=== PATIENT | male | born 1960 | race Caucasian/White ===

== ENCOUNTER 2017-12-19 12:34 | Inpatient (IN) | payer MEDICARE, OTHER ==
[~2017-12-19] VITALS: Ht 180.3 cm; Wt 62.6 kg
[~2017-12-19 12:34] MED LIST: ALBUTEROL SULF8.5 GM INH; AZITHROMYCIN250 MG PO; BACTRIM DS TAB1 EACH PO; CARDIZEM60 MG PO; CATAPRES-TTS 31 EA TD; DIAZEPAM5 MG PO; DIFLUCAN150 MG PO; DILTIAZEM 24HR180 MG; DILTIAZEM HCL60 MG PO; HYDRALAZINE HC100 MG PO; HYDROCHLOROTHIA25 MG PO; LEVAQUIN500 MG PO; NIFEDIPINE XL30 MG PO; NORCO 10-325 T1 EACH PO; PANTOPRAZOLE SO40 MG PO; PREDNISONE5 MG PO; PROMETHAZINE HC25 M1 PO; TOPROL XL25 MG PO; TOPROL XL50 MG PO; UNKNOWN BP MEDS; VASOTEC5 MG PO
[2017-12-19] MEDS ORDERED: ONDANSETRON HCL INJ 2 MG/ML VIAL IV STA (12:49)
[2017-12-19 13:04] LABS: BASOPHILS % 0.4 % (0.0-1.0); EOSINOPHILS # (AUTO) 0.1 (0.0-0.4); EOSINOPHILS % 1.5 % (0.0-6.0); HEMATOCRIT 48.5 % (38.2-49.6); HEMOGLOBIN 16.4 g/dL (14.0-18.0); LYMPHOCYTES # (AUTO) 1.9 (1.0-3.2); LYMPHOCYTES % 19.9 % (18.0-39.1); MEAN CORPUSCULAR HEMOGLOBIN 30.6 pg (28-32); MEAN CORPUSCULAR HGB CONC 33.8 g/dL (31-35); MEAN CORPUSCULAR VOLUME 90.5 fL (81-99); MONOCYTES # (AUTO) 0.6 (0.2-0.8); MONOCYTES % 6.7 % (4.4-11.3); NEUTROPHILS # (AUTO) 6.7 (2.1-6.9); NEUTROPHILS % 71.1 % (38.7-80.0); PLATELET COUNT 306 x10e3/uL (140-360); RED BLOOD COUNT 5.36 x10e6/uL (4.3-5.7); RED CELL DISTRIBUTION WIDTH 13.2 % (11.7-14.4)
[2017-12-19 13:08] LABS: INR 1.08; PROTHROMBIN TIME 13.2 seconds (11.9-14.5)
[2017-12-19 13:19] LABS: ALANINE AMINOTRANSFERASE 21 IU/L (0-55); ALKALINE PHOSPHATASE 62 IU/L (40-150); BLOOD UREA NITROGEN 24 mg/dL (7-26); BUN/CREATININE RATIO 24 (6-25); CALCIUM 10.2 mg/dL (8.4-10.2); CARBON DIOXIDE 24 mmol/L (22-29); CHLORIDE 104 mmol/L (98-107); CREATINE KINASE 79 IU/L (30-200); CREATININE, SERUM 0.99 mg/dL (0.72-1.25); EST GLOMERULAR FILTRATION RATE > 60 ML/MIN (60-); GLUCOSE 96 mg/dL (74-118); SODIUM 139 mmol/L (136-145)
--- NOTE | 2017-12-19 13:28 | Diagnostic Imaging Report ---
EXAM: XR CHEST 1 VIEW DATE: 12/19/2017 12:42 PM INDICATION: Hypertension COMPARISON: None FINDINGS: Lines and Tubes: None Heart and Mediastinum: No acute findings. Lungs and Pleura: Minimal opacities in the lung bases statistically represent atelectasis, however, infectious process could have a similar appearance. Recording device overlies lower left chest. Bones and Soft Tissues: No acute findings. IMPRESSION: 1. No acute cardiopulmonary findings. Signed by: Dr. Micheal Vieira MD on 12/19/2017 1:24 PM
[2017-12-19] MEDS ORDERED: HYDRALAZINE HCL 20 MG/ML VIAL IV STA (13:33)
[2017-12-19 13:38] LABS: THYROID STIMULATING HORMONE 0.276 uIU/mL (0.350-4.940)
[2017-12-19] MEDS ORDERED: ONDANSETRON HCL INJ 2 MG/ML VIAL IV SCH (14:16)
[2017-12-19] MEDS ORDERED: MORPHINE SULFATE 2 MG/ML SYR IV SCH (14:16)
[2017-12-19] MEDS ORDERED: SODIUM CHLORIDE 0.9% 1000ML 1,000 ML IV STA (14:16)
[2017-12-19] MEDS ORDERED: PANTOPRAZOLE 40 MG 10ML VIAL IV SCH (14:26)
[2017-12-19 14:31] LABS: CLARITY,URINE CLEAR (CLEAR); COLOR,URINE YELLOW (YELLOW)
[2017-12-19 14:33] LABS: KETONES,URINE NEGATIVE (NEGATIVE); LEUKOCYTE ESTERASE ,URINE NEGATIVE (NEGATIVE); NITRITE,URINE NEGATIVE (NEGATIVE); PROTEIN,URINE DIPSTICK NEGATIVE (NEGATIVE)
[2017-12-19 14:34] LABS: BILIRUBIN,URINE NEGATIVE (NEGATIVE); URINE UROBILINOGEN 0.2 mg/dL (0.2 - 1)
[2017-12-19] MEDS ORDERED: IOPAMIDOL 370 MG/ML 200 ML INFUS..BTL INJ ONE (14:35)
[2017-12-19] MEDS ORDERED: SODIUM CHLORIDE 0.9% 50ML 50 ML ONE (14:35)
[2017-12-19 14:44] LABS: HYALINE CASTS 0-1 (0-1); MUCUS,URINE FEW (RARE); RBC,URINE 0-5 /HPF (0-5); WBC,URINE (MAN) 0-5 /HPF (0-5)
[2017-12-19] MEDS ORDERED: CLONIDINE HCL 0.2 MG TAB PO SCH (14:45)
[2017-12-19] MEDS ORDERED: PROMETHAZINE 12.5MG/ NACL 0.9% 12.5 MG/50 ML BAG IV SCH (15:00)
[2017-12-19] MEDS: HYDROMORPHONE 1MG/1ML INJ IV SCH ×2 (15:05→20:12)
[2017-12-19 15:10] LABS: AMYLASE 49 U/L (25-125); LIPASE 17 U/L (8-78)
--- NOTE | 2017-12-19 16:15 | Diagnostic Imaging Report ---
EXAM: CT Abdomen and Pelvis WITH contrast INDICATION: Pain COMPARISON: None. TECHNIQUE: Abdomen and Pelvis was scanned utilizing a multidetector helical scanner after administration of IV contrast. Coronal and sagittal reformations were obtained. IV CONTRAST: 100 mL Isovue-370 COMPLICATIONS: None RADIATION DOSE: Total DLP:210 mGy*cm Estimated effective dose: (DLP x 0.015 x size factor) mSv CTDIvol has been reviewed. It is below the limits set by the Radiation Protocol Committee (RPC). FINDINGS: Abdomen: Lung Bases: Atelectasis/scarring. Solid Organs: Spinal hardware artifact limits evaluation. Ill-defined areas of decreased attenuation posterior aspect kidneys. Tiny nonobstructing calculus right kidney. Pancreas suboptimally evaluated. Upper GI Tract: Small hiatal hernia. Loops of small bowel measure up to 32 mm, nonspecific. Vascularity: Moderate aortic vascular calcifications and mural plaque. No aneurysm. Lymph Nodes: Nondiagnostic. Other: None. Pelvis: Bladder: Unremarkable. Other: None. Colon: Colonic evaluation limited. Moderate proximal stool. Bones: L2-3 postsurgical changes with extensive posterior decompression changes lumbar spine. IMPRESSION: 1. Exam moderately limited by extensive spray artifact from lumbar spinal hardware. 2. Ill-defined areas of decreased attenuation posterior kidneys relatively symmetric and presumed artifactual. Renal ultrasound could be obtained for further evaluation if indicated. 3. Bowel evaluation limited. Loops of small bowel prominent, without distinct obstructive changes. Infectious/inflammatory enteritis or ileus could have this appearance. Signed by: Dr. Micheal Vieira MD on 12/19/2017 4:11 PM
[2017-12-19] MEDS ORDERED: HYDRALAZINE HCL 20 MG/ML VIAL IV PRN (17:30)
[2017-12-19] MEDS ORDERED: SODIUM CHLORIDE 0.9% 1000ML 1,000 ML IV SCH (17:30)
--- OUTSIDE RECORDS SUMMARY | 2017-12-19 17:51 | XMS REPORT ---
Author Author [facility] Address Unknown Phone Unavailable Care Team Providers Care Data Technical Lead Name Role Phone DALTON URIBE Unavailable Unavailable Problems This patient has no known problems. Allergies, Adverse Reactions, Alerts This patient has no known allergies or adverse reactions. Medications This patient has no known medications. Results Test Description Test Time Test Comments Text Results Atomic Results Result Comments CT ABDOMEN/PELVIS W [facility] [address] [address] Patient Name: YESENIA SCHERER MR #: [id number] : 1960 Age/Sex: 57/M Req #: [id number] Adm Physician: Ordered by: STELLA HUTSON CORE STRIPPER Report #: [id number] Location: ER Room/Bed: Procedure: [id number] CT/CT ABDOMEN/PELVIS W Exam Date: 12/19/17 Exam Time: 1548 REPORT STATUS: Signed EXAM: CT Abdomen and Pelvis WITH contrast INDICATION: Pain COMPARISON: None. TECHNIQUE: Abdomen and Pelvis was scanned utilizing a multidetector helical scanner after administration of IV contrast. Coronal and sagittal reformations were obtained. IV CONTRAST: 100 mL Isovue-370 COMPLICATIONS: None RADIATION DOSE: Total DLP:210 mGy*cm Estimated effective dose: (DLP x 0.015 x size factor) mSv CTDIvol has been reviewed. It is below the limits set by the Radiation Protocol Committee (RPC). FINDINGS: Abdomen: Lung Bases: Atelectasis/ scarring. Solid Organs: Spinal hardware artifact limits evaluation. Ill- defined areas of decreased attenuation posterior aspect kidneys. Tiny nonobstructing calculus right kidney. Pancreas suboptimally evaluated. Upper GI Tract: Small hiatal hernia. Loops of small bowel measure up to 32 mm, nonspecific. Vascularity: Moderate aortic vascular calcifications and mural plaque. No aneurysm. Lymph Nodes: Nondiagnostic. Other: None. Pelvis: Bladder: Unremarkable. Other: None. Colon: Colonic evaluation limited. Moderate proximal stool. Bones: L2-3 postsurgical changes with extensive posterior decompression changes lumbar spine. IMPRESSION: 1. Exam moderately limited by extensive spray artifact from lumbar spinal hardware. 2. Ill-defined areas of decreased attenuation posterior kidneys relatively symmetric and presumed artifactual. Renal ultrasound could be obtained for further evaluation if indicated. 3. Bowel evaluation limited. Loops of small bowel prominent, without distinct obstructive changes. Infectious/inflammatory enteritis or ileus could have this appearance. Signed by: Dr. Micheal Vieira MD on 12/19/2017 4:11 PM Dictated By: MICHEAL VIEIRA MD 1611 Transcribed By: OLGA LIDIA on 12/19/17 1611 COPY TO: STELLA HUTSON NP CHEST SINGLE (PORTABLE) [place] [address] Patient Name: YESENIA SCHERER MR #: [id number] : 1960 Age/Sex: 57/M Req #: [id number] Adm Physician: Ordered by: STELLA HUTSON CORE STRIPPER Report #: [id number] Location: ER Room/Bed: Procedure: [id number] DX/CHEST SINGLE (PORTABLE) Exam Date: 12/19/17 Exam Time: 1310 REPORT STATUS: Signed EXAM: XR CHEST 1 VIEW DATE: 12/19/2017 12:42 PM INDICATION: Hypertension COMPARISON: None FINDINGS: Lines and Tubes: None Heart and Mediastinum: No acute findings. Lungs and Pleura: Minimal opacities in the lung bases statistically represent atelectasis, however, infectious process could have a similar appearance. Recording device overlies lower left chest. Bones and Soft Tissues: No acute findings. IMPRESSION: 1. No acute cardiopulmonary findings. Signed by: Dr. Micheal Vieira MD on 2017 1:24 PM Dictated By: MICHEAL VIEIRA MD 1324 Transcribed By: OLGA LIDIA on 12/19/17 1324 COPY TO: STELLA HUTSON NP
[2017-12-19 18:35] VITALS: BP 168/80
[2017-12-19 19:20] VITALS: BP 157/94
[2017-12-19] MEDS: D5.45%NS/KCL 20MEQ 1,000 ML IV SCH (20:12)
[2017-12-19] MEDS: ONDANSETRON HCL INJ 2 MG/ML VIAL IV PRN (20:13)
[2017-12-19 20:14] VITALS: BP 157/94
[2017-12-19 20:58] VITALS: BP 157/94
[2017-12-19 21:00] VITALS: BP 157/94
[2017-12-20] MEDS: HYDROMORPHONE 1MG/1ML INJ IV PRN ×6 (00:36→21:00)
[2017-12-20] MEDS: ONDANSETRON HCL INJ 2 MG/ML VIAL IV PRN ×6 (00:37→21:00)
[2017-12-20 01:00] VITALS: BP 170/98
[2017-12-20] MEDS ORDERED: PANTOPRAZOLE 40 MG 10ML VIAL IV SCH (01:00)
[2017-12-20] MEDS: D5.45%NS/KCL 20MEQ 1,000 ML IV SCH ×2 (05:22→19:09)
[2017-12-20] MEDS: METRONIDAZOLE 500MG/NS 100ML 100 ML IV SCH ×3 (06:10→21:00)
[2017-12-20 07:01] LABS: BASOPHILS % 0.5 % (0.0-1.0); EOSINOPHILS # (AUTO) 0.2 (0.0-0.4); EOSINOPHILS % 2.5 % (0.0-6.0); HEMATOCRIT 39.2 % (38.2-49.6); LYMPHOCYTES # (AUTO) 1.7 (1.0-3.2); LYMPHOCYTES % 28.4 % (18.0-39.1); MEAN CORPUSCULAR HEMOGLOBIN 30.6 pg (28-32); MEAN CORPUSCULAR HGB CONC 33.2 g/dL (31-35); MEAN CORPUSCULAR VOLUME 92.2 fL (81-99); MONOCYTES # (AUTO) 0.6 (0.2-0.8); NEUTROPHILS # (AUTO) 3.6 (2.1-6.9); NEUTROPHILS % 59.3 % (38.7-80.0); PLATELET COUNT 237 x10e3/uL (140-360); RED BLOOD COUNT 4.25 x10e6/uL (4.3-5.7); RED CELL DISTRIBUTION WIDTH 13.1 % (11.7-14.4)
[2017-12-20 07:33] LABS: ALANINE AMINOTRANSFERASE 16 IU/L (0-55); ALBUMIN 3.1 g/dL (3.5-5.0); ALKALINE PHOSPHATASE 47 IU/L (40-150); ANION GAP 9.7 mmol/L (8-16); BLOOD UREA NITROGEN 15 mg/dL (7-26); BUN/CREATININE RATIO 19 (6-25); CARBON DIOXIDE 26 mmol/L (22-29); CHLORIDE 102 mmol/L (98-107); CREATININE, SERUM 0.81 mg/dL (0.72-1.25); EST GLOMERULAR FILTRATION RATE > 60 ML/MIN (60-); GLUCOSE 101 mg/dL (74-118); POTASSIUM 3.7 mmol/L (3.5-5.1); SODIUM 134 mmol/L (136-145)
--- NOTE | 2017-12-20 07:36 | Progress Note ---
DATE: NO DICTATION, LENGTH 2 SECONDS. Job#: [id number] MH
[2017-12-20 07:52] VITALS: BP 174/101
--- NOTE | 2017-12-20 07:52 | History and Physical ---
PRIMARY CARE PHYSICIAN: Dr. Green CHIEF COMPLAINT: Nausea and vomiting. HISTORY OF PRESENT ILLNESS: This is a 57-year-old man with a history of diastolic congestive heart failure and abnormal liver ultrasound, now developing nausea and vomiting for the past 3 days. States that it has been severe with associated diarrhea. No fever, chills or sweats. He came to the hospital for further evaluation and management. PAST MEDICAL HISTORY: Diastolic congestive heart failure, respiratory failure, COPD, pneumonia, chronic pain syndrome, hypertension, paroxysmal atrial fibrillation, nonobstructive coronary artery disease, peptic ulcer disease, GI bleeding, GERD. PAST SURGICAL HISTORY: Left knee arthroscopy. ALLERGIES: PER ELECTRONIC MEDICAL RECORD. FAMILY HISTORY/SOCIAL HISTORY: The patient is single. He has no children. No alcohol or illicits. He smokes half a pack of cigarettes per day. MEDICATIONS: Per electronic medical records. REVIEW OF SYSTEMS: Denies any dizziness or chest pain. PHYSICAL EXAMINATION VITAL SIGNS: Have been reviewed. GENERAL: A tired-appearing man resting in bed. HEENT: Anicteric. Pupils respond to light. No oral lesions. CARDIOVASCULAR: Normal S1 and S2. LUNGS: Moderate breath sounds. ABDOMEN: Soft and nondistended. He has midabdominal discomfort on palpation. No rebound or guarding. EXTREMITIES: No edema or calf tenderness. NEUROLOGICAL: Alert and oriented times 3. Moving all extremities. SKIN: Dry. PSYCHIATRIC: Flat affect. LABS: Reviewed. MEDICATIONS: Reviewed. ASSESSMENT: A 57-year-old man with: 1. Acute gastroenteritis. 2. Ileostomy. 3. Hypertensive urgency/emergency. 4. Chronic diastolic congestive heart failure. 5. Chronic obstructive pulmonary disease with continued cigarette use of half pack per day. 6. Paroxysmal atrial fibrillation. PLAN 1. Treat empirically with Flagyl. May require Levaquin as well. 2. GI consulted. 3. N.p.o. status. 4. Continue rehydration with IV fluids. 5. Continue IV PPI. 6. Continue IV Phenergan and other antiemetics. 7. Physical therapy consultation. 8. Monitor closely. Follow up labs. Job#: [id number] WI
[2017-12-20] MEDS ORDERED: CLONIDINE HCL 0.2 MG/24 HR 1 EA PATCH TOP SCH (08:00)
[2017-12-20] MEDS: PANTOPRAZOLE 40 MG 10ML VIAL IV SCH ×2 (08:04→20:19)
[2017-12-20 11:24] VITALS: BP 183/86
--- NOTE | 2017-12-20 11:57 | Diagnostic Imaging Report ---
PROCEDURE:X-RAY ABDOMEN - KUB COMPARISON:None. INDICATIONS:NAUSEA FINDINGS: The bowel gas pattern shows no dilated, air-filled loops of bowel. No mass effect or organomegaly. Postsurgical changes of the lumbar spine with fusion of L2 and L3 with intervertebral disc spacer placement and bone graft material. Stimulation device projects over the mid epigastric region. Otherwise no abnormal calcification. Degenerative changes of the hips. CONCLUSION: Nonobstructive bowel gas pattern. Dictated by: Lc Becerra M.D. on 12/20/2017 at 11:59 Electronically approved by: Lc Becerra M.D. on 12/20/2017 at 11:59
[2017-12-20] MEDS: HYDRALAZINE HCL 20 MG/ML VIAL IV PRN (15:30)
[2017-12-20 15:48] VITALS: BP 210/110
[2017-12-20] MEDS: PROMETHAZINE HCL (IM) 25 MG/ML VIAL IV PRN ×2 (16:05→20:19)
[2017-12-20] MEDS ORDERED: SODIUM CHLORIDE 0.9% 50ML 50 ML ONE (16:05)
[2017-12-20 19:53] VITALS: BP 170/84
[2017-12-20 19:54] VITALS: BP 170/84
[2017-12-20] MEDS: METOCLOPRAMIDE HCL 10 MG/2ML VIAL IV SCH (23:13)
[2017-12-21] VITALS (8 sets, daily range): BP systolic 149–189; BP diastolic 76–97
[2017-12-21] MEDS: HYDROMORPHONE 1MG/1ML INJ IV PRN ×7 (01:00→23:30)
[2017-12-21] MEDS: ONDANSETRON HCL INJ 2 MG/ML VIAL IV PRN ×6 (01:00→23:30)
[2017-12-21] MEDS: HYDRALAZINE HCL 20 MG/ML VIAL IV PRN ×2 (04:20→20:48)
[2017-12-21] MEDS: METOCLOPRAMIDE HCL 10 MG/2ML VIAL IV SCH ×4 (05:01→23:30)
[2017-12-21] MEDS: METRONIDAZOLE 500MG/NS 100ML 100 ML IV SCH ×3 (05:01→21:02)
[2017-12-21] MEDS: PANTOPRAZOLE 40 MG 10ML VIAL IV SCH ×2 (07:38→20:44)
--- NOTE | 2017-12-21 15:31 | Operative Report ---
DATE OF PROCEDURE: December 21, 2017 REFERRING PHYSICIAN: Neel Mario MD PROCEDURE PERFORMED: Esophagogastroduodenoscopy with biopsies. INDICATIONS FOR ESOPHAGOGASTRODUODENOSCOPY: Upper abdominal pain, nausea, vomiting. MEDICATION: Patient was done under MAC. Please see anesthesiologist's note. PROCEDURE: With patient in left lateral decubitus position, the flexible fiberoptic Olympus gastroscope was introduced into the esophagus under direct visualization without any difficulty. There was some patchy erythema noted in distal esophagus. A minute tongue of velvety red mucosa was noted to extend proximally from the GE junction that was biopsied to rule out Browne's. The scope was then advanced with ease into the stomach traversing a small sliding hiatal hernia. Mucosa overlying the antrum and the body revealed some diffuse erythema and low-grade to moderate edema and biopsies were obtained, sent to stain for H. pylori. The pylorus was of normal contour and shape, was intubated with ease and the scope was advanced all the way to the 2nd portion of the duodenum. The scope was then withdrawn slowly and mucosa overlying the proximal 2nd portion and the duodenal bulb appeared to be within normal limits. The scope was then withdrawn back into the stomach and retroflexed and the mucosa overlying the fundus and the cardia appeared to be within normal limits. The scope was then straightened out, the stomach was decompressed. The scope was subsequently withdrawn. Patient tolerated the procedure well. IMPRESSION: 1. Mild distal esophagitis. 2. Rule out Browne's esophagus. 3. Small sliding hiatal hernia. 4. Gastritis. Biopsied and biopsies sent to stain stained for H. pylori. PLAN: Follow up histology. Continue current therapy. Add Carafate 1 gram p.o. a.c. t.i.d. and nightly. Job#: [id number] DG cc:NEEL MARIO MD
[2017-12-21] MEDS ORDERED: HYDROCODONE/APAP 10MG-325MG TAB PO PRN (17:15)
[2017-12-21] MEDS: SUCRALFATE 1 GM TAB PO SCH ×2 (17:22→20:44)
[2017-12-21] MEDS: D5.45%NS/KCL 20MEQ 1,000 ML IV SCH ×2 (17:38→20:44)
[2017-12-21] MEDS: COLLAGENASE OINTMENT 30 GM TUBE TP SCH (17:38)
[2017-12-21] MEDS ORDERED: PROPOFOL IV EMULSION 10 MG/ML 20 ML VIAL ONE (17:43)
[2017-12-21] MEDS ORDERED: LIDOCAINE HCL 2% LOCAL INJ 5 ML SDV VIAL INJ ONE (17:43)
[2017-12-21] MEDS ORDERED: PROMETHAZINE 12.5MG/ NACL 0.9% 50 ML IV PRN (17:45)
[2017-12-21] MEDS ORDERED: FENTANYL CITRATE/PF 100MCG/2 ML INJ ONE (18:20)
[2017-12-21] MEDS ORDERED: MIDAZOLAM HCL 2 MG/2 ML VIAL ONE (18:20)
[2017-12-21] MEDS: DILTIAZEM HCL ER 90MG CAPSULE PO SCH (18:43)
[2017-12-21 19:22] LABS: FREE THYROXINE INDEX 2.2333 (1.4-3.8)
[2017-12-22] MEDS: HYDROMORPHONE 1MG/1ML INJ IV PRN ×4 (03:30→16:20)
[2017-12-22] MEDS: ONDANSETRON HCL INJ 2 MG/ML VIAL IV PRN ×4 (03:30→16:20)
[2017-12-22 03:54] VITALS: BP 129/73
[2017-12-22] MEDS: METOCLOPRAMIDE HCL 10 MG/2ML VIAL IV SCH ×3 (05:01→16:26)
[2017-12-22] MEDS: METRONIDAZOLE 500MG/NS 100ML 100 ML IV SCH ×2 (05:01→12:53)
[2017-12-22 06:32] LABS: BASOPHILS % 0.3 % (0.0-1.0); EOSINOPHILS # (AUTO) 0.4 (0.0-0.4); EOSINOPHILS % 5.9 % (0.0-6.0); HEMATOCRIT 40.3 % (38.2-49.6); HEMOGLOBIN 13.5 g/dL (14.0-18.0); LYMPHOCYTES % 31.9 % (18.0-39.1); MEAN CORPUSCULAR HEMOGLOBIN 30.5 pg (28-32); MEAN CORPUSCULAR HGB CONC 33.5 g/dL (31-35); MEAN CORPUSCULAR VOLUME 91.2 fL (81-99); MONOCYTES # (AUTO) 0.6 (0.2-0.8); MONOCYTES % 10.2 % (4.4-11.3); NEUTROPHILS # (AUTO) 3.2 (2.1-6.9); NEUTROPHILS % 51.5 % (38.7-80.0); PLATELET COUNT 259 x10e3/uL (140-360); RED BLOOD COUNT 4.42 x10e6/uL (4.3-5.7); RED CELL DISTRIBUTION WIDTH 12.8 % (11.7-14.4)
[2017-12-22] MEDS: SUCRALFATE 1 GM TAB PO SCH ×3 (07:30→16:25)
[2017-12-22 08:00] VITALS: BP 137/87
[2017-12-22] MEDS: D5.45%NS/KCL 20MEQ 1,000 ML IV SCH (08:00)
[2017-12-22 08:02] VITALS: BP 137/87
[2017-12-22] MEDS: DILTIAZEM HCL ER 90MG CAPSULE PO SCH ×2 (08:24→17:00)
[2017-12-22] MEDS: PANTOPRAZOLE 40 MG 10ML VIAL IV SCH (08:24)
[2017-12-22] MEDS: COLLAGENASE OINTMENT 30 GM TUBE TP SCH (08:25)
[2017-12-22] MEDS ORDERED: HYDROCHLOROTHIAZIDE 25 MG TAB PO SCH (09:00)
[2017-12-22] MEDS ORDERED: DILTIAZEM HCL ER 90MG CAPSULE PO SCH (09:00)
[2017-12-22] MEDS ORDERED: ENALAPRIL MALEATE 5 MG TAB PO SCH (09:00)
[2017-12-22] MEDS ORDERED: ENALAPRIL MALEATE 10 MG TAB PO SCH (09:00)
[2017-12-22 12:24] VITALS: BP 177/98
[2017-12-22] MEDS: HYDRALAZINE HCL 20 MG/ML VIAL IV PRN (12:53)
[2017-12-22 17:01] VITALS: BP 151/64
[2017-12-22] MEDS ORDERED: REGLAN10 MG PO ×2 (19:33→19:34)
[2017-12-22] MEDS ORDERED: CARAFATE1 GM PO (19:35)
[2017-12-22] MEDS ORDERED: PANTOPRAZOLE SO40 MG PO (19:36)
--- NOTE | 2017-12-23 03:35 | Discharge Summary ---
The patient was hospitalized through the emergency room. See also emergency room note and admission history and physical. He is currently admitted by Dr. Vo during my absence. Initial impression was acute gastroenteritis. ER KUB suggested ileus. Other diagnoses include hypertension, COPD, heavy smoker. Paroxysmal atrial fibrillation. Failed back pain and chronic pain. The patient was counseled to discontinue smoking. He was offered aids. See also serial laboratory and imaging studies. TSH 0.2 low. T7 normal. Chemistries essentially normal. INR 1.08. Urinalysis normal. Amylase/lipase normal. ER chest x-ray, December 19, no acute findings. Abdominal, pelvic CT, December 19, ER, presumed artifactual areas of decreased continuation posterior kidneys. Exam limited by extensive spray artifacts from lumbar spinal hardware. Loops of small bowel prominence. "Infectious-inflammatory enteritis or ileus could have this appearance." Dr. Vieira, radiologist here. The patient was kindly seen by Dr. Prachi Simmons, gastroenterology. He underwent EGD. See operative report. Findings included esophagitis. Hiatal hernia. Gastritis. Pathology reports are still pending. The patient's blood pressure and pain were controlled while here. No episodes of AFib while here. The patient experienced no respiratory distress while here. The patient was counseled regarding the need to continue tobacco cessation. He was advised regarding appropriate medical regimen. He was asked to return to clinic in 2 days for close followup regarding his blood pressure and path reports. See also discharge med reconciliation list. Prior to hospitalization, the patient was on antihypertensives and analgesics, which will be continued and increased in dose. FINAL IMPRESSIONS 1. Acute gastritis and esophagitis. 2. Past history of peptic ulcer disease. 3. Suspected ileus, gastroenteritis on admission emergency room computed tomography with followup kidney, ureter, bladder x-ray negative. See report. 4. Malignant hypertension. 5. Paroxysmal atrial fibrillation. 6. Chronic obstructive pulmonary disease and heavy tobacco use. 7. Failed back with 5 prior back surgeries. 8. Chronic pain. NEEL MARIO MD Job#: [id number] CQ
== END 2017-12-22 20:04 | disposition home or self-care (01) | DRG 392 ==
LOC: ER 12:36 → ERHOLD 17:48 → IMCU 17:50 → OBSVTOIN 12-22 12:18
PROVIDERS: ADMIT Internal Medicine; ATTEND Internal Medicine
PROC: 0DB68ZX Excision of Stomach, Via Natural or Artificial Opening Endoscopic, Diagnostic (ICD-10-PCS; 2017-12-21)
PROC: 0DB78ZX Excision of Stomach, Pylorus, Via Natural or Artificial Opening Endoscopic, Diagnostic (ICD-10-PCS; principal; 2017-12-21 14:30)
DX: A09 Infectious gastroenteritis and colitis, unspecified (principal); I11.0 Hypertensive heart disease with heart failure; I50.32 Chronic diastolic (congestive) heart failure; Z43.2 Encounter for attention to ileostomy; I16.0 Hypertensive urgency; J44.9 Chronic obstructive pulmonary disease, unspecified; I48.0 Paroxysmal atrial fibrillation; F17.210 Nicotine dependence, cigarettes, uncomplicated; G89.4 Chronic pain syndrome; I25.10 Atherosclerotic heart disease of native coronary artery without angina pectoris; Z87.11 Personal history of peptic ulcer disease; K29.70 Gastritis, unspecified, without bleeding; K44.9 Diaphragmatic hernia without obstruction or gangrene; K20.9 Esophagitis, unspecified
CPT/HCPCS: 36415; 43239; 71045; 74018; 74177; 80053; 81001; 82150; 82550; 82553; 83605; 83690; 84436; 84443; 84479; 84484; 85025; 85610; 85730; 88305; 88312; 93005; 99284; G0378; J0360; J1170; J2001; J2250; J2270; J2405; J2550; J2765; J7030; Q9967

== ENCOUNTER 2018-01-12 21:48 | Emergency (ER) | payer OTHER ==
[~2018-01-12] VITALS: Ht 180.3 cm; Wt 65.8 kg
[~2018-01-12 21:48] MED LIST changes: +CARAFATE1 GM PO; +REGLAN10 MG PO
--- OUTSIDE RECORDS SUMMARY | 2018-01-12 21:51 | XMS REPORT | Continuity of Care Document ---
Author Author [facility] Organization [facility] Address [address] [place] [place] [address] Phone Unavailable Care Team Providers Care Biological Photographer Name Role Phone NEEL MARIO MD PCP Insurance Providers Guarantor Yesenia Scherer Address [address] [place] [address] Email [facility] Policy Number [id number] Subscriber's Name SilverYesenia Bellamy Relationship 18 Self / Same As Patient Group Number [id number] Group Name UNEMPLOYED Effective Date 17 [facility] Policy Number [id number] Subscriber's Name Yesenia Scherer Relationship 18 Self / Same As Patient Group Number [id number] Group Name UNEMPLOYED Effective Date 11 Advance Directives Directive Response Recorded Date/Time Does the patient have an advance directive? No 12/19/17 8:48pm If yes, is advance directive on file with [facility]? No 12/19/17 8:48pm If not on file with [facility] will patient provide a copy? Yes 12/19/17 8:48pm Do you have a Directive to Physician? No 12/19/17 3:18pm Do you have a Medical Power of Email Campaign Specialist? No 12/19/17 3:18pm Do you have an out of hospital Do Not Resuscitate Order? No 12/19/17 3:18pm Do you have any special needs we should be aware of? No 12/19/17 3:18pm Do you have a support person here with you today? Yes 12/19/17 3:18pm Did patient receive Notice of Privacy Practices? Yes 12/19/17 3:18pm Did patient receive patient rights and responsibilities? Yes 12/19/17 3:18pm Problems Medical Problem Onset Date Status Bradycardia 06/19/2015 Acute CHF (congestive heart failure) 12/25/2014 Acute COPD (chronic obstructive pulmonary disease) 06/19/2015 Acute COPD exacerbation 12/25/2014 Acute Hypertensive crisis without congestive heart failure 11/26/2014 Acute Hypoxia Unknown Intractable pain 06/28/2014 Acute Left rib fracture 06/28/2014 Acute Occult blood in stools 05/26/2015 Acute Sepsis 12/25/2014 Acute UTI (urinary tract infection) 12/25/2014 Acute Urinary retention Unknown Medications Current Home Medications Medication Dose Units Route Directions Days Qty Instructions Start Date Diltiazem Hcl (Cardizem) 60 Mg Tablet 100 Mg Oral Twice A Day Enalapril Maleate (Vasotec) 5 Mg Tab 20 Mg Oral Daily 30 Tab Hydrochlorothiazide 25 Mg Tablet 12.5 Mg Oral Daily 30 Tab Hydrocodone Bit/Acetaminophen (Arbela 10-325 Tablet) 1 Each Tablet 1 Tab Oral Every 4 Hours as needed for Pain Metoclopramide Hcl (Reglan) 10 Mg Tablet 10 Mg Oral Three Times A Day Metoclopramide Hcl (Reglan) 10 Mg Tablet 10 Mg Oral Pantoprazole Sodium (Protonix) 40 Mg Tablet.dr 40 Mg Oral Daily Sucralfate (Carafate) 1 Gm Tablet 1 G Oral Four Times Daily Past Home Medications Medication Directions Ordered Status Albuterol Sulfate (Albuterol Sulfate Hfa) 8.5 Gm Hfa.aer.ad, 2 Inh Inhalation Every 4 Hours as needed for Shortness Of Breath Discontinued Azithromycin (Z-Sy) 250 Mg Tablet, 250 Mg Oral Daily Discontinued Clonidine Hcl (Catapres-Tts 3) 1 Ea Patch, 0.3 Mg Transderm Daily Discontinued Diazepam 5 Mg Tablet, 10 Mg Oral Bedtime Discontinued Diltiazem Hcl 60 Mg Tablet, 60 Mg Oral Every Morning Discontinued Diltiazem Hcl (Diltiazem 24HR Er) 180 Mg Capcr, Discontinued Fluconazole (Diflucan) 150 Mg Tablet, 150 Mg Oral Daily At 1700 Discontinued Levofloxacin (Levaquin) 500 Mg Tablet, 500 Mg Oral Daily Discontinued Metoprolol Succinate (Toprol Xl) 25 Mg Tab.er.24h, 25 Mg Oral Daily Discontinued Metoprolol Succinate (Toprol Xl) 50 Mg Tab.er.24h, 100 Mg Oral Daily Discontinued Pantoprazole Sodium (Protonix) 40 Mg Tablet.dr, 40 Mg Oral Daily Discontinued Prednisone 5 Mg Tablet, 10 Mg Oral Daily Discontinued Sulfamethoxazole/Trimethoprim (Bactrim Ds Tablet) 1 Each Tablet, 1 Tab Oral Daily Discontinued Unknown Bp Meds , Discontinued Social History Social History Problem Response Recorded Date/Time Onset Date Status Hx Psychiatric Problems No 12/19/2017 8:48pm Not Applicable Not Applicable Hx Eating Disorder No 12/19/2017 8:48pm Not Applicable Not Applicable Hx Substance Use Disorder No 12/19/2017 8:48pm Not Applicable Not Applicable Hx Depression No 12/19/2017 8:48pm Not Applicable Not Applicable Hx Alcohol Use Yes 12/19/2017 8:48pm Not Applicable Not Applicable Hx Substance Use Treatment No 12/19/2017 8:48pm Not Applicable Not Applicable Hx Physical Abuse No 12/19/2017 8:48pm Not Applicable Not Applicable Smoking Status Start Date Stop Date Current every day smoker Hospital Discharge Instructions No hospital discharge instruction information available. Plan of Care Discharge Date 12/22/17 8:04pm Disposition HOME, SELF-CARE Instructions/Education Provided Abdominal Pain - Adult Prescriptions See Medication Section Additional Instructions/Education cardiac Functional Status Query Response Date Recorded Assistive Devices None December 19, 2017 8:14pm Ambulation Ability Independent December 19, 2017 8:14pm Toileting Ability Independent December 19, 2017 8:14pm Allergies, Adverse Reactions, Alerts No known allergies. Immunizations No immunization information available. Vital Signs Acute Vital Signs Vital Response Date/Time Temperature (Fahrenheit) 96.6 degrees F (97.6 - 99.5) 12/22/2017 5:01pm Pulse Pulse Rate (adult) 50 bpm (60 - 90) 12/22/2017 5:01pm Respiratory Rate 18 bpm (12 - 24) 12/22/2017 5:01pm Blood Pressure 151/64 mm Hg 12/22/2017 5:01pm Height 5 ft 11 in 12/19/2017 12:35pm Weight 138.03 lb 12/22/2017 8:03am Body Mass Index 19.3 kg/m^2 12/22/2017 8:03am Results Laboratory Results Test Name Result Units Flags Reference Collection Date/Time Result Date/ Time Comments Urine Opiates Screen POSITIVE H NEGATIVE 04/13/2017 12:00pm 2016 1:07pm This test provides only a screen. Positive results should be repeated by a confirmatory test. Urine Barbiturates Screen NEGATIVE NEGATIVE 04/13/2017 12:00pm 2016 1:07pm Urine Phencyclidine Screen NEGATIVE NEGATIVE 04/13/2017 12:00pm 04/13 1:07pm Urine Amphetamines Screen NEGATIVE NEGATIVE 04/13/2017 12:00pm 2016 1:07pm Urine Benzodiazepines Screen POSITIVE H NEGATIVE 04/13/2017 12:00pm 1:07pm This test provides only a screen. Positive results should be repeated by a confirmatory test. Urine Cocaine Screen NEGATIVE NEGATIVE 04/13/2017 12:00pm 04/13/2017 1:07pm Urine Cannabinoids Screen NEGATIVE NEGATIVE 04/13/2017 12:00pm 2016 1:07pm THESE RESULTS ARE FOR MEDICAL TREATMENT ONLY *THIS REPORT CONTAINS UNCONFIRMED SCREENING RESULTS* POSITIVE RESULTS WILL BE CONFIRMED BY REFERENCE LAB UPON REQUEST CUT-OFF DRUG CLASS CONCENTRATION ng/mL Amphetamines 1000 Methamphetamines 1000 Cocaine 300 Opiate 300 Phencyclidine 25 Cannabinoid 50 Barbiturates 300 Benzodiazepine 300 Methadone 300 Bedside Glucose 125 mg/dL H 70-120 04/16/2017 7:24am 04/16/2017 8:57am Meter ID: [id number] B-Type Natriuretic Peptide 603.2 pg/mL H 0-100 04/12/2017 6:27pm 2016 7:32pm Acetaminophen Level 14 ug/mL 10-30 04/14/2017 9:00pm 04/14/2017 10: 14pm Arterial Blood pH 7.36 7.31-7.41 04/14/2017 1:25pm 04/14/2017 1:38pm Arterial Blood Partial Pressure CO2 57 mmHg H 41-51 04/14/2017 1:25pm 1:38pm Arterial Blood Partial Pressure O2 148 mmHg H 80-105 04/14/2017 1:25pm 04/14/2017 1:38pm Arterial Blood HCO3 33 mmol/L H 23-28 04/14/2017 1:25pm 04/14/2017 1: 38pm Arterial Blood Base Excess 7.0 mmol/L H -2 - 3 04/14/2017 1:25pm 2016 1:38pm Arterial Blood Oxygen Saturation 99.0 % H 95-98 04/14/2017 1:25pm 2016 1:38pm White Blood Count 6.27 x10e3/uL 4.8-10.8 12/22/2017 6:00am 12/22/2017 6 :50am Red Blood Count 4.42 x10e6/uL 4.3-5.7 12/22/2017 6:00am 12/22/2017 6: 50am Hemoglobin 13.5 g/dL L 14.0-18.0 12/22/2017 6:00am 12/22/2017 6:50am Hematocrit 40.3 % 38.2-49.6 12/22/2017 6:00am 12/22/2017 6:50am Mean Corpuscular Volume 91.2 fL 81-99 12/22/2017 6:00am 12/22/2017 6: 50am Mean Corpuscular Hemoglobin 30.5 pg 28-32 12/22/2017 6:00am 12/22/2017 6:50am Mean Corpuscular Hemoglobin Concent 33.5 g/dL 31-35 12/22/2017 6:00am 12/22/2017 6:50am Red Cell Distribution Width 12.8 % 11.7-14.4 12/22/2017 6:00am 2017 6:50am Platelet Count 259 x10e3/uL 140-360 12/22/2017 6:00am 12/22/2017 6: 50am Neutrophils (%) (Auto) 51.5 % 38.7-80.0 12/22/2017 6:00am 12/22/2017 6: 50am Lymphocytes (%) (Auto) 31.9 % 18.0-39.1 12/22/2017 6:00am 12/22/2017 6: 50am Monocytes (%) (Auto) 10.2 % 4.4-11.3 12/22/2017 6:00am 12/22/2017 6: 50am Eosinophils (%) (Auto) 5.9 % 0.0-6.0 12/22/2017 6:00am 12/22/2017 6: 50am Basophils (%) (Auto) 0.3 % 0.0-1.0 12/22/2017 6:00am 12/22/2017 6:50am IM GRANULOCYTES % 0.2 % 0.0-1.0 12/22/2017 6:00am 12/22/2017 6:50am Neutrophils # (Auto) 3.2 2.1-6.9 12/22/2017 6:00am 12/22/2017 6:50am Lymphocytes # (Auto) 2.0 1.0-3.2 12/22/2017 6:00am 12/22/2017 6:50am Monocytes # (Auto) 0.6 0.2-0.8 12/22/2017 6:00am 12/22/2017 6:50am Eosinophils # (Auto) 0.4 0.0-0.4 12/22/2017 6:00am 12/22/2017 6:50am Basophils # (Auto) 0.0 0.0-0.1 12/22/2017 6:00am 12/22/2017 6:50am Absolute Immature Granulocyte (auto 0.01 x10e3/uL 0-0.1 12/22/2017 6: 00am 12/22/2017 6:50am Prothrombin Time 13.2 seconds 11.9-14.5 12/19/2017 12:50pm 12/19/2017 1 :12pm Prothromb Time International Ratio 1.08 12/19/2017 12:50pm 2017 1:12pm Oral Anticoagulant Therapy INR Values: 1. Low Intensity Therapy 1.5 - 2.0 2. Moderate Intensity Therapy 2.0 - 3.0 3. High Intensity Therapy(1) 2.5 - 3.5 4. High Intensity Therapy(2) 3.0 - 4.0 5. Panic Value INR > 5.0 Activated Partial Thromboplast Time 28.0 seconds 23.8-35.5 12/19/2017 12 :50pm 12/19/2017 1:12pm Urine Color YELLOW YELLOW 12/19/2017 2:18pm 12/19/2017 2:36pm Urine Clarity CLEAR CLEAR 12/19/2017 2:18pm 12/19/2017 2:36pm Urine Specific [place] 1.030 H 1.010-1.025 12/19/2017 2:18pm 2017 2:36pm Urine pH 6 5 - 7 12/19/2017 2:18pm 12/19/2017 2:36pm Urine Leukocyte Esterase NEGATIVE NEGATIVE 12/19/2017 2:18pm 2017 2:36pm Urine Nitrite NEGATIVE NEGATIVE 12/19/2017 2:18pm 12/19/2017 2:36pm Urine Protein NEGATIVE NEGATIVE 12/19/2017 2:18pm 12/19/2017 2:36pm Urine Glucose (UA) NEGATIVE NEGATIVE 12/19/2017 2:18pm 12/19/2017 2: 36pm Urine Ketones NEGATIVE NEGATIVE 12/19/2017 2:18pm 12/19/2017 2:36pm Urine Urobilinogen 0.2 mg/dL 0.2 - 1 12/19/2017 2:18pm 12/19/2017 2: 36pm Urine Bilirubin NEGATIVE NEGATIVE 12/19/2017 2:18pm 12/19/2017 2: 36pm Urine Blood NEGATIVE NEGATIVE 12/19/2017 2:18pm 12/19/2017 2:36pm Urine WBC 0-5 /HPF 0-5 12/19/2017 2:18pm 12/19/2017 2:45pm Urine RBC 0-5 /HPF 0-5 12/19/2017 2:18pm 12/19/2017 2:45pm Urine Bacteria NONE /HPF NONE 12/19/2017 2:18pm 12/19/2017 2:45pm Urine Epithelial Cells NONE /LPF NONE 12/19/2017 2:18pm 12/19/2017 2: 45pm Urine Hyaline Casts 0-1 0-1 12/19/2017 2:18pm 12/19/2017 2:45pm Urine Mucus FEW H RARE 12/19/2017 2:18pm 12/19/2017 2:45pm Sodium Level 134 mmol/L L 136-145 12/20/2017 6:0812/20/2017 7:37am Potassium Level 3.7 mmol/L 3.5-5.1 12/20/2017 6:0812/20/2017 7:37am Chloride Level 102 mmol/L 98-107 12/20/2017 6:0812/20/2017 7:37am Carbon Dioxide Level 26 mmol/L 22-29 12/20/2017 6:0812/20/2017 7: 37am Anion Gap 9.7 mmol/L 8-12/20/2017 6:0812/20/2017 7:37am Blood Urea Nitrogen 15 mg/dL 7-12/20/2017 6:0812/20/2017 7:37am Creatinine 0.81 mg/dL 0.72-1.25 12/20/2017 6:0812/20/2017 7:37am BUN/Creatinine Ratio 19 6-12/20/2017 6:0812/20/2017 7:37am Estimat Glomerular Filtration Rate > 60 ML/MIN 60- 12/20/2017 6: 7:37am Ranges were taken from the National Kidney Disease Education Program and the National Kid[employer] Foundation literature. Reference ranges: 60 or greater: Normal 16-59 (for 3 consecutive months): Chronic kidney disease 15 or less: Kidney failure Glucose Level 101 mg/dL 74-118 12/20/2017 6:12/20/2017 7:37am Calcium Level 9.0 mg/dL 8.4-10.2 12/20/2017 6:12/20/2017 7:37am Lactic Acid Level 6.9 MG/DL 4.5-19.8 12/19/2017 5:35pm 12/19/2017 5: 59pm Total Bilirubin 0.8 mg/dL 0.2-1.2 12/20/2017 6:0812/20/2017 7:37am Aspartate Amino Transf (AST/SGOT) 14 IU/L 5-34 12/20/2017 6:082017 7:37am Alanine Aminotransferase (ALT/SGPT) 16 IU/L 0-55 12/20/2017 6:08 7:37am Total Protein 6.1 g/dL # L 6.5-8.1 12/20/2017 6:08am 12/20/2017 7:37am Albumin 3.1 g/dL # L 3.5-5.0 12/20/2017 6:08am 12/20/2017 7:37am Globulin 3.0 g/dL 2.3-3.5 12/20/2017 6:08am 12/20/2017 7:37am Albumin/Globulin Ratio 1.0 0.8-2.0 12/20/2017 6:08am 12/20/2017 7: 37am Alkaline Phosphatase 47 IU/L 40-150 12/20/2017 6:08am 12/20/2017 7: 37am Creatine Kinase 79 IU/L 30-200 12/19/2017 12:50pm 12/19/2017 1:23pm Creatine Kinase MB 2.00 ng/mL 0-5.0 12/19/2017 12:50pm 12/19/2017 1: 39pm Troponin I 0.014 ng/mL 0-0.300 12/19/2017 12:50pm 12/19/2017 1:39pm Amylase Level 49 U/L 25-125 12/19/2017 12:50pm 12/19/2017 3:13pm Lipase 17 U/L 8-78 12/19/2017 12:50pm 12/19/2017 3:13pm Free Thyroxine Index 2.2333 1.4-3.8 12/21/2017 6:13pm 12/21/2017 7: 25pm Thyroxine (T4) 6.01 ug/dL 4.5-10.9 12/21/2017 6:13pm 12/21/2017 7:25pm Triiodothyronine (T3) Uptake 37.16 % H 22.5-37.0 12/21/2017 6:13pm 12/21 7:25pm Thyroid Stimulating Hormone (TSH) 0.276 uIU/mL L 0.350-4.940 12/19/2017 12:50pm 12/19/2017 1:39pm Microbiology Results Procedure Source Organism/Result Collection Date/Time Result Date/Time Result Status Blood Culture Blood NO GROWTH AFTER 5 DAYS, FINAL REPORT 04/12/2017 6:27pm 04/17/2017 6:52pm Final Sputum Culture Sputum, Expectorated Sputum ELI ALBICANS 04/15/2017 6: 25pm 04/20/2017 8:27am Final STAPHYLOCOCCUS AUREUS-MRSA 04/15/2017 6:25pm 04/20/2017 8:27am Final Procedures Procedure Status Date Provider(s) INSERTION OF INFUSION DEV INTO SUP VENA CAVA, PERC APPROACH Completed NEEL MARIO MD EGD with biopsy Completed 12/21/17 ИВАН MIRANDA MD US abdomen complete Active 04/13/17 CARRI SCHERER MD Complete non-obstetrical ultrasound of pelvis Active 04/13/17 CARRI SCHERER MD Computed tomography of chest with contrast Active 04/13/17 ANDER CORREA MD X-ray of chest, two views Active 04/15/17 ANDER CORREA MD Computed tomography of abdomen and pelvis with contrast Active 12/19/17 STELLA HUTSON [employer] Encounters Encounter Location Arrival/Admit Date Discharge/Depart Date Attending Provider Discharged Inpatient [facility] 12/22/17 12:18pm 8:04pm NEEL MARIO MD Discharged Inpatient [facility] 04/12/17 8:24pm 04/16/17 9:17am NEEL MARIO MD
[2018-01-12] MEDS ORDERED: PANTOPRAZOLE 40 MG 10ML VIAL IV STA (22:04)
[2018-01-12 22:11] LABS: BASOPHILS % 0.2 % (0.0-1.0); EOSINOPHILS % 0.1 % (0.0-6.0); LYMPHOCYTES # (AUTO) 1.6 (1.0-3.2); LYMPHOCYTES % 17.1 % (18.0-39.1); MEAN CORPUSCULAR HEMOGLOBIN 30.4 pg (28-32); MEAN CORPUSCULAR HGB CONC 34.1 g/dL (31-35); MEAN CORPUSCULAR VOLUME 88.9 fL (81-99); MONOCYTES # (AUTO) 0.8 (0.2-0.8); MONOCYTES % 8.2 % (4.4-11.3); NEUTROPHILS % 73.8 % (38.7-80.0); PLATELET COUNT 313 x10e3/uL (140-360); RED BLOOD COUNT 4.61 x10e6/uL (4.3-5.7); RED CELL DISTRIBUTION WIDTH 14.2 % (11.7-14.4)
[2018-01-12] MEDS ORDERED: ONDANSETRON HCL 4 MG ORAL DISINTEGRATING TAB PO ONE (22:15)
[2018-01-12] MEDS ORDERED: SODIUM CHLORIDE 0.9% 1000ML 1,000 ML IV ONE (22:15)
[2018-01-12 22:25] LABS: CLARITY,URINE HAZY (CLEAR); COLOR,URINE YELLOW (YELLOW); LEUKOCYTE ESTERASE ,URINE NEGATIVE (NEGATIVE); NITRITE,URINE NEGATIVE (NEGATIVE); PROTEIN,URINE DIPSTICK 2+ (NEGATIVE)
[2018-01-12 22:26] LABS: BILIRUBIN,URINE NEGATIVE (NEGATIVE); KETONES,URINE NEGATIVE (NEGATIVE); URINE UROBILINOGEN 1 mg/dL (0.2 - 1)
[2018-01-12 22:37] LABS: ALANINE AMINOTRANSFERASE 28 IU/L (0-55); ALBUMIN 3.1 g/dL (3.5-5.0); ALBUMIN/GLOBULIN RATIO 0.9 (0.8-2.0); ALKALINE PHOSPHATASE 50 IU/L (40-150); AMYLASE 44 U/L (25-125); ANION GAP 14.1 mmol/L (8-16); BLOOD UREA NITROGEN 13 mg/dL (7-26); BUN/CREATININE RATIO 17 (6-25); CALCIUM 9.4 mg/dL (8.4-10.2); CARBON DIOXIDE 29 mmol/L (22-29); CHLORIDE 100 mmol/L (98-107); CREATININE, SERUM 0.75 mg/dL (0.72-1.25); EST GLOMERULAR FILTRATION RATE > 60 ML/MIN (60-); GLUCOSE 130 mg/dL (74-118); LIPASE 19 U/L (8-78); POTASSIUM 3.1 mmol/L (3.5-5.1); SODIUM 140 mmol/L (136-145)
[2018-01-12 22:39] LABS: BACTERIA,URINE MODERATE /HPF; WBC,URINE (MAN) 0-5 /HPF (0-5)
[2018-01-12 22:41] LABS: AMORPHOUS SEDIMENT,URINE FEW (FEW); EPITHELIAL CELLS,URINE FEW /LPF
[2018-01-12] MEDS ORDERED: SODIUM CHLORIDE 0.9% 50ML 50 ML ONE (23:14)
[2018-01-12] MEDS ORDERED: IOPAMIDOL 370 MG/ML 200 ML INFUS..BTL INJ ONE (23:14)
--- NOTE | 2018-01-13 | Diagnostic Imaging Report ---
EXAM: CT ABDOMEN/PELVIS W DATE: 01/12/2018 10:03 PM INDICATION: Abdominal pain COMPARISON: 12/19/2017 TECHNIQUE: The abdomen and pelvis were scanned using a multidetector helical scanner. Coronal and sagittal reformations were obtained. Routine protocol performed. IV Contrast: 100 ml Isovue 300/370 FINDINGS: Evaluation is somewhat degraded by streak artifact related to spinal hardware. LOWER THORAX: Emphysema with linear scarring. LIVER/BILIARY: No masses. No ductal dilatation. GALLBLADDER: Unremarkable SPLEEN: Unremarkable PANCREAS: Unremarkable ADRENALS: No nodules KIDNEYS: Degraded assessment due to streak. No hydronephrosis. Nonobstructing 3 mm right interpolar renal calculus. GI TRACT: No wall thickening or evidence of obstruction. Normal appendix. VESSELS: Moderate to severe atherosclerotic changes with suprarenal abdominal aortic aneurysm, 3 cm. PERITONEUM/RETROPERITONEUM: No free air or fluid LYMPH NODES: No definite lymphadenopathy REPRODUCTIVE ORGANS/BLADDER: Unremarkable BONES: Postsurgical changes are noted about the spine status post decompression and L2-L3 fusion. IMPRESSION: Evaluation somewhat degraded by streak artifact from spinal hardware. 1. No acute abnormality in the abdomen or pelvis. 2. Suprarenal abdominal aortic aneurysm (3 cm). Signed by: Dr Aleida Mackay MD on 01/12/2018 11:56 PM
[2018-01-13] MEDS ORDERED: POTASSIUM CHLORIDE 20 MEQ TAB CR PO STA (00:04)
== END 2018-01-13 00:26 | disposition home or self-care (01) ==
LOC: ER 21:48
DX: R10.84 Generalized abdominal pain (principal); R19.7 Diarrhea, unspecified; F17.210 Nicotine dependence, cigarettes, uncomplicated
CPT/HCPCS: 36415; 74177; 80053; 81001; 82150; 83690; 85025; 99284; J7030; Q9967

== ENCOUNTER 2018-08-15 17:45 | Inpatient (IN) | payer OTHER ==
[~2018-08-15] VITALS: Ht 180.3 cm; Wt 73.5 kg
[2018-08-15] MEDS ORDERED: DILTIAZEM HCL 125 ML IV STA (18:05)
[2018-08-15] MEDS ORDERED: DILTIAZEM HCL 5 MG/ML 5 ML VIAL IV NR (18:15)
[2018-08-15 18:40] LABS: BASOPHILS % 0.4 % (0.0-1.0); EOSINOPHILS % 0.4 % (0.0-6.0); HEMOGLOBIN 14.5 g/dL (14.0-18.0); LYMPHOCYTES # (AUTO) 1.8 (1.0-3.2); LYMPHOCYTES % 25.1 % (18.0-39.1); MEAN CORPUSCULAR HEMOGLOBIN 30.8 pg (28-32); MEAN CORPUSCULAR HGB CONC 33.7 g/dL (31-35); MEAN CORPUSCULAR VOLUME 91.3 fL (81-99); MONOCYTES # (AUTO) 0.8 (0.2-0.8); MONOCYTES % 11.1 % (4.4-11.3); NEUTROPHILS # (AUTO) 4.5 (2.1-6.9); NEUTROPHILS % 62.7 % (38.7-80.0); PLATELET COUNT 274 x10e3/uL (140-360); RED BLOOD COUNT 4.71 x10e6/uL (4.3-5.7); RED CELL DISTRIBUTION WIDTH 13.7 % (11.7-14.4)
[2018-08-15 18:48] LABS: INR 0.97; PROTHROMBIN TIME 13.8 seconds (11.9-14.5)
[2018-08-15 19:00] LABS: ALBUMIN 3.4 g/dL (3.5-5.0); ALBUMIN/GLOBULIN RATIO 0.9 (0.8-2.0); ANION GAP 17.2 mmol/L (8-16); CALCIUM 9.2 mg/dL (8.4-10.2); CREATININE, SERUM 1.24 mg/dL (0.72-1.25); POTASSIUM 3.2 mmol/L (3.5-5.1)
[2018-08-15] MEDS ORDERED: ALBUTEROL SULF 0.083% NEB SOLN 3 ML NEB ONE (19:44)
[2018-08-15] MEDS ORDERED: METHYLPREDNISOLONE SOD SUCC 125 MG/2ML VIAL IV ONE (19:45)
[2018-08-15] MEDS ORDERED: IPRATROPIUM BROMIDE 0.02% 2.5 ML NEB ONE (19:45)
--- NOTE | 2018-08-15 19:51 | Diagnostic Imaging Report ---
EXAMINATION: CHEST SINGLE (PORTABLE) INDICATION: ^ERMD ORDER ^[id number] ^1837 ^Y COMPARISON: Chest radiograph 12/19/[address] abdomen pelvis 12/19/2017 and 01/12/2018 FINDINGS: AP view TUBES and LINES: Stimulator device overlying the left upper quadrant. LUNGS: Lungs are well inflated. Bilateral emphysema is unchanged. There is no evidence of pneumonia or pulmonary edema. PLEURA: No pleural effusion or pneumothorax. HEART AND MEDIASTINUM: The cardiomediastinal silhouette is unremarkable.. BONES AND SOFT TISSUES: Unchanged posttraumatic deformity of the left lateral seventh rib. Soft tissues are unremarkable. UPPER ABDOMEN: No free air under the diaphragm. IMPRESSION: Bilateral emphysema without new consolidations. Signed by: Dr. Taisha Wray M.D. on 08/15/2018 7:48 PM
[2018-08-15] MEDS: ALBUTEROL/IPRATROPIUM 3 ML NEB NEB SCH ×2 (22:20→22:40)
[2018-08-15] MEDS ORDERED: DILTIAZEM HCL 125 ML IV SCH ×2 (22:30→23:51)
[2018-08-16] VITALS (13 sets, daily range): BP systolic 108–149; BP diastolic 71–97
[2018-08-16] MEDS ORDERED: METHYLPREDNISOLONE SOD SUCC 125 MG/2ML VIAL ONE (01:00)
[2018-08-16] MEDS: DILTIAZEM HCL 125 ML IV SCH (01:02)
--- NOTE | 2018-08-16 01:03 | NUR ---
RECEIVED REPORT FROM DANA CONNOR RN
--- NOTE | 2018-08-16 01:04 | NUR ---
PT AWAKE ALERT SKIN W/D RESP NONLAB. NAD NOTED. SITTING UP ON BED EATING SANDWICH, DENIES ANY COMPLAINTS AT THIS TIME
[2018-08-16] MEDS: ALBUTEROL/IPRATROPIUM 3 ML NEB NEB SCH ×5 (02:45→19:00)
[2018-08-16 03:13] LABS: CREATINE KINASE MB 2.5 ng/mL (0-5.0)
[2018-08-16] MEDS ORDERED: POTASSIUM CHLORIDE 20 MEQ TAB CR PO STA (03:15)
[2018-08-16] MEDS ORDERED: DIAZEPAM10 MG PO (03:26)
[2018-08-16] MEDS ORDERED: MATZIM LA240 MG PO (03:26)
[2018-08-16] MEDS ORDERED: IMITREX50 MG PO (03:26)
[2018-08-16] MEDS ORDERED: LYRICA75 MG PO (03:26)
[2018-08-16] MEDS ORDERED: ENALAPRIL MALEA20 MG PO (03:26)
[2018-08-16] MEDS ORDERED: PROAIR HFA INH8.5 GM INH (03:26)
[2018-08-16] MEDS ORDERED: PANTOPRAZOLE SO40 MG PO (03:26)
[2018-08-16] MEDS ORDERED: DILTIAZEM HCL IV 5MG/ML 25 ML VIAL ONE (04:11)
[2018-08-16] MEDS ORDERED: SODIUM CHLORIDE 0.9% 100 ML ONE (04:11)
--- NOTE | 2018-08-16 07:00 | NUR ---
ASSUMED CARE AT THIS TIME. PATIENT AWAKE AND ALERT SITTING IN BED. RESP EVEN AND UNLABORED. SKIN WARM AND DRY. NO SIGNS OF ACUTE DISTRESS NOTED AT THIS TIME. DENIES ANY C/O AT THIS TIME. CARDIZEM DRIP CURRENTLY INFUSING AT 10MG/HR.
--- NOTE | 2018-08-16 10:09 | NUR ---
PATIENT AWAKE AND ALERT SITTING IN BED. RESP EVEN AND UNLABORED. SKIN WARM AND DRY. NO SIGNS OF ACUTE DISTRESS NOTED AT THIS TIME. DENIES ANY C/O AT THIS TIME.
[2018-08-16] MEDS ORDERED: HYDROCODONE/APAP 10MG-325MG TAB PO PRN (10:15)
[2018-08-16 10:22] LABS: CREATINE KINASE MB 2.5 ng/mL (0-5.0)
--- NOTE | 2018-08-16 11:59 | NUR ---
DR BOWLING AT BEDSIDE FOR PATIENT EVAL. NO SIGNS OF ACUTE DISTRESS NOTED AT THIS TIME.
--- NOTE | 2018-08-16 11:59 | NUR ---
PATIENT NOW IN A-FLUTTER. RESP EVEN AND UNLABORED. SKIN WARM AND DRY. NO SIGNS OF ACUTE DISTRESS NOTED AT THIS TIME. WILL NOTIFY DR BOWLING.
--- NOTE | 2018-08-16 12:00 | NUR ---
PATIENT AWAKE AND ALERT SITTING IN BED. RESP EVEN AND UNLABORED. SKIN WARM AND DRY. NO SIGNS OF ACUTE DISTRESS NOTED AT THIS TIME. DENIES C/O CHEST PAIN, SOB AT THIS TIME.
--- NOTE | 2018-08-16 12:28 | NUR ---
SPOKE WITH DR BOWLING AT BEDSIDE, NOTIFIED PATIENT IN A FLUTTER. INSTRUCTED TO KEEP CARDIZEM AT 10MG/HR. STAT ECHO ORDERED. PATIENT DENIES C/O CHEST PAIN OR SOB AT THIS TIME. NO SIGNS OF ACUTE DISTRESS NOTED AT THIS TIME.
[2018-08-16] MEDS ORDERED: DIGOXIN INJ 0.25 MG/ML 2 ML AMP IV NR (12:45)
--- NOTE | 2018-08-16 12:49 | History and Physical ---
HISTORY OF PRESENT ILLNESS: The patient was seen in the office where he had supraventricular tachycardia. Rate was 145 in the office and was regular. He did not respond to carotid sinus pressure. He was already on diltiazem prior to presentation on a dose of 240 mg twice daily. Patient was referred to the emergency room for further care. He denied chest pain. He has COPD and smokes heavily and has chronic dyspnea on exertion, which was stable. History is significant for failed back syndrome. Prior back surgery elsewhere x5 surgeries. Patient chronically requires analgesics. History also includes degenerative joint disease involving the cervical spine, primary hypertension, past history of paroxysmal atrial fibrillation, peptic ulcer disease. Patient has had difficulty on 1 prior occasion with GI bleeding when anticoagulated. He denies GI symptoms at this time. History has included GERD and DJD of the knees. He sees his orthopedist. Migraine and peripheral vascular disease. Positive PPD in 1992. Glucose 148 in 2013. A1c in April 2017 was 6.2. He has had hyperglycemia in the past when he required steroids. Patient received a flu shot on June 23 of this year. Pneumovax was given 2013. These immunizations should not be given again during this hospitalization. Further surgeries have included arthroscopy, left knee, 2005. Heart cath with 40% or less coronary artery disease in 2016. Review of heart cath report 06/27/2015 had report of 85% RCA lesion. EGD in 2018. The patient has a family history of chronic pain syndrome. Family history per patient otherwise noncontributory. THE PATIENT DENIES KNOWN DRUG ALLERGIES. Prior to admission meds have also included: 1. [place] 10 q.6. 2. Diltiazem 240 b.i.d. 3. Enalapril 20 b.i.d. 4. Reglan 10 t.i.d. 5. Valium 10 mg nightly. 6. Promethazine 25 q.4 p.r.n. 7. Protonix 40 mg daily. 8. Hydrochlorothiazide 12.5 daily. 9. ProAir 90 two puffs q.4 h. p.r.n. 10. Sumatriptan 50 mg 1 to 2 at the onset of migraine p.r.n., may repeat in 2 hours if required. 11. Lyrica 75 mg b.i.d. PHYSICAL EXAMINATION GENERAL: On current exam, the patient is in his basic sensorium. Alert. No distress. VITALS: Height 5 feet 11 inches. Weight 161. BP 138/74. Pulse 72 and regular. Respiratory rate 14. On EKG, the pulse was, as mentioned, 145. HEENT: No pallor. No icterus. Throat is clear. NECK: Neck flexes. Carotids are weak and palpable. PULMONARY: Auscultation with generalized coarse wheeze. HEART: Cardiac sounds S1, S2 soft. A 2/6 systolic ejection murmur in aortic area. ABDOMEN: Soft. Bowel sounds are normal. Low back scars. Tender. No peritoneal signs. Bowel sounds normal. NEURO: DTRs depressed. Straight leg raise negative. EXTREMITIES: Peripheral pulses dampened. No edema. IMPRESSION: As above. On arrival here, the patient was in atrial fibrillation, and rate is being controlled with intravenous diltiazem. Chronic medical problems as mentioned above includin. Failed back syndrome with chronic pain and chronic [place] for control of pain. 2. Primary hypertension. 3. Chronic obstructive pulmonary disease, active smoker with bronchitis at this time. 4. Hyperlipoproteinemia. 5. Prediabetes mellitus. 6. Peptic ulcer disease. 7. Gastroesophageal reflux disease. 8. Degenerative joint disease of the left knee. 9. Migraines. Plans are to control the patient's heart rate. Further treatment of atrial fib pending course. Previously he has spontaneously cardioverted to sinus rhythm on other admissions. To continue [id number] control of pain and blood pressure and hyperlipoproteinemia. See initial and followup orders. Will ask his comic artist to follow with us. Job#: [id number]
[2018-08-16] MEDS: METOPROLOL TARTRATE 25 MG TAB PO SCH ×2 (13:21→18:04)
--- NOTE | 2018-08-16 13:38 | NUR ---
PATIENT REQUESTING NEXT OF KIN INFORMATION BE PLACE IN CHART. SISTER Kimi CANDE SASCHA [phone]
--- NOTE | 2018-08-16 13:43 | NUR ---
ULTRASOUND AT BEDSIDE FOR ECHO. NO SIGNS OF ACUTE DISTRESS NOTED AT THIS TIME.
[2018-08-16] MEDS ORDERED: DILTIAZEM HCL 125 ML IV STA (15:27)
[2018-08-16] MEDS: DRONEDARONE 400 MG TAB PO SCH ×2 (15:37→16:48)
--- NOTE | 2018-08-16 16:05 | NUR ---
PATIENT TRANSPORTED TO ICU ROOM 191 VIA STRETCHER WITH PORTABLE EDITOR PRODUCER. NO SIGNS OF ACUTE DISTRESS NOTED AT THIS TIME.
[2018-08-16] MEDS: APIXABAN 5 MG TABLET PO SCH (16:48)
[2018-08-17] VITALS (35 sets, daily range): BP systolic 90–166; BP diastolic 50–118
[2018-08-17] MEDS: METOPROLOL TARTRATE 25 MG TAB PO SCH ×5 (00:15→17:08)
[2018-08-17] MEDS: HYDROCODONE/APAP 10MG-325MG TAB PO PRN ×4 (00:15→17:13)
[2018-08-17] MEDS: ALBUTEROL/IPRATROPIUM 3 ML NEB NEB SCH ×6 (02:05→22:55)
--- NOTE | 2018-08-17 02:28 | Consultation ---
DATE OF CONSULTATION: August 16, [address] Green on the 15 of August, seen on the 16 of August. HISTORY: This 57-year-old patient stated that he developed some rapid heart action and palpitation about 3 days ago. He waited until he had a scheduled appointment with Dr. Green; however, he was having rapid atrial fibrillation and was then sent to the emergency room. He received Cardizem 10 mg IV and has been on a Cardizem drip. At the moment, he is feeling better, however, his heart rate is still accelerated between 100 and 120 beats per minute. He also has intermittent rapid atrial flutter. The patient is known to have paroxysmal atrial fibrillation, which has been documented on several previous hospitalizations. Apparently, he is unable to take anticoagulation on long-term basis because of a history of peptic ulcer disease and GI bleeding. At the moment, he was started on Eliquis 5 mg twice daily. The patient takes bronchodilators, inhalers. He also has been on diltiazem and hydrocodone for chronic low back pain. He takes Protonix for indigestion. He is complaining of some nausea, lightheadedness, and also uncontrolled hypertension. PAST HISTORY: Reveals that he had a cardiac catheterization in June of 2015, which showed mild to moderate coronary artery disease with normal left ventricular function. The abdominal aortogram showed some atherosclerotic plaque in the infrarenal abdominal aorta and common iliac arteries as well as a superior branch of the dual right renal artery supply and tortuous iliacs were also noted. The patient does have chronic low back pain, has a nerve stimulator. He has COPD, GERD, chronic left knee pain with intermittent swelling and effusion, and had previous left knee arthroscopy. He also had previous lumbar laminectomy. ALLERGIES: NO KNOWN. SOCIAL HISTORY: The patient still smokes, he states less than 1 pack per day. FAMILY HISTORY: Noncontributory. REVIEW OF SYSTEMS: His remainder of systems reviewed, revealed the patient denies any fever, headaches, sore throat. The patient denies any cough or sputum production. He denies any chest discomfort or abdominal pain. Patient denies any leg swelling. He had venous leg study performed, which did not disclose any DVT. PHYSICAL EXAMINATION: VITAL SIGNS: Reveals blood pressure 130/70. He is afebrile. NECK: Carotid pulses are present. CHEST: Reveals decreased breath sounds. There are no wheezes, no rales, and no rhonchi. CARDIOVASCULAR SYSTEM: Reveals a normal apical impulse. The heart rate is 110 per minute showing atrial fibrillation on the monitor. There is no S3. There is no rub. ABDOMEN: Soft. There is no tenderness or organomegaly. EXTREMITIES: Pulses are present. There is no peripheral edema. NEUROLOGIC: Does not reveal localizing motor defect. Homans' sign is negative. IMPRESSION: 1. Atrial fibrillation with rapid ventricular response, recurrent. 2. Coronary artery disease. 3. Hypertensive cardiovascular disease. 4. Chronic obstructive pulmonary disease. 5. Gastroesophageal reflux disease. 6. Degenerative joint disease with low back pain and left knee arthralgia. Agree with present excellent management. I would like to give the patient 1 dose of digoxin 0.25 mg intravenously. Add Multaq 400 mg daily and metoprolol 12.5 mg every 6 hours to his Cardizem regimen. Also, I will review the patient's echocardiogram whenever it will be available for review. Thank you very much for letting me see this very nice patient. Job#: [id number]
[2018-08-17] MEDS ORDERED: DILTIAZEM HCL IV 5MG/ML 25 ML VIAL ONE (04:25)
[2018-08-17] MEDS ORDERED: SODIUM CHLORIDE 0.9% 100 ML ONE (04:25)
[2018-08-17] MEDS: DILTIAZEM HCL 125 ML IV SCH (04:33)
[2018-08-17 04:46] LABS: BASOPHILS % 0.1 % (0.0-1.0); HEMATOCRIT 39.5 % (38.2-49.6); LYMPHOCYTES # (AUTO) 1.3 (1.0-3.2); LYMPHOCYTES % 8.8 % (18.0-39.1); MEAN CORPUSCULAR HGB CONC 32.9 g/dL (31-35); MONOCYTES # (AUTO) 1.1 (0.2-0.8); MONOCYTES % 7.6 % (4.4-11.3); NEUTROPHILS % 83.1 % (38.7-80.0); PLATELET COUNT 272 x10e3/uL (140-360); RED BLOOD COUNT 4.19 x10e6/uL (4.3-5.7); RED CELL DISTRIBUTION WIDTH 13.6 % (11.7-14.4)
[2018-08-17 04:48] LABS: MEAN CORPUSCULAR VOLUME 94.3 fL (81-99)
[2018-08-17 05:06] LABS: ANION GAP 15.7 mmol/L (8-16); BLOOD UREA NITROGEN 15 mg/dL (7-26); BUN/CREATININE RATIO 17 (6-25); CALCIUM 9.8 mg/dL (8.4-10.2); CARBON DIOXIDE 27 mmol/L (22-29); CHLORIDE 96 mmol/L (98-107); CREATININE, SERUM 0.88 mg/dL (0.72-1.25); EST GLOMERULAR FILTRATION RATE > 60 ML/MIN (60-); GLUCOSE 123 mg/dL (74-118); SODIUM 134 mmol/L (136-145)
[2018-08-17 05:07] LABS: POTASSIUM 4.7 mmol/L (3.5-5.1)
[2018-08-17] MEDS: APIXABAN 5 MG TABLET PO SCH ×2 (08:37→17:08)
[2018-08-17] MEDS: PANTOPRAZOLE SOD 40 MG TABEC PO SCH (08:37)
[2018-08-17] MEDS: DRONEDARONE 400 MG TAB PO SCH ×2 (08:37→17:08)
--- NOTE | 2018-08-17 14:13 | NUR ---
Nutrition Screen Note RD Recommendation for Physician: -Continue cardiac diet as ordered -Recheck HbA1c Plan of Care: RD following, monitoring for tolerance and adequacy Nutrition reason for involvement: Nutrition Risk Trigger MST Primary Diagnose(s): 1. Atrial fibrillation with rapid ventricular response, recurrent. 2. Coronary artery disease. 3. Hypertensive cardiovascular disease. PMH: COPD, DJD, HTN, Afib, PUD, GI bleeding, GERD Ht: 71in Wt: 162.31lb BMI: 22.6kg/m2 IBW: 172lb RD Assessment: (08/17) Chart reviewed. Labs and meds reviewed. 57 yo M, who is admitted for tachycardia. 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 No GI complains noted. LBM 08/14. Pt has some missing teeth. Chopped diet has been offered and entered into health touch. Pt denies any swallowing difficulty. No recent weight loss reported with UBW ~155lb. Last HbA1c check was more than a year ago, rec to recheck. Will continue to monitor and follow. Current Diet: cardiac diet Malnutrition Evaluation (08/17) The patient does not meet criteria for a specified degree of malnutrition at this time. Will re-evaluate at follow-up as appropriate. Diet Education Needs Assessment: Diet education not indicated. Nutrition Care Level: low Signed: Vy Gilbert MS, RD, LD
--- NOTE | 2018-08-17 18:56 | NUR ---
CARDIZEM DRIP OFF
--- NOTE | 2018-08-17 20:04 | NUR ---
Report received. Assumed care. Assessment done. See interventions.
[2018-08-18] VITALS (22 sets, daily range): BP systolic 128–185; BP diastolic 91–147
[2018-08-18] MEDS: METOPROLOL TARTRATE 25 MG TAB PO SCH ×6 (03:00→21:30)
[2018-08-18] MEDS: ALBUTEROL/IPRATROPIUM 3 ML NEB NEB SCH ×6 (03:00→23:40)
[2018-08-18] MEDS: PANTOPRAZOLE SOD 40 MG TABEC PO SCH (09:28)
[2018-08-18] MEDS: DRONEDARONE 400 MG TAB PO SCH (09:28)
[2018-08-18] MEDS: APIXABAN 5 MG TABLET PO SCH ×2 (09:28→18:12)
[2018-08-18] MEDS ORDERED: DIAZEPAM 5 MG TAB PO NR (13:15)
[2018-08-18] MEDS: NICOTINE 14 MG/EA PATCH TOP SCH (14:00)
[2018-08-18] MEDS ORDERED: MAGNESIUM SULFATE 2GM/50ML 50 ML IV ONE (14:30)
[2018-08-18] MEDS ORDERED: DIGOXIN INJ 0.25 MG/ML 2 ML AMP IV ONE (14:30)
[2018-08-18] MEDS: HYDROCODONE/APAP 10MG-325MG TAB PO PRN ×3 (14:38→22:38)
[2018-08-18] MEDS: PROPAFENONE HCL 225 MG CAPCR PO SCH ×2 (15:42→21:30)
--- NOTE | 2018-08-18 20:00 | NUR ---
Report to Luis CAMPBELL on MS1.
--- NOTE | 2018-08-18 20:15 | NUR ---
Transferred per wheelchair to room 114. Care to RN.
--- NOTE | 2018-08-18 20:20 | NUR ---
Pt transferred to rm. 114. A&Ox3. No acute distress noted. tele #[id number], Afib. 20g left forearm, SL. Oriented to room. Call esparza within reach. Will continue to monitor.
[2018-08-18] MEDS: DIAZEPAM 5 MG TAB PO PRN (20:45)
[2018-08-19] VITALS (8 sets, daily range): BP systolic 113–157; BP diastolic 72–97
[2018-08-19] MEDS: METOPROLOL TARTRATE 25 MG TAB PO SCH ×5 (02:22→22:00)
[2018-08-19] MEDS: ALBUTEROL/IPRATROPIUM 3 ML NEB NEB SCH ×6 (03:00→22:45)
[2018-08-19 05:34] LABS: HEMATOCRIT 43.7 % (38.2-49.6); HEMOGLOBIN 14.5 g/dL (14.0-18.0)
[2018-08-19] MEDS: PROPAFENONE HCL 225 MG CAPCR PO SCH ×3 (05:45→22:00)
[2018-08-19] MEDS: PANTOPRAZOLE SOD 40 MG TABEC PO SCH (08:36)
[2018-08-19] MEDS: DIAZEPAM 5 MG TAB PO PRN (08:41)
[2018-08-19] MEDS: APIXABAN 5 MG TABLET PO SCH ×2 (09:33→17:22)
[2018-08-19] MEDS: NICOTINE 14 MG/EA PATCH TOP SCH (09:33)
[2018-08-19] MEDS: HYDROCODONE/APAP 10MG-325MG TAB PO PRN ×2 (14:45→20:28)
[2018-08-19] MEDS ORDERED: DICLOFENAC SOD 50 MG TAB PO PRN (16:00)
[2018-08-19] MEDS ORDERED: ACETAMIN/BUTALBITAL/CAFFEINE TAB PO PRN (16:00)
[2018-08-19] MEDS: DOCUSATE SODIUM 100 MG CAP PO SCH (17:22)
--- NOTE | 2018-08-19 18:40 | Diagnostic Imaging Report ---
ADDENDUM #1 Comparison: Report of CT brain from 11/25/2015, images not available for comparison at the time of interpretation. I have reviewed the images and otherwise agree with findings in preliminary report. Signed by: Dr. Rosalie Spring M.D. on 08/19/2018 10:21 PM ORIGINAL REPORT Exam: MRI brain without contrast History: Migraines, 57-year-old male Comparison studies: None Technique: Sagittal T2; axial DWI, ADC, FLAIR, MPGR, T1, GRE, Coronal FLAIR. Intravenous contrast: None Findings: Numerous artifacts related to patient motion as well as presumed metallic artifacts in the oral cavity results in severely degraded diagnostic ability of this exam. Scalp: Normal in signal . No masses . Bone marrow: Normal in signal intensity. Extra-axial: No masses or fluid collections. Brain sulci: Appropriate for age. Ventricles: Normal in size . No hydrocephalus . Parenchyma: Minimal supratentorial subcortical and periventricular T2/FLAIR hyperintense foci likely reflect sequela of microvascular ischemic angiopathy. No masses, hemorrhage, acute or chronic cortical ischemic insults. Suprasellar region: No abnormalities. Craniocervical junction: No abnormalities. Patent foramen magnum. No Chiari one malformation. Vessels: Normal flow-voids in the arteries and sinuses. IMPRESSION: Severely degraded diagnostic ability of this exam due to patient motion and oral cavity metallic artifact. No acute abnormalities. Chronic findings: Mild white matter microvascular ischemic changes. This is a preliminary report was provided by the neuroradiology fellow, Dr. Kennedy Smith. Attending over read to follow. Signed by: Kennedy Smith MD on 08/19/2018 6:40 PM
--- NOTE | 2018-08-19 19:26 | Consultation ---
DATE OF CONSULTATION: August 19, 2018 NEUROLOGY CONSULT NOTE HISTORY OF PRESENT ILLNESS: Mr. Sheppard is a 57-year-old right hand dominant man with past medical history significant for hypertension, newly diagnosed atrial fibrillation, chronic obstructive pulmonary disease, and migraines, admitted to [facility] on August 15, 2018 with atrial fibrillation with rapid ventricular response. A neurology consultation is requested for further evaluation and treatment of the patient's migraines. Mr. Sheppard describes his headache as follows: The pain occurs either across the forehead or the occiput and does not radiate. Mr. Sheppard describes the pain as pressure with a superimposed throbbing component. He rates the pain is 7-8/10 on average. Mr. Sheppard does not report an aura. He does endorse photophobia, phonophobia, nausea without vomiting, dizziness which is further described as a mixture of lightheadedness and vertigo, and visual disturbance which is further described as a white spots associated with the headaches. Mr. Sheppard began experiencing these headaches approximately 2 to 3 years ago. Over the last few months, the headaches have occurred with greater frequency. Mr. Sheppard reports averaging 1 headache per week. Triggers include: Lack of sleep and psychosocial stress. For the past few years, Mr. Sheppard has been prescribed sumatriptan on an as needed basis for treatment of his migraines. The patient reports his headaches resolved with 1 dose of sumatriptan. Mr. Sheppard does not report undergoing neuroimaging since he began having headaches 2 to 3 years ago. There is no known family history of migraines. REVIEW OF SYSTEMS: Fast or irregular heartbeat, visual disturbance, headache, photophobia, phonophobia, nausea, and dizziness. Remainder of the 12-point review of systems is otherwise unremarkable. PAST MEDICAL HISTORY: Hypertension, possible prior heart attack, newly diagnosed atrial fibrillation, chronic obstructive pulmonary disease, peptic ulcer disease, anxiety disorder, migraines, chronic low back pain. PAST SURGICAL HISTORY: Lumbar spine surgery x4 or 5, left knee arthroscopy. PAST HOSPITALIZATIONS: Surgeries/procedures as listed, pneumonia x2 to 3, fractured ribs. FAMILY MEDICAL HISTORY: The patient's paternal and maternal grandparents are . Their medical histories are unknown. The patient's father is from a stroke. His mother is from complications of chronic obstructive pulmonary disease. Mr. Sheppard had 3 brothers and 2 sisters. One brother is from alcoholic cirrhosis. One brother is alive and has a history of pancreatitis. The third brother is alive and healthy. One sister is from pneumonia. The second sister is alive. She has prior history of an unknown cancer which is currently in permission. Mr. Sheppard does not have biological children. SOCIAL HISTORY: The patient is single. He is on disability. The patient does report current tobacco use. He has smoked 1 pack of cigarettes per day for approximately 40 years. The patient does report a prior history of social alcohol use, but does not drink alcohol at present. The patient endorses a remote history of cocaine use. He endorses a prior history of marijuana use with last use being approximately 1 year ago. HOME MEDICATIONS: ProAir HFA inhaler 2 puffs inhaled every 4 hours as needed for shortness of breath, diazepam 10 mg by mouth daily, diltiazem 240 mg by mouth twice daily, enalapril 20 mg by mouth twice daily, [place] 10/325 one tablet by mouth every 4 hours as needed for pain, Reglan 10 mg by mouth 3 times daily, Protonix 40 mg by mouth daily, Lyrica 75 mg by mouth twice daily, sumatriptan 50 mg by mouth as needed for severe headache. ALLERGIES: NO KNOWN DRUG ALLERGIES. NO KNOWN FOOD ALLERGIES. NO KNOWN ALLERGIES TO LATEX. NO KNOWN ALLERGIES TO IODINE OR OTHER CONTRAST MATERIALS. PHYSICAL EXAMINATION VITAL SIGNS: Height 71 inches, weight 162 pounds, BMI 22.6 kg/m. sq. Blood pressure 113/72 mmHg, pulse 53 beats per minute, respiratory rate 16 breaths per minute, oxygen saturation 93% on 2 liters by nasal cannula. GENERAL: The patient is awake and alert, does not appear distressed. HEENT: Normocephalic, atraumatic. Pupils are equal, round and sluggishly reactive to light. Moist mucous membranes. NECK: Supple. No appreciable thyromegaly. No appreciable carotid bruits. CARDIOVASCULAR: S1 and S2, regular rate and rhythm. No murmurs, rubs, or gallops. RESPIRATORY: Clear to auscultation bilaterally. No wheezes, rhonchi, or rales. EXTREMITIES: The skin is warm and dry. No clubbing, cyanosis, or edema. The posterior tibial and dorsalis pedis pulses are 1+ and symmetric. SKIN: No rashes or lesions. NEUROLOGIC Memory/Attention: The patient is awake and alert, oriented to person, place, time, and situation. Cranial Nerves: Cranial nerve I - not tested. Cranial nerve II, III, IV, and - Pupils are equal and round, react sluggishly to light (from 4 mm to 2 mm). Extraocular movements intact. No nystagmus. Cranial nerve V - sensation to light touch and pinprick is intact in the bilateral V1 through V3 distributions. Strength of the temporalis and masseter muscles is within normal limits. Cranial nerve VII - the face is symmetric as are all facial movements. Strength is within normal limits. Cranial nerve VIII - hearing is intact to finger rub bilaterally. Cranial nerve IX, X - the soft palate elevates equally and symmetrically. Cranial nerve XI - normal strength of the bilateral sternocleidomastoid and trapezius muscles. Cranial nerve XII - the tongue protrudes midline and moves symmetrically from side to side. Strength: Bulk is diminished throughout, especially in the legs. Strength is 5/5 in the bilateral deltoids, biceps, triceps, wrist flexors and extensors, finger flexors and extensors, intrinsic hand muscles, hip flexors, knee flexors and extensors, ankle dorsiflexion and plantar flexion, and intrinsic foot muscles. Tone is normal. DTRs: Deep tendon reflexes are 1+ and symmetric at the triceps, biceps, brachioradialis, and patellas. Deep tendon reflexes are absent and symmetric at the Achilles. Plantar responses are flexor bilaterally. Sensation: Sensation is intact to light touch and pinprick in both arms and both legs. Cerebellar: [id number] and heel-plata movements are intact without dysmetria or other impairment. Gait: Deferred. Speech: Spontaneous speech is normal without appreciable dysarthria or aphasia. Repetition is intact. Involuntary Movements: None. Pronator Drift: None. LABORATORY DATA: The most recent basic metabolic panel reveals sodium of 134, chloride of 96, and glucose of 123. Cardiac enzymes are negative x3. Prior liver function panel is unremarkable. TSH 0.473. Free T4 of 1.18. The most recent hemoglobin and hematocrit are 14.5 and 43.7, respectively. DIAGNOSTIC STUDIES 1. Multiple electrocardiograms have revealed either atrial fibrillation with rapid ventricular response or atrial flutter. 2. Echocardiogram, 08/16/2018: Ejection fraction 40% to 45%. Trace mitral regurgitation. 3. No neuroimaging has been performed. ASSESSMENT AND PLAN: Mr. Sheppard is a 57-year-old man with past medical history as detailed, admitted to [facility] on August 15, 2018 with newly diagnosed atrial fibrillation with rapid ventricular response. The neurology service is consulted for further evaluation and treatment of chronic migraines. Mr. Sheppard's neurological examination is nonfocal. His laboratory data and other diagnostic studies have been reviewed and are documented above. RECOMMENDATIONS 1. MRI of the brain without contrast will be ordered to evaluate for new onset headache in a patient older than 50 years. 2. Mr. Sheppard has been prescribed a beta joseph for treatment of his newly diagnosed atrial fibrillation. Beta blockers may also be used for migraine prophylaxis. Therefore, it is possible the frequency and severity of the patient's migraines may be decreased by treatment with the beta joseph. In the future, if Mr. Sheppard continues to have multiple migraines per month, prophylactic treatment with other medications may be considered. Example of these medications are as follows: Topamax, tricyclic antidepressants, lamotrigine, venlafaxine ER, Depakote ER. 3. Fioricet and diclofenac 50 mg by mouth every 8 hours as needed for headache will be prescribed. 4. Defer treatment of the remaining medical comorbidities to the primary and other services following the patient. Thank you for this consultation. I will continue to follow the patient while he remains in the hospital. TIME SPENT: 70 minutes. Job#: [id number] LAUREN GARCÍA
[2018-08-20] VITALS (8 sets, daily range): BP systolic 99–124; BP diastolic 64–85
[2018-08-20] MEDS: HYDROCODONE/APAP 10MG-325MG TAB PO PRN ×5 (00:53→19:45)
[2018-08-20] MEDS: ALBUTEROL/IPRATROPIUM 3 ML NEB NEB SCH ×5 (03:45→20:00)
[2018-08-20] MEDS: METOPROLOL TARTRATE 25 MG TAB PO SCH (06:18)
[2018-08-20] MEDS: PROPAFENONE HCL 225 MG CAPCR PO SCH ×3 (06:18→22:26)
--- NOTE | 2018-08-20 07:00 | NUR ---
REPORT GIVEN TO ONCOMING NURSE,WALKING ROUNDS MADE.PT RESTING IN BED WITH NO S/S OF DISTRESS.
--- NOTE | 2018-08-20 07:12 | NUR ---
REPORT GIVEN TO ONCOMING NURSE,WALKING ROUNDS MADE.PT RESTING IN BED WITH NO S/S OF DISTRESS. Addendum: 08/20/18 at 0712 by Concha Szymanski RN DISREGARD ABOVE NOTE
[2018-08-20] MEDS: APIXABAN 5 MG TABLET PO SCH ×2 (09:56→16:39)
[2018-08-20] MEDS: NICOTINE 14 MG/EA PATCH TOP SCH (09:56)
[2018-08-20] MEDS: DOCUSATE SODIUM 100 MG CAP PO SCH ×2 (09:56→16:39)
[2018-08-20] MEDS: PANTOPRAZOLE SOD 40 MG TABEC PO SCH (09:56)
[2018-08-20] MEDS ORDERED: DIGOXIN INJ 0.25 MG/ML 2 ML AMP IV NR ×2 (13:00→14:15)
[2018-08-20] MEDS: DIAZEPAM 5 MG TAB PO PRN (16:39)
[2018-08-20] MEDS ORDERED: METOPROLOL TARTRATE 25 MG TAB PO SCH (18:00)
[2018-08-21] VITALS (7 sets, daily range): BP systolic 108–123; BP diastolic 63–79
[2018-08-21] MEDS: HYDROCODONE/APAP 10MG-325MG TAB PO PRN ×6 (00:43→23:30)
[2018-08-21] MEDS: ALBUTEROL/IPRATROPIUM 3 ML NEB NEB SCH ×7 (03:00→23:40)
[2018-08-21 05:05] LABS: HEMATOCRIT 46.9 % (38.2-49.6); HEMOGLOBIN 15.6 g/dL (14.0-18.0)
[2018-08-21 05:28] LABS: ANION GAP 16.5 mmol/L (8-16); BLOOD UREA NITROGEN 21 mg/dL (7-26); BUN/CREATININE RATIO 22 (6-25); CALCIUM 9.6 mg/dL (8.4-10.2); CARBON DIOXIDE 24 mmol/L (22-29); CHLORIDE 101 mmol/L (98-107); CREATININE, SERUM 0.94 mg/dL (0.72-1.25); EST GLOMERULAR FILTRATION RATE > 60 ML/MIN (60-); GLUCOSE 107 mg/dL (74-118); POTASSIUM 4.5 mmol/L (3.5-5.1); SODIUM 137 mmol/L (136-145)
[2018-08-21] MEDS: PROPAFENONE HCL 225 MG CAPCR PO SCH ×3 (06:26→22:00)
[2018-08-21] MEDS: DOCUSATE SODIUM 100 MG CAP PO SCH ×2 (08:36→17:40)
[2018-08-21] MEDS: PANTOPRAZOLE SOD 40 MG TABEC PO SCH (08:36)
[2018-08-21] MEDS: NICOTINE 14 MG/EA PATCH TOP SCH (08:36)
[2018-08-21] MEDS: APIXABAN 5 MG TABLET PO SCH ×2 (08:36→17:40)
[2018-08-21 10:20] LABS: BASOPHILS % 0.3 % (0.0-1.0); EOSINOPHILS # (AUTO) 0.3 (0.0-0.4); EOSINOPHILS % 1.9 % (0.0-6.0); HEMATOCRIT 47.3 % (38.2-49.6); HEMOGLOBIN 15.7 g/dL (14.0-18.0); LYMPHOCYTES # (AUTO) 2.1 (1.0-3.2); LYMPHOCYTES % 16.5 % (18.0-39.1); MEAN CORPUSCULAR HEMOGLOBIN 31.1 pg (28-32); MEAN CORPUSCULAR HGB CONC 33.2 g/dL (31-35); MEAN CORPUSCULAR VOLUME 93.7 fL (81-99); MONOCYTES % 7.6 % (4.4-11.3); NEUTROPHILS # (AUTO) 9.5 (2.1-6.9); NEUTROPHILS % 73.3 % (38.7-80.0); PLATELET COUNT 435 x10e3/uL (140-360); RED BLOOD COUNT 5.05 x10e6/uL (4.3-5.7); RED CELL DISTRIBUTION WIDTH 13.6 % (11.7-14.4)
[2018-08-21] MEDS: ONDANSETRON HCL INJ 2 MG/ML VIAL IV PRN ×2 (10:53→23:37)
--- NOTE | 2018-08-21 11:29 | Diagnostic Imaging Report ---
EXAMINATION: CHEST 2 VIEWS INDICATION: ^A FIB. COPD ^[id number] ^1054 ^Y COMPARISON: Chest radiograph 08/15/2018 FINDINGS: PA and lateral views TUBES and LINES: Neurostimulator device overlying the left lower chest. LUNGS: Hyperinflated lungs with associated emphysema remains unchanged. More prominent bilateral hilar peribronchial wall thickening. No new consolidations or pulmonary edema. PLEURA: No pleural effusion or pneumothorax. HEART AND MEDIASTINUM: The cardiomediastinal silhouette is unremarkable. BONES AND SOFT TISSUES: No acute osseous lesion. Soft tissues are unremarkable. UPPER ABDOMEN: No free air under the diaphragm. IMPRESSION: Worsening bilateral hilar peribronchial wall thickening suggestive of COPD exacerbation or viral infection. Signed by: Dr. Taisha Wray M.D. on 08/21/2018 11:25 AM
[2018-08-21 15:29] LABS: BILIRUBIN,URINE NEGATIVE (NEGATIVE); CLARITY,URINE CLEAR (CLEAR); COLOR,URINE YELLOW (YELLOW); KETONES,URINE NEGATIVE (NEGATIVE); LEUKOCYTE ESTERASE ,URINE NEGATIVE (NEGATIVE); NITRITE,URINE NEGATIVE (NEGATIVE); PROTEIN,URINE DIPSTICK NEGATIVE (NEGATIVE); URINE UROBILINOGEN 0.2 mg/dL (0.2 - 1)
[2018-08-21 15:53] LABS: BACTERIA,URINE RARE /HPF; EPITHELIAL CELLS,URINE RARE /LPF; MUCUS,URINE MODERATE (RARE); RBC,URINE 0-5 /HPF (0-5); TRANSITIONAL EPI CELLS,URINE FEW; WBC,URINE (MAN) 0-5 /HPF (0-5)
[2018-08-21] MEDS: DIAZEPAM 5 MG TAB PO PRN (16:58)
[2018-08-22] VITALS (9 sets, daily range): BP systolic 121–153; BP diastolic 53–83
[2018-08-22] MEDS: ALBUTEROL/IPRATROPIUM 3 ML NEB NEB SCH ×4 (03:00→15:45)
[2018-08-22] MEDS: HYDROCODONE/APAP 10MG-325MG TAB PO PRN ×4 (04:41→21:40)
[2018-08-22] MEDS: PROPAFENONE HCL 225 MG CAPCR PO SCH ×2 (06:10→14:35)
--- NOTE | 2018-08-22 07:34 | NUR ---
REPORT GIVEN TO ONCOMING NURSE,WALKING ROUNDS MADE.PT RESTING IN BED WITH NO S/S OF DISTRESS.
[2018-08-22] MEDS: ONDANSETRON HCL INJ 2 MG/ML VIAL IV PRN ×3 (08:14→22:45)
[2018-08-22] MEDS: APIXABAN 5 MG TABLET PO SCH ×2 (08:56→17:22)
[2018-08-22] MEDS: NICOTINE 14 MG/EA PATCH TOP SCH (08:56)
[2018-08-22] MEDS: DOCUSATE SODIUM 100 MG CAP PO SCH ×2 (08:56→17:22)
[2018-08-22] MEDS: PANTOPRAZOLE SOD 40 MG TABEC PO SCH (08:56)
--- NOTE | 2018-08-22 12:16 | NUR ---
SPOKE WITH VIVEK IN TELEMETRY, STATES PT IS RUNNING A FLUTTER. ASSESSED LEADS. REPLACED. CALLED AGAIN . PT IS RUNNING A FIB AT THIS TIME .
--- NOTE | 2018-08-22 16:55 | NUR ---
NOTIFIED MD BOWLING REGARDING SUSTAINED TACHYCARDIA IN THE 130S . SUGGESTED A EKG LEAD . OK ORDER. MD ROUNDING AT THIS TIME. 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 MD IS LOOKING AT CHART FOR MEDICATION ADJUSTMENT
[2018-08-22] MEDS ORDERED: METOPROLOL TARTRATE INJ 1 MG/ML VIAL IV ONE (17:15)
[2018-08-22] MEDS: DILTIAZEM HCL 60 MG TAB PO SCH (17:23)
[2018-08-22] MEDS ORDERED: NICOTINE 7 MG PATCH TOP SCH (17:41)
[2018-08-22] MEDS: METOPROLOL TARTRATE 25 MG TAB PO SCH (17:42)
[2018-08-22] MEDS: DIGOXIN 0.125 MG TAB PO SCH (17:56)
[2018-08-22] MEDS: DIAZEPAM 5 MG TAB PO PRN (19:37)
[2018-08-22] MEDS: LEVALBUTEROL HCL SOLN NEBU 0.63 MG/3 ML NEB INH SCH (20:08)
[2018-08-22] MEDS: IPRATROPIUM BROMIDE 0.02% 2.5 ML NEB NEB SCH (20:08)
--- NOTE | 2018-08-22 20:47 | NUR ---
Patient arrived via stretcher to unit as transfer from [facility] 1. Patient placed on Rm 291. Patient alert and oriented x3. In stable condition and denies any pain or discomfort at this time. On telemetry 2408 (ST/A-fib/A-flutter). Variances on tele reading are known by MD. Will monitor patient closely.
[2018-08-23] VITALS (8 sets, daily range): BP systolic 100–157; BP diastolic 53–86
[2018-08-23] MEDS: METOPROLOL TARTRATE 25 MG TAB PO SCH ×4 (00:08→18:00)
[2018-08-23] MEDS: IPRATROPIUM BROMIDE 0.02% 2.5 ML NEB NEB SCH ×4 (00:55→19:25)
[2018-08-23] MEDS: LEVALBUTEROL HCL SOLN NEBU 0.63 MG/3 ML NEB INH SCH ×4 (00:55→19:25)
[2018-08-23] MEDS: HYDROCODONE/APAP 10MG-325MG TAB PO PRN ×5 (02:23→22:50)
[2018-08-23] MEDS: ONDANSETRON HCL INJ 2 MG/ML VIAL IV PRN ×2 (05:40→22:45)
[2018-08-23] MEDS: DILTIAZEM HCL 60 MG TAB PO SCH ×2 (06:45→16:15)
[2018-08-23] MEDS: PANTOPRAZOLE SOD 40 MG TABEC PO SCH (06:45)
--- NOTE | 2018-08-23 07:20 | NUR ---
PT UP IN BED NO DISTRESS NOTED, DENIES PAIN,NO DISTRESS NOTED
[2018-08-23] MEDS: DOCUSATE SODIUM 100 MG CAP PO SCH ×2 (09:00→17:00)
[2018-08-23] MEDS: APIXABAN 5 MG TABLET PO SCH ×2 (09:00→17:00)
[2018-08-23] MEDS: NICOTINE 7 MG PATCH TOP SCH (09:00)
[2018-08-23] MEDS ORDERED: NICOTINE 14 MG/EA PATCH TOP SCH (09:00)
[2018-08-23] MEDS: DIGOXIN 0.125 MG TAB PO SCH (09:00)
--- NOTE | 2018-08-23 10:10 | NUR ---
PT C/O NAUSEA MEDICATED
--- NOTE | 2018-08-23 10:47 | NUR ---
PT C/O PAIN MEDICATED
--- NOTE | 2018-08-23 18:15 | NUR ---
PT IN BED SLEEPING ,NO S/S DISCOMFORT
--- NOTE | 2018-08-23 18:27 | NUR ---
Nutrition Screen Note RD Recommendation for Physician: - Continue cardiac diet as ordered Plan of Care: RD following, monitoring for tolerance and adequacy Nutrition reason for involvement: Follow up Primary Diagnose(s): 1. Atrial fibrillation with rapid ventricular response, recurrent. 2. Coronary artery disease. 3. Hypertensive cardiovascular disease. PMH: COPD, DJD, HTN, Afib, PUD, GI bleeding, GERD Ht: 71in Wt: 162.31lb 08/17; 151lb 08/22 BMI: 22.6kg/m2 IBW: 172lb RD Assessment: 08/23 Chart reviewed. No labs since 08/21. HbA1c 4.8%. Visited pt in the room. Pt reports great appetite with 75-100% recorded PO intake. Pt reports of constipation for 2-3 days; colace was given today. No other GI complains noted. Will continue to monitor and follow. (08/17) Chart reviewed. Labs and meds reviewed. 57 yo M, who is admitted for tachycardia. 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 No GI complains noted. LBM 08/14. Pt has some missing teeth. Chopped diet has been offered and entered into health touch. Pt denies any swallowing difficulty. No recent weight loss reported with UBW ~155lb. Last HbA1c check was more than a year ago, rec to recheck. Will continue to monitor and follow. Current Diet: cardiac diet Malnutrition Evaluation (08/17) The patient does not meet criteria for a specified degree of malnutrition at this time. Will re-evaluate at follow-up as appropriate. Diet Education Needs Assessment: Diet education not indicated. Nutrition Care Level: low Signed: Vy Gilbert, MS, RD, LD
--- NOTE | 2018-08-23 19:06 | NUR ---
Patient visited in room during nursing rounds. Patient alert and oriented x3. On 4L NC humidified. Patient states he feels a lot better today. Heart rhythm A-flutter per telemetry. Will monitor patient closely.
[2018-08-23] MEDS: DIAZEPAM 5 MG TAB PO PRN (19:40)
[2018-08-24] VITALS (9 sets, daily range): BP systolic 117–151; BP diastolic 65–86
[2018-08-24] MEDS: METOPROLOL TARTRATE 25 MG TAB PO SCH ×5 (00:36→18:40)
[2018-08-24] MEDS: IPRATROPIUM BROMIDE 0.02% 2.5 ML NEB NEB SCH ×4 (01:45→19:05)
[2018-08-24] MEDS: LEVALBUTEROL HCL SOLN NEBU 0.63 MG/3 ML NEB INH SCH ×4 (01:45→19:05)
[2018-08-24] MEDS: HYDROCODONE/APAP 10MG-325MG TAB PO PRN ×5 (02:57→20:16)
[2018-08-24] MEDS: DILTIAZEM HCL 60 MG TAB PO SCH ×2 (06:43→17:17)
[2018-08-24] MEDS: PANTOPRAZOLE SOD 40 MG TABEC PO SCH (06:43)
[2018-08-24] MEDS: ONDANSETRON HCL INJ 2 MG/ML VIAL IV PRN ×2 (06:48→18:40)
--- NOTE | 2018-08-24 07:35 | NUR ---
PATIENT IN BED WITH WATCHING TV, NO RESPIRATORY DISTRESS OBSERVED. C/O PAIN TO LOWER BACK, PAIN MEDICATION GIVED ORDERED. HIGH FLOW O2 IN PLACE. ALL PERSONAL ITEMS CLOSE TO PATIENT, CALL LIGHT AT REACH.
[2018-08-24] MEDS: DIGOXIN 0.125 MG TAB PO SCH (09:00)
[2018-08-24] MEDS: APIXABAN 5 MG TABLET PO SCH ×2 (09:15→17:17)
[2018-08-24] MEDS: DOCUSATE SODIUM 100 MG CAP PO SCH ×2 (09:15→17:17)
[2018-08-24] MEDS: NICOTINE 7 MG PATCH TOP SCH (09:15)
--- NOTE | 2018-08-24 11:34 | NUR ---
URINAL EMPTIED AND CLEANSED. ALL PERSONAL ITEMS CLOSE TO PATIENT. REQUESTED AND RECEIVED APPLE JUICE. CALL LIGHT AT REACH.
--- NOTE | 2018-08-24 15:41 | NUR ---
PATIENT IN BED WITH HEAD OF BED ELEVATED READING HIS NEWS PAPER, NO S/S OF DISTRESS NOTED. CALL LIGHT AT REACH.
--- NOTE | 2018-08-24 20:09 | NUR ---
Received patient from day nurse, patient is alert and oriented x 3. patient is stable and on high flow oxygen. patient is currently stable, will continue to monitor.
[2018-08-24] MEDS: DEXTROSE 5%/LACTATED RINGERS 1,000 ML IV SCH (20:16)
[2018-08-24] MEDS: DIAZEPAM 5 MG TAB PO PRN (20:28)
[2018-08-25] VITALS (15 sets, daily range): BP systolic 99–135; BP diastolic 41–94
[2018-08-25] MEDS: METOPROLOL TARTRATE 25 MG TAB PO SCH ×4 (00:32→17:49)
[2018-08-25] MEDS: HYDROCODONE/APAP 10MG-325MG TAB PO PRN ×5 (00:33→20:03)
[2018-08-25] MEDS: IPRATROPIUM BROMIDE 0.02% 2.5 ML NEB NEB SCH ×2 (02:30→19:40)
[2018-08-25] MEDS: LEVALBUTEROL HCL SOLN NEBU 0.63 MG/3 ML NEB INH SCH ×2 (02:30→19:40)
--- NOTE | 2018-08-25 07:00 | NUR ---
patient endorsed to next shift for continuity of care.
--- NOTE | 2018-08-25 07:17 | NUR ---
PATIENT IN BED RESTING WITH EYES CLOSED, NO RESPIRATORY DISTRESS OBSERVED. HIGH FLOW O2 IN PLACE. BED IN LOWER POSITION, CALL LIGHT AT REACH.
[2018-08-25] MEDS: DILTIAZEM HCL 60 MG TAB PO SCH ×2 (07:30→17:49)
[2018-08-25] MEDS: PANTOPRAZOLE SOD 40 MG TABEC PO SCH (07:35)
[2018-08-25] MEDS: ONDANSETRON HCL INJ 2 MG/ML VIAL IV PRN (08:50)
[2018-08-25] MEDS: APIXABAN 5 MG TABLET PO SCH ×2 (09:00→17:43)
[2018-08-25] MEDS: DOCUSATE SODIUM 100 MG CAP PO SCH ×2 (09:37→17:43)
--- NOTE | 2018-08-25 10:45 | NUR ---
PATIENT ASSISTED TO THE RESTROOM AND BACK TO BED. REMAIN NPO FOR JOSE. BED IN LOWER POSITION, CALL LIGHT AT REACH.
[2018-08-25] MEDS ORDERED: BENZOCAINE 20% SPR 60 ML CAN ONE (12:18)
[2018-08-25] MEDS ORDERED: SODIUM CHLORIDE 0.9% 1000ML 1,000 ML ONE (12:19)
--- NOTE | 2018-08-25 12:30 | NUR ---
PATIENT OFF UNIT FOR A PROCEDURE.
--- NOTE | 2018-08-25 14:00 | NUR ---
PATIENT TRANSFERRED TO IMCU AFTER A JOSE AND CARDIOVERSION. REPORT CALLED AND GIVEN TO RECEIVING NURSE. PATIENT'S PERSONAL BELONGINGS TRANSFERRED TO [facility].
--- NOTE | 2018-08-25 14:00 | NUR ---
Pt tolerated recovery well. No c/o pain/discomfort voiced. Report given to ADIRAN Tobias. Pt transported to room 197 via bed.
--- NOTE | 2018-08-25 14:40 | NUR ---
Received patient from Drawing In Machine Tender Helper arrived in stretcher alert and oriented x3, placed on telemetry sinus rhythm, he denies pain, verbalizing needs educated patient on need to stay bedrest per MD. orders, patient verbalized understanding. oriented to room and use of calling light. bed in low position, breaks on declined bed alarm. Will continue to monitor.
[2018-08-25] MEDS: DEXTROSE 5%/LACTATED RINGERS 1,000 ML IV SCH (15:30)
[2018-08-25] MEDS ORDERED: PHENYLEPHRINE HCL 1% 10 MG/ML VIAL ONE (19:00)
[2018-08-25] MEDS ORDERED: LIDOCAINE HCL 2% LOCAL INJ 5 ML SDV VIAL INJ ONE (19:00)
[2018-08-25] MEDS ORDERED: PROPOFOL IV EMULSION 10 MG/ML 20 ML VIAL ONE (19:00)
--- NOTE | 2018-08-25 19:00 | NUR ---
patient is stable at this time.
--- NOTE | 2018-08-25 19:15 | NUR ---
Received patient from day nurse, patient is alert and oriented x4, patient is currently connected to 2l nc for oxygenation, as per patient and medical notes, patient is here because of lethal cardiac rhythms, patient had JOSE and cardioversion done on him today by Dr. Kian Ybarra, patient converted to NSR and sustained at this time, patient is currently here for further monitoring.safety and fall precautions maintained as per hospital protocol: bed in lowest position and locked, needed items beside bed and call esparza placed close to patient, patient instructed to use it carmen call nurses for any assistance needed, patient verbalized understanding. patient is currently stable, will continue to monitor.
[2018-08-25] MEDS ORDERED: FENTANYL CITRATE/PF 100MCG/2 ML INJ ONE (20:04)
[2018-08-25] MEDS ORDERED: MIDAZOLAM HCL 2 MG/2 ML VIAL ONE (20:04)
[2018-08-25] MEDS ORDERED: DIAZEPAM 5 MG TAB PO SCH (22:00)
[2018-08-26] VITALS (8 sets, daily range): BP systolic 80–140; BP diastolic 30–86
--- NOTE | 2018-08-26 00:06 | NUR ---
5mg Valium wasted
[2018-08-26] MEDS: HYDROCODONE/APAP 10MG-325MG TAB PO PRN ×5 (00:10→18:24)
[2018-08-26] MEDS: METOPROLOL TARTRATE 25 MG TAB PO SCH ×4 (00:11→17:44)
[2018-08-26] MEDS: IPRATROPIUM BROMIDE 0.02% 2.5 ML NEB NEB SCH ×4 (01:25→19:00)
[2018-08-26] MEDS: LEVALBUTEROL HCL SOLN NEBU 0.63 MG/3 ML NEB INH SCH ×4 (01:25→19:00)
[2018-08-26 05:19] LABS: BASOPHILS # (AUTO) 0.1 (0.0-0.1); BASOPHILS % 0.6 % (0.0-1.0); EOSINOPHILS # (AUTO) 0.2 (0.0-0.4); EOSINOPHILS % 2.4 % (0.0-6.0); HEMOGLOBIN 12.9 g/dL (14.0-18.0); LYMPHOCYTES # (AUTO) 2.6 (1.0-3.2); LYMPHOCYTES % 29.8 % (18.0-39.1); MEAN CORPUSCULAR HEMOGLOBIN 30.7 pg (28-32); MEAN CORPUSCULAR HGB CONC 32.3 g/dL (31-35); MEAN CORPUSCULAR VOLUME 95.2 fL (81-99); MONOCYTES # (AUTO) 0.8 (0.2-0.8); MONOCYTES % 9.6 % (4.4-11.3); NEUTROPHILS # (AUTO) 4.9 (2.1-6.9); NEUTROPHILS % 56.6 % (38.7-80.0); PLATELET COUNT 476 x10e3/uL (140-360); RED CELL DISTRIBUTION WIDTH 13.2 % (11.7-14.4)
[2018-08-26 05:38] LABS: ANION GAP 14.1 mmol/L (8-16); BLOOD UREA NITROGEN 23 mg/dL (7-26); BUN/CREATININE RATIO 19 (6-25); CARBON DIOXIDE 29 mmol/L (22-29); CHLORIDE 97 mmol/L (98-107); CREATININE, SERUM 1.22 mg/dL (0.72-1.25); EST GLOMERULAR FILTRATION RATE > 60 ML/MIN (60-); GLUCOSE 95 mg/dL (74-118); POTASSIUM 5.1 mmol/L (3.5-5.1); SODIUM 135 mmol/L (136-145)
--- NOTE | 2018-08-26 07:00 | NUR ---
Patient endorsed to next shift for continuity of care.
[2018-08-26] MEDS ORDERED: DIAZEPAM 5 MG TAB PO SCH (09:00)
[2018-08-26] MEDS: DOCUSATE SODIUM 100 MG CAP PO SCH ×2 (09:57→17:44)
[2018-08-26] MEDS: APIXABAN 5 MG TABLET PO SCH ×2 (09:57→17:44)
[2018-08-26] MEDS: PANTOPRAZOLE SOD 40 MG TABEC PO SCH (09:59)
[2018-08-26] MEDS: DILTIAZEM HCL 60 MG TAB PO SCH ×2 (10:14→17:44)
[2018-08-26] MEDS: DEXTROSE 5%/LACTATED RINGERS 1,000 ML IV SCH (11:30)
--- NOTE | 2018-08-26 13:00 | NUR ---
handoff report to Danica CAMPBELL, patient transferred with telemetry to room 113.
--- NOTE | 2018-08-26 13:08 | NUR ---
ARRIVED VIA WC FROM IMCU, AA&OX3, RA AT THIS TIME, DENIES ANY PAIN AT THIS TIME, BUT STATES HE WILL NEED HIS "PAIN MEDICATION AT 2PM", EDUCATED TO CALL FOR ANY NEEDS AND BEFORE GETTING OOB , PT VERBALIZED UNDERSTANDING, CALL LIGHT WITHIN REACH
--- NOTE | 2018-08-26 14:08 | NUR ---
MEDICATED PER MD ORDER FOR 03/15 BACK PAIN, EDUCATED TO NOT GET OOB WITHOUT CALLING FOR ASSISTANCE, PT VERBALIZED UNDERSTANDING, CALL LIGHT WITHIN REACH
--- NOTE | 2018-08-26 16:20 | NUR ---
MD MARIO INTO SEE PT, DISCUSSED POC, OKAY TO DISCHARGE IF OKAY WITH DR HUSTON, GAS REVERSER TELEPHONED MD HUSTON, AWAITING CALL BACK
--- NOTE | 2018-08-26 16:27 | NUR ---
SPOKE WITH MD HUSTON, OKAYED DISCHARGE, NOTIFIED MD MARIO
[2018-08-26] MEDS ORDERED: METOPROLOL TART25 MG PO (16:54)
[2018-08-26] MEDS ORDERED: PANTOPRAZOLE SO40 MG PO (16:55)
[2018-08-26] MEDS ORDERED: DILTIAZEM ER60 MG PO (16:55)
[2018-08-26] MEDS ORDERED: ELIQUIS PO (16:57)
--- NOTE | 2018-08-26 17:37 | Discharge Summary ---
See also ER notes and history physical, consultations. Patient was seen in office with a supraventricular tachycardia rate 145 not responsive to carotid sinus pressure. He was on diltiazem 240 mg twice daily prior to admission. He was referred to the emergency room for further treatment. There, he was initiated on IV diltiazem with improved rate control. While here, the patient alternating between atrial fibrillation and atrial flutter. He had not been on anticoagulants prior to admission although he had a prior history of paroxysmal atrial fibrillation. This is because he had a history of ulcer disease and prior GI bleed, on anticoagulants. The patient's chronic problems were followed and managed medically. He was also seen by neurology consultants regarding history of migraines and excessive use of triptan prior to admission and other therapeutic options were offered. He was started on beta-blockers here for multiple reasons including also malignant hypertension. The patient had a lengthy course, needing transesophageal echo, which was benign. Thereafter, he underwent DC cardioversion for atrial flutter. Thereafter, he did well. See serial laboratory, imaging studies. The patient had mild transient leukemoid reaction after steroids were administered in the emergency room. He required continuation on bronchodilators. He was changed to Xopenex while here because of recurrent atrial flutter. Hemoglobin remained stable. Platelet counts 272,000 on admission, August 17. Pro-time, PTT normal. Urinalysis clear. Digoxin level 0.69 on August 23. Chemistries monitored. Blood sugars varied mildly post steroids and thereafter, remained normal. Cardiac enzymes normal. TSH 0.473 normal. Free T4 1.1 normal. Ejection fraction on echocardiogram was 40% to 45%. Course was complicated by the patient's severe bronchitis, which transiently worsened after arrival and thereafter improved with smoking cessation. Patient used nicotine patches here. Serial chest x-rays compatible with emphysema and bronchitis. Head MRI ordered by consulting neurologist Dr. Michael. Study severely degraded by the patient's motion and the oral cavity metallic artifacts. No acute abnormalities. Mild white matter microvascular ischemic changes. Ultimately, the patient was stable for one day post cardioversion and was cleared for discharge. See also final discharge med list. The patient was told to return to clinic within a few days for close followup. FINAL IMPRESSIONS 1. Paroxysmal atrial fibrillation. Atrial flutter. DC cardioversion. 2. Malignant hypertension. 3. Chronic obstructive pulmonary disease with acute exacerbation. 4. Migraine headaches. 5. Peptic ulcer disease. 6. Status post 5 back surgeries in the past in [place] with chronic pain and chronic failed back syndrome. 7. Hyperlipoproteinemia. 8. Prediabetes. 9. Gastroesophageal reflux disease. 10. Degenerative joint disease of the left knee. NEEL MARIO MD Job#: [id number] MTDD
--- NOTE | 2018-08-26 18:33 | NUR ---
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
--- NOTE | 2018-08-26 22:08 | NUR ---
PT LEFT UNIT VIA WHEELCHAIR TO FRONT LOBBY AT THIS TIME.NO S/S OF DISTRESS NOTED.ALL PERSONAL BELONGINGS TAKEN WITH THE PT.
--- NOTE | 2018-08-27 12:58 | Operative Report ---
DATE OF PROCEDURE: August 25, 2018 DIAGNOSES 1. Atrial flutter. 2. Hypertension. 3. Coronary artery disease. 4. Chronic obstructive pulmonary disease. 5. Peptic dyspepsia. PROCEDURE PERFORMED: Electrical cardioversion INDICATIONS: This 57-year-old patient was admitted on the 15 of August and initially he was in rapid atrial fibrillation and then converted to atrial flutter with variable block and at times with 2:1 block and rapid ventricular rate. His rate has been controlled with antiarrhythmic medication; however, he remained in atrial flutter and the patient was now considered for electrical cardioversion. JOSE was performed since the patient has not been on chronic anticoagulation because of a history of peptic ulcer disease with GI bleeding and anticoagulation was only initiated on the day of his admission. DETAILS OF PROCEDURE: The patient was brought to the endo room and he was attended by the anesthesiologist and JOSE was performed which did not disclose any intracardiac thrombi. Particularly, there was no evidence of thrombi in the left atrium, left atrial appendage, and there was no smoke in the left atrium either. Therefore, while the patient was still kept under anesthesia, he was then prepared for electrical cardioversion which was performed with 50 cruz per second until the patient converted to regular sinus rhythm. The patient was stable throughout the procedure. There were no complications. He was continued on the close observation by anesthesia until patient became fully awake and he was then transferred to the [facility] for further observation and continued treatment. FINAL IMPRESSION: Atrial flutter successfully converted to regular sinus rhythm with electric cardioversion with consultation of anesthesia in attendance. Job#: [id number] AKU cc:NEEL MARIO MD
== END 2018-08-26 22:16 | disposition home or self-care (01) | DRG 949 ==
LOC: ER 17:45 → ERHOLD 23:33 → ICU 08-16 16:02 → MED/SURG 08-18 20:15 → MED/SURG3 08-22 20:47 → IMCU 08-25 14:11 → MED/SURG 08-26 13:08
PROVIDERS: ADMIT Internal Medicine; ATTEND Internal Medicine
PROC: 5A2204Z Restoration of Cardiac Rhythm, Single (ICD-10-PCS; principal; 2018-08-15)
DX: Z79.01 Long term (current) use of anticoagulants (principal); I48.92 Unspecified atrial flutter; J44.9 Chronic obstructive pulmonary disease, unspecified; F17.210 Nicotine dependence, cigarettes, uncomplicated; M54.9 Dorsalgia, unspecified; G89.29 Other chronic pain; I48.0 Paroxysmal atrial fibrillation; M47.9 Spondylosis, unspecified; G89.4 Chronic pain syndrome; K21.9 Gastro-esophageal reflux disease without esophagitis; I25.10 Atherosclerotic heart disease of native coronary artery without angina pectoris; E78.5 Hyperlipidemia, unspecified; K27.9 Peptic ulcer, site unspecified, unspecified as acute or chronic, without hemorrhage or perforation; G43.919 Migraine, unspecified, intractable, without status migrainosus; R73.03 Prediabetes; I11.9 Hypertensive heart disease without heart failure
CPT/HCPCS: 36415; 70551; 71045; 71046; 80048; 80053; 80162; 81001; 82550; 82553; 82948; 83036; 84439; 84443; 84484; 85014; 85018; 85025; 85610; 85730; 93005; 93306; 93307; 93312; 93325; 93970; 94640; 99285; J1160; J2001; J2250; J2370; J2405; J2930; J3475; J7030; J7050

== ENCOUNTER 2020-02-09 18:24 | Inpatient (IN) | payer MEDICARE, OTHER ==
[~2020-02-09] VITALS: Ht 180.3 cm; Wt 63.5 kg
[~2020-02-09 18:24] MED LIST changes: +DIAZEPAM10 MG PO; +DILTIAZEM ER60 MG PO; +ELIQUIS PO; +ENALAPRIL MALEA20 MG PO; +IMITREX50 MG PO; +LYRICA75 MG PO; +MATZIM LA240 MG PO; +METOPROLOL TART25 MG PO; +PROAIR HFA INH8.5 GM INH
--- OUTSIDE RECORDS SUMMARY | 2020-02-09 18:29 | XMS REPORT | Continuity of Care Document ---
Author Author [facility] t Organization [facility] Address [address] [place] [address] Phone Unavailable Care Team Providers Care Balloon Sander Name Role Phone NEEL MARIO MD PCP NEEL MARIO Attphys Unavailable Mango SCHERER Attphys Unavailable NEEL MARIO Admphys Unavailable Payers Payer Name Policy Type Policy Number Effective Date Expiration Date [facility] [employer] Premium [facility] [id number] 2011 00:00 :00 [facility] [id number] I [facility] Problems Condition Name Condition Details Condition Category Status Onset Date Resolution Date Last Treatment Date Treating Clinician Comments Source Bradycardia Bradycardia Problem Active 2015-06-19 00:00:00 [facility] COPD (chronic obstructive pulmonary disease) COPD (chr onic obstructive pulmonary disease) Problem Active 2015-06-19 00:00:00 [facility] Occult blood in stools Occult blood in stools Problem Active 2015-05-26 00:00:00 [facility] Congestive heart failure CHF (congestive heart failure) Problem Active 2014-12-25 00:00:00 [facility] Sepsis Sepsis Problem Active 2014-12-25 00:00:00 [facility] Urinary tract infection UTI (urinary tract infection) Problem Active 2014-12-25 00:00:00 [facility] Obstructive chronic bronchitis with exacerbation COPD exacerbati on Problem Active 2014-12-25 00:00:00 [facility] Hypertensive crisis without congestive heart failure H ypertensive crisis without congestive heart failure Problem Active 2014-11-26 00:00:00 [facility] Chronic intractable pain Intractable pain Problem Active 00:00:00 [facility] Fracture of rib of left side Left rib fracture Problem Active 2014-06-28 00:00:00 [facility] Hypoxia Hypoxia Problem Active [facility] Retention of urine Urinary retention Problem Active [facility] Allergies, Adverse Reactions, Alerts Allergy Name Allergy Type Status Severity Reaction(s) Onset Date Inacti ve Date Treating Clinician Comments Source No Known Allergies DA Active U 2019-12-24 00:00:00 [facility] No Known Allergies DA Active U 2017-07-17 00:00:00 [facility] Medications Ordered Medication Name Filled Medication Name Start Date Stop Da te Current Medication? Ordering Clinician Indication Dosage Frequency Signature (SIG) Comments Components Source Albuterol Sulfate (Proair Hfa Inhaler*) 8.5 Gm Inh Alb uterol Sulfate (Proair Hfa Inhaler*) 8.5 Gm Inh Yes 2 Mohini ry 4 Hours as needed for Shortness Of Breath [facility] Diltiazem Hcl (Diltiazem Er) 60 Mg Cap.er.12h Diltiaze m Hcl (Diltiazem Er) 60 Mg Cap.er.12h Yes 60 Twice A Day [facility] Eliquis Eliquis Yes 5 Twice A Day [facility] Hydrocodone Bit/Acetaminophen (Roll 10-325 Tablet) 1 Each Tablet Hydrocodone Bit/Acetaminophen (Roll 10-325 Tablet) 1 Each Tablet Yes 1 Every 4 Hours as needed for Pain [facility] Metoprolol Tartrate 25 Mg Tablet Metoprolol Tartrate 25 Mg Tablet Yes 25 Twice A Day [facility] Pantoprazole Sodium (Protonix) 40 Mg Tablet. Pantopr azole Sodium (Protonix) 40 Mg Tablet. Yes 40 Daily [facility] Diazepam 10 Mg Tablet, 10 Mg Oral Diazepam 10 Mg Tablet, 10 Mg O ral 2018-08-26 00:00:00 No 10 Daily [facility] Diltiazem Hcl (Matzim La) 240 Mg Tab.er.24h, 240 Mg Or al Diltiazem Hcl (Matzim La) 240 Mg Tab.er.24h, 240 Mg Oral 2018-08-26 00:00:00 No 240 Twice A Day [facility] Enalapril Maleate 20 Mg Tablet, 20 Mg Oral Enalapril M aleate 20 Mg Tablet, 20 Mg Oral 2018-08-26 00:00:00 No 20 Twice A Day [facility] Metoclopramide Hcl (Reglan) 10 Mg Tablet, 10 Mg Oral M etoclopramide Hcl (Reglan) 10 Mg Tablet, 10 Mg Oral 2018-08-26 00:00:00 No 10 Three Times A Day [facility] Pantoprazole Sodium (Protonix) 40 Mg Tablet., 40 Mg Oral Pantoprazole Sodium (Protonix) 40 Mg Tablet.dr, 40 Mg Oral 2018-08-26 00:00:00 No 40 Daily [facility] Pregabalin (Lyrica) 75 Mg Cap, 75 Mg Oral Pregabalin ( Lyrica) 75 Mg Cap, 75 Mg Oral 2018-08-26 00:00:00 No 75 Twice A Day [facility] Sumatriptan Succinate (Imitrex) 50 Mg Tablet, 50 Mg Or al Sumatriptan Succinate (Imitrex) 50 Mg Tablet, 50 Mg Oral 2018-08-26 00:00:00 No 50 Daily as needed for Headache [facility] Albuterol Sulfate (Albuterol Sulfate Hfa) 8.5 Gm Hfa.a er.ad, 2 Inh Inhalation Albuterol Sulfate (Albuterol Sulfate Hfa) 8.5 Gm Hfa.aer.ad, 2 Inh Inhalation 2017-12-19 00:00:00 No 2 Every 4 Ho urs as needed for Shortness Of Breath [facility] Diazepam 5 Mg Tablet, 10 Mg Oral Diazepam 5 Mg Tablet, 10 Mg Ora l 2017-12-19 00:00:00 No 10 Bedtime [facility] Diltiazem Hcl 60 Mg Tablet, 60 Mg Oral Diltiazem Hcl 60 Mg Table t, 60 Mg Oral 2017-12-19 00:00:00 No 60 Every Morning [facility] Pantoprazole Sodium (Protonix) 40 Mg Tablet.dr, 40 Mg Oral Pantoprazole Sodium (Protonix) 40 Mg Tablet.dr, 40 Mg Oral 2017-12-19 00:00:00 No 40 Daily [facility] Prednisone 5 Mg Tablet, 10 Mg Oral Prednisone 5 Mg Tablet, 10 Mg Oral 2017-12-19 00:00:00 No 10 Daily [facility] Azithromycin (Z-Sy) 250 Mg Tablet, 250 Mg Oral Azithr omycin (Z-Sy) 250 Mg Tablet, 250 Mg Oral 2016-06-27 00:00:00 No 250 Whitney y [facility] Clonidine Hcl (Catapres-Tts 3) 1 Ea Patch, 0.3 Mg Lemus sderm Clonidine Hcl (Catapres-Tts 3) 1 Ea Patch, 0.3 Mg Transderm 2015-06-21 00:00:00 No .3 Daily [facility] Diltiazem Hcl (Diltiazem 24HR Er) 180 Mg Capcr, Diltia zem Hcl (Diltiazem 24HR Er) 180 Mg Capcr, 2015-06-21 00:00:00 No [facility] Metoprolol Succinate (Toprol Xl) 25 Mg Tab.er.24h, 25 Mg Oral Metoprolol Succinate (Toprol Xl) 25 Mg Tab.er.24h, 25 Mg Oral 2015-06-21 00:00:0 0 No 25 Daily [facility] Fluconazole (Diflucan) 150 Mg Tablet, 150 Mg Oral Fluc onazole (Diflucan) 150 Mg Tablet, 150 Mg Oral 2015-05-29 00:00:00 No 150 Whitney y At 1700 [facility] Levofloxacin (Levaquin) 500 Mg Tablet, 500 Mg Oral Lev ofloxacin (Levaquin) 500 Mg Tablet, 500 Mg Oral 2015-05-29 00:00:00 No 500 D amy [facility] Sulfamethoxazole/Trimethoprim (Bactrim Ds Tablet) 1 Ea ch Tablet, 1 Tab Oral Sulfamethoxazole/Trimethoprim (Bactrim Ds Tablet) 1 Each Tablet, 1 Tab Oral 2015-05-29 00:00:00 No 1 Daily [facility] Metoprolol Succinate (Toprol Xl) 50 Mg Tab.er.24h, 100 Mg Oral Metoprolol Succinate (Toprol Xl) 50 Mg Tab.er.24h, 100 Mg Oral 2014-12-25 00:0 0:00 No 100 Daily [facility] Unknown Bp Meds , Unknown Bp Meds , 2014-06-28 00:00:00 No [facility] Procedures Procedure Date / Time Performed Performing Clinician [facility] e MRI (magnetic resonance imaging) 2018-08-25 00:00:00 ASHLEY TAMEZ [facility] X-ray of chest, two views 2018-08-21 00:00:00 NEEL MARIO CH [facility] Magnetic resonance imaging of brain without contrast 2018-08 00:00:00 LETY MCDONALD [facility] Computed tomography of abdomen and pelvis with contrast 2017 00:00:00 CARRI SCHERER [facility] EXCISION OF STOMACH, PYLORUS, ENDO, DIAGN 2017-12-21 00:00:00 ИВАН PERRY [facility] EXCISION OF STOMACH, ENDO, DIAGN 2017-12-21 00:00:00 TIRSO MIRANDA [facility] Computed tomography of abdomen and pelvis with contrast 2017 00:00:00 STELLA HUTSON [facility] Encounters Start Date/Time End Date/Time Encounter Type [facility] ID Source 2018-08-15 23:33:00 2018-08-26 22:16:00 Discharged Inpatient 1 NEEL MARIO [facility] [id number] [facility] 2018-01-12 21:48:00 2018-01-13 00:26:00 Departed Emergency Room 1 CARRI SCHERER [facility] [id number] [facility] 2017-12-22 12:18:00 2017-12-22 20:04:00 Discharged Inpatient ER NEEL MARIO [facility] [id number] [facility] 2017-04-12 20:24:00 2017-04-16 09:17:00 Discharged Inpatient [facility] [id number] [facility] Results Test Description Test Time Test Comments Results Result Comments Source BASIC METABOLIC PANEL 2020-01-21 05:34:00 Test Item SODIUM (test code = NA) 137 mmol/L 136-145 N POTASSIUM (test code = K) 4.4 mmol/L 3.5-5.1 N CHLORIDE (test code = CL) 101.0 mmol/L 98-107 N CARBON DIOXIDE (test code = CO2) 30.0 mmol/L 21-32 N ANION GAP (test code = GAP) 10.4 10-20 N GLUCOSE (test code = GLU) 105 mg/dL 74-106 N BLOOD UREA NITROGEN (test code = BUN) 28 mg/dL 7-18 H GLOMERULAR FILTRATION RATE (test code = GFR) > 60 mL/min >=60 Estimated GFR by using Modified MDRD formula.Chronic kidney disease is defined as either kidney damageor GFR <60 mL/min/1.73 m2 for >3 months. CREATININE (test code = CREAT) 1.10 mg/dL 0.7-1.3 N BUN/CREATININE RATIO (test code = BUN/CREA) 25.5 10-20 H CALCIUM (test code = CA) 8.6 mg/dL 8.5-10.1 N HEPATIC FUNCTION [id number] 05:34:00* Test Item Value Reference Range Interpretation Comments TOTAL PROTEIN (test code = PROT) 6.5 gram/dL 6.4-8.2 N ALBUMIN (test code = ALB) 3.0 g/dL 3.4-5.0 L GLOBULIN (test code = GLOB) 3.5 gram/dL 2.7-4.2 N ALBUMIN/GLOBULIN RATIO (test code = A/G) 0.9 0.75-1.50 N BILIRUBIN TOTAL (test code = BILT) 0.40 mg/dL 0.0-1.0 N BILIRUBIN DIRECT (test code = BILD) 0.13 mg/dL 0.0-0.20 N SGOT/AST (test code = AST) 11 IUnit/L 15-37 L SGPT/ALT (test code = ALT) 78 IUnit/L 12-78 N ALKALINE PHOSPHATASE TOTAL (test code = ALKP) 82 IUnit/L 45-117 N Note change in reference range due to change in reagent. [id number] 05:34:00* Test Item Value Reference Range Interpretation Comments PHOSPHORUS (test code = PHOS) 3.7 mg/dL 2.5-4.9 N [id number] 05:34:00* Test Item Value Reference Range Interpretation Comments MAGNESIUM (test code = MAG) 2.4 mg/dL 1.8-2.4 N CBC W/AUTO [id number] 05:11:00* Test Item Value Reference Range Interpretation Comments WHITE BLOOD CELL (test code = WBC) 10.5 K/mm3 4.5-12.5 N RED BLOOD CELL (test code = RBC) 5.71 mill/mm3 4.0-5.8 N HEMOGLOBIN (test code = HGB) 15.2 gram/dL 13.0-17.5 N HEMATOCRIT (test code = HCT) 48.2 % 42.0-52.0 N MEAN CELL VOLUME (test code = MCV) 84.4 fL 80-98 N MEAN CELL HGB (test code = MCH) 26.6 picogram 27.0-33.0 L MEAN CELL HGB CONCETRATION (test code = MCHC) 31.5 gram/dL 33.0-36. 0 L RED CELL DISTRIBUTION WIDTH (test code = RDW) 14.6 % 11.6-16. 2 N RED CELL DISTRIBUTION WIDTH SD (test code = RDW-SD) 44.2 fL 37 .0-51.0 N PLATELET COUNT (test code = PLT) 366 K/mm3 150-450 N MEAN PLATELET VOLUME (test code = MPV) 9.1 fL 6.7-11.0 N NEUTROPHIL % (test code = NT%) 55.0 % 39.0-69.0 N IMMATURE GRANULOCYTE % (test code = IG%) 1.2 % 0.0-5.0 N LYMPHOCYTE % (test code = LY%) 29.9 % 25.0-55.0 N MONOCYTE % (test code = MO%) 10.4 % 0.0-10.0 H EOSINOPHIL % (test code = EO%) 3.1 % 0.0-5.0 N BASOPHIL % (test code = BA%) 0.4 % 0.0-1.0 N NUCLEATED RBC % (test code = NRBC%) 0.0 % 0-0 N NEUTROPHIL # (test code = NT#) 5.77 K/mm3 1.8-7.7 N IMMATURE GRANULOCYTE # (test code = IG#) 0.13 x10 3/uL 0-0.03 H LYMPHOCYTE # (test code = LY#) 3.14 K/mm3 1.0-5.0 N MONOCYTE # (test code = MO#) 1.09 K/mm3 0-0.8 H EOSINOPHIL # (test code = EO#) 0.32 K/mm3 0.0-0.5 N BASOPHIL # (test code = BA#) 0.04 K/mm3 0.0-0.2 N NUCLEATED RBC # (test code = NRBC#) 0.00 K/mm3 0.0-0.1 N MANUAL DIFF REQUIRED (test code = MDIFF) NO BASIC METABOLIC [id number] 05:06:00* Test Item Value Reference Range Interpretation Comments SODIUM (test code = NA) 136 mmol/L 136-145 N POTASSIUM (test code = K) 4.5 mmol/L 3.5-5.1 N CHLORIDE (test code = CL) 100.0 mmol/L 98-107 N CARBON DIOXIDE (test code = CO2) 30.0 mmol/L 21-32 N ANION GAP (test code = GAP) 10.5 10-20 N GLUCOSE (test code = GLU) 100 mg/dL 74-106 N BLOOD UREA NITROGEN (test code = BUN) 32 mg/dL 7-18 H GLOMERULAR FILTRATION RATE (test code = GFR) > 60 mL/min >=60 Estimated GFR by using Modified MDRD formula.Chronic kidney disease is defined as either kidney damageor GFR <60 mL/min/1.73 m2 for >3 months. CREATININE (test code = CREAT) 1.20 mg/dL 0.7-1.3 N BUN/CREATININE RATIO (test code = BUN/CREA) 26.7 10-20 H CALCIUM (test code = CA) 8.9 mg/dL 8.5-10.1 N CBC W/AUTO [id number] 04:42:00* Test Item Value Reference Range Interpretation Comments WHITE BLOOD CELL (test code = WBC) 11.0 K/mm3 4.5-12.5 N RED BLOOD CELL (test code = RBC) 5.60 mill/mm3 4.0-5.8 N HEMOGLOBIN (test code = HGB) 15.1 gram/dL 13.0-17.5 N HEMATOCRIT (test code = HCT) 47.7 % 42.0-52.0 N MEAN CELL VOLUME (test code = MCV) 85.2 fL 80-98 N MEAN CELL HGB (test code = MCH) 27.0 picogram 27.0-33.0 N MEAN CELL HGB CONCETRATION (test code = MCHC) 31.7 gram/dL 33.0-36. 0 L RED CELL DISTRIBUTION WIDTH (test code = RDW) 14.4 % 11.6-16. 2 N RED CELL DISTRIBUTION WIDTH SD (test code = RDW-SD) 44.2 fL 37 .0-51.0 N PLATELET COUNT (test code = PLT) 364 K/mm3 150-450 N MEAN PLATELET VOLUME (test code = MPV) 9.6 fL 6.7-11.0 N NEUTROPHIL % (test code = NT%) 60.2 % 39.0-69.0 N IMMATURE GRANULOCYTE % (test code = IG%) 0.8 % 0.0-5.0 N LYMPHOCYTE % (test code = LY%) 25.4 % 25.0-55.0 N MONOCYTE % (test code = MO%) 11.8 % 0.0-10.0 H EOSINOPHIL % (test code = EO%) 1.6 % 0.0-5.0 N BASOPHIL % (test code = BA%) 0.2 % 0.0-1.0 N NUCLEATED RBC % (test code = NRBC%) 0.0 % 0-0 N NEUTROPHIL # (test code = NT#) 6.60 K/mm3 1.8-7.7 N IMMATURE GRANULOCYTE # (test code = IG#) 0.09 x10 3/uL 0-0.03 H LYMPHOCYTE # (test code = LY#) 2.78 K/mm3 1.0-5.0 N MONOCYTE # (test code = MO#) 1.29 K/mm3 0-0.8 H EOSINOPHIL # (test code = EO#) 0.17 K/mm3 0.0-0.5 N BASOPHIL # (test code = BA#) 0.02 K/mm3 0.0-0.2 N NUCLEATED RBC # (test code = NRBC#) 0.00 K/mm3 0.0-0.1 N MANUAL DIFF REQUIRED (test code = MDIFF) NO CBC W/AUTO [id number] 04:38:00* Test Item Value Reference Range Interpretation Comments WHITE BLOOD CELL (test code = WBC) K/mm3 4.5-12.5 RED BLOOD CELL (test code = RBC) mill/mm3 4.0-5.8 HEMOGLOBIN (test code = HGB) 15.1 gram/dL 13.0-17.5 N HEMATOCRIT (test code = HCT) 47.7 % 42.0-52.0 N MEAN CELL VOLUME (test code = MCV) fL 80-98 MEAN CELL HGB (test code = MCH) picogram 27.0-33.0 MEAN CELL HGB CONCETRATION (test code = MCHC) gram/dL 33.0-36. 0 RED CELL DISTRIBUTION WIDTH (test code = RDW) % 11.6-16. 2 RED CELL DISTRIBUTION WIDTH SD (test code = RDW-SD) fL 37 .0-51.0 PLATELET COUNT (test code = PLT) K/mm3 150-450 MEAN PLATELET VOLUME (test code = MPV) fL 6.7-11.0 NEUTROPHIL % (test code = NT%) % 39.0-69.0 IMMATURE GRANULOCYTE % (test code = IG%) % 0.0-5.0 LYMPHOCYTE % (test code = LY%) % 25.0-55.0 MONOCYTE % (test code = MO%) % 0.0-10.0 EOSINOPHIL % (test code = EO%) % 0.0-5.0 BASOPHIL % (test code = BA%) % 0.0-1.0 NEUTROPHIL # (test code = NT#) K/mm3 1.8-7.7 LYMPHOCYTE # (test code = LY#) K/mm3 1.0-5.0 MONOCYTE # (test code = MO#) K/mm3 0-0.8 EOSINOPHIL # (test code = EO#) K/mm3 0.0-0.5 BASOPHIL # (test code = BA#) K/mm3 0.0-0.2 [id number] 16:41:00* Test Item Value Reference Range Interpretation Comments GLUBED (test code = GLUBED) 141 mg/dL 74-106 H Performed by certified horizontal boring mill set up operator at [facility] - XR CHEST 1 [id number] 09:19:00 FAX: Johana Zarate [place]: B St: ADM FAX: Tee Henry MD Name: YESENIA SCHERER [facility] : 1960 Age/S: 59/M [address] [facility] Unit #: [id number] Loc: V.[address] [place] [address] Phys: Johana Yap Acct: [id number] Dis Date: Status: ADM IN PHONE #: [phone] Exam Date: 01/19/2020 0825 FAX #: [phone] Reason: sob EXAMS: CPT CODE: [id number] XR CHEST 1 V 30320 REASON FOR EXAM: sob Exam Order Date: 01/19/2020 5:00 AM Ordering Sagrario: ROSARIO Sr PROCEDURE: - XR CHEST 1 V COMPARISON: Chest x-ray the previous day FINDINGS: The lungs are hyperinflated clear. There is no pleural effusion or pneumothorax. Pulmonary vascularity is within normal limits. Cardiomediastinal silhouette is normal in size for technique. The mediastinal contours are within normal limits. Post-traumatic changes in left rib cage are unchanged. The visualized upper abdomen is within normal limits. IMPRESSION: No acute cardiopulmonary process or change from yesterday's exam. Location: [facility] at 0919 Reported and signed by: Ivan Pa MD CC: Johana Yap; Tee Jernigan chnologist: RT TAMAR(Mia) Trnscrd Date/ Time/By: 01/19/2020 (918) : By: [email or web address] Orig Print D/T: S: 01/19/20 20 (3095) PAGE 1 Signed Report [id number] 04:07:00* Test Item Value Reference Range Interpretation Comments PHOSPHORUS (test code = PHOS) 3.6 mg/dL 2.5-4.9 N [id number] 04:07:00* Test Item Value Reference Range Interpretation Comments MAGNESIUM (test code = MAG) 2.5 mg/dL 1.8-2.4 H CALCIUM [id number] 04:07:00* Test Item Value Reference Range Interpretation Comments CALCIUM IONIZED (test code = SIVAKUMAR) 1.25 mmol/L 1.12-1.32 N [id number] 04:03:00* Test Item Value Reference Range Interpretation Comments PHOSPHORUS (test code = PHOS) mg/dL 2.5-4.9 [id number] 04:03:00* Test Item Value Reference Range Interpretation Comments MAGNESIUM (test code = MAG) 2.5 mg/dL 1.8-2.4 H CALCIUM [id number] 04:03:00* Test Item Value Reference Range Interpretation Comments CALCIUM IONIZED (test code = SIVAKUMAR) 1.25 mmol/L 1.12-1.32 N [id number] 04:01:00* Test Item Value Reference Range Interpretation Comments PHOSPHORUS (test code = PHOS) mg/dL 2.5-4.9 [id number] 04:01:00* Test Item Value Reference Range Interpretation Comments MAGNESIUM (test code = MAG) mg/dL 1.8-2.4 CALCIUM [id number] 04:01:00* Test Item Value Reference Range Interpretation Comments CALCIUM IONIZED (test code = SIVAKUMAR) 1.25 mmol/L 1.12-1.32 N CBC W/AUTO [id number] 03:23:00* Test Item Value Reference Range Interpretation Comments WHITE BLOOD CELL (test code = WBC) 14.0 K/mm3 4.5-12.5 H RED BLOOD CELL (test code = RBC) 5.50 mill/mm3 4.0-5.8 N HEMOGLOBIN (test code = HGB) 14.9 gram/dL 13.0-17.5 N HEMATOCRIT (test code = HCT) 46.6 % 42.0-52.0 N MEAN CELL VOLUME (test code = MCV) 84.7 fL 80-98 N MEAN CELL HGB (test code = MCH) 27.1 picogram 27.0-33.0 N MEAN CELL HGB CONCETRATION (test code = MCHC) 32.0 gram/dL 33.0-36. 0 L RED CELL DISTRIBUTION WIDTH (test code = RDW) 14.5 % 11.6-16. 2 N RED CELL DISTRIBUTION WIDTH SD (test code = RDW-SD) 44.3 fL 37 .0-51.0 N PLATELET COUNT (test code = PLT) 357 K/mm3 150-450 N MEAN PLATELET VOLUME (test code = MPV) 9.7 fL 6.7-11.0 N NEUTROPHIL % (test code = NT%) 74.1 % 39.0-69.0 H IMMATURE GRANULOCYTE % (test code = IG%) 0.4 % 0.0-5.0 N LYMPHOCYTE % (test code = LY%) 17.3 % 25.0-55.0 L MONOCYTE % (test code = MO%) 8.0 % 0.0-10.0 N EOSINOPHIL % (test code = EO%) 0.1 % 0.0-5.0 N BASOPHIL % (test code = BA%) 0.1 % 0.0-1.0 N NUCLEATED RBC % (test code = NRBC%) 0.0 % 0-0 N NEUTROPHIL # (test code = NT#) 10.37 K/mm3 1.8-7.7 H IMMATURE GRANULOCYTE # (test code = IG#) 0.06 x10 3/uL 0-0.03 H LYMPHOCYTE # (test code = LY#) 2.42 K/mm3 1.0-5.0 N MONOCYTE # (test code = MO#) 1.12 K/mm3 0-0.8 H EOSINOPHIL # (test code = EO#) 0.02 K/mm3 0.0-0.5 N BASOPHIL # (test code = BA#) 0.02 K/mm3 0.0-0.2 N NUCLEATED RBC # (test code = NRBC#) 0.00 K/mm3 0.0-0.1 N MANUAL DIFF REQUIRED (test code = MDIFF) NO CBC W/AUTO [id number] 03:20:00* Test Item Value Reference Range Interpretation Comments WHITE BLOOD CELL (test code = WBC) K/mm3 4.5-12.5 RED BLOOD CELL (test code = RBC) mill/mm3 4.0-5.8 HEMOGLOBIN (test code = HGB) 14.9 gram/dL 13.0-17.5 N HEMATOCRIT (test code = HCT) 46.6 % 42.0-52.0 N MEAN CELL VOLUME (test code = MCV) fL 80-98 MEAN CELL HGB (test code = MCH) picogram 27.0-33.0 MEAN CELL HGB CONCETRATION (test code = MCHC) gram/dL 33.0-36. 0 RED CELL DISTRIBUTION WIDTH (test code = RDW) % 11.6-16. 2 RED CELL DISTRIBUTION WIDTH SD (test code = RDW-SD) fL 37 .0-51.0 PLATELET COUNT (test code = PLT) K/mm3 150-450 MEAN PLATELET VOLUME (test code = MPV) fL 6.7-11.0 NEUTROPHIL % (test code = NT%) % 39.0-69.0 IMMATURE GRANULOCYTE % (test code = IG%) % 0.0-5.0 LYMPHOCYTE % (test code = LY%) % 25.0-55.0 MONOCYTE % (test code = MO%) % 0.0-10.0 EOSINOPHIL % (test code = EO%) % 0.0-5.0 BASOPHIL % (test code = BA%) % 0.0-1.0 NEUTROPHIL # (test code = NT#) K/mm3 1.8-7.7 LYMPHOCYTE # (test code = LY#) K/mm3 1.0-5.0 MONOCYTE # (test code = MO#) K/mm3 0-0.8 EOSINOPHIL # (test code = EO#) K/mm3 0.0-0.5 BASOPHIL # (test code = BA#) K/mm3 0.0-0.2 AB [id number] 14:08:00* Test Item Value Reference Range Interpretation Comments AB MITOCHONDRIAL (test code = MITOCHAB) EIA <1.0 AB ANTI-SMOOTH [id number] 14:08:00* Test Item Value Reference Range Interpretation Comments AB ANTI-SMOOTH MUSCLE (test code = SMOOTHAB) 3 Units 0-19 Negative 0 - 19 Weak positive 20 - 30 Moderate to strong positive >30 Actin Antibodies are found in 52-85% of patients with autoimmune hepatitis or chronic active hepatitis and in 22% of patients with primary biliary cirrhosis. AB [id number] 14:08:00* Test Item Value Reference Range Interpretation Comments AB MITOCHONDRIAL (test code = MITOCHAB) 24.8 Units 0.0-20.0 A Negative 0.0 - 20.0 Equivocal 20.1 - 24.9 Positive >24.9Mitochondrial (M2) Antibodies are found in 90-96% ofpatients with primary biliary cirrhosis.Performed At: [address] [id number] Sanjai MD Ph:[phone] AB ANTI-SMOOTH [id number] 14:08:00* Test Item Value Reference Range Interpretation Comments AB ANTI-SMOOTH MUSCLE (test code = SMOOTHAB) 3 Units 0-19 Negative 0 - 19 Weak positive 20 - 30 Moderate to strong positive >30 Actin Antibodies are found in 52-85% of patients with autoimmune hepatitis or chronic active hepatitis and in 22% of patients with primary biliary cirrhosis. - XR CHEST 1 [id number] 08:51:00 FAX: Johana Zarate [place]: [address] St: ADM FAX: Tee Henry MD Name: YESENIA SCHERER [facility] : 1960 Age/S: 59/M [address] [facility] Unit #: [id number] Loc: V.[address] [place] [address] Phys: Johana Yap Acct: [id number] Dis Date: Status: ADM IN PHONE #: [phone] Exam Date: 01/18/2020 0833 FAX #: [phone] Reason: sob EXAMS: CPT CODE: [id number] XR CHEST 1 V [id number] REASON FOR EXAM: sob Exam Order Date: 01/18/2020 5:00 AM Ordering M.Dougie: ROSARIO Sr PROCEDURE: - XR CHEST 1 V COMPARISON: Chest x-ray the previous morning FINDINGS: The lungs are clear. Previously seen loculated effusion along the right chest wall appears to have resolved. Cardiomediastinal silhouette is normal in size for technique. The m ediastinal contours are within normal limits. Musculoskeletal stru ctures are unchanged from the prior exam. The visualized upper abd omen is within normal limits. IMPRESSION: The natan ngs are clear and the previously seen loculated effusion in the right he mithorax has resolved. Location: [facility] Electronicall y Signed by Ivan Pa MD on 01/18/2020 at 0851 Reporte d and signed by: Ivan Pa MD CC: Johana Yap; Fred Jernigan Technologist: CHRIS GODDARD JR Trnscrd Date/Time/By: 01/18/2020 (0851) : By: [email or web address] Orig Print D/T: S: 01/18/2020 (0856) PAGE 1 Signed Report CBC W/AUTO [id number] 03:16:00* Test Item Value Reference Range Interpretation Comments WHITE BLOOD CELL (test code = WBC) 14.8 K/mm3 4.5-12.5 H RED BLOOD CELL (test code = RBC) 5.16 mill/mm3 4.0-5.8 N HEMOGLOBIN (test code = HGB) 14.0 gram/dL 13.0-17.5 N HEMATOCRIT (test code = HCT) 44.0 % 42.0-52.0 N MEAN CELL VOLUME (test code = MCV) 85.3 fL 80-98 N MEAN CELL HGB (test code = MCH) 27.1 picogram 27.0-33.0 N MEAN CELL HGB CONCETRATION (test code = MCHC) 31.8 gram/dL 33.0-36. 0 L RED CELL DISTRIBUTION WIDTH (test code = RDW) 14.5 % 11.6-16. 2 N RED CELL DISTRIBUTION WIDTH SD (test code = RDW-SD) 44.9 fL 37 .0-51.0 N PLATELET COUNT (test code = PLT) 339 K/mm3 150-450 RESULT VERIFIED BY REPEAT ANALYSIS MEAN PLATELET VOLUME (test code = MPV) 10.0 fL 6.7-11.0 N NEUTROPHIL % (test code = NT%) 88.8 % 39.0-69.0 H IMMATURE GRANULOCYTE % (test code = IG%) 0.5 % 0.0-5.0 N LYMPHOCYTE % (test code = LY%) 7.0 % 25.0-55.0 L MONOCYTE % (test code = MO%) 3.6 % 0.0-10.0 N EOSINOPHIL % (test code = EO%) 0.0 % 0.0-5.0 N BASOPHIL % (test code = BA%) 0.1 % 0.0-1.0 N NUCLEATED RBC % (test code = NRBC%) 0.0 % 0-0 N NEUTROPHIL # (test code = NT#) 13.14 K/mm3 1.8-7.7 H IMMATURE GRANULOCYTE # (test code = IG#) 0.07 x10 3/uL 0-0.03 H LYMPHOCYTE # (test code = LY#) 1.03 K/mm3 1.0-5.0 N MONOCYTE # (test code = MO#) 0.53 K/mm3 0-0.8 N EOSINOPHIL # (test code = EO#) 0.00 K/mm3 0.0-0.5 N BASOPHIL # (test code = BA#) 0.01 K/mm3 0.0-0.2 N NUCLEATED RBC # (test code = NRBC#) 0.00 K/mm3 0.0-0.1 N MANUAL DIFF REQUIRED (test code = MDIFF) NO [id number] 02:25:00* Test Item Value Reference Range Interpretation Comments PHOSPHORUS (test code = PHOS) 3.6 mg/dL 2.5-4.9 N [id number] 02:25:00* Test Item Value Reference Range Interpretation Comments MAGNESIUM (test code = MAG) 2.4 mg/dL 1.8-2.4 N CALCIUM [id number] 02:25:00* Test Item Value Reference Range Interpretation Comments CALCIUM IONIZED (test code = SIVAKUMAR) 1.26 mmol/L 1.12-1.32 N [id number] 02:20:00* Test Item Value Reference Range Interpretation Comments PHOSPHORUS (test code = PHOS) mg/dL 2.5-4.9 [id number] 02:20:00* Test Item Value Reference Range Interpretation Comments MAGNESIUM (test code = MAG) 2.4 mg/dL 1.8-2.4 N CALCIUM [id number] 02:20:00* Test Item Value Reference Range Interpretation Comments CALCIUM IONIZED (test code = SIVAKUMAR) mmol/L 1.12-1.32 [id number] 02:20:00* Test Item Value Reference Range Interpretation Comments PHOSPHORUS (test code = PHOS) mg/dL 2.5-4.9 [id number] 02:20:00* Test Item Value Reference Range Interpretation Comments MAGNESIUM (test code = MAG) 2.4 mg/dL 1.8-2.4 N CALCIUM [id number] 02:20:00* Test Item Value Reference Range Interpretation Comments CALCIUM IONIZED (test code = SIVAKUMAR) 1.26 mmol/L 1.12-1.32 N ACUTE HEPATITIS [id number] 10:09:00* Test Item Value Reference Range Interpretation Comments AB HEPATITIS A IGM (test code = HAVMAB) Negative Negative AG HEPAT B SURF (test code = HBSAG) Negative Negative HEPATITIS B CORE ANTIBODY,IGM (test code = HBCMAB) Negative Neg ative AB HEPATITIS C (test code = HCVAB) <0.1 0.0-0.9 INFCE Result Units: s/co ratio Negative: < 0.8 Indeterminate: 0.8 - 0.9 Positive: > 0.9 The CDC recommends that a positive HCV antibody result be followed up with a HCV Nucleic Acid Amplification test ([id number]).Performed At: [facility] [address] [id number] Suman Cobian MD Ph:[phone] - CHEST 1 [id number] 08:13:00 FAX: Johana Zarate [place]: B St: ADM FAX: Tee Henry MD Name: YESENIA SCHERER [facility] : 1960 Age/S: 59/M [address] [facility] Unit #: [id number] Loc: V.[address] [place] [address] Phys: Johana Yap Acct: [id number] Dis Date: Status: ADM IN PHONE #: [phone] Exam Date: 01/17/2020 0800 FAX #: [phone] Reason: sob EXAMS: CPT CODE: [id number] XR CHEST 1 V [id number] REASON FOR EXAM: sob Exam Order Date: 01/17/2020 5:00 AM Ordering M.Dougie: ROSARIO Sr PROCEDURE: - XR CHEST 1 V COMPARISON: Chest x-ray the previous morning FINDINGS: There is a tiny residual loculated effusion in the right hemithorax. The lungs are otherwise clear. Cardiomediastinal silhouette is normal in size for technique. The mediastinal contours are within normal limits. Musculoskeletal structures are unchanged from the prior exam. The visualized upper abdomen is within normal limits. IMPRESSION: Tiny residual loculated right-sided pleural effusion. Lungs are otherwise clear. Location: [facility] at 0813 Reported and signed by: Ivan Pa MD CC: Johana Yap; Tee Jernigan Technol ogist: RT TAMAR(R) Trnscrd Date/Time/ By: 01/17/2020 (812) : By: [email or web address] Orig Print D/T: S: 01/17/2020 (0 8) PAGE 1 Signed Report BASIC METABOLIC [id number] 06:08:00* Test Item Value Reference Range Interpretation Comments SODIUM (test code = NA) 136 mmol/L 136-145 N POTASSIUM (test code = K) 5.0 mmol/L 3.5-5.1 N CHLORIDE (test code = CL) 102.0 mmol/L 98-107 N CARBON DIOXIDE (test code = CO2) 28.0 mmol/L 21-32 N ANION GAP (test code = GAP) 11.0 10-20 N GLUCOSE (test code = GLU) 140 mg/dL 74-106 H BLOOD UREA NITROGEN (test code = BUN) 28 mg/dL 7-18 H GLOMERULAR FILTRATION RATE (test code = GFR) > 60 mL/min >=60 Estimated GFR by using Modified MDRD formula.Chronic kidney disease is defined as either kidney damageor GFR <60 mL/min/1.73 m2 for >3 months. CREATININE (test code = CREAT) 1.10 mg/dL 0.7-1.3 N BUN/CREATININE RATIO (test code = BUN/CREA) 25.5 10-20 H CALCIUM (test code = CA) 9.2 mg/dL 8.5-10.1 N BASIC METABOLIC [id number] 05:48:00* Test Item Value Reference Range Interpretation Comments SODIUM (test code = NA) 136 mmol/L 136-145 N POTASSIUM (test code = K) 5.0 mmol/L 3.5-5.1 N CHLORIDE (test code = CL) 102.0 mmol/L 98-107 N CARBON DIOXIDE (test code = CO2) mmol/L 21-32 ANION GAP (test code = GAP) 10-20 GLUCOSE (test code = GLU) mg/dL 74-106 BLOOD UREA NITROGEN (test code = BUN) mg/dL 7-18 GLOMERULAR FILTRATION RATE (test code = GFR) mL/min >=60 CREATININE (test code = CREAT) mg/dL 0.7-1.3 BUN/CREATININE RATIO (test code = BUN/CREA) 10-20 CALCIUM (test code = CA) mg/dL 8.5-10.1 B-TYPE NATRIURETIC [id number] 03:52:00* Test Item Value Reference Range Interpretation Comments B-TYPE NATRIURETIC PEPTIDE (test code = BNP) 1278.79 pgram/mL 0-100 H BASIC METABOLIC [id number] 02:39:00* Test Item Value Reference Range Interpretation Comments SODIUM (test code = NA) 137 mmol/L 136-145 N POTASSIUM (test code = K) 4.8 mmol/L 3.5-5.1 N CHLORIDE (test code = CL) 102.0 mmol/L 98-107 N CARBON DIOXIDE (test code = CO2) 28.0 mmol/L 21-32 N ANION GAP (test code = GAP) 11.8 10-20 N GLUCOSE (test code = GLU) 146 mg/dL 74-106 H BLOOD UREA NITROGEN (test code = BUN) 28 mg/dL 7-18 H GLOMERULAR FILTRATION RATE (test code = GFR) > 60 mL/min >=60 Estimated GFR by using Modified MDRD formula.Chronic kidney disease is defined as either kidney damageor GFR <60 mL/min/1.73 m2 for >3 months. CREATININE (test code = CREAT) 1.20 mg/dL 0.7-1.3 N BUN/CREATININE RATIO (test code = BUN/CREA) 23.3 10-20 H CALCIUM (test code = CA) 9.0 mg/dL 8.5-10.1 N [id number] 02:39:00* Test Item Value Reference Range Interpretation Comments PHOSPHORUS (test code = PHOS) 3.5 mg/dL 2.5-4.9 N [id number] 02:39:00* Test Item Value Reference Range Interpretation Comments MAGNESIUM (test code = MAG) 2.5 mg/dL 1.8-2.4 H CALCIUM [id number] 02:39:00* Test Item Value Reference Range Interpretation Comments CALCIUM IONIZED (test code = SIVAKUMAR) 1.26 mmol/L 1.12-1.32 N BASIC METABOLIC [id number] 02:12:00* Test Item Value Reference Range Interpretation Comments SODIUM (test code = NA) 137 mmol/L 136-145 N POTASSIUM (test code = K) 4.8 mmol/L 3.5-5.1 N CHLORIDE (test code = CL) 102.0 mmol/L 98-107 N CARBON DIOXIDE (test code = CO2) 28.0 mmol/L 21-32 N ANION GAP (test code = GAP) 11.8 10-20 N GLUCOSE (test code = GLU) 146 mg/dL 74-106 H BLOOD UREA NITROGEN (test code = BUN) 28 mg/dL 7-18 H GLOMERULAR FILTRATION RATE (test code = GFR) > 60 mL/min >=60 Estimated GFR by using Modified MDRD formula.Chronic kidney disease is defined as either kidney damageor GFR <60 mL/min/1.73 m2 for >3 months. CREATININE (test code = CREAT) 1.20 mg/dL 0.7-1.3 N BUN/CREATININE RATIO (test code = BUN/CREA) 23.3 10-20 H CALCIUM (test code = CA) 9.0 mg/dL 8.5-10.1 N [id number] 02:12:00* Test Item Value Reference Range Interpretation Comments PHOSPHORUS (test code = PHOS) 3.5 mg/dL 2.5-4.9 N [id number] 02:12:00* Test Item Value Reference Range Interpretation Comments MAGNESIUM (test code = MAG) 2.5 mg/dL 1.8-2.4 H CALCIUM [id number] 02:12:00* Test Item Value Reference Range Interpretation Comments CALCIUM IONIZED (test code = SIVAKUMAR) mmol/L 1.12-1.32 CBC W/AUTO [id number] 02:05:00* Test Item Value Reference Range Interpretation Comments WHITE BLOOD CELL (test code = WBC) 9.8 K/mm3 4.5-12.5 N RED BLOOD CELL (test code = RBC) 5.14 mill/mm3 4.0-5.8 N HEMOGLOBIN (test code = HGB) 14.0 gram/dL 13.0-17.5 N HEMATOCRIT (test code = HCT) 43.8 % 42.0-52.0 N MEAN CELL VOLUME (test code = MCV) 85.6 fL 80-98 N MEAN CELL HGB (test code = MCH) 27.2 picogram 27.0-33.0 N MEAN CELL HGB CONCETRATION (test code = MCHC) 31.8 gram/dL 33.0-36. 0 L RED CELL DISTRIBUTION WIDTH (test code = RDW) 14.6 % 11.6-16. 2 N RED CELL DISTRIBUTION WIDTH SD (test code = RDW-SD) 45.8 fL 37 .0-51.0 N PLATELET COUNT (test code = PLT) 285 K/mm3 150-450 RESULT VERIFIED BY REPEAT ANALYSIS MEAN PLATELET VOLUME (test code = MPV) 10.2 fL 6.7-11.0 N NEUTROPHIL % (test code = NT%) 89.3 % 39.0-69.0 H IMMATURE GRANULOCYTE % (test code = IG%) 0.3 % 0.0-5.0 N LYMPHOCYTE % (test code = LY%) 7.8 % 25.0-55.0 L MONOCYTE % (test code = MO%) 2.6 % 0.0-10.0 N EOSINOPHIL % (test code = EO%) 0.0 % 0.0-5.0 N BASOPHIL % (test code = BA%) 0.0 % 0.0-1.0 N NUCLEATED RBC % (test code = NRBC%) 0.0 % 0-0 N NEUTROPHIL # (test code = NT#) 8.72 K/mm3 1.8-7.7 H IMMATURE GRANULOCYTE # (test code = IG#) 0.03 x10 3/uL 0-0.03 N LYMPHOCYTE # (test code = LY#) 0.76 K/mm3 1.0-5.0 L MONOCYTE # (test code = MO#) 0.25 K/mm3 0-0.8 N EOSINOPHIL # (test code = EO#) 0.00 K/mm3 0.0-0.5 N BASOPHIL # (test code = BA#) 0.00 K/mm3 0.0-0.2 N NUCLEATED RBC # (test code = NRBC#) 0.00 K/mm3 0.0-0.1 N CBC W/AUTO [id number] 02:05:00* Test Item Value Reference Range Interpretation Comments WHITE BLOOD CELL (test code = WBC) 9.8 K/mm3 4.5-12.5 N RED BLOOD CELL (test code = RBC) 5.14 mill/mm3 4.0-5.8 N HEMOGLOBIN (test code = HGB) 14.0 gram/dL 13.0-17.5 N HEMATOCRIT (test code = HCT) 43.8 % 42.0-52.0 N MEAN CELL VOLUME (test code = MCV) 85.6 fL 80-98 N MEAN CELL HGB (test code = MCH) 27.2 picogram 27.0-33.0 N MEAN CELL HGB CONCETRATION (test code = MCHC) 31.8 gram/dL 33.0-36. 0 L RED CELL DISTRIBUTION WIDTH (test code = RDW) 14.6 % 11.6-16. 2 N RED CELL DISTRIBUTION WIDTH SD (test code = RDW-SD) 45.8 fL 37 .0-51.0 N PLATELET COUNT (test code = PLT) 285 K/mm3 150-450 RESULT VERIFIED BY REPEAT ANALYSIS MEAN PLATELET VOLUME (test code = MPV) 10.2 fL 6.7-11.0 N NEUTROPHIL % (test code = NT%) 89.3 % 39.0-69.0 H IMMATURE GRANULOCYTE % (test code = IG%) 0.3 % 0.0-5.0 N LYMPHOCYTE % (test code = LY%) 7.8 % 25.0-55.0 L MONOCYTE % (test code = MO%) 2.6 % 0.0-10.0 N EOSINOPHIL % (test code = EO%) 0.0 % 0.0-5.0 N BASOPHIL % (test code = BA%) 0.0 % 0.0-1.0 N NUCLEATED RBC % (test code = NRBC%) 0.0 % 0-0 N NEUTROPHIL # (test code = NT#) 8.72 K/mm3 1.8-7.7 H IMMATURE GRANULOCYTE # (test code = IG#) 0.03 x10 3/uL 0-0.03 N LYMPHOCYTE # (test code = LY#) 0.76 K/mm3 1.0-5.0 L MONOCYTE # (test code = MO#) 0.25 K/mm3 0-0.8 N EOSINOPHIL # (test code = EO#) 0.00 K/mm3 0.0-0.5 N BASOPHIL # (test code = BA#) 0.00 K/mm3 0.0-0.2 N NUCLEATED RBC # (test code = NRBC#) 0.00 K/mm3 0.0-0.1 N MANUAL DIFF REQUIRED (test code = MDIFF) NO CBC W/AUTO [id number] 02:04:00* Test Item Value Reference Range Interpretation Comments WHITE BLOOD CELL (test code = WBC) K/mm3 4.5-12.5 RED BLOOD CELL (test code = RBC) mill/mm3 4.0-5.8 HEMOGLOBIN (test code = HGB) 14.0 gram/dL 13.0-17.5 N HEMATOCRIT (test code = HCT) 43.8 % 42.0-52.0 N MEAN CELL VOLUME (test code = MCV) fL 80-98 MEAN CELL HGB (test code = MCH) picogram 27.0-33.0 MEAN CELL HGB CONCETRATION (test code = MCHC) gram/dL 33.0-36. 0 RED CELL DISTRIBUTION WIDTH (test code = RDW) % 11.6-16. 2 RED CELL DISTRIBUTION WIDTH SD (test code = RDW-SD) fL 37 .0-51.0 PLATELET COUNT (test code = PLT) K/mm3 150-450 MEAN PLATELET VOLUME (test code = MPV) fL 6.7-11.0 NEUTROPHIL % (test code = NT%) % 39.0-69.0 IMMATURE GRANULOCYTE % (test code = IG%) % 0.0-5.0 LYMPHOCYTE % (test code = LY%) % 25.0-55.0 MONOCYTE % (test code = MO%) % 0.0-10.0 EOSINOPHIL % (test code = EO%) % 0.0-5.0 BASOPHIL % (test code = BA%) % 0.0-1.0 NEUTROPHIL # (test code = NT#) K/mm3 1.8-7.7 LYMPHOCYTE # (test code = LY#) K/mm3 1.0-5.0 MONOCYTE # (test code = MO#) K/mm3 0-0.8 EOSINOPHIL # (test code = EO#) K/mm3 0.0-0.5 BASOPHIL # (test code = BA#) K/mm3 0.0-0.2 - XR CHEST 1 [id number] 08:14:00 [facility] [place] [address] [facility]: ADM FAX: Tee Henry MD Name: YESENIA SCHERER [facility] : 1960 Age/S: 59/M [address] [facility] Unit #: [id number] Loc: V.[address] [place] [id number] Phys: Johana Yap Acct: [id number] Dis Date: Status: ADM IN PHONE #: [phone] Exam Date: 01/16/2020819 FAX #: [phone] Reason: sob EXAMS: CPT CODE: [id number] XR CHEST 1 V 31697 REASON FOR EXAM: sob Exam Order Date: 01/16/2020 5:00 AM Ordering M.D.: ROSARIO Sr PROCEDURE: - XR CHEST 1 V COMPARISON: Chest x-ray the previous morning FINDINGS: The lungs are hyperinflated. There is a subtle opacity in the periphery of the right chest wall which may represent a small loculated effusion. This appears to have improved from the prior exam. Lungs are otherwise clear. Cardiomediastinal silhouette is prominent when accounting for the hyperinflation of the lungs. The med iastinal contours are within normal limits. Mild degenerativ e changes are present in the right acromioclavicular joint. The visualized upper abdomen is within normal limits. IM PRESSION: Improved aeration of the right lung base with residual pleural effusion. Persistent hyperinflation of lungs may represent an a ir-trapping process. Location: [facility] Electro nically Signed by Ivan Pa MD on 01/16/2020 at 0814 R eported and signed by: Ivan Pa MD CC: Johana Yap; Fred Jernigan Technologist: VANE JOSÉ, RT(R); RIGOBERTO HANSEN RT (R) Trnscrd Date/Time/By: 01/16/2020 (813) : By: [email or web address] Smooth g Print D/T: S: 01/16/2020 (6790) PAGE 1 Signed Report BASIC METABOLIC PANEL 2020-01-16 05:54:00* Test Item Value Reference Range Interpretation Comments SODIUM (test code = NA) 139 mmol/L 136-145 N POTASSIUM (test code = K) 4.2 mmol/L 3.5-5.1 N CHLORIDE (test code = CL) 101.0 mmol/L 98-107 N CARBON DIOXIDE (test code = CO2) 33.0 mmol/L 21-32 H ANION GAP (test code = GAP) 9.2 10-20 L GLUCOSE (test code = GLU) 97 mg/dL 74-106 N BLOOD UREA NITROGEN (test code = BUN) 35 mg/dL 7-18 H GLOMERULAR FILTRATION RATE (test code = GFR) > 60 mL/min >=60 Estimated GFR by using Modified MDRD formula.Chronic kidney disease is defined as either kidney damageor GFR <60 mL/min/1.73 m2 for >3 months. CREATININE (test code = CREAT) 1.20 mg/dL 0.7-1.3 N BUN/CREATININE RATIO (test code = BUN/CREA) 29.2 10-20 H CALCIUM (test code = CA) 8.7 mg/dL 8.5-10.1 N [id number] 05:54:00* Test Item Value Reference Range Interpretation Comments ALBUMIN (test code = ALB) 2.8 g/dL 3.4-5.0 L COMPREHENSIVE METABOLIC [id number] 03:11:00* Test Item Value Reference Range Interpretation Comments SODIUM (test code = NA) 139 mmol/L 136-145 N POTASSIUM (test code = K) 3.9 mmol/L 3.5-5.1 N CHLORIDE (test code = CL) 101.0 mmol/L 98-107 N CARBON DIOXIDE (test code = CO2) 34.0 mmol/L 21-32 H ANION GAP (test code = GAP) 7.9 10-20 L GLUCOSE (test code = GLU) 107 mg/dL 74-106 H BLOOD UREA NITROGEN (test code = BUN) 36 mg/dL 7-18 H GLOMERULAR FILTRATION RATE (test code = GFR) 56 mL/min >=60 Estimated GFR by using Modified MDRD formula.Chronic kidney disease is defined as either kidney damageor GFR <60 mL/min/1.73 m2 for >3 months. CREATININE (test code = CREAT) 1.30 mg/dL 0.7-1.3 N BUN/CREATININE RATIO (test code = BUN/CREA) 27.7 10-20 H TOTAL PROTEIN (test code = PROT) 6.0 gram/dL 6.4-8.2 L ALBUMIN (test code = ALB) 2.8 g/dL 3.4-5.0 L GLOBULIN (test code = GLOB) 3.2 gram/dL 2.7-4.2 N ALBUMIN/GLOBULIN RATIO (test code = A/G) 0.9 0.75-1.50 N CALCIUM (test code = CA) 8.4 mg/dL 8.5-10.1 L BILIRUBIN TOTAL (test code = BILT) 0.50 mg/dL 0.0-1.0 N SGOT/AST (test code = AST) 189 IUnit/L 15-37 H SGPT/ALT (test code = ALT) 300 IUnit/L 12-78 H ALKALINE PHOSPHATASE TOTAL (test code = ALKP) 96 IUnit/L 45-117 N Note change in reference range due to change in reagent. HEPATIC FUNCTION [id number] 03:11:00* Test Item Value Reference Range Interpretation Comments BILIRUBIN DIRECT (test code = BILD) 0.17 mg/dL 0.0-0.20 N [id number] 03:11:00* Test Item Value Reference Range Interpretation Comments PHOSPHORUS (test code = PHOS) 3.8 mg/dL 2.5-4.9 N [id number] 03:11:00* Test Item Value Reference Range Interpretation Comments MAGNESIUM (test code = MAG) 2.2 mg/dL 1.8-2.4 N CALCIUM [id number] 03:11:00* Test Item Value Reference Range Interpretation Comments CALCIUM IONIZED (test code = SIVAKUMAR) 1.19 mmol/L 1.12-1.32 N B-TYPE NATRIURETIC [id number] 02:44:00* Test Item Value Reference Range Interpretation Comments B-TYPE NATRIURETIC PEPTIDE (test code = BNP) 1850.71 pgram/mL 0-100 H COMPREHENSIVE METABOLIC [id number] 02:30:00* Test Item Value Reference Range Interpretation Comments SODIUM (test code = NA) 139 mmol/L 136-145 N POTASSIUM (test code = K) 3.9 mmol/L 3.5-5.1 N CHLORIDE (test code = CL) 101.0 mmol/L 98-107 N CARBON DIOXIDE (test code = CO2) 34.0 mmol/L 21-32 H ANION GAP (test code = GAP) 7.9 10-20 L GLUCOSE (test code = GLU) 107 mg/dL 74-106 H BLOOD UREA NITROGEN (test code = BUN) 36 mg/dL 7-18 H GLOMERULAR FILTRATION RATE (test code = GFR) 56 mL/min >=60 Estimated GFR by using Modified MDRD formula.Chronic kidney disease is defined as either kidney damageor GFR <60 mL/min/1.73 m2 for >3 months. CREATININE (test code = CREAT) 1.30 mg/dL 0.7-1.3 N BUN/CREATININE RATIO (test code = BUN/CREA) 27.7 10-20 H TOTAL PROTEIN (test code = PROT) 6.0 gram/dL 6.4-8.2 L ALBUMIN (test code = ALB) 2.8 g/dL 3.4-5.0 L GLOBULIN (test code = GLOB) 3.2 gram/dL 2.7-4.2 N ALBUMIN/GLOBULIN RATIO (test code = A/G) 0.9 0.75-1.50 N CALCIUM (test code = CA) 8.4 mg/dL 8.5-10.1 L BILIRUBIN TOTAL (test code = BILT) 0.50 mg/dL 0.0-1.0 N SGOT/AST (test code = AST) 189 IUnit/L 15-37 H SGPT/ALT (test code = ALT) 300 IUnit/L 12-78 H ALKALINE PHOSPHATASE TOTAL (test code = ALKP) 96 IUnit/L 45-117 N Note change in reference range due to change in reagent. HEPATIC FUNCTION [id number] 02:30:00* Test Item Value Reference Range Interpretation Comments BILIRUBIN DIRECT (test code = BILD) 0.17 mg/dL 0.0-0.20 N [id number] 02:30:00* Test Item Value Reference Range Interpretation Comments PHOSPHORUS (test code = PHOS) 3.8 mg/dL 2.5-4.9 N [id number] 02:30:00* Test Item Value Reference Range Interpretation Comments MAGNESIUM (test code = MAG) 2.2 mg/dL 1.8-2.4 N CALCIUM [id number] 02:30:00* Test Item Value Reference Range Interpretation Comments CALCIUM IONIZED (test code = SIVAKUMAR) mmol/L 1.12-1.32 CBC W/AUTO [id number] 02:01:00* Test Item Value Reference Range Interpretation Comments WHITE BLOOD CELL (test code = WBC) 11.0 K/mm3 4.5-12.5 N RED BLOOD CELL (test code = RBC) 4.49 mill/mm3 4.0-5.8 N HEMOGLOBIN (test code = HGB) 12.1 gram/dL 13.0-17.5 L HEMATOCRIT (test code = HCT) 38.5 % 42.0-52.0 L MEAN CELL VOLUME (test code = MCV) 85.7 fL 80-98 N MEAN CELL HGB (test code = MCH) 26.9 picogram 27.0-33.0 L MEAN CELL HGB CONCETRATION (test code = MCHC) 31.4 gram/dL 33.0-36. 0 L RED CELL DISTRIBUTION WIDTH (test code = RDW) 14.8 % 11.6-16. 2 N RED CELL DISTRIBUTION WIDTH SD (test code = RDW-SD) 46.9 fL 37 .0-51.0 N PLATELET COUNT (test code = PLT) 231 K/mm3 150-450 N MEAN PLATELET VOLUME (test code = MPV) 9.8 fL 6.7-11.0 N NEUTROPHIL % (test code = NT%) 72.9 % 39.0-69.0 H IMMATURE GRANULOCYTE % (test code = IG%) 0.5 % 0.0-5.0 N LYMPHOCYTE % (test code = LY%) 19.5 % 25.0-55.0 L MONOCYTE % (test code = MO%) 6.7 % 0.0-10.0 N EOSINOPHIL % (test code = EO%) 0.3 % 0.0-5.0 N BASOPHIL % (test code = BA%) 0.1 % 0.0-1.0 N NUCLEATED RBC % (test code = NRBC%) 0.0 % 0-0 N NEUTROPHIL # (test code = NT#) 8.01 K/mm3 1.8-7.7 H IMMATURE GRANULOCYTE # (test code = IG#) 0.05 x10 3/uL 0-0.03 H LYMPHOCYTE # (test code = LY#) 2.14 K/mm3 1.0-5.0 N MONOCYTE # (test code = MO#) 0.74 K/mm3 0-0.8 N EOSINOPHIL # (test code = EO#) 0.03 K/mm3 0.0-0.5 N BASOPHIL # (test code = BA#) 0.01 K/mm3 0.0-0.2 N NUCLEATED RBC # (test code = NRBC#) 0.00 K/mm3 0.0-0.1 N MANUAL DIFF REQUIRED (test code = MDIFF) NO [id number] 16:49:00* Test Item Value Reference Range Interpretation Comments GLUBED (test code = GLUBED) 137 mg/dL 74-106 H Performed by certified horizontal boring mill set up operator at [facility] LIPID PROFILE (CORONARY RISK)2020-01-15 12:43:00* Test Item Value Reference Range Interpretation Comments TRIGLYCERIDES (test code = TRIG) 99 mg/dL 20-150 N CHOLESTEROL (test code = CHOL) 133 mg/dL 0-200 N CHOLESTEROL/HDL RATIO (test code = CHOLHDL) 3.0 RATIO 0-4.9 N RISK ASSOCIATED WITH CHOL/HDL RATIOS: Risk Male Female1/2 AVERAGE 3.43 3.27AVERAGE 4.97 4.442X AVERAGE 9.55 7.053X AVERAGE 23.39 11.04 REFERENCE VALUE IS RELATED TO RISK LEVELS ASRECOMMENDED BY THE ERNESTO. HEART, LUNG, AND BLOOD INST. HDL CHOLESTEROL (test code = HDL) 43 mg/dL 40-60 N LIPOPROTEIN LDL (test code = LDL) 77 mg/dL 100-129 L Reference Interval: mg/dL mmol/L Optimal <100 <2.6Near/above optimal 100-129 2.6- 3.3Borderline High 130-159 3.4-4.1High 160-189 4.1-4.9Very High >=190 >=4.9========= This LDL result is a direct measurement.========= SPECIMEN COMMENTS: MAY USE BLOOD IN LABCBC W/O [id number] 12:14:00* Test Item Value Reference Range Interpretation Comments WHITE BLOOD CELL (test code = WBC) 11.4 K/mm3 4.5-12.5 N RED BLOOD CELL (test code = RBC) 4.34 mill/mm3 4.0-5.8 N HEMOGLOBIN (test code = HGB) 11.9 gram/dL 13.0-17.5 L HEMATOCRIT (test code = HCT) 37.7 % 42.0-52.0 L MEAN CELL VOLUME (test code = MCV) 86.9 fL 80-98 N MEAN CELL HGB (test code = MCH) 27.4 picogram 27.0-33.0 N MEAN CELL HGB CONCETRATION (test code = MCHC) 31.6 gram/dL 33.0-36. 0 L RED CELL DISTRIBUTION WIDTH (test code = RDW) 15.3 % 11.6-16. 2 N PLATELET COUNT (test code = PLT) 213 K/mm3 150-450 N MEAN PLATELET VOLUME (test code = MPV) 10.0 fL 6.7-11.0 N - XR CHEST 1 [id number] 07:04:00 FAX: Johana Zarate [place]: B St: ADM FAX: Tee Henry MD Name: YESENIA SCHERER [facility] : 1960 Age/S: 59/M [address] [facility] Unit #: [id number] Loc: V.S21 [place] [address] Phys: Johana Yap [place] Acct: [id number] Dis Date: Status: ADM IN PHONE #: [phone] Exam Date: 01/15/2020 0450 FAX #: [phone] Reason: sob EXAMS: CPT CODE: [id number] XR CHEST 1 V 39919 CLINICAL HISTORY: Shortness of breath TECHNIQUE: AP chest x-ray COMPARISON: Previous day. IMPRESSION: Increased right lung base airspace opacity and pleural effusion. Left basilar subsegmental atelectasis. Pulmonary hyperinflation. Cardiomegaly. LOCATION: LP at 0704 Reported and signed by: Chetna Thomas D.O. 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 Y BASIC METABOLIC [id number] 02:05:00* Test Item Value Reference Range Interpretation Comments SODIUM (test code = NA) 141 mmol/L 136-145 N POTASSIUM (test code = K) 4.2 mmol/L 3.5-5.1 RE SULT VERIFIED BY REPEAT ANALYSIS CHLORIDE (test code = CL) 101.0 mmol/L 98-107 N CARBON DIOXIDE (test code = CO2) 34.0 mmol/L 21-32 H ANION GAP (test code = GAP) 10-20 GLUCOSE (test code = GLU) 121 mg/dL 74-106 H BLOOD UREA NITROGEN (test code = BUN) 31 mg/dL 7-18 H RESULT VERIFIED BY REPEAT ANALYSIS GLOMERULAR FILTRATION RATE (test code = GFR) 52 mL/min >=60 Estimated GFR by using Modified MDRD formula.Chronic kidney disease is defined as either kidney damageor GFR <60 mL/min/1.73 m2 for >3 months. CREATININE (test code = CREAT) 1.40 mg/dL 0.7-1.3 H BUN/CREATININE RATIO (test code = BUN/CREA) 22.1 10-20 H CALCIUM (test code = CA) 8.5 mg/dL 8.5-10.1 N BASIC METABOLIC [id number] 02:05:00* Test Item Value Reference Range Interpretation Comments SODIUM (test code = NA) 141 mmol/L 136-145 N POTASSIUM (test code = K) 4.2 mmol/L 3.5-5.1 RE SULT VERIFIED BY REPEAT ANALYSIS CHLORIDE (test code = CL) 101.0 mmol/L 98-107 N CARBON DIOXIDE (test code = CO2) 34.0 mmol/L 21-32 H Previously reported result: 34.0 mmol/LEdited by: ALVARADO on 01/15/20:0205 ANION GAP (test code = GAP) 10.2 10-20 N GLUCOSE (test code = GLU) 121 mg/dL 74-106 H BLOOD UREA NITROGEN (test code = BUN) 31 mg/dL 7-18 H RESULT VERIFIED BY REPEAT ANALYSIS GLOMERULAR FILTRATION RATE (test code = GFR) 52 mL/min >=60 Estimated GFR by using Modified MDRD formula.Chronic kidney disease is defined as either kidney damageor GFR <60 mL/min/1.73 m2 for >3 months. CREATININE (test code = CREAT) 1.40 mg/dL 0.7-1.3 H BUN/CREATININE RATIO (test code = BUN/CREA) 22.1 10-20 H CALCIUM (test code = CA) 8.5 mg/dL 8.5-10.1 N BASIC METABOLIC [id number] 02:03:00* Test Item Value Reference Range Interpretation Comments SODIUM (test code = NA) 141 mmol/L 136-145 N POTASSIUM (test code = K) 4.2 mmol/L 3.5-5.1 RE SULT VERIFIED BY REPEAT ANALYSIS CHLORIDE (test code = CL) 101.0 mmol/L 98-107 N CARBON DIOXIDE (test code = CO2) mmol/L 21-32 ANION GAP (test code = GAP) 10-20 GLUCOSE (test code = GLU) mg/dL 74-106 BLOOD UREA NITROGEN (test code = BUN) mg/dL 7-18 GLOMERULAR FILTRATION RATE (test code = GFR) mL/min >=60 CREATININE (test code = CREAT) mg/dL 0.7-1.3 BUN/CREATININE RATIO (test code = BUN/CREA) 10-20 CALCIUM (test code = CA) mg/dL 8.5-10.1 [id number] 02:01:00* Test Item Value Reference Range Interpretation Comments PHOSPHORUS (test code = PHOS) 3.7 mg/dL 2.5-4.9 N CALCIUM [id number] 02:01:00* Test Item Value Reference Range Interpretation Comments CALCIUM IONIZED (test code = SIVAKUMAR) 1.11 mmol/L 1.12-1.32 L [id number] 01:52:00* Test Item Value Reference Range Interpretation Comments PHOSPHORUS (test code = PHOS) 3.7 mg/dL 2.5-4.9 N CALCIUM [id number] 01:52:00* Test Item Value Reference Range Interpretation Comments CALCIUM IONIZED (test code = SIVAKUMAR) mmol/L 1.12-1.32 [id number] 01:52:00* Test Item Value Reference Range Interpretation Comments MAGNESIUM (test code = MAG) 1.9 mg/dL 1.8-2.4 N CBC W/AUTO [id number] 01:46:00* Test Item Value Reference Range Interpretation Comments WHITE BLOOD CELL (test code = WBC) 11.6 K/mm3 4.5-12.5 N RED BLOOD CELL (test code = RBC) 4.15 mill/mm3 4.0-5.8 N HEMOGLOBIN (test code = HGB) 11.6 gram/dL 13.0-17.5 L RESULT VERIFIED BY REPEAT ANALYSIS HEMATOCRIT (test code = HCT) 35.8 % 42.0-52.0 L MEAN CELL VOLUME (test code = MCV) 86.3 fL 80-98 N MEAN CELL HGB (test code = MCH) 28.0 picogram 27.0-33.0 N MEAN CELL HGB CONCETRATION (test code = MCHC) 32.4 gram/dL 33.0-36. 0 L RED CELL DISTRIBUTION WIDTH (test code = RDW) 15.3 % 11.6-16. 2 N RED CELL DISTRIBUTION WIDTH SD (test code = RDW-SD) 47.8 fL 37 .0-51.0 N PLATELET COUNT (test code = PLT) 196 K/mm3 150-450 N MEAN PLATELET VOLUME (test code = MPV) 9.4 fL 6.7-11.0 N NEUTROPHIL % (test code = NT%) 84.2 % 39.0-69.0 H IMMATURE GRANULOCYTE % (test code = IG%) 0.5 % 0.0-5.0 N LYMPHOCYTE % (test code = LY%) 8.9 % 25.0-55.0 L MONOCYTE % (test code = MO%) 6.1 % 0.0-10.0 N EOSINOPHIL % (test code = EO%) 0.1 % 0.0-5.0 N BASOPHIL % (test code = BA%) 0.2 % 0.0-1.0 N NUCLEATED RBC % (test code = NRBC%) 0.0 % 0-0 N NEUTROPHIL # (test code = NT#) 9.74 K/mm3 1.8-7.7 H IMMATURE GRANULOCYTE # (test code = IG#) 0.06 x10 3/uL 0-0.03 H LYMPHOCYTE # (test code = LY#) 1.03 K/mm3 1.0-5.0 N MONOCYTE # (test code = MO#) 0.71 K/mm3 0-0.8 N EOSINOPHIL # (test code = EO#) 0.01 K/mm3 0.0-0.5 N BASOPHIL # (test code = BA#) 0.02 K/mm3 0.0-0.2 N NUCLEATED RBC # (test code = NRBC#) 0.00 K/mm3 0.0-0.1 N PROTHROMBIN [id number] 01:43:00* Test Item Value Reference Range Interpretation Comments PROTHROMBIN TIME PATIENT (test code = PTP) 18.7 seconds 9.0-14.0 H INTERNATIONAL NORMAL RATIO (test code = INR) 1.6 0.8-1.2 H The therapeutic range for oral anticoagulant therapy formost indications is an international normalized ratio (INR)of between 2.0 and 3.0. The recommended therapeutic INRrange for various clinical situations is listed below: Clinical Situation INR range Pulmonary e mbolism treatment (2.0-3.0)Venous thrombosis treatmentVenous thrombosis prophylaxis (high risk surgery)Prevention of systemic embolism from: Acute myocardial infarction Valvular heart disease Atrial fibrillation Mechanical prosthetic heart valves (2.5-3.5) THROMBOPLASTIN TIME [id number] 01:43:00* Test Item Value Reference Range Interpretation Comments THROMBOPLASTIN TIME PARTIAL (test code = PTT) 28.1 seconds 23.0-37. 0 N LACTIC [id number] 22:25:00* Test Item Value Reference Range Interpretation Comments LACTIC ACID (test code = LACT) 4.1 mmol/L 0.4-1.9 HH Results called to [id number] by V.LAB.QD 01/14/20 2225Critical results verified and read back by Nurse? YES [id number] 22:25:00* Test Item Value Reference Range Interpretation Comments TROPONIN-I (test code = TROPI) 0.136 ng/mL 0-0.045 HH Results called to [id number] by V.LAB.QD 01/14/20 2225Critical results verified and read back by Nurse? YES COMMENTS TO OSTRICH FARMER: COLLECT 3 HOURS AFTER PREVIOUS SAMPLEURINALYSIS [id number] 22:15:00* Test Item Value Reference Range Interpretation Comments UA COLOR (test code = COLU) COLORLESS YELLOW A UA APPEARANCE (test code = APPU) CLEAR CLEAR UA GLUCOSE DIPSTICK (test code = DGLUU) NEGATIVE mg/dL NEGATIVE UA BILIRUBIN DIPSTICK (test code = BILU) NEGATIVE mg/dL NEGATIVE UA KETONE DIPSTICK (test code = KETU) NEGATIVE mg/dL NEGATIVE UA SPECIFIC GRAVITY (test code = SGU) 1.007 1.001-1.035 UA BLOOD DIPSTICK (test code = MAGY) Negative mg/dL NEGATIVE UA PH DIPSTICK (test code = KONG) 6.0 5.0-8.0 UA PROTEIN DIPSTICK (test code = PROU) NEGATIVE mg/dL NEGATIVE UA UROBILINIOGEN DIPSTICK (test code = URO) Normal mg/dL NEGATIVE UA NITRITE DIPSTICK (test code = SHERI) NEGATIVE NEGATIVE UA LEUKOCYTE ESTERASE W REFLEX (test code = LEUUR) NEGATIVE Mark/uL NEGATIVE UA WBC (test code = WBCU) 0-5 per HPF 0-5 UA RBC (test code = RBCU) 0-2 #/HPF 0-5 UA EPITHELIAL CELLS (test code = EPIU) FEW per HPF FEW UA BACTERIA (test code = BACU) FEW #/HPF NONE A UA MUCUS (test code = MUCU) FEW #/LPF FEW Urine Source? Clean CatchDRUGS OF ABUSE SCREEN [id number] 22:15:00* Test Item Value Reference Range Interpretation Comments URN COCAINE (test code = COCAURN) NEGATIVE <300 ng/mL URN CANNABINOIDS (test code = CANNABURN) NEGATIVE <50 ng/mL URN AMPHETAMINE (test code = AMPHETURN) NEGATIVE <1000 ng/mL URN BARBITURATE (test code = BARBITURN) NEGATIVE <200 ng/mL URN BENZODIAZEPINE (test code = BENZOURN) NEGATIVE <200 ng/mL URN OPIATES (test code = OPIATURN) POSITIVE <300 ng/mL A This test provides only a preliminary test result. A morespecific alternate chemical method must be used in order toobtain a confirmed analytical result. Gas chromatography/mass spectrometry (GC/MS) is thepreferred confirmatory method. Other chemical confirmationmethods are available. Clinical consideration and professional judgment should be applied to any drug of abusetest result, particularly when preliminary positive resultsare used.Unconfirmed screening results must not be used fornon-medical purposes (e.g., employment testing, legaltesting). URN PHENCYCLIDINE (PCP) (test code = PHENCURN) NEGATIVE <25 ng/ mL URN METHADONE (test code = METHAURN) NEGATIVE <300 ng/mL Urine Source? Clean Catch- US ABDOMEN [id number] 22:15:00 Name: YESENIA SCHERER [facility] : 1960 Age/S: 59 / M [address] Unit #: [id number] Loc: [place], [place] [address] Phys: Morris Bautista Acct: [id number] Di s Date: Status: ADM IN PHONE #: Exam Date: 01/14/20202211 FAX #: Reason: CT showed severe GB thickening, GB and liver ev EXAMS: CPT CODE: [id number] US ABDOMEN CO MPLETE [id number] REASON FOR EXAM: CT showed severe GB thickening, GB and liver eval. EXAM ORDER PENNIE E: 01/14/2020 8:48 PM Ordering: ROSARIO Giraldo Attending:Fred Jernigan MD Location:[facility] PROCEDURE: - US ABDOM EN COMPLETE FINDINGS: The liver is nodular in contour. There is no evidence of focal mass identified. The pancreas is within normal limits. The right kidney measures 13.2 x 5 cm. The left kidney measures 11.9 x 5.9 cm. There is no evidence of hydronephrosis. There is no eviden ce of nephrolithiasis. There is no evidence of renal mass. The spleen measures 10.5 cm. The gallbladder is minimally distended with se dionna thickening of the wall of the gallbladder (1.7 cm). The common bile duct measures 0.6 cm. The aorta and IVC are within normal l imits. The portal vein is patent with hepatopetal flow IMP RESSION: No evidence of gallstone. Severe edematous gallbladder wall th ickening (1.7 cm). Cirrhosis of the liver with minimal ascites Elec tronically Signed by Sagrario Vences on 01/14/2020 at 2215 Reported and signed by: Reginald Vences M.D. CC: To Bautista; [place] Jernigan Technologist: LEE WOODSON Trnscb Date/Time: 01/14/2020 (2214) tMERLENE Orig Print D/T: S: 01/14/2020 (2218) Probe: PAGE 1 Signed Report URINALYSIS [id number] 22:05:00* Test Item Value Reference Range Interpretation Comments UA COLOR (test code = COLU) COLORLESS YELLOW A UA APPEARANCE (test code = APPU) CLEAR CLEAR UA GLUCOSE DIPSTICK (test code = DGLUU) NEGATIVE mg/dL NEGATIVE UA BILIRUBIN DIPSTICK (test code = BILU) NEGATIVE mg/dL NEGATIVE UA KETONE DIPSTICK (test code = KETU) NEGATIVE mg/dL NEGATIVE UA SPECIFIC GRAVITY (test code = SGU) 1.007 1.001-1.035 UA BLOOD DIPSTICK (test code = MAGY) Negative mg/dL NEGATIVE UA PH DIPSTICK (test code = KONG) 6.0 5.0-8.0 UA PROTEIN DIPSTICK (test code = PROU) NEGATIVE mg/dL NEGATIVE UA UROBILINIOGEN DIPSTICK (test code = URO) Normal mg/dL NEGATIVE UA NITRITE DIPSTICK (test code = SHERI) NEGATIVE NEGATIVE UA LEUKOCYTE ESTERASE W REFLEX (test code = LEUUR) NEGATIVE Mark/uL NEGATIVE UA WBC (test code = WBCU) 0-5 per HPF 0-5 UA RBC (test code = RBCU) 0-2 #/HPF 0-5 UA EPITHELIAL CELLS (test code = EPIU) FEW per HPF FEW UA BACTERIA (test code = BACU) FEW #/HPF NONE A UA MUCUS (test code = MUCU) FEW #/LPF FEW Urine Source? Clean CatchDRUGS OF ABUSE SCREEN [id number] 22:05:00* Test Item Value Reference Range Interpretation Comments URN COCAINE (test code = COCAURN) <300 ng/mL URN CANNABINOIDS (test code = CANNABURN) <50 ng/mL URN AMPHETAMINE (test code = AMPHETURN) <1000 ng/mL URN BARBITURATE (test code = BARBITURN) <200 ng/mL URN BENZODIAZEPINE (test code = BENZOURN) <200 ng/mL URN OPIATES (test code = OPIATURN) <300 ng/mL URN PHENCYCLIDINE (PCP) (test code = PHENCURN) <25 ng/ mL URN METHADONE (test code = METHAURN) <300 ng/mL Urine Source? Clean CatchURINALYSIS [id number] 21:58:00* Test Item Value Reference Range Interpretation Comments UA COLOR (test code = COLU) COLORLESS YELLOW A UA APPEARANCE (test code = APPU) CLEAR CLEAR UA GLUCOSE DIPSTICK (test code = DGLUU) NEGATIVE mg/dL NEGATIVE UA BILIRUBIN DIPSTICK (test code = BILU) NEGATIVE mg/dL NEGATIVE UA KETONE DIPSTICK (test code = KETU) NEGATIVE mg/dL NEGATIVE UA SPECIFIC GRAVITY (test code = SGU) 1.007 1.001-1.035 UA BLOOD DIPSTICK (test code = MAGY) Negative mg/dL NEGATIVE UA PH DIPSTICK (test code = KONG) 6.0 5.0-8.0 UA PROTEIN DIPSTICK (test code = PROU) NEGATIVE mg/dL NEGATIVE UA UROBILINIOGEN DIPSTICK (test code = URO) Normal mg/dL NEGATIVE UA NITRITE DIPSTICK (test code = SHERI) NEGATIVE NEGATIVE UA LEUKOCYTE ESTERASE W REFLEX (test code = LEUUR) NEGATIVE Mark/uL NEGATIVE UA WBC (test code = WBCU) per HPF 0-5 UA RBC (test code = RBCU) per HPF 0-5 UA EPITHELIAL CELLS (test code = EPIU) per HPF Few UA BACTERIA (test code = BACU) per HPF NONE Urine Source? Clean CatchDRUGS OF ABUSE SCREEN [id number] 21:58:00* Test Item Value Reference Range Interpretation Comments URN COCAINE (test code = COCAURN) <300 ng/mL URN CANNABINOIDS (test code = CANNABURN) <50 ng/mL URN AMPHETAMINE (test code = AMPHETURN) <1000 ng/mL URN BARBITURATE (test code = BARBITURN) <200 ng/mL URN BENZODIAZEPINE (test code = BENZOURN) <200 ng/mL URN OPIATES (test code = OPIATURN) <300 ng/mL URN PHENCYCLIDINE (PCP) (test code = PHENCURN) <25 ng/ mL URN METHADONE (test code = METHAURN) <300 ng/mL Urine Source? Clean Catch- CT ABD PELVIS W/O [id number] 19:38:00 Name: YESENIA SCHERER [facility] : 1960 Age/S: 59 / M [address] Unit #: [id number] Loc: [place] [address] Phys: Scott Bojorquez MD Acct: [id number] Di s Date: Status: ADM IN PHONE #: Exam Date: 01/14/20201929 FAX #: [phone] Reason: hyperkalemia, elev lactic EXAMS: CPT CODE: [id number] CT ABD PELVIS W/O CONT 33084 REASON FOR EXAM: hyperkalemia, elev lactic EXAM ORDER DATE: 01/14/2020 7:20 PM Ordering: Larissa Bjoorquez MD Attending:Tee Jernigan MD Location:[facility] PROCEDURE: - CT ABD PELVIS W/O CONT COMPARISON: FINDINGS: CT images of the abdomen and pelvis were obt ained without IV and without oral contrast at 5mm. Dose modulation, iterat corey reconstruction, and/or weight based adjustment of the MA/KV was utilized to reduce the radiation dose to as low as reasonably achievable. The spleen, pancreas are grossly within normal limits. The kidneys are within normal limits. The urinary bladder is unremarkable. The colon, small bowel, and stomach are within no rmal limits without evidence of obstruction. The appendix was not seen No evidence of free air . Assessment of pelvic pathology is limited due to severe being hardening artifacts from the lumbar fusion IMPRESSION: Nodular contour liver suggestive of cirrhosis with minimal ascites. Small bilateral pleural effusions. Severe thickening of the gallbladder wall suggestive of possible acute cholecystitis. Recommend correlation with abdominal ultrasound at 1938 Reported and signed by: Reginald Vences M.D. PAGE 1 Signed Report (CONTINUED) Name: YESENIA SCHERER [facility] : 1960 Age/S: 59 / M [address] [facility] Unit #: [id number] Loc: [place] [address] Phys: Larissa Bojorquez MD Acct: [id number] Dis Date: Status: ADM IN PHONE #: [phone] Exam Date: 01/14/20201929 FAX #: [phone] Reason: hyperkalemia, elev lactic EXAMS: CPT CODE: [id number] ABD PELVIS W/O CONT 02205 <Continued > CC: Tee Jenrigan; Larissa Bojorquez MD Technologist:Yao Dumont RT(R) CTDI: DLP: Trnscb Date/Time: 01/14/2020 (1937) [email or web address] Orig Print D/T: S: 01/14/2020 (1940) PAGE 2 Signed Report LACTIC [id number] 19:08:00* Test Item Value Reference Range Interpretation Comments LACTIC ACID (test code = LACT) 7.8 mmol/L 0.4-1.9 HH Results called to by V.LAB.QD 01/14/20 1908Critical results verified and read back by Nurse? YES BASIC METABOLIC [id number] 18:53:00* Test Item Value Reference Range Interpretation Comments SODIUM (test code = NA) 143 mmol/L 136-145 N POTASSIUM (test code = K) 6.4 mmol/L 3.5-5.1 HH Re sults called to by V.LAB.QD 01/14/20 1852Critical results verified and read back by Nurse? YES CHLORIDE (test code = CL) 112.0 mmol/L 98-107 H CARBON DIOXIDE (test code = CO2) 18.0 mmol/L 21-32 L ANION GAP (test code = GAP) 19.4 10-20 N GLUCOSE (test code = GLU) 139 mg/dL 74-106 H BLOOD UREA NITROGEN (test code = BUN) 25 mg/dL 7-18 H GLOMERULAR FILTRATION RATE (test code = GFR) 41 mL/min >=60 Estimated GFR by using Modified MDRD formula.Chronic kidney disease is defined as either kidney damageor GFR <60 mL/min/1.73 m2 for >3 months. CREATININE (test code = CREAT) 1.70 mg/dL 0.7-1.3 H BUN/CREATININE RATIO (test code = BUN/CREA) 14.7 10-20 N CALCIUM (test code = CA) 8.5 mg/dL 8.5-10.1 N HEPATIC FUNCTION [id number] 18:53:00* Test Item Value Reference Range Interpretation Comments TOTAL PROTEIN (test code = PROT) 6.9 gram/dL 6.4-8.2 N ALBUMIN (test code = ALB) 2.9 g/dL 3.4-5.0 L GLOBULIN (test code = GLOB) 4.0 gram/dL 2.7-4.2 N ALBUMIN/GLOBULIN RATIO (test code = A/G) 0.7 0.75-1.50 L BILIRUBIN TOTAL (test code = BILT) 1.60 mg/dL 0.0-1.0 H BILIRUBIN DIRECT (test code = BILD) 0.83 mg/dL 0.0-0.20 H SGOT/AST (test code = AST) 86 IUnit/L 15-37 H SGPT/ALT (test code = ALT) 82 IUnit/L 12-78 H ALKALINE PHOSPHATASE TOTAL (test code = ALKP) 116 IUnit/L 45-117 N Note change in reference range due to change in reagent. [id number] 18:53:00* Test Item Value Reference Range Interpretation Comments LIPASE (test code = LIP) 44 U/L 73.0-393.0 L [id number] 18:53:00* Test Item Value Reference Range Interpretation Comments MAGNESIUM (test code = MAG) 2.4 mg/dL 1.8-2.4 N [id number] 18:53:00* Test Item Value Reference Range Interpretation Comments TROPONIN-I (test code = TROPI) 0.164 ng/mL 0-0.045 HH Results called to by JOSHUA 01/14/20 1853Critical results verified and read back by Nurse? YES [id number] 18:53:00* Test Item Value Reference Range Interpretation Comments DIGOXIN (test code = DIG) 0.9 ng/mL 0.90-2.0 N NO TE: Spironolactone interference may cause a decrease inreported Digoxin results of 11-30 %. - XR CHEST 1 [id number] 18:16:00 FAX: Larissa Bojorquez MD [phone] [place]: [address] St: ADM Name: YESENIA DE LA ROSA [facility] : [birth year] Age/S: 59/M [address] [facility] Unit #: [id number] [place] [address] Phys: Larissa Bojorquez MD Acct: [id number] Dis Date: Status: ADM IN PHONE #: [phone] Exam Date: 01/14/2020 180 FAX #: [phone] Reason: CHEST PAIN EXAMS: CPT CODE: [id number] XR CHEST 1 V 80825 REASON FOR EXAM: CHEST PAIN EXAM ORDER DATE: 01/14/2020 5:32 PM Ordering: Larissa Bojorquez MD Attending:Tee Jernigan MD Location:[facility] PROCEDURE: - XR CHEST 1 V COMPARISON: 12/29/2019 FINDINGS: Portable AP frontal view of the chest obtained at 6:05 PM shows patchy airspace opacity most pronounced at the bases. There is no evidence of effusion. The heart size is minimally enlarged. Pulmonary vasculatures are minimally congested. IMPRESSION: Vague airspace opacities suggestive of pulmonary edema at 1816 Reported and signed by: Reginald Vences M.D. CC: Larissa Bojorquez MD Technologist: Britney DAVIS(R); Tiana Gandara(R) Trnscrd Date/Time/By: 01/14/2020 (1815) : By: CarolynVTL Orig Print D/T: S: 01/14/2020 (1818) PAGE 1 Signed Report B-TYPE NATRIURETIC [id number] 18:09:00* Test Item Value Reference Range Interpretation Comments B-TYPE NATRIURETIC PEPTIDE (test code = BNP) 2142.90 pgram/mL 0-100 H CBC W/O [id number] 17:45:00* Test Item Value Reference Range Interpretation Comments WHITE BLOOD CELL (test code = WBC) 11.0 K/mm3 4.5-12.5 N RED BLOOD CELL (test code = RBC) 5.00 mill/mm3 4.0-5.8 N HEMOGLOBIN (test code = HGB) 13.9 gram/dL 13.0-17.5 N HEMATOCRIT (test code = HCT) 45.4 % 42.0-52.0 N MEAN CELL VOLUME (test code = MCV) 90.8 fL 80-98 N MEAN CELL HGB (test code = MCH) 27.8 picogram 27.0-33.0 N MEAN CELL HGB CONCETRATION (test code = MCHC) 30.6 gram/dL 33.0-36. 0 L RED CELL DISTRIBUTION WIDTH (test code = RDW) 15.6 % 11.6-16. 2 N PLATELET COUNT (test code = PLT) 205 K/mm3 150-450 N MEAN PLATELET VOLUME (test code = MPV) 10.1 fL 6.7-11.0 N CBC W/O [id number] 17:42:00* Test Item Value Reference Range Interpretation Comments WHITE BLOOD CELL (test code = WBC) K/mm3 4.5-12.5 RED BLOOD CELL (test code = RBC) mill/mm3 4.0-5.8 HEMOGLOBIN (test code = HGB) 13.9 gram/dL 13.0-17.5 N HEMATOCRIT (test code = HCT) 45.4 % 42.0-52.0 N MEAN CELL VOLUME (test code = MCV) fL 80-98 MEAN CELL HGB (test code = MCH) picogram 27.0-33.0 MEAN CELL HGB CONCETRATION (test code = MCHC) gram/dL 33.0-36. 0 RED CELL DISTRIBUTION WIDTH (test code = RDW) % 11.6-16. 2 PLATELET COUNT (test code = PLT) K/mm3 150-450 MEAN PLATELET VOLUME (test code = MPV) fL 6.7-11.0 [id number] 18:23:00* Test Item Value Reference Range Interpretation Comments POTASSIUM (test code = K) 4.4 mmol/L 3.5-5.1 N BASIC METABOLIC [id number] 11:26:00* Test Item Value Reference Range Interpretation Comments SODIUM (test code = NA) 133 mmol/L 136-145 L POTASSIUM (test code = K) 5.5 mmol/L 3.5-5.1 H CHLORIDE (test code = CL) 95.0 mmol/L 98-107 L CARBON DIOXIDE (test code = CO2) 30.0 mmol/L 21-32 N ANION GAP (test code = GAP) 13.5 10-20 N GLUCOSE (test code = GLU) 101 mg/dL 74-106 N BLOOD UREA NITROGEN (test code = BUN) 29 mg/dL 7-18 H GLOMERULAR FILTRATION RATE (test code = GFR) > 60 mL/min >=60 Estimated GFR by using Modified MDRD formula.Chronic kidney disease is defined as either kidney damageor GFR <60 mL/min/1.73 m2 for >3 months. CREATININE (test code = CREAT) 1.00 mg/dL 0.7-1.3 N BUN/CREATININE RATIO (test code = BUN/CREA) 29.0 10-20 H CALCIUM (test code = CA) 8.7 mg/dL 8.5-10.1 N BASIC METABOLIC [id number] 11:14:00* Test Item Value Reference Range Interpretation Comments SODIUM (test code = NA) 133 mmol/L 136-145 L POTASSIUM (test code = K) 5.5 mmol/L 3.5-5.1 H CHLORIDE (test code = CL) 95.0 mmol/L 98-107 L CARBON DIOXIDE (test code = CO2) mmol/L 21-32 ANION GAP (test code = GAP) 10-20 GLUCOSE (test code = GLU) mg/dL 74-106 BLOOD UREA NITROGEN (test code = BUN) mg/dL 7-18 GLOMERULAR FILTRATION RATE (test code = GFR) mL/min >=60 CREATININE (test code = CREAT) mg/dL 0.7-1.3 BUN/CREATININE RATIO (test code = BUN/CREA) 10-20 CALCIUM (test code = CA) mg/dL 8.5-10.1 [id number] 17:33:00* Test Item Value Reference Range Interpretation Comments ALBUMIN (test code = ALB) 3.2 g/dL 3.4-5.0 L SPECIMEN COMMENTS: add to todays labBASIC METABOLIC [id number] 16:52:00* Test Item Value Reference Range Interpretation Comments SODIUM (test code = NA) 130 mmol/L 136-145 L POTASSIUM (test code = K) 4.5 mmol/L 3.5-5.1 N CHLORIDE (test code = CL) 94.0 mmol/L 98-107 L CARBON DIOXIDE (test code = CO2) 31.0 mmol/L 21-32 N ANION GAP (test code = GAP) 9.5 10-20 L GLUCOSE (test code = GLU) 151 mg/dL 74-106 H BLOOD UREA NITROGEN (test code = BUN) 35 mg/dL 7-18 H GLOMERULAR FILTRATION RATE (test code = GFR) 56 mL/min >=60 Estimated GFR by using Modified MDRD formula.Chronic kidney disease is defined as either kidney damageor GFR <60 mL/min/1.73 m2 for >3 months. CREATININE (test code = CREAT) 1.30 mg/dL 0.7-1.3 N BUN/CREATININE RATIO (test code = BUN/CREA) 26.9 10-20 H CALCIUM (test code = CA) 8.6 mg/dL 8.5-10.1 N BASIC METABOLIC [id number] 16:46:00* Test Item Value Reference Range Interpretation Comments SODIUM (test code = NA) 130 mmol/L 136-145 L POTASSIUM (test code = K) 4.5 mmol/L 3.5-5.1 N CHLORIDE (test code = CL) 94.0 mmol/L 98-107 L CARBON DIOXIDE (test code = CO2) mmol/L 21-32 ANION GAP (test code = GAP) 10-20 GLUCOSE (test code = GLU) mg/dL 74-106 BLOOD UREA NITROGEN (test code = BUN) mg/dL 7-18 GLOMERULAR FILTRATION RATE (test code = GFR) mL/min >=60 CREATININE (test code = CREAT) mg/dL 0.7-1.3 BUN/CREATININE RATIO (test code = BUN/CREA) 10-20 CALCIUM (test code = CA) mg/dL 8.5-10.1 - XR CHEST 1 [id number] 08:37:00 FAX: To [facility] [phone] [place]: B St: ADM FAX: Tee Henry MD Name: YESENIA SCHERER [facility] : 1960 Age/S: 59/M [address] [facility] Unit #: [id number] Loc: [place] [address] Phys: To [facility] Acct: [id number] Dis Date: Status: ADM IN PHONE #: [phone] Exam Date: 12/29/2019 0811 FAX #: [phone] Reason: updated pulm view EXAMS: CPT CODE: [id number] XR CHEST 1 V 20507 CLINICAL HISTORY: Pneumonia TECHNIQUE: AP chest x-ray COMPARISON: Previous day. IMPRESSION: Improved right lung base airspace opacity. Improved bilateral interstitial opacities. Pulmonary hyperinflation. No pleural effusion. Normal heart size. LOCATION: LP at 0837 Reported and signed by: Chetna Thomas D.O. CC: To [facility]; Tee Jernigan Technologist: RT MIKE(R); Emi Gandara(R) Trnscrd Date/Time/By: 12/29/2019 (0837) : By: [email or web address] Orig Print D/T: S: 12/29/2019 (0894) PAGE 1 Signed Report BASIC METABOLIC [id number] 06:06:00* Test Item Value Reference Range Interpretation Comments SODIUM (test code = NA) 132 mmol/L 136-145 L POTASSIUM (test code = K) 5.4 mmol/L 3.5-5.1 H CHLORIDE (test code = CL) 93.0 mmol/L 98-107 L CARBON DIOXIDE (test code = CO2) 35.0 mmol/L 21-32 H ANION GAP (test code = GAP) 9.4 10-20 L GLUCOSE (test code = GLU) 111 mg/dL 74-106 H BLOOD UREA NITROGEN (test code = BUN) 34 mg/dL 7-18 H GLOMERULAR FILTRATION RATE (test code = GFR) > 60 mL/min >=60 Estimated GFR by using Modified MDRD formula.Chronic kidney disease is defined as either kidney damageor GFR <60 mL/min/1.73 m2 for >3 months. CREATININE (test code = CREAT) 1.00 mg/dL 0.7-1.3 N BUN/CREATININE RATIO (test code = BUN/CREA) 34.0 10-20 H CALCIUM (test code = CA) 9.0 mg/dL 8.5-10.1 N BASIC METABOLIC [id number] 06:04:00* Test Item Value Reference Range Interpretation Comments SODIUM (test code = NA) 132 mmol/L 136-145 L POTASSIUM (test code = K) 5.4 mmol/L 3.5-5.1 H CHLORIDE (test code = CL) 93.0 mmol/L 98-107 L CARBON DIOXIDE (test code = CO2) mmol/L 21-32 ANION GAP (test code = GAP) 10-20 GLUCOSE (test code = GLU) mg/dL 74-106 BLOOD UREA NITROGEN (test code = BUN) mg/dL 7-18 GLOMERULAR FILTRATION RATE (test code = GFR) mL/min >=60 CREATININE (test code = CREAT) mg/dL 0.7-1.3 BUN/CREATININE RATIO (test code = BUN/CREA) 10-20 CALCIUM (test code = CA) mg/dL 8.5-10.1 CBC W/AUTO [id number] 05:11:00* Test Item Value Reference Range Interpretation Comments WHITE BLOOD CELL (test code = WBC) 13.4 K/mm3 4.5-12.5 H RED BLOOD CELL (test code = RBC) 5.36 mill/mm3 4.0-5.8 N HEMOGLOBIN (test code = HGB) 14.9 gram/dL 13.0-17.5 N HEMATOCRIT (test code = HCT) 46.0 % 42.0-52.0 N MEAN CELL VOLUME (test code = MCV) 85.8 fL 80-98 N MEAN CELL HGB (test code = MCH) 27.8 picogram 27.0-33.0 N MEAN CELL HGB CONCETRATION (test code = MCHC) 32.4 gram/dL 33.0-36. 0 L RED CELL DISTRIBUTION WIDTH (test code = RDW) 13.3 % 11.6-16. 2 N RED CELL DISTRIBUTION WIDTH SD (test code = RDW-SD) 41.7 fL 37 .0-51.0 N PLATELET COUNT (test code = PLT) 409 K/mm3 150-450 N MEAN PLATELET VOLUME (test code = MPV) 9.4 fL 6.7-11.0 N NEUTROPHIL % (test code = NT%) 66.1 % 39.0-69.0 N IMMATURE GRANULOCYTE % (test code = IG%) 0.5 % 0.0-5.0 N LYMPHOCYTE % (test code = LY%) 22.1 % 25.0-55.0 L MONOCYTE % (test code = MO%) 10.9 % 0.0-10.0 H EOSINOPHIL % (test code = EO%) 0.3 % 0.0-5.0 N BASOPHIL % (test code = BA%) 0.1 % 0.0-1.0 N NUCLEATED RBC % (test code = NRBC%) 0.1 % 0-0 H NEUTROPHIL # (test code = NT#) 8.87 K/mm3 1.8-7.7 H IMMATURE GRANULOCYTE # (test code = IG#) 0.07 x10 3/uL 0-0.03 H LYMPHOCYTE # (test code = LY#) 2.96 K/mm3 1.0-5.0 N MONOCYTE # (test code = MO#) 1.46 K/mm3 0-0.8 H EOSINOPHIL # (test code = EO#) 0.04 K/mm3 0.0-0.5 N BASOPHIL # (test code = BA#) 0.01 K/mm3 0.0-0.2 N NUCLEATED RBC # (test code = NRBC#) 0.02 K/mm3 0.0-0.1 N CBC W/AUTO [id number] 04:59:00* Test Item Value Reference Range Interpretation Comments WHITE BLOOD CELL (test code = WBC) K/mm3 4.5-12.5 RED BLOOD CELL (test code = RBC) mill/mm3 4.0-5.8 HEMOGLOBIN (test code = HGB) 14.9 gram/dL 13.0-17.5 N HEMATOCRIT (test code = HCT) 46.0 % 42.0-52.0 N MEAN CELL VOLUME (test code = MCV) fL 80-98 MEAN CELL HGB (test code = MCH) picogram 27.0-33.0 MEAN CELL HGB CONCETRATION (test code = MCHC) gram/dL 33.0-36. 0 RED CELL DISTRIBUTION WIDTH (test code = RDW) % 11.6-16. 2 RED CELL DISTRIBUTION WIDTH SD (test code = RDW-SD) fL 37 .0-51.0 PLATELET COUNT (test code = PLT) K/mm3 150-450 MEAN PLATELET VOLUME (test code = MPV) fL 6.7-11.0 NEUTROPHIL % (test code = NT%) % 39.0-69.0 IMMATURE GRANULOCYTE % (test code = IG%) % 0.0-5.0 LYMPHOCYTE % (test code = LY%) % 25.0-55.0 MONOCYTE % (test code = MO%) % 0.0-10.0 EOSINOPHIL % (test code = EO%) % 0.0-5.0 BASOPHIL % (test code = BA%) % 0.0-1.0 NEUTROPHIL # (test code = NT#) K/mm3 1.8-7.7 LYMPHOCYTE # (test code = LY#) K/mm3 1.0-5.0 MONOCYTE # (test code = MO#) K/mm3 0-0.8 EOSINOPHIL # (test code = EO#) K/mm3 0.0-0.5 BASOPHIL # (test code = BA#) K/mm3 0.0-0.2 - XR CHEST 1 [id number] 08:12:00 FAX: To Bautista [phone] [place]: St: ADM FAX: Tee Henry MD Name: YESENIA SCHERER [facility] : 1960 Age/S: 59/M [address] [facility] Unit #: [id number] Loc: [place] [address] Phys: To Bautista Acct: [id number] Dis Date: Status: ADM IN PHONE #: [phone] Exam Date: 12/28/2019 0741 FAX #: [phone] Reason: updated pulm view EXAMS: CPT CODE: [id number] XR CHEST 1 V 20250 CLINICAL HISTORY: Pneumonia TECHNIQUE: AP chest x-ray COMPARISON: Previous day. IMPRESSION: Improved lateral right lung base airspace opacity and small right pleural effusion. Improved bilateral interstitial opacities. Pulmonary hyperinflation. Normal heart size. LOCA TION: LP Electronically Sig jp by Chetna Thomas D.O. on 12/28/2019 at 0812 Reported and signed by: Chetna Thomas D.O. CC: To Bautista; Tee Jernigan Technologist: CHRIS GODDARD JR Trnscrd Date/Time/By: 12/28/2019 (811) : By: [email or web address] Orig Print D/T: S: 12/28/2019 (05) PAGE 1 Signed Report BASIC METABOLIC PANEL 2019-12-28 06:37:00* Test Item Value Reference Range Interpretation Comments SODIUM (test code = NA) 136 mmol/L 136-145 N POTASSIUM (test code = K) 4.7 mmol/L 3.5-5.1 N CHLORIDE (test code = CL) 95.0 mmol/L 98-107 L CARBON DIOXIDE (test code = CO2) 35.0 mmol/L 21-32 H ANION GAP (test code = GAP) 10.7 10-20 N GLUCOSE (test code = GLU) 108 mg/dL 74-106 H BLOOD UREA NITROGEN (test code = BUN) 33 mg/dL 7-18 H GLOMERULAR FILTRATION RATE (test code = GFR) > 60 mL/min >=60 Estimated GFR by using Modified MDRD formula.Chronic kidney disease is defined as either kidney damageor GFR <60 mL/min/1.73 m2 for >3 months. CREATININE (test code = CREAT) 1.00 mg/dL 0.7-1.3 N BUN/CREATININE RATIO (test code = BUN/CREA) 33.0 10-20 H CALCIUM (test code = CA) 8.6 mg/dL 8.5-10.1 N BASIC METABOLIC [id number] 06:33:00* Test Item Value Reference Range Interpretation Comments SODIUM (test code = NA) 136 mmol/L 136-145 N POTASSIUM (test code = K) 4.7 mmol/L 3.5-5.1 N CHLORIDE (test code = CL) 95.0 mmol/L 98-107 L CARBON DIOXIDE (test code = CO2) mmol/L 21-32 ANION GAP (test code = GAP) 10-20 GLUCOSE (test code = GLU) mg/dL 74-106 BLOOD UREA NITROGEN (test code = BUN) mg/dL 7-18 GLOMERULAR FILTRATION RATE (test code = GFR) mL/min >=60 CREATININE (test code = CREAT) mg/dL 0.7-1.3 BUN/CREATININE RATIO (test code = BUN/CREA) 10-20 CALCIUM (test code = CA) mg/dL 8.5-10.1 CBC W/AUTO [id number] 06:17:00* Test Item Value Reference Range Interpretation Comments WHITE BLOOD CELL (test code = WBC) 12.4 K/mm3 4.5-12.5 N RED BLOOD CELL (test code = RBC) 4.74 mill/mm3 4.0-5.8 N HEMOGLOBIN (test code = HGB) 13.5 gram/dL 13.0-17.5 N HEMATOCRIT (test code = HCT) 41.7 % 42.0-52.0 L MEAN CELL VOLUME (test code = MCV) 88.0 fL 80-98 N MEAN CELL HGB (test code = MCH) 28.5 picogram 27.0-33.0 N MEAN CELL HGB CONCETRATION (test code = MCHC) 32.4 gram/dL 33.0-36. 0 L RED CELL DISTRIBUTION WIDTH (test code = RDW) 13.5 % 11.6-16. 2 N RED CELL DISTRIBUTION WIDTH SD (test code = RDW-SD) 43.6 fL 37 .0-51.0 N PLATELET COUNT (test code = PLT) 360 K/mm3 150-450 N MEAN PLATELET VOLUME (test code = MPV) 9.2 fL 6.7-11.0 N NEUTROPHIL % (test code = NT%) 70.8 % 39.0-69.0 H IMMATURE GRANULOCYTE % (test code = IG%) 0.7 % 0.0-5.0 N LYMPHOCYTE % (test code = LY%) 16.6 % 25.0-55.0 L MONOCYTE % (test code = MO%) 11.8 % 0.0-10.0 H EOSINOPHIL % (test code = EO%) 0.0 % 0.0-5.0 N BASOPHIL % (test code = BA%) 0.1 % 0.0-1.0 N NUCLEATED RBC % (test code = NRBC%) 0.0 % 0-0 N NEUTROPHIL # (test code = NT#) 8.80 K/mm3 1.8-7.7 H IMMATURE GRANULOCYTE # (test code = IG#) 0.09 x10 3/uL 0-0.03 H LYMPHOCYTE # (test code = LY#) 2.06 K/mm3 1.0-5.0 N MONOCYTE # (test code = MO#) 1.47 K/mm3 0-0.8 H EOSINOPHIL # (test code = EO#) 0.00 K/mm3 0.0-0.5 N BASOPHIL # (test code = BA#) 0.01 K/mm3 0.0-0.2 N NUCLEATED RBC # (test code = NRBC#) 0.00 K/mm3 0.0-0.1 N MANUAL DIFF REQUIRED (test code = MDIFF) NO CBC W/AUTO [id number] 06:11:00* Test Item Value Reference Range Interpretation Comments WHITE BLOOD CELL (test code = WBC) K/mm3 4.5-12.5 RED BLOOD CELL (test code = RBC) mill/mm3 4.0-5.8 HEMOGLOBIN (test code = HGB) 13.5 gram/dL 13.0-17.5 N HEMATOCRIT (test code = HCT) % 42.0-52.0 MEAN CELL VOLUME (test code = MCV) fL 80-98 MEAN CELL HGB (test code = MCH) picogram 27.0-33.0 MEAN CELL HGB CONCETRATION (test code = MCHC) gram/dL 33.0-36. 0 RED CELL DISTRIBUTION WIDTH (test code = RDW) % 11.6-16. 2 RED CELL DISTRIBUTION WIDTH SD (test code = RDW-SD) fL 37 .0-51.0 PLATELET COUNT (test code = PLT) K/mm3 150-450 MEAN PLATELET VOLUME (test code = MPV) fL 6.7-11.0 NEUTROPHIL % (test code = NT%) % 39.0-69.0 IMMATURE GRANULOCYTE % (test code = IG%) % 0.0-5.0 LYMPHOCYTE % (test code = LY%) % 25.0-55.0 MONOCYTE % (test code = MO%) % 0.0-10.0 EOSINOPHIL % (test code = EO%) % 0.0-5.0 BASOPHIL % (test code = BA%) % 0.0-1.0 NEUTROPHIL # (test code = NT#) K/mm3 1.8-7.7 LYMPHOCYTE # (test code = LY#) K/mm3 1.0-5.0 MONOCYTE # (test code = MO#) K/mm3 0-0.8 EOSINOPHIL # (test code = EO#) K/mm3 0.0-0.5 BASOPHIL # (test code = BA#) K/mm3 0.0-0.2 [id number] 02:37:00* Test Item Value Reference Range Interpretation Comments MAGNESIUM (test code = MAG) 2.4 mg/dL 1.8-2.4 N BASIC METABOLIC [id number] 02:30:00* Test Item Value Reference Range Interpretation Comments SODIUM (test code = NA) 134 mmol/L 136-145 L POTASSIUM (test code = K) 4.9 mmol/L 3.5-5.1 N CHLORIDE (test code = CL) 94.0 mmol/L 98-107 L CARBON DIOXIDE (test code = CO2) 36.0 mmol/L 21-32 H ANION GAP (test code = GAP) 8.9 10-20 L GLUCOSE (test code = GLU) 115 mg/dL 74-106 H BLOOD UREA NITROGEN (test code = BUN) 37 mg/dL 7-18 H GLOMERULAR FILTRATION RATE (test code = GFR) > 60 mL/min >=60 Estimated GFR by using Modified MDRD formula.Chronic kidney disease is defined as either kidney damageor GFR <60 mL/min/1.73 m2 for >3 months. CREATININE (test code = CREAT) 1.20 mg/dL 0.7-1.3 N BUN/CREATININE RATIO (test code = BUN/CREA) 30.8 10-20 H CALCIUM (test code = CA) 8.4 mg/dL 8.5-10.1 L BASIC METABOLIC [id number] 02:25:00* Test Item Value Reference Range Interpretation Comments SODIUM (test code = NA) 134 mmol/L 136-145 L POTASSIUM (test code = K) 4.9 mmol/L 3.5-5.1 N CHLORIDE (test code = CL) 94.0 mmol/L 98-107 L CARBON DIOXIDE (test code = CO2) mmol/L 21-32 ANION GAP (test code = GAP) 10-20 GLUCOSE (test code = GLU) mg/dL 74-106 BLOOD UREA NITROGEN (test code = BUN) mg/dL 7-18 GLOMERULAR FILTRATION RATE (test code = GFR) mL/min >=60 CREATININE (test code = CREAT) mg/dL 0.7-1.3 BUN/CREATININE RATIO (test code = BUN/CREA) 10-20 CALCIUM (test code = CA) mg/dL 8.5-10.1 CBC W/O [id number] 02:07:00* Test Item Value Reference Range Interpretation Comments WHITE BLOOD CELL (test code = WBC) 13.3 K/mm3 4.5-12.5 H RED BLOOD CELL (test code = RBC) 4.64 mill/mm3 4.0-5.8 N HEMOGLOBIN (test code = HGB) 13.0 gram/dL 13.0-17.5 N HEMATOCRIT (test code = HCT) 41.1 % 42.0-52.0 L MEAN CELL VOLUME (test code = MCV) 88.6 fL 80-98 N MEAN CELL HGB (test code = MCH) 28.0 picogram 27.0-33.0 N MEAN CELL HGB CONCETRATION (test code = MCHC) 31.6 gram/dL 33.0-36. 0 L RED CELL DISTRIBUTION WIDTH (test code = RDW) 13.5 % 11.6-16. 2 N PLATELET COUNT (test code = PLT) 396 K/mm3 150-450 N MEAN PLATELET VOLUME (test code = MPV) 9.6 fL 6.7-11.0 N CBC W/O [id number] 02:04:00* Test Item Value Reference Range Interpretation Comments WHITE BLOOD CELL (test code = WBC) K/mm3 4.5-12.5 RED BLOOD CELL (test code = RBC) mill/mm3 4.0-5.8 HEMOGLOBIN (test code = HGB) 13.0 gram/dL 13.0-17.5 N HEMATOCRIT (test code = HCT) % 42.0-52.0 MEAN CELL VOLUME (test code = MCV) fL 80-98 MEAN CELL HGB (test code = MCH) picogram 27.0-33.0 MEAN CELL HGB CONCETRATION (test code = MCHC) gram/dL 33.0-36. 0 RED CELL DISTRIBUTION WIDTH (test code = RDW) % 11.6-16. 2 PLATELET COUNT (test code = PLT) K/mm3 150-450 MEAN PLATELET VOLUME (test code = MPV) fL 6.7-11.0 - [facility] [id number] 13:46:00 Name: YESENIA SCHERER [facility] : 1960 Age/S: 59 / M [address] Unit #: [id number] Loc: [place] [address] Phys: Susan Abbasi MD Acct: [id number] Dis Date: Status: ADM IN PHONE #: [phone] Exam Date: 12/27/2019 1323 FAX #: [phone] Reason: ckd EXAMS: CPT CODE: [id number] [facility] COM 24410 HISTORY: Pain COMPARISON: CT abdomen and pelvis from December 29, 2017. Location: [facility]. Bilateral renal ultrasound: Hyperechogenic kidneys bilaterally especially on the right suggesting chronic medical renal disease. Calyceal stone in the the upper and interpolar region on the right measuring 2.9 and 4.2 mm respectively. No calyceal stones visible on the left side. Mild right hydronephrosis. No hydronephrosis on the left. No perinephric collections. Right kidney measured 12 x 5.3 x 4.7 cm. Left kidney measured 10.5 x 5.5 x 4.2 cm. Urinary bladder distended incompletely. No wall thickening or mural nodules. Bladder is poorly visible. No free fluid. IMPRESSION: Mild right (calyceal dilatation) hydronephrosis with nonobstructing 2.9 at 4.2 mm upper and interpolar calyceal stones. No hydronephrosis or stones on the left. Mildly hyperechogenic kidneys especially on the right suggestive mild chronic medical renal disease. Incomplet mellissa distended urinary bladder is limited in evaluation. Electronical ly Signed by Sagrario Stone on 12/27/2019 at 1346 Rep orted and signed by: Karl Stone M.D. CC: Tee Jernigan; Susan Abbasi MD Technologist: Jd Londono RDMD Trnscb Date/Time: 12/27/2019 (134) Ish.TH4 Orig Print D/T: S: 12/27/2019 (6749) Probe: PAGE 1 Signed Report DIGOXIN 2019-12-27 12:05:00* Test Item Value Reference Range Interpretation Comments DIGOXIN (test code = DIG) 2.8 ng/mL 0.90-2.0 HH Re sults called to [id number] by DANIELA 12/27/19 1204Critical results verified and read back by Nurse? CORINA: Spironolactone interference may cause a decrease inreported Digoxin results of 11-30 %. - XR CHEST 1 [id number] 08:04:00 FAX: To Bautista [phone] [place]: St: ADM FAX: Tee Henry MD Name: YESENIA SCHERER [facility] : 1960 Age/S: 59/M [address] [facility] Unit #: [id number] Loc: [address] [place] [address] Phys: To Bautista Acct: [id number] Dis Date: Status: ADM IN PHONE #: [phone] Exam Date: 12/27/2019 0745 FAX #: [phone] Reason: updated pulm view EXAMS: CPT CODE: [id number] XR CHEST 1 V 77179 CLINICAL HISTORY: Pneumonia TECHNIQUE: AP chest x-ray COMPARISON: Previous day. IMPRESSION: Improved lateral right lung base airspace opacity and small right pleural effusion. Improved bilateral interstitial opacities. Pulmonary hyperinflation. Improved cardiomegaly. LOCATION: at 0804 Reported and signed by: Chetna Thomas D.O. CC: To Bautista; Tee Jernigan Technologist: RT TAMAR(Mia) Trnscrd Date/Time/By: 12/27/2019 (803) : By: [email or web address] Orig Print D/T: S: 12/27/2019 (0807) PAGE 1 Signed Report BASIC METABOLIC [id number] 01:12:00* Test Item Value Reference Range Interpretation Comments SODIUM (test code = NA) 134 mmol/L 136-145 L POTASSIUM (test code = K) 5.5 mmol/L 3.5-5.1 H CHLORIDE (test code = CL) 95.0 mmol/L 98-107 L CARBON DIOXIDE (test code = CO2) 32.0 mmol/L 21-32 N ANION GAP (test code = GAP) 12.5 10-20 N GLUCOSE (test code = GLU) 146 mg/dL 74-106 H BLOOD UREA NITROGEN (test code = BUN) 34 mg/dL 7-18 H GLOMERULAR FILTRATION RATE (test code = GFR) > 60 mL/min >=60 Estimated GFR by using Modified MDRD formula.Chronic kidney disease is defined as either kidney damageor GFR <60 mL/min/1.73 m2 for >3 months. CREATININE (test code = CREAT) 1.10 mg/dL 0.7-1.3 N BUN/CREATININE RATIO (test code = BUN/CREA) 30.9 10-20 H CALCIUM (test code = CA) 9.0 mg/dL 8.5-10.1 N [id number] 01:07:00* Test Item Value Reference Range Interpretation Comments MAGNESIUM (test code = MAG) 2.3 mg/dL 1.8-2.4 N BASIC METABOLIC [id number] 01:04:00* Test Item Value Reference Range Interpretation Comments SODIUM (test code = NA) 134 mmol/L 136-145 L POTASSIUM (test code = K) 5.5 mmol/L 3.5-5.1 H CHLORIDE (test code = CL) 95.0 mmol/L 98-107 L CARBON DIOXIDE (test code = CO2) mmol/L 21-32 ANION GAP (test code = GAP) 10-20 GLUCOSE (test code = GLU) mg/dL 74-106 BLOOD UREA NITROGEN (test code = BUN) mg/dL 7-18 GLOMERULAR FILTRATION RATE (test code = GFR) mL/min >=60 CREATININE (test code = CREAT) mg/dL 0.7-1.3 BUN/CREATININE RATIO (test code = BUN/CREA) 10-20 CALCIUM (test code = CA) mg/dL 8.5-10.1 CBC W/O [id number] 01:00:00* Test Item Value Reference Range Interpretation Comments WHITE BLOOD CELL (test code = WBC) 13.3 K/mm3 4.5-12.5 H RED BLOOD CELL (test code = RBC) 4.29 mill/mm3 4.0-5.8 N HEMOGLOBIN (test code = HGB) 12.3 gram/dL 13.0-17.5 L HEMATOCRIT (test code = HCT) 38.3 % 42.0-52.0 L MEAN CELL VOLUME (test code = MCV) 89.3 fL 80-98 N MEAN CELL HGB (test code = MCH) 28.7 picogram 27.0-33.0 N MEAN CELL HGB CONCETRATION (test code = MCHC) 32.1 gram/dL 33.0-36. 0 L RED CELL DISTRIBUTION WIDTH (test code = RDW) 14.0 % 11.6-16. 2 N PLATELET COUNT (test code = PLT) 358 K/mm3 150-450 N MEAN PLATELET VOLUME (test code = MPV) 9.5 fL 6.7-11.0 N - XR CHEST 1 [id number] 08:16:00 FAX: To Bautista [phone] [place]: B St: ADM FAX: Tee Henry MD Name: YESENIA SCHERER [facility] : 1960 Age/S: 59/M [address] [facility] Unit #: [id number] Loc: [address] [place] [address] Phys: To Bautista Acct: [id number] Dis Date: Status: ADM IN PHONE #: [phone] Exam Date: 12/26/2019811 FAX #: [phone] Reason: updated pulm view EXAMS: CPT CODE: [id number] XR CHEST 1 V 96231 CLINICAL HISTORY: Pneumonia TECHNIQUE: AP chest x-ray COMPARISON: Previous day. IMPRESSION: Slightly improved lateral right lung base airspace opacity and small right pleural effusion. Improved bilateral interstitial opacities. Pulmonary hyperinflation. Cardiomegaly. LOCATION: LP at 0816 Reported and signed by: Chetna Thomas D.O. CC: To Bautista; Tee Jernigan Technologist: Dora Bishop, RT(R); RIGOBERTO HANSEN, RT(R) Trnscrd Date/Time/By: 12/26/2019 (815) : By: [email or web address] Orig Print D/T: S: 12/26/2019 (6354) PAGE 1 Signed Report BASIC METABOLIC [id number] 03:35:00* Test Item Value Reference Range Interpretation Comments SODIUM (test code = NA) 135 mmol/L 136-145 L POTASSIUM (test code = K) 5.4 mmol/L 3.5-5.1 H CHLORIDE (test code = CL) 99.0 mmol/L 98-107 N CARBON DIOXIDE (test code = CO2) 32.0 mmol/L 21-32 N ANION GAP (test code = GAP) 9.4 10-20 L GLUCOSE (test code = GLU) 117 mg/dL 74-106 H BLOOD UREA NITROGEN (test code = BUN) 29 mg/dL 7-18 H GLOMERULAR FILTRATION RATE (test code = GFR) > 60 mL/min >=60 Estimated GFR by using Modified MDRD formula.Chronic kidney disease is defined as either kidney damageor GFR <60 mL/min/1.73 m2 for >3 months. CREATININE (test code = CREAT) 1.00 mg/dL 0.7-1.3 N BUN/CREATININE RATIO (test code = BUN/CREA) 29.0 10-20 H CALCIUM (test code = CA) 8.8 mg/dL 8.5-10.1 N [id number] 03:35:00* Test Item Value Reference Range Interpretation Comments MAGNESIUM (test code = MAG) 2.3 mg/dL 1.8-2.4 N BASIC METABOLIC [id number] 03:21:00* Test Item Value Reference Range Interpretation Comments SODIUM (test code = NA) 135 mmol/L 136-145 L POTASSIUM (test code = K) 5.4 mmol/L 3.5-5.1 H CHLORIDE (test code = CL) 99.0 mmol/L 98-107 N CARBON DIOXIDE (test code = CO2) mmol/L 21-32 ANION GAP (test code = GAP) 10-20 GLUCOSE (test code = GLU) mg/dL 74-106 BLOOD UREA NITROGEN (test code = BUN) mg/dL 7-18 GLOMERULAR FILTRATION RATE (test code = GFR) mL/min >=60 CREATININE (test code = CREAT) mg/dL 0.7-1.3 BUN/CREATININE RATIO (test code = BUN/CREA) 10-20 CALCIUM (test code = CA) mg/dL 8.5-10.1 [id number] 03:21:00* Test Item Value Reference Range Interpretation Comments MAGNESIUM (test code = MAG) mg/dL 1.8-2.4 CBC W/O [id number] 02:53:00* Test Item Value Reference Range Interpretation Comments WHITE BLOOD CELL (test code = WBC) 10.3 K/mm3 4.5-12.5 N RED BLOOD CELL (test code = RBC) 4.09 mill/mm3 4.0-5.8 N HEMOGLOBIN (test code = HGB) 11.7 gram/dL 13.0-17.5 L HEMATOCRIT (test code = HCT) 38.3 % 42.0-52.0 L MEAN CELL VOLUME (test code = MCV) 93.6 fL 80-98 N MEAN CELL HGB (test code = MCH) 28.6 picogram 27.0-33.0 N MEAN CELL HGB CONCETRATION (test code = MCHC) 30.5 gram/dL 33.0-36. 0 L RED CELL DISTRIBUTION WIDTH (test code = RDW) 14.4 % 11.6-16. 2 N PLATELET COUNT (test code = PLT) 361 K/mm3 150-450 N MEAN PLATELET VOLUME (test code = MPV) 9.6 fL 6.7-11.0 N Novel Coronavirus [id number] 16:08:00* Test Item Value Reference Range Interpretation Comments Novel Coronavirus 2019 Inhouse (test code = [id number]) Negative Negative Positive results are indicative of the presence [id number] RNA, clinical correlation with patient historyand other diagnostic information is necessary to determinepatient infection status. Positive results do not rule outbacterial infection or co-infection with other viruses. Negative results do not preclude SARS-CoV-2 infection andshould not be used as the sole basis for patient managementdecisions. Negative results must be combined with otherclinical observations, patient history, and epidemiologicalinformation. Detection of SARS-CoV-2 RNA may be affected bysample collection methods, storage conditions, and/or stageof infection. Viral RNA mutations, vaccinations, antiviraltherapeutics, antibiotics, chemotherapeutic orimmunosuppressant drugs have not been evaluated for effectson detection. Results are for the identification of SARS-CoV-2 RNA usingthe [employer] M2000 System under the FDA Emergency UseAuthorization. The testing is performed by personneltrained in the procedures for the [employer] M2000 moleculardiagnostic SARS-CoV-2 assay in vitro. Testing Criteria: Congestion & Fever Sore Throat & Fever Cough Shortness of BreathNovel Coronavirus 16:08:00* Test Item Value Reference Range Interpretation Comments Novel Coronavirus 2019 Inhouse (test code = [id number]) Negative Negative Positive results are indicative of the presence [id number] RNA, clinical correlation with patient historyand other diagnostic information is necessary to determinepatient infection status. Positive results do not rule outbacterial infection or co-infection with other viruses. Negative results do not preclude SARS-CoV-2 infection andshould not be used as the sole basis for patient managementdecisions. Negative results must be combined with otherclinical observations, patient history, and epidemiologicalinformation. Detection of SARS-CoV-2 RNA may be affected bysample collection methods, storage conditions, and/or stageof infection. Viral RNA mutations, vaccinations, antiviraltherapeutics, antibiotics, chemotherapeutic orimmunosuppressant drugs have not been evaluated for effectson detection. Results are for the identification of SARS-CoV-2 RNA usingthe [employer] M2000 System under the FDA Emergency UseAuthorization. The testing is performed by personneltrained in the procedures for the [employer] M2000 moleculardiagnostic SARS-CoV-2 assay in vitro. Testing Criteria: Congestion & Fever Sore Throat & Fever Cough Shortness of Breath- XR CHEST 1 [id number] 07:20:00 FAX: To Bautista [phone] [place]: [address] St: [facility] FAX: Tee Henry MD Name: YESENIA SCHERER [facility] : 1960 Age/S: 59[facility] [address] [facility]: [id number] Loc: [address] [place] [address] Phys: To Bautista Acct: [id number] Dis Date: Status: ADM IN PHONE #: [phone] Exam Date: 12/25/2019542 FAX #: [phone] Reason: updated pulm view EXAMS: CPT CODE: [id number] XR CHEST 1 V 92507 CLINICAL HISTORY: Pneumonia, COPD exacerbation JONH HNIQUE: AP chest x-ray COMPARISON: Previous day. I MPRESSION: No significant interval change. Pulmonary hyperinfl ation with interstitial prominence. Lateral right lung base airspace opa city and small right pleural effusion. Cardiomegaly. LOCATION: LP at 0720 Reported and signed by: Chetna Thomas D.O. CC: To Bautista; Tee Jernigan Technologist: Vanesa Escobar Trnkbrd Date/Time/By: 12/25/2019 (719) : By: [email or web address] Orig Print D/T: S: 12/25/2019 (0504) PAGE 1 Signed Report CBC W/O [id number] 01:49:00 * Test Item Value Reference Range Interpretation Comments WHITE BLOOD CELL (test code = WBC) 8.6 K/mm3 4.5-12.5 N RED BLOOD CELL (test code = RBC) 3.90 mill/mm3 4.0-5.8 L HEMOGLOBIN (test code = HGB) 11.4 gram/dL 13.0-17.5 L HEMATOCRIT (test code = HCT) 36.3 % 42.0-52.0 L MEAN CELL VOLUME (test code = MCV) 93.1 fL 80-98 N MEAN CELL HGB (test code = MCH) 29.2 picogram 27.0-33.0 N MEAN CELL HGB CONCETRATION (test code = MCHC) 31.4 gram/dL 33.0-36. 0 L RED CELL DISTRIBUTION WIDTH (test code = RDW) 14.6 % 11.6-16. 2 N PLATELET COUNT (test code = PLT) 342 K/mm3 150-450 N MEAN PLATELET VOLUME (test code = MPV) 9.7 fL 6.7-11.0 N BASIC METABOLIC [id number] 01:18:00* Test Item Value Reference Range Interpretation Comments SODIUM (test code = NA) 138 mmol/L 136-145 N POTASSIUM (test code = K) 4.9 mmol/L 3.5-5.1 N CHLORIDE (test code = CL) 103.0 mmol/L 98-107 N CARBON DIOXIDE (test code = CO2) 27.0 mmol/L 21-32 N ANION GAP (test code = GAP) 12.9 10-20 N GLUCOSE (test code = GLU) 148 mg/dL 74-106 H BLOOD UREA NITROGEN (test code = BUN) 24 mg/dL 7-18 H GLOMERULAR FILTRATION RATE (test code = GFR) > 60 mL/min >=60 Estimated GFR by using Modified MDRD formula.Chronic kidney disease is defined as either kidney damageor GFR <60 mL/min/1.73 m2 for >3 months. CREATININE (test code = CREAT) 1.00 mg/dL 0.7-1.3 N BUN/CREATININE RATIO (test code = BUN/CREA) 24.0 10-20 H CALCIUM (test code = CA) 9.0 mg/dL 8.5-10.1 N [id number] 01:18:00* Test Item Value Reference Range Interpretation Comments MAGNESIUM (test code = MAG) 1.8 mg/dL 1.8-2.4 N BASIC METABOLIC [id number] 01:16:00* Test Item Value Reference Range Interpretation Comments SODIUM (test code = NA) 138 mmol/L 136-145 N POTASSIUM (test code = K) 4.9 mmol/L 3.5-5.1 N CHLORIDE (test code = CL) 103.0 mmol/L 98-107 N CARBON DIOXIDE (test code = CO2) mmol/L 21-32 ANION GAP (test code = GAP) 10-20 GLUCOSE (test code = GLU) mg/dL 74-106 BLOOD UREA NITROGEN (test code = BUN) mg/dL 7-18 GLOMERULAR FILTRATION RATE (test code = GFR) mL/min >=60 CREATININE (test code = CREAT) mg/dL 0.7-1.3 BUN/CREATININE RATIO (test code = BUN/CREA) 10-20 CALCIUM (test code = CA) mg/dL 8.5-10.1 [id number] 01:16:00* Test Item Value Reference Range Interpretation Comments MAGNESIUM (test code = MAG) mg/dL 1.8-2.4 BASIC METABOLIC [id number] 18:29:00* Test Item Value Reference Range Interpretation Comments SODIUM (test code = NA) 139 mmol/L 136-145 N POTASSIUM (test code = K) 4.4 mmol/L 3.5-5.1 N CHLORIDE (test code = CL) 105.0 mmol/L 98-107 N CARBON DIOXIDE (test code = CO2) 27.0 mmol/L 21-32 N ANION GAP (test code = GAP) 11.4 10-20 N GLUCOSE (test code = GLU) 175 mg/dL 74-106 H BLOOD UREA NITROGEN (test code = BUN) 21 mg/dL 7-18 H GLOMERULAR FILTRATION RATE (test code = GFR) > 60 mL/min >=60 Estimated GFR by using Modified MDRD formula.Chronic kidney disease is defined as either kidney damageor GFR <60 mL/min/1.73 m2 for >3 months. CREATININE (test code = CREAT) 1.00 mg/dL 0.7-1.3 N BUN/CREATININE RATIO (test code = BUN/CREA) 21.0 10-20 H CALCIUM (test code = CA) 9.1 mg/dL 8.5-10.1 N BASIC METABOLIC [id number] 18:28:00* Test Item Value Reference Range Interpretation Comments SODIUM (test code = NA) 139 mmol/L 136-145 N POTASSIUM (test code = K) 4.4 mmol/L 3.5-5.1 N CHLORIDE (test code = CL) 105.0 mmol/L 98-107 N CARBON DIOXIDE (test code = CO2) mmol/L 21-32 ANION GAP (test code = GAP) 10-20 GLUCOSE (test code = GLU) mg/dL 74-106 BLOOD UREA NITROGEN (test code = BUN) mg/dL 7-18 GLOMERULAR FILTRATION RATE (test code = GFR) mL/min >=60 CREATININE (test code = CREAT) mg/dL 0.7-1.3 BUN/CREATININE RATIO (test code = BUN/CREA) 10-20 CALCIUM (test code = CA) 9.1 mg/dL 8.5-10.1 N LACTIC [id number] 13:24:00* Test Item Value Reference Range Interpretation Comments LACTIC ACID (test code = LACT) 2.7 mmol/L 0.4-1.9 Results called to [id number] by V.LAB.RAP 12/24/19 1324Critical results verified and read back by Nurse? Y [id number] 13:13:00* Test Item Value Reference Range Interpretation Comments TROPONIN-I (test code = TROPI) 0.086 ng/mL 0-0.045 - CT CHEST W/O [id number] 11:33:00 Name: YESENIA SCHERER [facility] : 1960 Age/S: 59 / M [address] [facility] Unit #: [id number] Loc: [place] [address] Phys: Johana Yap Acct: [id number] Dis Date: Status: ADM IN PHONE #: [phone] Exam Date: 12/24/2019 1120 FAX #: [phone] Reason: SOB EXAMS: CPT CODE: [id number] CT CHEST W/O CONTRAST 46633 HISTORY: Shortness of breath. COMPARISON: CT scan from December 29, 2017. Location: TH. CT of chest without contrast: Automated exposure control. COPD with upper lobe predominance. Small bilateral pleural effusions with bibasal subsegmental atelectasis and patchy bibasal infiltrates. Partial loculation of the effusion on the right side. No bronchiectasis, honeycombing or fibrosis or endobronchial lesions. Normal caliber unopacified aorta. Mild lead dilated pulmonary artery trunk may suggest pulmonary arterial hypertension. Unremarkable incompletely included thyroid glands. Esophageal wall is not thickened. Pathologic pretracheal lymph nodes measuring up to 1.8 cm likely reactive. Cardiomegaly without pericardial effusion. Visualized upper abdomen is unremarkable. Subcutaneous tissues and the musculature demonstrating battery pack within the left lower back with the catheter extending towards the thecal sac. No lytic or blastic lesions are noted within the bony skeleton. DJD. IMPRESSION: Patchy bibasal infiltrates with small effusions (partial loculation on the right side) and subsegmental atele ctasis. COPD with upper lobe predominance. Pathologic pretracheal lymp h nodes appear reactive. at 1133 Reported and signed by: Karl philip M.D. CC: Johana Yap; Tee Jernigan chnologist:Marc Means RT(R)(CT); . CTDI: DLP: Trnscb Date/ Time: 12/24/2019 (1133) t.SDR.TH4 Orig Print D/T: S: 12/05 (8257) PAGE 1 Signed Report [id number] 11:02:00* Test Item Value Reference Range Interpretation Comments TROPONIN-I (test code = TROPI) 0.087 ng/mL 0-0.045 HH LACTIC [id number] 07:32:00* Test Item Value Reference Range Interpretation Comments LACTIC ACID (test code = LACT) 2.4 mmol/L 0.4-1.9 HH Results called to [id number] by ROSAURA.HÉCTOR 12/24/19 0732Critical results verified and read back by Nurse? y B-TYPE NATRIURETIC [id number] 07:26:00* Test Item Value Reference Range Interpretation Comments B-TYPE NATRIURETIC PEPTIDE (test code = BNP) 787.50 pgram/mL 0-100 H [id number] 07:25:00* Test Item Value Reference Range Interpretation Comments TROPONIN-I (test code = TROPI) 0.093 ng/mL 0-0.045 HH - XR CHEST 1 [id number] 06:22:00 FAX: To Bautista [phone] [place]: B St: ADM FAX: Tee Henry MD Name: YESENIA SCHERER [facility] : 1960 Age[facility]S: 59/[facility] [address] [facility] [id number] Loc: [place] [address] Phys: To Bautista Acct: [id number] Dis Date: Status: ADM IN PHONE #: [phone] Exam Date: 12/24/2019 0536 FAX #: [phone] Reason: updated pulm status. 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 Prior reported PNA and COPD. FINDINGS: Cardiac silhouette is enlarged. There is pulmonary vascular congestion and underlying diffuse bilateral hazy/groundglass infiltrates, slightly more pronounced in the right lung base. There is a new small right pleural effusion. There is no pneumothorax. Comparison made to prior 09/10/2019. IMPRESSION: Pulmonary vascular congestion. Bilateral hazy/groundglass infiltrates, more pronounced in the right lung base. Small right pleural effusion. at 0622 Reported and signed by: Bi Alfredo M.D. CC: To Bautista; Tee Jernigan Technologist: Juan Nunez RT(R); NANETTE COLON RT(R) Trnscrd Date/Time/By: 12/24/2019 (621) : By: [email or web address] Orig Print D/T: S: 12/24/2019 (0698) PAGE 1 Signed Report BASIC METABOLIC [id number] 02:09:00* Test Item Value Reference Range Interpretation Comments SODIUM (test code = NA) 142 mmol/L 136-145 N POTASSIUM (test code = K) 5.2 mmol/L 3.5-5.1 H CHLORIDE (test code = CL) 110.0 mmol/L 98-107 H CARBON DIOXIDE (test code = CO2) 27.0 mmol/L 21-32 N ANION GAP (test code = GAP) 10.2 10-20 N GLUCOSE (test code = GLU) 105 mg/dL 74-106 N BLOOD UREA NITROGEN (test code = BUN) 18 mg/dL 7-18 N GLOMERULAR FILTRATION RATE (test code = GFR) > 60 mL/min >=60 Estimated GFR by using Modified MDRD formula.Chronic kidney disease is defined as either kidney damageor GFR <60 mL/min/1.73 m2 for >3 months. CREATININE (test code = CREAT) 0.80 mg/dL 0.7-1.3 N BUN/CREATININE RATIO (test code = BUN/CREA) 22.5 10-20 H CALCIUM (test code = CA) 8.5 mg/dL 8.5-10.1 N [id number] 02:09:00* Test Item Value Reference Range Interpretation Comments TROPONIN-I (test code = TROPI) 0.137 ng/mL 0-0.045 HH Results called to [id number] by BRANDENGP 12/24/19 0209Critical results verified and read back by Nurse? Y PROTHROMBIN [id number] 01:33:00* Test Item Value Reference Range Interpretation Comments PROTHROMBIN TIME PATIENT (test code = PTP) 15.5 seconds 9.0-14.0 H INTERNATIONAL NORMAL RATIO (test code = INR) 1.3 0.8-1.2 H The therapeutic range for oral anticoagulant therapy formost indications is an international normalized ratio (INR)of between 2.0 and 3.0. The recommended therapeutic INRrange for various clinical situations is listed below: Clinical Situation INR range Pulmonary e mbolism treatment (2.0-3.0)Venous thrombosis treatmentVenous thrombosis prophylaxis (high risk surgery)Prevention of systemic embolism from: Acute myocardial infarction Valvular heart disease Atrial fibrillation Mechanical prosthetic heart valves (2.5-3.5) IS PATIENT ON ANTICOAGULANTS? NTHROMBOPLASTIN TIME [id number] 01:33:00* Test Item Value Reference Range Interpretation Comments THROMBOPLASTIN TIME PARTIAL (test code = PTT) 36.8 seconds 25.0-36. 5 H IS PATIENT ON ANTICOAGULANTS? NCBC W/O [id number] 01:26:00* Test Item Value Reference Range Interpretation Comments WHITE BLOOD CELL (test code = WBC) 8.4 K/mm3 4.5-12.5 N RED BLOOD CELL (test code = RBC) 4.30 mill/mm3 4.0-5.8 N HEMOGLOBIN (test code = HGB) 12.2 gram/dL 13.0-17.5 L HEMATOCRIT (test code = HCT) 39.8 % 42.0-52.0 L MEAN CELL VOLUME (test code = MCV) 92.6 fL 80-98 N MEAN CELL HGB (test code = MCH) 28.4 picogram 27.0-33.0 N MEAN CELL HGB CONCETRATION (test code = MCHC) 30.7 gram/dL 33.0-36. 0 L RED CELL DISTRIBUTION WIDTH (test code = RDW) 14.6 % 11.6-16. 2 N PLATELET COUNT (test code = PLT) 334 K/mm3 150-450 N MEAN PLATELET VOLUME (test code = MPV) 9.5 fL 6.7-11.0 N [id number] 16:31:00* Test Item Value Reference Range Interpretation Comments GLUBED (test code = GLUBED) 113 mg/dL 74-106 H Performed by certified horizontal boring mill set up operator at [facility] [id number] 12:38:00* Test Item Value Reference Range Interpretation Comments GLUBED (test code = GLUBED) 115 mg/dL 74-106 H Performed by certified horizontal boring mill set up operator at [facility] [id number] 11:56:00* Test Item Value Reference Range Interpretation Comments TROPONIN-I (test code = TROPI) <0.015 ng/mL 0-0.045 N COMMENTS TO OSTRICH FARMER: COLLECT 3 HOURS AFTER PREVIOUS [id number] 09:29:00* Test Item Value Reference Range Interpretation Comments TROPONIN-I (test code = TROPI) <0.015 ng/mL 0-0.045 N COMMENTS TO OSTRICH FARMER: COLLECT 3 HOURS AFTER PREVIOUS [id number] 08:40:00* Test Item Value Reference Range Interpretation Comments GLUBED (test code = GLUBED) 134 mg/dL 74-106 H Performed by certified horizontal boring mill set up operator at [facility] LACTIC [id number] 06:44:00* Test Item Value Reference Range Interpretation Comments LACTIC ACID (test code = LACT) 1.8 mmol/L 0.4-1.9 N LACTIC [id number] 05:35:00* Test Item Value Reference Range Interpretation Comments LACTIC ACID (test code = LACT) 2.1 mmol/L 0.4-1.9 HH Results called to [id number] by ALVARADO 09/10/19 0535Critical results verified and read back by Nurse? Y PROCALCITONIN (PCT)2019-09-10 03:34:00* Test Item Value Reference Range Interpretation Comments PROCALCITONIN (PCT) (test code = PROCAL) 0.26 ng/ml Concentration Interpretation (ng/mL) <0.51 Sepsis is not likely. Local bacterial infection is possible. (LOW RISK for progression to Sepsis) 0.51 - 2.00 Sepsis is possible, but other conditions are known to elevate PCT as well. (MODERATE RISK for progression to Sepsis) > 2.00 Sepsis is likely, unless other causes are known. (HIGH RISK for progression to Severe Sepsis or Septic Shock) 10.00 High likelihood of Severe Sepsis or Septic or higher Shock. *Increased PCT levels may not always be related to systemic bacterial infection.*Low PCT levels do not automatically exclude the presence of bacterial infection.*All results should be interpreted taking into account the patients history. LACTIC [id number] 02:39:00* Test Item Value Reference Range Interpretation Comments LACTIC ACID (test code = LACT) 2.0 mmol/L 0.4-1.9 H Results called to [id number] by ALVARADO 09/10/19 0238Critical results verified and read back by Nurse?Y BASIC METABOLIC [id number] 02:34:00* Test Item Value Reference Range Interpretation Comments SODIUM (test code = NA) 135 mmol/L 136-145 L POTASSIUM (test code = K) 4.7 mmol/L 3.5-5.1 N CHLORIDE (test code = CL) 99.0 mmol/L 98-107 N CARBON DIOXIDE (test code = CO2) 27.0 mmol/L 21-32 N ANION GAP (test code = GAP) 13.7 10-20 N GLUCOSE (test code = GLU) 134 mg/dL 74-106 H BLOOD UREA NITROGEN (test code = BUN) 20 mg/dL 7-18 H GLOMERULAR FILTRATION RATE (test code = GFR) > 60 mL/min >=60 Estimated GFR by using Modified MDRD formula.Chronic kidney disease is defined as either kidney damageor GFR <60 mL/min/1.73 m2 for >3 months. CREATININE (test code = CREAT) 0.90 mg/dL 0.7-1.3 N BUN/CREATININE RATIO (test code = BUN/CREA) 22.2 10-20 H CALCIUM (test code = CA) 10.2 mg/dL 8.5-10.1 H [id number] 02:34:00* Test Item Value Reference Range Interpretation Comments MAGNESIUM (test code = MAG) 2.1 mg/dL 1.8-2.4 N [id number] 02:34:00* Test Item Value Reference Range Interpretation Comments TROPONIN-I (test code = TROPI) <0.015 ng/mL 0-0.045 N BASIC METABOLIC [id number] 02:25:00* Test Item Value Reference Range Interpretation Comments SODIUM (test code = NA) 135 mmol/L 136-145 L POTASSIUM (test code = K) 4.7 mmol/L 3.5-5.1 N CHLORIDE (test code = CL) 99.0 mmol/L 98-107 N CARBON DIOXIDE (test code = CO2) mmol/L 21-32 ANION GAP (test code = GAP) 10-20 GLUCOSE (test code = GLU) mg/dL 74-106 BLOOD UREA NITROGEN (test code = BUN) mg/dL 7-18 GLOMERULAR FILTRATION RATE (test code = GFR) mL/min >=60 CREATININE (test code = CREAT) mg/dL 0.7-1.3 BUN/CREATININE RATIO (test code = BUN/CREA) 10-20 CALCIUM (test code = CA) mg/dL 8.5-10.1 [id number] 02:25:00* Test Item Value Reference Range Interpretation Comments MAGNESIUM (test code = MAG) mg/dL 1.8-2.4 [id number] 02:25:00* Test Item Value Reference Range Interpretation Comments TROPONIN-I (test code = TROPI) ng/mL 0-0.045 URINALYSIS [id number] 02:20:00* Test Item Value Reference Range Interpretation Comments UA COLOR (test code = COLU) COLORLESS YELLOW A UA APPEARANCE (test code = APPU) CLEAR CLEAR UA GLUCOSE DIPSTICK (test code = DGLUU) NEGATIVE mg/dL NEGATIVE UA BILIRUBIN DIPSTICK (test code = BILU) NEGATIVE mg/dL NEGATIVE UA KETONE DIPSTICK (test code = KETU) NEGATIVE mg/dL NEGATIVE UA SPECIFIC GRAVITY (test code = SGU) 1.006 1.001-1.035 UA BLOOD DIPSTICK (test code = MAGY) Negative mg/dL NEGATIVE UA PH DIPSTICK (test code = KONG) 7.0 5.0-8.0 UA PROTEIN DIPSTICK (test code = PROU) NEGATIVE mg/dL NEGATIVE UA UROBILINIOGEN DIPSTICK (test code = URO) Normal mg/dL NEGATIVE UA NITRITE DIPSTICK (test code = SHERI) NEGATIVE NEGATIVE UA LEUKOCYTE ESTERASE W REFLEX (test code = LEUUR) NEGATIVE Mark/uL NEGATIVE UA WBC (test code = WBCU) 0-5 per HPF 0-5 UA RBC (test code = RBCU) NONE SEEN #/HPF 0-5 UA EPITHELIAL CELLS (test code = EPIU) None seen per HPF FEW UA BACTERIA (test code = BACU) NONE SEEN #/HPF NONE Urine Source? Clean Catch- XR CHEST 1 [id number] 02:08:00 FAX: Chidi Romero MD [place]: B St: REG Name: YESEINA DE LA ROSA [facility] : [birth year] 57 Age/S: 58/M [address] [facility] Unit #: [id number] Loc: [place] [address] Phys: Chidi Romero MD Acct: [id number] Dis Date: Status: REG ER PHONE #: [phone] Exam Date: 09/10/2019 0150 FAX #: [phone] Reason: CHEST PAIN EXAMS: CPT CODE: [id number] XR CHEST 1 V 40191 AFTER HOURS SERVICE ON: 09/10/2019 2:08 AM AP Portable Chest Location Code M12 HISTORY: CHEST PAIN FINDINGS: There is a small right lower lobe alveolar infiltrate. There are no pleural effusions. Th ere is no pneumothorax. Cardiac silhouette and mediastinum appear within n ormal limits. IMPRESSION: Small right lower lobe alveolar infiltrate. at 0208 Reported and signed by: Bi Alfredo M.D. CC: Chidi Romero MD Technol ogist: NANETTE COLON RT(R) Trnscrd Date/Time/ By: 09/10/2019 (207) : By: [email or web address] Orig Print D/T: S: 09/10/2019 (0 211) PAGE 1 Signed Report CBC W/O [id number] 02:07:00* Test Item Value Reference Range Interpretation Comments WHITE BLOOD CELL (test code = WBC) 12.4 K/mm3 4.5-12.5 N RED BLOOD CELL (test code = RBC) 4.48 mill/mm3 4.0-5.8 N HEMOGLOBIN (test code = HGB) 13.3 gram/dL 13.0-17.5 N HEMATOCRIT (test code = HCT) 42.4 % 42.0-52.0 N MEAN CELL VOLUME (test code = MCV) 94.6 fL 80-98 N MEAN CELL HGB (test code = MCH) 29.7 picogram 27.0-33.0 N MEAN CELL HGB CONCETRATION (test code = MCHC) 31.4 gram/dL 33.0-36. 0 L RED CELL DISTRIBUTION WIDTH (test code = RDW) 14.6 % 11.6-16. 2 N PLATELET COUNT (test code = PLT) 702 K/mm3 150-450 H MEAN PLATELET VOLUME (test code = MPV) 8.6 fL 6.7-11.0 N CBC W/O [id number] 02:04:00* Test Item Value Reference Range Interpretation Comments WHITE BLOOD CELL (test code = WBC) K/mm3 4.5-12.5 RED BLOOD CELL (test code = RBC) mill/mm3 4.0-5.8 HEMOGLOBIN (test code = HGB) 13.3 gram/dL 13.0-17.5 N HEMATOCRIT (test code = HCT) 42.4 % 42.0-52.0 N MEAN CELL VOLUME (test code = MCV) fL 80-98 MEAN CELL HGB (test code = MCH) picogram 27.0-33.0 MEAN CELL HGB CONCETRATION (test code = MCHC) gram/dL 33.0-36. 0 RED CELL DISTRIBUTION WIDTH (test code = RDW) % 11.6-16. 2 PLATELET COUNT (test code = PLT) K/mm3 150-450 MEAN PLATELET VOLUME (test code = MPV) fL 6.7-11.0 White Blood [id number] 06:23:00* Test Item Value Reference Range Interpretation Comments White Blood Count (test code = 6690-2) 8.63 4.8-10.8 [facility] [id number] 06:23:00* Test Item Value Reference Range Interpretation Comments Red Blood Count (test code = 789-8) 4.20 4.3-5.7 L [facility]viewHemoglobin2018-12-21 06:23:00* Test Item Value Reference Range Interpretation Comments Hemoglobin (test code = 19561-2) 12.9 14.0-18.0 L [facility]viewHematocrit2018-12-21 06:23:00* Test Item Value Reference Range Interpretation Comments Hematocrit (test code = 4544-3) 40.0 38.2-49.6 [facility]viewMean Corpuscular [id number] 06:23:00* Test Item Value Reference Range Interpretation Comments Mean Corpuscular Volume (test code = 787-2) 95.2 81-99 [facility] Corpuscular [id number] 06:23:00* Test Item Value Reference Range Interpretation Comments Mean Corpuscular Hemoglobin (test code = 785-6) 30.7 28-32 [facility] Corpuscular Hemoglobin Concent 2018-08-26 06:23:00* Test Item Value Reference Range Interpretation Comments Mean Corpuscular Hemoglobin Concent (test code = 786-4) 32.3 31-35 [facility] Cell Distribution [id number] 06:23:00* Test Item Value Reference Range Interpretation Comments Red Cell Distribution Width (test code = 96682-4) 13.2 11.7 -14.4 [facility]viewPlatelet [id number] 06:23:00* Test Item Value Reference Range Interpretation Comments Platelet Count (test code = 777-3) 476 140-360 H [facility]viewNeutrophils (%) (Auto)2018-08-26 06:23:00 * Test Item Value Reference Range Interpretation Comments Neutrophils (%) (Auto) (test code = 70601-7) 56.6 38.7-80.0 [facility]viewLymphocytes (%) (Auto)2018-08-26 06:23:00 * Test Item Value Reference Range Interpretation Comments Lymphocytes (%) (Auto) (test code = 736-9) 29.8 18.0-39.1 [facility]viewMonocytes (%) (Auto)2018-08-26 06:23:00* Test Item Value Reference Range Interpretation Comments Monocytes (%) (Auto) (test code = 5905-5) 9.6 4.4-11.3 [facility]view[facility]osinophils (%) (Auto)2018-08-26 06:23:00 * Test Item Value Reference Range Interpretation Comments Eosinophils (%) (Auto) (test code = 713-8) 2.4 0.0-6.0 [facility]ophils (%) (Auto)2018-08-26 06:23:00* Test Item Value Reference Range Interpretation Comments Basophils (%) (Auto) (test code = 706-2) 0.6 0.0-1.0 [facility]viewIM GRANULOCYTES %2018-08-26 06:23:00* Test Item Value Reference Range Interpretation Comments IM GRANULOCYTES % (test code = IM GRANULOCYTES %) 1.0 0.0- 1.0 [facility]viewNeutrophils # (Auto)2018-08-26 06:23:00* Test Item Value Reference Range Interpretation Comments Neutrophils # (Auto) (test code = 751-8) 4.9 2.1-6.9 [facility]viewLymphocytes # (Auto)2018-08-26 06:23:00* Test Item Value Reference Range Interpretation Comments Lymphocytes # (Auto) (test code = 52636-9) 2.6 1.0-3.2 [facility]viewMonocytes # (Auto)2018-08-26 06:23:00* Test Item Value Reference Range Interpretation Comments Monocytes # (Auto) (test code = 742-7) 0.8 0.2-0.8 [facility]viewEosinophils # (Auto)2018-08-26 06:23:00* Test Item Value Reference Range Interpretation Comments Eosinophils # (Auto) (test code = 711-2) 0.2 0.0-0.4 [facility]viewBasophils # (Auto)2018-08-26 06:23:00* Test Item Value Reference Range Interpretation Comments Basophils # (Auto) (test code = 704-7) 0.1 0.0-0.1 [facility]viewAbsolute Immature Granulocyte (auto 2018-08-26 06:23:00* Test Item Value Reference Range Interpretation Comments Absolute Immature Granulocyte (auto (efe t code = Absolute Immature Granulocyte (auto) 0.09 0-0.1 [facility] [id number] 05:38:00* Test Item Value Reference Range Interpretation Comments Sodium Level (test code = 2951-2) 135 136-145 L [facility]viewPotassium [id number] 05:38:00* Test Item Value Reference Range Interpretation Comments Potassium Level (test code = 2823-3) 5.1 3.5-5.1 [facility]viewChloride [id number] 05:38:00* Test Item Value Reference Range Interpretation Comments Chloride Level (test code = 2075-0) 97 98-107 L [facility] PlainviewCarbon Dioxide [id number] 05:38:00* Test Item Value Reference Range Interpretation Comments Carbon Dioxide Level (test code = 2028-9) 29 22-29 [facility] PlainviewAnion [id number] 05:38:00* Test Item Value Reference Range Interpretation Comments Anion Gap (test code = 60699-5) 14.1 8-16 [facility]viewBlood Urea [id number] 05:38:00* Test Item Value Reference Range Interpretation Comments Blood Urea Nitrogen (test code = 3094-0) 23 7-26 [facility]inine2018-12-21 05:38:00* Test Item Value Reference Range Interpretation Comments Creatinine (test code = 2160-0) 1.22 0.72-1.25 [facility]BUN/Creatinine [id number] 05:38:00* Test Item Value Reference Range Interpretation Comments BUN/Creatinine Ratio (test code = 3097-3) 19 6-25 [facility] Glomerular Filtration Rate 2018-08-26 05:38:00* Test Item Value Reference Range Interpretation Comments Estimat Glomerular Filtration Rate (test code = 699393583) > 60 >60 Ranges were taken from the National Kidney Disease Education Program and the [facility] Kidney Foundation literature.Reference ranges:60 or greater: Lujpul93-47 ( for 3 consecutive months): Chronic kidney disease 15 or less: Kidney failureC[facility]ant Health PlainviewGlucose Dvrnh1151-37-92 05:38:00* Test Item Value Reference Range Interpretation Comments Glucose Level (test code = MGB3006) 95 74-118 [facility]viewCalcium Jfstx8116-07-97 05:38:00* Test Item Value Reference Range Interpretation Comments Calcium Level (test code = 74447-1) 9.0 8.4-10.2 [facility]viewBedside Eehbaji2653-64-33 11:44:00* Test Item Value Reference Range Interpretation Comments Bedside Glucose (test code = 26669-9) 100 70-120 Meter ID: [id number] Regional HospitalDigoxin Level 2018-08-23 14:40:00* Test Item Value Reference Range Interpretation Comments Digoxin Level (test code = 66993-9) 0.69 0.8-2.0 L [facility] PlainviewUrine NFU1328-99-59 15:54:00* Test Item Value Reference Range Interpretation Comments Urine WBC (test code = 5821-4) 0-5 0-5 [facility]viewUrine EZC1200-42-25 15:54:00* Test Item Value Reference Range Interpretation Comments Urine RBC (test code = 73163-4) 0-5 0-5 [facility]viewU[facility] Mkixmkig3560-74-20 15:54:00* Test Item Value Reference Range Interpretation Comments Urine Bacteria (test code = 48668-9) RARE NONE [facility]viewUrine Epithelial Dveeb3103-83-15 15:54:00 * Test Item Value Reference Range Interpretation Comments Urine Epithelial Cells (test code = 54472-3) RARE NONE [facility]viewU[facility] Transitional Epithelial Cells 2018-08-21 15:54:00* Test Item Value Reference Range Interpretation Comments Urine Transitional Epithelial Cells (test code = 8249-5) FEW NONE [facility]viewU[facility] Ylhni0011-90-33 15:54:00* Test Item Value Reference Range Interpretation Comments Urine Mucus (test code = 8247-9) MODERATE RARE H [facility]viewUrine Dggwz6871-38-88 15:29:00* Test Item Value Reference Range Interpretation Comments Urine Color (test code = 5778-6) YELLOW YELLOW [facility]viewU[facility] Kbwitjr3226-41-81 15:29:00* Test Item Value Reference Range Interpretation Comments Urine Clarity (test code = 80388-2) CLEAR CLEAR [facility] Specific Wbgevst2038-08-43 15:29:00 * Test Item Value Reference Range Interpretation Comments Urine Specific [employer] (test code = 5811-5) 1.015 1.010-1.02 5 [facility]viewUrine qR9985-10-08 15:29:00* Test Item Value Reference Range Interpretation Comments Urine pH (test code = 44536-9) 6.5 5-7 [facility]view[facility] Leukocyte Vkerunjr3278-32-97 15:29:00* Test Item Value Reference Range Interpretation Comments Urine Leukocyte Esterase (test code = 5799-2) NEGATIVE NEGATIVE [facility]viewU[facility] Wwwvocp5362-09-79 15:29:00* Test Item Value Reference Range Interpretation Comments Urine Nitrite (test code = 55730-4) NEGATIVE NEGATIVE [facility]viewU[facility] Mlyvgpp0955-58-69 15:29:00* Test Item Value Reference Range Interpretation Comments Urine Protein (test code = 5804-0) NEGATIVE NEGATIVE [facility]viewUrine Glucose (UA)2018-08-21 15:29:00* Test Item Value Reference Range Interpretation Comments Urine Glucose (UA) (test code = 2349-9) NEGATIVE NEGATIVE [facility]viewUrine Jrupoxk9555-00-71 15:29:00* Test Item Value Reference Range Interpretation Comments Urine Ketones (test code = 26415-1) NEGATIVE NEGATIVE [facility]viewU[facility] Ncwykdxpruqt3754-72-49 15:29:00* Test Item Value Reference Range Interpretation Comments Urine Urobilinogen (test code = 53262-3) 0.2 0.2-1 [facility]viewU[facility] Ucqzhkahk3454-53-44 15:29:00* Test Item Value Reference Range Interpretation Comments Urine Bilirubin (test code = 1978-6) NEGATIVE NEGATIVE [facility] Hoaks6911-32-20 15:29:00* Test Item Value Reference Range Interpretation Comments Urine Blood (test code = 32627-0) NEGATIVE NEGATIVE [facility] HospitalCHEST 2 BPJFZ3628-77-06 11:17:00 [facility] [address] [address] Patient Name: YESENIA SCHERER MR #: [id number] : 1960 Age/Sex: 57/M Req #: [id number] Adm Physician: NEEL MARIO MD Ordered by: NEEL MARIO MD Report #: [id number] Location: MED/SURG Room/Bed: [facility] Procedure: [id number] D X/CHEST 2 VIEWS Exam Date: 08/21/18 Exam Time: 1054 REPORT STATUS: Signed EXAMINATIO N: CHEST 2 VIEWS INDICATION: A FIB. COPD [id number] 1054 Y COMPARISON: Chest radiograph 08/15/2018 FINDINGS: PA and lateral views TUBES and LINES: Neurostimulator device overlying the le ft lower chest. LUNGS: Hyperinflated lungs with associated emphysema remai ns unchanged. More prominent bilateral hilar peribronchial wall thickening. No new consolidations or pulmonary edema. PLEURA: No pleural effusion or pneumothorax. HEART AND MEDIASTINUM: The cardiomediastinal silhouette is unremarkable. BONES AND SOFT TISSUES: No acute osseous lesion. Soft tiss ues are unremarkable. UPPER ABDOMEN: No free air under the diaphragm. IMPRESSION: Worsening bilateral hilar peribronchial wall thickening sugges tive of COPD exacerbation or viral infection. Signed by: Dr. Taisha Wray M.D. on 08/21/2018 11:25 AM Dictated By: TAISHA ERNANDEZ MD 112 5 Transcribed By: OLGA LIDIA on 08/21/18 1125 COPY TO: NEEL MARIO MD Hemoglobin A1c Mxkymxh4952-83-61 10:06:00* Test Item Value Reference Range Interpretation Comments Hemoglobin A1c Percent (test code = Hemoglobin A1c Percent) 4.8 4.0-7.0 [facility]viewMRI BRAIN [id number] 18:29:00 [facility] [address] [address] Patient Name: YESENIA SCHERER MR #: [id number] : 1960 Age/Sex: 57/M Req #: [id number] Adm Physician: NEEL MARIO MD Ordered by: LETY MCDONALD M.D. Report #: [id number] Location: MED/SURG Room/Bed: [facility] Procedure: [id number] MRI/MRI BRAIN WO Exam Date: 08/19/18 Exam Time: 1730 REPORT STATUS: Signed * ADDENDUM #1 Comparison: Report of CT brain from 11/25/2015, images not available for comparison at the time of interpretation. I have r eviewed the images and otherwise agree with findings in preliminary report. Signed by: Dr. Rosalie Spring M.D. on 08/19/2018 10:21 PM ORIGIN AL REPORT Exam: MRI brain without contrast History: Migraines , 57-year-old male Comparison studies: None Technique: Sagittal T2; axial DWI, ADC, FLAIR, MPGR, T1, GRE, Coronal FLAIR. Intravenous contrast: None Findings: Numerous artifacts related to patient motion as well as p resumed metallic artifacts in the oral cavity results in severely degraded daly gnostic ability of this exam. Scalp: Normal in signal . No masses . Bon e marrow: Normal in signal intensity. Extra-axial: No masses or fluid col lections. Brain sulci: Appropriate for age. Ventricles: Normal in size . No hydrocephalus . Parenchyma: Minimal supratentorial subcortical and per iventricular T2/FLAIR hyperintense foci likely reflect sequela of microvascula r ischemic angiopathy. No masses, hemorrhage, acute or chronic cortical ischem ic insults. Suprasellar region: No abnormalities. Craniocervical junction : No abnormalities. Patent foramen magnum. No Chiari one malformation. Ves sels: Normal flow-voids in the arteries and sinuses. IMPRESSION: Se verely degraded diagnostic ability of this exam due to patient motion and oral cavity metallic artifact. No acute abnormalities. Chronic findings: Mild white matter microvascular ischemic changes. This is a preliminary report was provided by the neuroradiology fellow, Dr. Kennedy Dexter. Attending over read to follow. Signed by: Kennedy Dexter MD on 08/19/2018 6:40 PM Dictated By: VANE DEXTER MD Transcribed By: OLGA LIDIA on 08/19/18 1840 COPY TO: LETY MCDONALD MD Free Wxuxbjubb1220-04-00 17:28:00* Test Item Value Reference Range Interpretation Comments Free Thyroxine (test code = 3024-7) 1.18 0.9-1.8 [facility]viewThyroid Stimulating Hormone (TSH) 2018-08-17 19:55:00* Test Item Value Reference Range Interpretation Comments Thyroid Stimulating Hormone (TSH) (test code = 53595-5) 0.473 0.350-4.940 [facility]viewCreatine Kinase UI9836-88-92 10:24:00* Test Item Value Reference Range Interpretation Comments Creatine Kinase MB (test code = 40337-9) 2.50 0-5.0 [facility] PlainviewTroponin G5039-10-08 10:24:00* Test Item Value Reference Range Interpretation Comments Troponin I (test code = OEB7551) 0.001 0-0.300 [facility]viewCreatine Cpvmsh1661-73-81 10:16:00* Test Item Value Reference Range Interpretation Comments Creatine Kinase (test code = 2157-6) 110 30-200 [facility] PlainviewCHEST SINGLE (PORTABLE)2018-08-15 19:46:00 [facility] [address] [address] Patient Name: YESENIA SCHERER MR #: [id number] : 1960 Age/Sex: 57/M Req #: [id number] Adm Physician: Ordered by: PARRISH KERR NP Report #: [id number] Location: ER Room/Bed: Procedure: [id number] DX/CHEST SINGLE (PORTABLE) Exam Date: 08/15/18 Exam Time: 1836 REPORT STATUS: Signed EXAMINATION: CHEST SINGLE (PORTABLE) INDICATION: ERMD ORDER [id number] 1837 Y COMPARISON: Chest radiograph 12/19/[address] abdomen pelvis 12/19/2017 and 01/12/2018 FINDINGS: AP view TUBES and LINES: Stimulator device overlying the left upper quadrant. MARLYN GS: Lungs are well inflated. Bilateral emphysema is unchanged. There is no evidence of pneumonia or pulmonary edema. PLEURA: No pleural effusion or pneumothorax. HEART AND MEDIASTINUM: The cardiomediastinal silhouette is u nremarkable.. BONES AND SOFT TISSUES: Unchanged posttraumatic deformity of the left lateral seventh rib. Soft tissues are unremarkable. UPPER AB DOMEN: No free air under the diaphragm. IMPRESSION: Bilateral emphys chelsea without new consolidations. Signed by: Dr. Taisha Wray M.D. on 08/15/2018 7:48 PM Dictated By: TAISHA WRAY MD Elect ronically Signed By: TAISHA WRAY MD on 08/15/181947 Transcribed By : OLGA LIDIA on 08/15/181947 COPY TO: PARRISH KERR NP Total Hlchkbkue7507-77-74 19:04:00* Test Item Value Reference Range Interpretation Comments Total Bilirubin (test code = 1975-2) 0.5 0.2-1.2 [facility] PlainviewAspartate Amino Transf (AST/SGOT) 2018-08-15 19:04:00* Test Item Value Reference Range Interpretation Comments Aspartate Amino Transf (AST/SGOT) (test code = Aspartate Amino Transf (AST/SGOT)) 12 5-34 [facility]viewAlanine Aminotransferase (ALT/SGPT) 2018-08-15 19:04:00* Test Item Value Reference Range Interpretation Comments Alanine Aminotransferase (ALT/SGPT) (test code = 1742-6) 13 0-55 [facility]viewTotal Iywduxi5780-15-86 19:04:00* Test Item Value Reference Range Interpretation Comments Total Protein (test code = 2885-2) 7.0 6.5-8.1 [facility]viewAlbumin2018-12-10 19:04:00* Test Item Value Reference Range Interpretation Comments Albumin (test code = 1751-7) 3.4 3.5-5.0 L [facility]viewGlobulin2018-12-10 19:04:00* Test Item Value Reference Range Interpretation Comments Globulin (test code = 26267-4) 3.6 2.3-3.5 H [facility]viewAlbumin/Globulin Owxcz9561-15-48 19:04:00 * Test Item Value Reference Range Interpretation Comments Albumin/Globulin Ratio (test code = 1759-0) 0.9 0.8-2.0 [facility]viewAlkaline Oorqdulgyqe6765-72-04 19:04:00* Test Item Value Reference Range Interpretation Comments Alkaline Phosphatase (test code = 6768-6) 59 40-150 [facility]viewProthrombin Avpt3056-95-49 18:50:00* Test Item Value Reference Range Interpretation Comments Prothrombin Time (test code = 5902-2) 13.8 11.9-14.5 [facility]viewProthromb Time International Ratio 2018-08-15 18:50:00* Test Item Value Reference Range Interpretation Comments Prothromb Time International Ratio (test code = 6301-6) 0.97 Oral Anticoagulant Therapy INR Values:1. Low Intensity Therapy 1.5 - 2.02 . Moderate Intensity Therapy 2.0 - 3.03. High Intensity Therapy(1) 2.5 - 3. 54. High Intensity Therapy(2) 3.0 - 4.05. Panic Value INR > 5.0 [facility] PlainviewActivated Partial Thromboplast Time 2018-08-15 18:50:00* Test Item Value Reference Range Interpretation Comments Activated Partial Thromboplast Time (test code = 52540-5) 30.0 23.8-35.5 [facility]odium Qhjkr2624-75-24 22:42:00* Test Item Value Reference Range Interpretation Comments Sodium Level (test code = 2951-2) 140 136-145 [facility]viewPotassium Eyfoq5953-80-26 22:42:00* Test Item Value Reference Range Interpretation Comments Potassium Level (test code = 2823-3) 3.1 3.5-5.1 L [facility]viewChloride Qbtuu7251-83-32 22:42:00* Test Item Value Reference Range Interpretation Comments Chloride Level (test code = 2075-0) 100 98-107 [facility] PlainviewCarbon Dioxide Yaxdo8373-25-72 22:42:00* Test Item Value Reference Range Interpretation Comments Carbon Dioxide Level (test code = 2028-9) 29 22-29 [facility] PlainviewAnion Mil6377-40-37 22:42:00* Test Item Value Reference Range Interpretation Comments Anion Gap (test code = 52470-9) 14.1 8-16 [facility]viewBlood Urea Lpvubrdb5257-58-47 22:42:00* Test Item Value Reference Range Interpretation Comments Blood Urea Nitrogen (test code = 3094-0) 13 7-26 [facility]viewCreatinine2018-05-09 22:42:00* Test Item Value Reference Range Interpretation Comments Creatinine (test code = 2160-0) 0.75 0.72-1.25 [facility]viewBUN/Creatinine Fzbze2344-04-71 22:42:00* Test Item Value Reference Range Interpretation Comments BUN/Creatinine Ratio (test code = 3097-3) 17 6-25 [facility] PlainviewEstimat Glomerular Filtration Rate 2018-01-12 22:42:00* Test Item Value Reference Range Interpretation Comments Estimat Glomerular Filtration Rate (test code = 60477-7) 60- >60 Ranges were taken from the National Kidney Disease Education Program and the [facility] Kidney Foundation literature.Reference ranges:60 or greater: Rkpdki16-53 ( for 3 consecutive months): Chronic kidney disease 15 or less: Kidney failureCovenant Health PlainviewGlucose Iqawa4821-53-66 22:42:00* Test Item Value Reference Range Interpretation Comments Glucose Level (test code = ETW2069) 130 74-118 H [facility] PlainviewCalcium Mrogf4088-35-81 22:42:00* Test Item Value Reference Range Interpretation Comments Calcium Level (test code = 61270-7) 9.4 8.4-10.2 [facility]viewTotal Fvvytcgco8175-51-50 22:42:00* Test Item Value Reference Range Interpretation Comments Total Bilirubin (test code = 1975-2) 0.5 0.2-1.2 [facility] PlainviewAspartate Amino Transf (AST/SGOT) 2018-01-12 22:42:00* Test Item Value Reference Range Interpretation Comments Aspartate Amino Transf (AST/SGOT) (test code = Aspartate Amino Transf (AST/SGOT)) 18 5-34 [facility] PlainviewAlanine Aminotransferase (ALT/SGPT) 2018-01-12 22:42:00* Test Item Value Reference Range Interpretation Comments Alanine Aminotransferase (ALT/SGPT) (test code = 1742-6) 28 0-55 [facility]viewTotal Tfoxorz4533-94-82 22:42:00* Test Item Value Reference Range Interpretation Comments Total Protein (test code = 2885-2) 6.7 6.5-8.1 [facility] PlainviewAlbumin2018-05-09 22:42:00* Test Item Value Reference Range Interpretation Comments Albumin (test code = 1751-7) 3.1 3.5-5.0 L [facility] PlainviewGlobulin2018-05-09 22:42:00* Test Item Value Reference Range Interpretation Comments Globulin (test code = 66217-7) 3.6 2.3-3.5 H [facility] PlainviewAlbumin/Globulin Hbdkl1601-62-12 22:42:00 * Test Item Value Reference Range Interpretation Comments Albumin/Globulin Ratio (test code = 1759-0) 0.9 0.8-2.0 [facility]viewAlkaline Jgixtsshopz0132-52-44 22:42:00* Test Item Value Reference Range Interpretation Comments Alkaline Phosphatase (test code = 6768-6) 50 40-150 [facility] PlainviewAmylase Qtwxm4373-77-67 22:42:00* Test Item Value Reference Range Interpretation Comments Amylase Level (test code = 1798-8) 44 25-125 [facility] PlainviewLipase2018-05-09 22:42:00* Test Item Value Reference Range Interpretation Comments Lipase (test code = 3040-3) [facility]viewAmylase Dqtac0474-60-05 22:42:00* Test Item Value Reference Range Interpretation Comments Amylase Level (test code = 1798-8) 44 25-125 [facility] PlainviewLipase2018-05-09 22:42:00* Test Item Value Reference Range Interpretation Comments Lipase (test code = 3040-3) 19 78 [facility]viewUrine OBN8569-51-65 22:41:00* Test Item Value Reference Range Interpretation Comments Urine WBC (test code = 5821-4) 0-5 0-5 [facility]viewUrine QBF4495-34-55 22:41:00* Test Item Value Reference Range Interpretation Comments Urine RBC (test code = 72059-9) NONE 0-5 [facility]viewUrine Swrftejo4562-03-66 22:41:00* Test Item Value Reference Range Interpretation Comments Urine Bacteria (test code = 53741-3) MODERATE NONE H [facility]viewUrine Epithelial Tzmlx9683-37-27 22:41:00 * Test Item Value Reference Range Interpretation Comments Urine Epithelial Cells (test code = 97956-2) FEW NONE [facility]viewUrine Amorphous Llucwztj1703-26-11 22:41:00* Test Item Value Reference Range Interpretation Comments Urine Amorphous Sediment (test code = 8246-1) FEW FEW [facility]viewUrine Amorphous Codahmpf4678-61-34 22:41:00* Test Item Value Reference Range Interpretation Comments Urine Amorphous Sediment (test code = 8246-1) FEW FEW [facility]viewUrine Wzlbi4976-67-39 22:26:00* Test Item Value Reference Range Interpretation Comments Urine Color (test code = 5778-6) YELLOW YELLOW [facility]viewUrine Wavcjen3345-06-71 22:26:00* Test Item Value Reference Range Interpretation Comments Urine Clarity (test code = 29169-0) HAZY CLEAR [facility]viewUrine Specific Sombpcd1651-39-84 22:26:00 * Test Item Value Reference Range Interpretation Comments Urine Specific [employer] (test code = 5811-5) 1.020 1.010-1.02 5 [facility]viewUrine vC2284-45-69 22:26:00* Test Item Value Reference Range Interpretation Comments Urine pH (test code = 35949-2) 9 5-7 H [facility]viewUrine Leukocyte Iduehicq1750-90-55 22:26:00* Test Item Value Reference Range Interpretation Comments Urine Leukocyte Esterase (test code = 5799-2) NEGATIVE NEGATIVE [facility]viewUrine Vlkxhlq4421-64-39 22:26:00* Test Item Value Reference Range Interpretation Comments Urine Nitrite (test code = 57287-7) NEGATIVE NEGATIVE [facility]viewUrine Aatoela4931-14-99 22:26:00* Test Item Value Reference Range Interpretation Comments Urine Protein (test code = 5804-0) 2+ NEGATIVE H [facility]viewUrine Glucose (UA)2018-01-12 22:26:00* Test Item Value Reference Range Interpretation Comments Urine Glucose (UA) (test code = 2349-9) 2+ NEGATIVE H [facility]viewUrine Vbfteaq0674-73-30 22:26:00* Test Item Value Reference Range Interpretation Comments Urine Ketones (test code = 99582-3) NEGATIVE NEGATIVE [facility]viewUrine Tidizlgbvluy1989-51-39 22:26:00* Test Item Value Reference Range Interpretation Comments Urine Urobilinogen (test code = 58381-1) 1 0.2-1 [facility]viewUrine Nslqycxgc4832-58-84 22:26:00* Test Item Value Reference Range Interpretation Comments Urine Bilirubin (test code = 1978-6) NEGATIVE NEGATIVE [facility]viewUrine Ivqkl1388-88-86 22:26:00* Test Item Value Reference Range Interpretation Comments Urine Blood (test code = 95274-8) NEGATIVE NEGATIVE [facility]viewWhite Blood Smpdm9390-11-29 22:20:00* Test Item Value Reference Range Interpretation Comments White Blood Count (test code = 6690-2) 9.43 4.8-10.8 [facility]viewRed Blood Vwrxu7317-16-22 22:20:00* Test Item Value Reference Range Interpretation Comments Red Blood Count (test code = 789-8) 4.61 4.3-5.7 [facility]viewHemoglobin2018-05-09 22:20:00* Test Item Value Reference Range Interpretation Comments Hemoglobin (test code = 60625-5) 14.0 14.0-18.0 [facility]viewHematocrit2018-05-09 22:20:00* Test Item Value Reference Range Interpretation Comments Hematocrit (test code = 4544-3) 41.0 38.2-49.6 [facility]viewMean Corpuscular Ipevdl8923-36-86 22:20:00* Test Item Value Reference Range Interpretation Comments Mean Corpuscular Volume (test code = 787-2) 88.9 81-99 [facility]viewMean Corpuscular Gtgtbywjhs1653-59-43 22:20:00* Test Item Value Reference Range Interpretation Comments Mean Corpuscular Hemoglobin (test code = 785-6) 30.4 28-32 [facility]viewMean Corpuscular Hemoglobin Concent 2018-01-12 22:20:00* Test Item Value Reference Range Interpretation Comments Mean Corpuscular Hemoglobin Concent (test code = 786-4) 34.1 31-35 [facility]viewRed Cell Distribution Gwthu7561-34-29 22:20:00* Test Item Value Reference Range Interpretation Comments Red Cell Distribution Width (test code = 11941-9) 14.2 11.7 -14.4 [facility]viewPlatelet Bioui3432-46-67 22:20:00* Test Item Value Reference Range Interpretation Comments Platelet Count (test code = 777-3) 313 140-360 [facility]viewNeutrophils (%) (Auto)2018-01-12 22:20:00 * Test Item Value Reference Range Interpretation Comments Neutrophils (%) (Auto) (test code = 20601-1) 73.8 38.7-80.0 [facility]viewLymphocytes (%) (Auto)2018-01-12 22:20:00 * Test Item Value Reference Range Interpretation Comments Lymphocytes (%) (Auto) (test code = 736-9) 17.1 18.0-39.1 L [facility]viewMonocytes (%) (Auto)2018-01-12 22:20:00* Test Item Value Reference Range Interpretation Comments Monocytes (%) (Auto) (test code = 5905-5) 8.2 4.4-11.3 [facility]viewEosinophils (%) (Auto)2018-01-12 22:20:00 * Test Item Value Reference Range Interpretation Comments Eosinophils (%) (Auto) (test code = 713-8) 0.1 0.0-6.0 [facility]viewBasophils (%) (Auto)2018-01-12 22:20:00* Test Item Value Reference Range Interpretation Comments Basophils (%) (Auto) (test code = 706-2) 0.2 0.0-1.0 [facility]viewIM GRANULOCYTES %2018-01-12 22:20:00* Test Item Value Reference Range Interpretation Comments IM GRANULOCYTES % (test code = IM GRANULOCYTES %) 0.6 0.0- 1.0 [facility]viewNeutrophils # (Auto)2018-01-12 22:20:00* Test Item Value Reference Range Interpretation Comments Neutrophils # (Auto) (test code = 751-8) 7.0 2.1-6.9 H [facility]viewLymphocytes # (Auto)2018-01-12 22:20:00* Test Item Value Reference Range Interpretation Comments Lymphocytes # (Auto) (test code = 87866-7) 1.6 1.0-3.2 [facility]viewMonocytes # (Auto)2018-01-12 22:20:00* Test Item Value Reference Range Interpretation Comments Monocytes # (Auto) (test code = 742-7) 0.8 0.2-0.8 [facility]viewEosinophils # (Auto)2018-01-12 22:20:00* Test Item Value Reference Range Interpretation Comments Eosinophils # (Auto) (test code = 711-2) 0.0 0.0-0.4 [facility]viewBasophils # (Auto)2018-01-12 22:20:00* Test Item Value Reference Range Interpretation Comments Basophils # (Auto) (test code = 704-7) 0.0 0.0-0.1 [facility]viewAbsolute Immature Granulocyte (auto 2018-01-12 22:20:00* Test Item Value Reference Range Interpretation Comments Absolute Immature Granulocyte (auto (efe t code = Absolute Immature Granulocyte (auto) 0.06 0-0.1 [facility]viewWhite Blood Jgwkc8642-54-02 06:50:00* Test Item Value Reference Range Interpretation Comments White Blood Count (test code = 6690-2) 6.27 4.8-10.8 [facility]viewRed Blood Bbtrs1383-48-76 06:50:00* Test Item Value Reference Range Interpretation Comments Red Blood Count (test code = 789-8) 4.42 4.3-5.7 [facility]viewHemoglobin2018-04-18 06:50:00* Test Item Value Reference Range Interpretation Comments Hemoglobin (test code = 25820-9) 13.5 14.0-18.0 L [facility]viewHematocrit2018-04-18 06:50:00* Test Item Value Reference Range Interpretation Comments Hematocrit (test code = 4544-3) 40.3 38.2-49.6 [facility]viewMean Corpuscular Aldzam6408-36-18 06:50:00* Test Item Value Reference Range Interpretation Comments Mean Corpuscular Volume (test code = 787-2) 91.2 81-99 [facility]viewMean Corpuscular Jcpuhqflww3893-95-10 06:50:00* Test Item Value Reference Range Interpretation Comments Mean Corpuscular Hemoglobin (test code = 785-6) 30.5 28-32 [facility]viewMean Corpuscular Hemoglobin Concent 2017-12-22 06:50:00* Test Item Value Reference Range Interpretation Comments Mean Corpuscular Hemoglobin Concent (test code = 786-4) 33.5 31-35 [facility]viewRed Cell Distribution Bibpm3984-01-43 06:50:00* Test Item Value Reference Range Interpretation Comments Red Cell Distribution Width (test code = 05222-9) 12.8 11.7 -14.4 [facility]viewPlatelet Bqsdy6745-39-93 06:50:00* Test Item Value Reference Range Interpretation Comments Platelet Count (test code = 777-3) 259 140-360 [facility]viewNeutrophils (%) (Auto)2017-12-22 06:50:00 * Test Item Value Reference Range Interpretation Comments Neutrophils (%) (Auto) (test code = 00982-3) 51.5 38.7-80.0 [facility]viewLymphocytes (%) (Auto)2017-12-22 06:50:00 * Test Item Value Reference Range Interpretation Comments Lymphocytes (%) (Auto) (test code = 736-9) 31.9 18.0-39.1 [facility]viewMonocytes (%) (Auto)2017-12-22 06:50:00* Test Item Value Reference Range Interpretation Comments Monocytes (%) (Auto) (test code = 5905-5) 10.2 4.4-11.3 [facility]viewEosinophils (%) (Auto)2017-12-22 06:50:00 * Test Item Value Reference Range Interpretation Comments Eosinophils (%) (Auto) (test code = 713-8) 5.9 0.0-6.0 [facility]viewBasophils (%) (Auto)2017-12-22 06:50:00* Test Item Value Reference Range Interpretation Comments Basophils (%) (Auto) (test code = 706-2) 0.3 0.0-1.0 [facility]viewIM GRANULOCYTES %2017-12-22 06:50:00* Test Item Value Reference Range Interpretation Comments IM GRANULOCYTES % (test code = IM GRANULOCYTES %) 0.2 0.0- 1.0 [facility]viewNeutrophils # (Auto)2017-12-22 06:50:00* Test Item Value Reference Range Interpretation Comments Neutrophils # (Auto) (test code = 751-8) 3.2 2.1-6.9 [facility]viewLymphocytes # (Auto)2017-12-22 06:50:00* Test Item Value Reference Range Interpretation Comments Lymphocytes # (Auto) (test code = 42740-9) 2.0 1.0-3.2 [facility]viewMonocytes # (Auto)2017-12-22 06:50:00* Test Item Value Reference Range Interpretation Comments Monocytes # (Auto) (test code = 742-7) 0.6 0.2-0.8 [facility]viewEosinophils # (Auto)2017-12-22 06:50:00* Test Item Value Reference Range Interpretation Comments Eosinophils # (Auto) (test code = 711-2) 0.4 0.0-0.4 [facility]viewBasophils # (Auto)2017-12-22 06:50:00* Test Item Value Reference Range Interpretation Comments Basophils # (Auto) (test code = 704-7) 0.0 0.0-0.1 [facility]viewAbsolute Immature Granulocyte (auto 2017-12-22 06:50:00* Test Item Value Reference Range Interpretation Comments Absolute Immature Granulocyte (auto (efe t code = Absolute Immature Granulocyte (auto) 0.01 0-0.1 [facility]viewFr Thyroxine Deakv1239-27-35 19:25:00* Test Item Value Reference Range Interpretation Comments Free Thyroxine Index (test code = 35850-6) 2.2333 1.4-3.8 [facility]viewThyroxine (T4)2017-12-21 19:25:00* Test Item Value Reference Range Interpretation Comments Thyroxine (T4) (test code = 3026-2) 6.01 4.5-10.9 [facility]viewTriiodothyronine (T3) Dqttfb0105-78-54 19:25:00* Test Item Value Reference Range Interpretation Comments Triiodothyronine (T3) Uptake (test code = 3050-2) 37.16 22.5 -37.0 [facility] Thyroxine Iesay2748-65-55 19:25:00* Test Item Value Reference Range Interpretation Comments Free Thyroxine Index (test code = 96052-3) 2.2333 1.4-3.8 [facility]viewThyroxine (T4)2017-12-21 19:25:00* Test Item Value Reference Range Interpretation Comments Thyroxine (T4) (test code = 3026-2) 6.01 4.5-10.9 [facility]viewTriiodothyronine (T3) Splysg0653-39-60 19:25:00* Test Item Value Reference Range Interpretation Comments Triiodothyronine (T3) Uptake (test code = 3050-2) 37.16 22.5 -37.0 [facility] Thyroxine Wdqaf6025-80-70 19:25:00* Test Item Value Reference Range Interpretation Comments Free Thyroxine Index (test code = 37756-8) 2.2333 1.4-3.8 [facility]viewThyroxine (T4)2017-12-21 19:25:00* Test Item Value Reference Range Interpretation Comments Thyroxine (T4) (test code = 3026-2) 6.01 4.5-10.9 [facility]viewTriiodothyronine (T3) Nwkrbo8304-65-47 19:25:00* Test Item Value Reference Range Interpretation Comments Triiodothyronine (T3) Uptake (test code = 3050-2) 37.16 22.5 -37.0 [facility]odium Vjoma4903-63-04 07:37:00* Test Item Value Reference Range Interpretation Comments Sodium Level (test code = 2951-2) 134 136-145 L [facility]viewPotassium Vccbi4949-79-16 07:37:00* Test Item Value Reference Range Interpretation Comments Potassium Level (test code = 2823-3) 3.7 3.5-5.1 [facility]viewChloride Evubh1568-37-42 07:37:00* Test Item Value Reference Range Interpretation Comments Chloride Level (test code = 2075-0) 102 98-107 [facility]viewCarbon Dioxide Brvoy3786-25-16 07:37:00* Test Item Value Reference Range Interpretation Comments Carbon Dioxide Level (test code = 2028-9) 26 22-29 [facility]viewAnion Irg5816-50-29 07:37:00* Test Item Value Reference Range Interpretation Comments Anion Gap (test code = 96886-2) 9.7 8-16 [facility]viewBlood Urea Jltbszoo6286-04-97 07:37:00* Test Item Value Reference Range Interpretation Comments Blood Urea Nitrogen (test code = 3094-0) 15 7-26 [facility]viewCreatinine2018-04-16 07:37:00* Test Item Value Reference Range Interpretation Comments Creatinine (test code = 2160-0) 0.81 0.72-1.25 [facility]viewBUN/Creatinine Ntlyi2491-79-85 07:37:00* Test Item Value Reference Range Interpretation Comments BUN/Creatinine Ratio (test code = 3097-3) 19 6-25 [facility] PlainviewEstimat Glomerular Filtration Rate 2017-12-20 07:37:00* Test Item Value Reference Range Interpretation Comments Estimat Glomerular Filtration Rate (test code = 85462-3) 60- >60 Ranges were taken from the National Kidney Disease Education Program and the [facility] Kidney Foundation literature.Reference ranges:60 or greater: Kqxfrk37-00 ( for 3 consecutive months): Chronic kidney disease 15 or less: Kidney failureCovenant Health PlainviewGlucose Rfbgd1236-70-57 07:37:00* Test Item Value Reference Range Interpretation Comments Glucose Level (test code = BXM9091) 101 74-118 [facility]viewCalcium Xzizn3566-70-54 07:37:00* Test Item Value Reference Range Interpretation Comments Calcium Level (test code = 86253-4) 9.0 8.4-10.2 [facility]viewTotal Trjqqxijr3129-12-77 07:37:00* Test Item Value Reference Range Interpretation Comments Total Bilirubin (test code = 1975-2) 0.8 0.2-1.2 [facility] PlainviewAspartate Amino Transf (AST/SGOT) 2017-12-20 07:37:00* Test Item Value Reference Range Interpretation Comments Aspartate Amino Transf (AST/SGOT) (test code = Aspartate Amino Transf (AST/SGOT)) 14 5-34 [facility]viewAlanine Aminotransferase (ALT/SGPT) 2017-12-20 07:37:00* Test Item Value Reference Range Interpretation Comments Alanine Aminotransferase (ALT/SGPT) (test code = 1742-6) 16 0-55 [facility]viewTotal Uqxpfbs2755-50-67 07:37:00* Test Item Value Reference Range Interpretation Comments Total Protein (test code = 2885-2) 6.1 6.5-8.1 L [facility]viewAlbumin2018-04-16 07:37:00* Test Item Value Reference Range Interpretation Comments Albumin (test code = 1751-7) 3.1 3.5-5.0 L [facility]viewGlobulin2018-04-16 07:37:00* Test Item Value Reference Range Interpretation Comments Globulin (test code = 44451-7) 3.0 2.3-3.5 [facility]viewAlbumin/Globulin Gevra6658-80-37 07:37:00 * Test Item Value Reference Range Interpretation Comments Albumin/Globulin Ratio (test code = 1759-0) 1.0 0.8-2.0 [facility]viewAlkaline Oqzsbpeinwc1715-76-60 07:37:00* Test Item Value Reference Range Interpretation Comments Alkaline Phosphatase (test code = 6768-6) 47 40-150 [facility]viewLactic Acid Eqrmj2904-21-33 17:59:00* Test Item Value Reference Range Interpretation Comments Lactic Acid Level (test code = Lactic Acid Level) 6.9 4.5- 19.8 [facility]viewLactic Acid Aowuk5602-70-36 17:59:00* Test Item Value Reference Range Interpretation Comments Lactic Acid Level (test code = Lactic Acid Level) 6.9 4.5- 19.8 [facility]viewLactic Acid Bqwqu3602-07-61 17:59:00* Test Item Value Reference Range Interpretation Comments Lactic Acid Level (test code = Lactic Acid Level) 6.9 4.5- 19.8 [facility]viewAmylase Mgcvc5963-12-81 15:13:00* Test Item Value Reference Range Interpretation Comments Amylase Level (test code = 1798-8) 49 25-125 [facility]viewLipase2018-04-15 15:13:00* Test Item Value Reference Range Interpretation Comments Lipase (test code = 3040-3) 17 8-78 [facility]viewUrine DHQ5817-80-18 14:45:00* Test Item Value Reference Range Interpretation Comments Urine WBC (test code = 5821-4) 0-5 0-5 [facility]viewUrine WTV2016-09-42 14:45:00* Test Item Value Reference Range Interpretation Comments Urine RBC (test code = 36226-5) 0-5 0-5 [facility] Axiuamfk9002-55-36 14:45:00* Test Item Value Reference Range Interpretation Comments Urine Bacteria (test code = 05281-7) NONE NONE [facility] Epithelial Pdtck8517-65-36 14:45:00 * Test Item Value Reference Range Interpretation Comments Urine Epithelial Cells (test code = 78494-3) NONE NONE [facility] Hyaline Ywokr6992-98-41 14:45:00* Test Item Value Reference Range Interpretation Comments Urine Hyaline Casts (test code = 78537-0) 0-1 0-1 [facility] Iphuz9866-42-75 14:45:00* Test Item Value Reference Range Interpretation Comments Urine Mucus (test code = 8247-9) FEW RARE H [facility] Hyaline Kkwrt0755-66-34 14:45:00* Test Item Value Reference Range Interpretation Comments Urine Hyaline Casts (test code = 92211-5) 0-1 0-1 [facility] Fxcii5812-16-92 14:45:00* Test Item Value Reference Range Interpretation Comments Urine Mucus (test code = 8247-9) FEW RARE H [facility] Hyaline Vhbab7026-18-24 14:45:00* Test Item Value Reference Range Interpretation Comments Urine Hyaline Casts (test code = 27312-0) 0-1 0-1 [facility] Yuxmk7062-59-89 14:36:00* Test Item Value Reference Range Interpretation Comments Urine Color (test code = 5778-6) YELLOW YELLOW [facility] Jhwamff4451-41-97 14:36:00* Test Item Value Reference Range Interpretation Comments Urine Clarity (test code = 88086-9) CLEAR CLEAR [facility] Specific Tnzcewy3347-99-09 14:36:00 * Test Item Value Reference Range Interpretation Comments Urine Specific [employer] (test code = 5811-5) 1.030 1.010-1.02 5 H [facility] kD3960-01-14 14:36:00* Test Item Value Reference Range Interpretation Comments Urine pH (test code = 38983-5) 6 5-7 [facility]viewU[facility] Leukocyte Yffbfneb2149-64-37 14:36:00* Test Item Value Reference Range Interpretation Comments Urine Leukocyte Esterase (test code = 5799-2) NEGATIVE NEGATIVE [facility]viewUrine Rvesqrq3073-61-83 14:36:00* Test Item Value Reference Range Interpretation Comments Urine Nitrite (test code = 81839-6) NEGATIVE NEGATIVE [facility]viewUrine Ytjorae7284-37-36 14:36:00* Test Item Value Reference Range Interpretation Comments Urine Protein (test code = 5804-0) NEGATIVE NEGATIVE [facility]viewUrine Glucose (UA)2017-12-19 14:36:00* Test Item Value Reference Range Interpretation Comments Urine Glucose (UA) (test code = 2349-9) NEGATIVE NEGATIVE [facility]viewUrine Ovnnznz8641-70-48 14:36:00* Test Item Value Reference Range Interpretation Comments Urine Ketones (test code = 55848-5) NEGATIVE NEGATIVE [facility]viewUrine Hkmanxoahjcr0133-99-15 14:36:00* Test Item Value Reference Range Interpretation Comments Urine Urobilinogen (test code = 34948-3) 0.2 0.2-1 [facility]viewUrine Caigfumby5241-86-93 14:36:00* Test Item Value Reference Range Interpretation Comments Urine Bilirubin (test code = 1978-6) NEGATIVE NEGATIVE [facility]viewUrine Gtplo1689-10-84 14:36:00* Test Item Value Reference Range Interpretation Comments Urine Blood (test code = 49852-0) NEGATIVE NEGATIVE [facility]viewCreatine Kinase ZQ0592-22-12 13:39:00* Test Item Value Reference Range Interpretation Comments Creatine Kinase MB (test code = 64065-7) 2.00 0-5.0 [facility]viewTroponin U1041-31-43 13:39:00* Test Item Value Reference Range Interpretation Comments Troponin I (test code = QIB6145) 0.014 0-0.300 [facility]viewThyroid Stimulating Hormone (TSH) 2017-12-19 13:39:00* Test Item Value Reference Range Interpretation Comments Thyroid Stimulating Hormone (TSH) (test code = 61685-1) 0.276 0.350-4.940 L [facility]viewCreatine Kinase LM9563-89-84 13:39:00* Test Item Value Reference Range Interpretation Comments Creatine Kinase MB (test code = 77909-9) 2.00 0-5.0 [facility]viewTroponin E7810-52-95 13:39:00* Test Item Value Reference Range Interpretation Comments Troponin I (test code = ANK0826) 0.014 0-0.300 [facility]viewThyroid Stimulating Hormone (TSH) 2017-12-19 13:39:00* Test Item Value Reference Range Interpretation Comments Thyroid Stimulating Hormone (TSH) (test code = 67612-5) 0.276 0.350-4.940 L [facility]viewCreatine Uyvwty7519-47-95 13:23:00* Test Item Value Reference Range Interpretation Comments Creatine Kinase (test code = 2157-6) 79 30-200 [facility]viewCreatine Jmmnql0809-04-54 13:23:00* Test Item Value Reference Range Interpretation Comments Creatine Kinase (test code = 2157-6) 79 30-200 [facility]viewProthrombin Ohtw6273-78-74 13:12:00* Test Item Value Reference Range Interpretation Comments Prothrombin Time (test code = 5902-2) 13.2 11.9-14.5 [facility]viewProthromb Time International Ratio 2017-12-19 13:12:00* Test Item Value Reference Range Interpretation Comments Prothromb Time International Ratio (test code = 6301-6) 1.08 Oral Anticoagulant Therapy INR Values:1. Low Intensity Therapy 1.5 - 2.02 . Moderate Intensity Therapy 2.0 - 3.03. High Intensity Therapy(1) 2.5 - 3. 54. High Intensity Therapy(2) 3.0 - 4.05. Panic Value INR > 5.0 [facility]viewActivated Partial Thromboplast Time 2017-12-19 13:12:00* Test Item Value Reference Range Interpretation Comments Activated Partial Thromboplast Time (test code = 46804-7) 28.0 23.8-35.5 [facility]viewProthrombin Ukeh6948-54-87 13:12:00* Test Item Value Reference Range Interpretation Comments Prothrombin Time (test code = 5902-2) 13.2 11.9-14.5 [facility]viewProthromb Time International Ratio 2017-12-19 13:12:00* Test Item Value Reference Range Interpretation Comments Prothromb Time International Ratio (test code = 6301-6) 1.08 Oral Anticoagulant Therapy INR Values:1. Low Intensity Therapy 1.5 - 2.02 . Moderate Intensity Therapy 2.0 - 3.03. High Intensity Therapy(1) 2.5 - 3. 54. High Intensity Therapy(2) 3.0 - 4.05. Panic Value INR > 5.0 [facility]viewActivated Partial Thromboplast Time 2017-12-19 13:12:00* Test Item Value Reference Range Interpretation Comments Activated Partial Thromboplast Time (test code = 89496-3) 28.0 23.8-35.5 [facility]viewBacteria identification in sputum by respiratory iahfacw9376-11-53 08:27:00* Test Item Value Reference Range Interpretation Comments Sputum Culture (test code = 624-7) Organism: STAPHYLOCOCCUS AUREUS- MRSA [facility]viewBacteria identification in sputum by respiratory eqvmvow1634-97-94 08:27:00* Test Item Value Reference Range Interpretation Comments Sputum Culture (test code = 624-7) Organism: STAPHYLOCOCCUS AUREUS- MRSA [facility] Wymcpea5645-62-64 18:52:00* Test Item Value Reference Range Interpretation Comments Blood Culture (test code = 80891626) NO GROWTH AFTER 5 DAYS, FINAL REPORT [facility] Ijmtghz1769-64-85 18:52:00* Test Item Value Reference Range Interpretation Comments Blood Culture (test code = 61932085) NO GROWTH AFTER 5 DAYS, FINAL REPORT [facility]viewBedside Zmdkkjr0656-60-12 08:57:00* Test Item Value Reference Range Interpretation Comments Bedside Glucose (test code = 33681-0) 125 70-120 H Meter ID: [id number] [facility] 2017-04-16 08:57:00* Test Item Value Reference Range Interpretation Comments Bedside Glucose (test code = 66792-9) 125 70-120 H Meter ID: [id number] HospitalAcetaminophen Level 2017-04-14 22:14:00* Test Item Value Reference Range Interpretation Comments Acetaminophen Level (test code = 20063-3) 07-05 [facility]viewAcetaminophen Dmjsj4686-54-77 22:14:00* Test Item Value Reference Range Interpretation Comments Acetaminophen Level (test code = 18675-0) 07-05 [facility]viewArterial Blood sG7823-31-53 13:38:00* Test Item Value Reference Range Interpretation Comments Arterial Blood pH (test code = 2744-1) 7.36 7.31-7.41 [facility]viewArterial Blood Partial Pressure CO2 2017-04-14 13:38:00* Test Item Value Reference Range Interpretation Comments Arterial Blood Partial Pressure CO2 (test code = 2019-8) 57 41-51 H [facility]viewArterial Blood Partial Pressure O2 2017-04-14 13:38:00* Test Item Value Reference Range Interpretation Comments Arterial Blood Partial Pressure O2 (test code = 2019-8) 148 80-105 H [facility]viewArterial Blood SFT02410-60-62 13:38:00* Test Item Value Reference Range Interpretation Comments Arterial Blood HCO3 (test code = 1960-4) 33 23-28 H [facility]viewArterial Blood Base Krprig2733-33-39 13:38:00* Test Item Value Reference Range Interpretation Comments Arterial Blood Base Excess (test code = 1925-7) 7.0 -2-3 H [facility]viewArterial Blood Oxygen Saturation 2017-04-14 13:38:00* Test Item Value Reference Range Interpretation Comments Arterial Blood Oxygen Saturation (test code = 2708-6) 99.0 95-98 H [facility]viewArterial Blood jW2509-92-03 13:38:00* Test Item Value Reference Range Interpretation Comments Arterial Blood pH (test code = 2744-1) 7.36 7.31-7.41 [facility]viewArterial Blood Partial Pressure CO2 2017-04-14 13:38:00* Test Item Value Reference Range Interpretation Comments Arterial Blood Partial Pressure CO2 (test code = 2019-8) 57 41-51 H [facility]viewArterial Blood Partial Pressure O2 2017-04-14 13:38:00* Test Item Value Reference Range Interpretation Comments Arterial Blood Partial Pressure O2 (test code = 2019-8) 148 80-105 H [facility]viewArterial Blood BWP40276-32-38 13:38:00* Test Item Value Reference Range Interpretation Comments Arterial Blood HCO3 (test code = 1960-4) 33 23-28 H [facility]viewArterial Blood Base Txxkxb4435-02-93 13:38:00* Test Item Value Reference Range Interpretation Comments Arterial Blood Base Excess (test code = 1925-7) 7.0 -2-3 H [facility]viewArterial Blood Oxygen Saturation 2017-04-14 13:38:00* Test Item Value Reference Range Interpretation Comments Arterial Blood Oxygen Saturation (test code = 2708-6) 99.0 95-98 H [facility]viewUrine Opiates Zgbemr7516-63-61 13:07:00* Test Item Value Reference Range Interpretation Comments Urine Opiates Screen (test code = 48592-4) POSITIVE NEGATIVE H This test provides only a screen. Positive results should be repeated by a confi rmatory test.[facility]viewUrine Barbiturates Screen 2017-04-13 13:07:00* Test Item Value Reference Range Interpretation Comments Urine Barbiturates Screen (test code = 959310820) NEGATIVE NEGA TIVE [facility]viewUrine Phencyclidine Maduhn4676-74-32 13:07:00* Test Item Value Reference Range Interpretation Comments Urine Phencyclidine Screen (test code = 98828-5) NEGATIVE NEGAT COREY [facility]viewUrine Amphetamines Ykjxko7338-16-83 13:07:00* Test Item Value Reference Range Interpretation Comments Urine Amphetamines Screen (test code = 88907-3) NEGATIVE NEGATI VE [facility]viewUrine Benzodiazepines Lxgrsf8302-74-62 13:07:00* Test Item Value Reference Range Interpretation Comments Urine Benzodiazepines Screen (test code = 55967-9) POSITIVE NEG ATIVE H This test provides only a screen. Positive results should be repeated by a confi rmatory test.[facility]viewUrine Cocaine Screen 2017-04-13 13:07:00* Test Item Value Reference Range Interpretation Comments Urine Cocaine Screen (test code = Urine Cocaine Screen) NEGATIVE NEGATIVE [facility]viewUrine Cannabinoids Bekxyw6547-93-53 13:07:00* Test Item Value Reference Range Interpretation Comments Urine Cannabinoids Screen (test code = 34739-7) NEGATIVE NEGATI VE THESE RESULTS ARE FOR MEDICAL TREATMENT ONLYTHIS REPORT CONTAINS UNCONFIR MED SCREENING RESULTS*POSITIVE RESULTS WILL BE CONFIRMED BY REFERENCE LAB UPON R EQUEST CUT-OFFDRUG CLASS CONCENTRATION ng/mLAmphetamines 1000Methamphetamines 1000Cocaine 300Opiate 300Phencyc lidine 25Cannabinoid 50Barbiturates 300Benzodiazepine 300Methadone 300[facility] HospitalUrine Opiates Mfsnsz1197-19-61 13:07:00* Test Item Value Reference Range Interpretation Comments Urine Opiates Screen (test code = 50670-9) POSITIVE NEGATIVE H This test provides only a screen. Positive results should be repeated by a confi rmatory test.[facility]viewUrine Barbiturates Screen 2017-04-13 13:07:00* Test Item Value Reference Range Interpretation Comments Urine Barbiturates Screen (test code = 204846322) NEGATIVE NEGA TIVE [facility]viewUrine Phencyclidine Yubokl5815-08-37 13:07:00* Test Item Value Reference Range Interpretation Comments Urine Phencyclidine Screen (test code = 83737-9) NEGATIVE NEGAT COREY [facility]viewUrine Amphetamines Jszanp9434-24-41 13:07:00* Test Item Value Reference Range Interpretation Comments Urine Amphetamines Screen (test code = 39683-7) NEGATIVE NEGATI VE [facility]viewUrine Benzodiazepines Iaehmm1449-49-73 13:07:00* Test Item Value Reference Range Interpretation Comments Urine Benzodiazepines Screen (test code = 68867-9) POSITIVE NEG ATIVE H This test provides only a screen. Positive results should be repeated by a confi rmatory test.[facility]viewUrine Cocaine Screen 2017-04-13 13:07:00* Test Item Value Reference Range Interpretation Comments Urine Cocaine Screen (test code = Urine Cocaine Screen) NEGATIVE NEGATIVE [facility]viewUrine Cannabinoids Zwnloz6104-73-20 13:07:00* Test Item Value Reference Range Interpretation Comments Urine Cannabinoids Screen (test code = 35818-3) NEGATIVE NEGATI VE THESE RESULTS ARE FOR MEDICAL TREATMENT ONLYTHIS REPORT CONTAINS UNCONFIR MED SCREENING RESULTS*POSITIVE RESULTS WILL BE CONFIRMED BY REFERENCE LAB UPON R EQUEST CUT-OFFDRUG CLASS CONCENTRATION ng/mLAmphetamines 1000Methamphetamines 1000Cocaine 300Opiate 300Phencyc lidine 25Cannabinoid 50Barbiturates 300Benzodiazepine 300Methadone 300[facility] HospitalB-Type Natriuretic Kwxytbd3034-77-12 19:32:00* Test Item Value Reference Range Interpretation Comments B-Type Natriuretic Peptide (test code = 93251-7) 603.2 0-100 H [facility]viewB-Type Natriuretic Lrkerjo8808-55-37 19:32:00* Test Item Value Reference Range Interpretation Comments B-Type Natriuretic Peptide (test code = 41057-0) 603.2 0-100 H [facility]viewCT [facility]BDOM[facility] [address] [place] [address] Patient Name: YESENIA SCHERER MR #: [id number] : 1960 Age/Sex: 57/M Req #: [id number] Adm Physician: Ordered by: CARRI SCHERER MD Report #: [id number] Location: ER Room/Bed: Procedure: [id number] CT/CT ABDOMEN/PELVIS W Exam Date: 01/12/18 Exam Time: 2320 REPORT STAT US: Signed EXAM: CT ABDOMEN/PELVIS W DATE: 01/12/2018 10:03 PM INDICATION : Abdominal pain COMPARISON: 12/19/2017 TECHNIQUE: The abdomen and pelvis w ere scanned using a multidetector helical scanner. Coronal and sagittal reform ations were obtained. Routine protocol performed. IV Contrast: 100 ml Isovue 300/370 FINDINGS: Evaluation is somewhat degraded by streak artifact rel ated to spinal hardware. LOWER THORAX: Emphysema with linear scarring. LI BAILEY/BILIARY: No masses. No ductal dilatation. GALLBLADDER: Unremarkable SPLEEN: Unremarkable PANCREAS: Unremarkable ADRENALS: No nodules KIDNE YS: Degraded assessment due to streak. No hydronephrosis. Nonobstructing 3 mm right interpolar renal calculus. GI TRACT: No wall thickening or evidence o f obstruction. Normal appendix. VESSELS: Moderate to severe atherosclerotic changes with suprarenal abdominal aortic aneurysm, 3 cm. PERITONEUM/RETROPE RITONEUM: No free air or fluid LYMPH NODES: No definite lymphadenopathy R EPRODUCTIVE ORGANS/BLADDER: Unremarkable BONES: Postsurgical changes are noted about the spine status post decompression and L2-L3 fusion. IMPRESSION: Evaluation somewhat degraded by streak artifact from spinal hardware. 1. No acute abnormality in the abdomen or pelvis. 2. Suprarenal abdominal aortic aneurysm (3 cm). Signed by: Dr Nicol Shultz MD on 01/12/2018 11:56 PM Dictated By: NICOL SHULTZ MD [id number] Transcribed By: OLGA LIDIA on 01/12/18 5137 COPY TO: CARRI TURCIOS MD ABDOMEN-1[facility] ([place] [id number] Patient Name: YESENIA SCHERER MR #: [id number] : 1960 Age/Sex: 57/M Req #: [id number] Adm Physician: NEEL MARIO MD Ordered by: ИВАН MIRANDA MD Report #: [id number] Location: [facility] Room/Bed: [facility] 186-1 Procedure: [id number] D X/ABDOMEN-1VIEW (KUB) Exam Date: Exam Time: REPORT STATUS: Signed PROCEDURE: X-RAY ABDOMEN - KUB COMPARISON: No ne. INDICATIONS: NAUSEA FINDINGS: The bowel gas pattern shows no dilated, air-filled loops of bowel. No mass effect or organomegaly. Postsurgical changes of the lumbar spine with fusion of L2 and L3 with inter vertebral disc spacer placement and bone graft material. Stimulation device p rojects over the mid epigastric region. Otherwise no abnormal calcification. Degenerative changes of the hips. CONCLUSION: Nonobstructive bowel gas pattern. Dictated by: Susan Becerra M.D. on 12/20/2017 at 11:59 Electronically approved by: Susan Becerra M.D. on 12/20/2017 at 11:59 Dictated By: SUSAN BECERRA MD 1159 Transcribed By: JEANNIE on 12/20/17 1159 COPY TO: ИВАН LUEVANO MD CT ABDOMEN/PELVIS [place] [address] Patient Name: YESENIA SCHERER MR #: [id number] : 1960 Age/Sex: 57/M Req #: [id number] Adm Physician: Ordered by: STELLA HUTSON NP Report #: [id number] Location: ER Room/Bed: Procedure: [id number] CT/CT ABDOMEN/PELVIS W Exam Date: 12/19/17 Exam Time: 1548 REPORT STATUS: S igned EXAM: CT Abdomen and Pelvis WITH contrast INDICATION: Pain COMPARISON: None. TECHNIQUE: Abdomen and Pelvis was scanned utilizing a multidetector helical scanner after administration of IV contrast. Coronal and sagittal reformations were obtained. IV CONTRAST: 100 mL Isovue- 370 COMPLICATIONS: None RADIATION DOSE: Total DLP:210 mGy*cm Estimated effective dose: (DLP x 0.015 x size factor) mSv CTDIvol has been reviewed. It is below the limits set by the Radiation Protocol Committee (RPC). FINDINGS: Abdomen: Lung Bases: Atelectasis/scarring. Solid Organs: Spinal hardware artifact limits evaluat ion. Ill-defined areas of decreased attenuation posterior aspect kidneys. Tiny nonobstructing calculus right kidney. Pancreas suboptimally evaluated. U pper GI Tract: Small hiatal hernia. Loops of small bowel measure up to 32 mm, nonspecific. Vascularity: Moderate aortic vascular calcifications and mural plaque. No aneurysm. Lymph Nodes: Nondiagnostic. Other: None. Pelvis: Bladder: Unremarkable. Other: None. Colon: Colonic evaluation limited. Moderate proximal stool. Bones: L2-3 postsurgical faith ges with extensive posterior decompression changes lumbar spine. IMPRE SSION: 1. Exam moderately limited by extensive spray artifact from lumbar sp inal hardware. 2. Ill-defined areas of decreased attenuation posterior k idneys relatively symmetric and presumed artifactual. Renal ultrasound could b e obtained for further evaluation if indicated. 3. Bowel evaluation limi janice. Loops of small bowel prominent, without distinct obstructive changes. Inf ectious/inflammatory enteritis or ileus could have this appearance. Dinorah d by: Dr. Germán Vieira MD on 12/19/2017 4:11 PM Dictated By: GERMÁN PINEDA MD 1611 Transcribed By: OLGA LIDIA on 12/19/17 1611 COPY TO: STELLA HUTSON NP CHEST SINGLE (PORTABLE) [place] [address] Patient Name: YESENIA SCHERER MR #: [id number] : 1960 Age/Sex: 57/M Req #: [id number] Adm Physician: Ordered by: STELLA HUTSON EXECUTIVE CHEF Report #: [id number] Location: ER Room/Bed: Procedure: [id number] DX/CHEST SINGLE (PORTABLE) E xam Date: 12/19/17 Exam Time: 1310 REPORT STATU S: Signed EXAM: XR CHEST 1 VIEW DATE: 12/19/2017 12:42 PM INDICATION : Hypertension COMPARISON: None FINDINGS: Lines and Tubes: None Heart and Mediastinum: No acute findings. Lungs and Pleura: Minimal op acities in the lung bases statistically represent atelectasis, however, infect ious process could have a similar appearance. Recording device overlies lower left chest. Bones and Soft Tissues: No acute findings. IMPRESSION: 1. No acute cardiopulmonary findings. Signed by: Dr. Germán Vieira MD on 1:24 PM Dictated By: GERMÁN VIEIRA MD 1324 Transcribed By: OLGA LIDIA on 12/19/17 1324 COPY TO: STELLA HUTSON NP
--- NOTE | 2020-02-09 19:51 | Emergency Department Note ---
History of Present Illnes History of Present Illness Chief Complaint: General Medicine Complaints History of Present Illness This is a 59 year old male presents complaining of swelling to penis 2 days. States he is still able to urinate. Also reports that his lower extremities have been swelling and feel tight. Patient denies chest pain shortness of breath. . Historian: Patient Arrival Mode: Car Onset (how long ago): day(s) (2) Location: penis and lower extremities Quality: SWELLING Radiation: non-radiation Severity: moderate Onset quality: gradual Duration (how long): day(s) (2) Timing of current episode: constant Progression: worsening Chronicity: new Context: recent illness Relieving factors: none Exacerbating factors: none Associated symptoms: denies other symptoms Treatments prior to arrival: none Past Medical/Family History Physician Review I have reviewed the patient's past medical and family history. Any updates have been documented here. 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 Past Surgical History: PCI, Back Surgery Other Surgery: L Knee sx Back sx x 5 Cardiac cath 2016 EGD 2018 Social History Smoking Cessation: Former smoker Alcohol Use: Occasional Any Illegal Drug Use: No Family History Family history of heart diseas: No Other Last Tetanus: >5yrs Review of Systems Review of Systems Constitutional: no symptoms EENTM: no symptoms Cardiovascular: no symptoms Respiratory: no symptoms Gastrointestinal: no symptoms Genitourinary: as per HPI Musculoskeletal: as per HPI Neurological: no symptoms Psychological: no symptoms Endocrine: no symptoms Hematological/Lymphatic: no symptoms Review of other systems All other systems reviewed and negative. Physical Exam Related Data Allergies: Coded Allergies: No Known Allergies (Unverified , 12/19/17) Triage Vital Signs Vital Signs Date Time Temp Pulse Resp B/P (MAP) Pulse Ox O2 Delivery O2 Flow Rate FiO2 02/09/20 18:29 99.5 85 18 101/81 98 Vital signs reviewed: Yes Physical Exam CONSTITUTIONAL Constitutional: well-developed, well-nourished HENT HENT: normocephalic, atraumatic, oropharynx clear/moist, nose normal HENT L/R: left ext ear normal, right ext ear normal EYES Eyes: PERRL, conjunctivae normal NECK Neck: ROM normal PULMONARY Pulmonary: effort normal, breath sounds normal CARDIOVASCULAR Cardiovascular: irregular rhythm, heart sounds normal, capillary refill normal, normal rate GASTROINTESTINAL Abdominal: soft, nontender, bowel sounds normal GENITOURINARY Genitourinary: other (BOGGY EDEMA TO PENIS AND SCROTUM, FORESKIN IS RETRACTABLE. ) SKIN Skin: warm, dry MUSCULOSKELETAL Musculoskeletal: ROM normal, edema (4+ PITTING EDEMA TO BILATERAL LOWER EXTREMITIES) NEUROLOGICAL Neurological: alert, oriented x 3, weakness (mild left faical droop, left arm and left leg weakness present, pt di not complain of these issues so no time of onset is known) PSYCHOLOGICAL Psychological: mood/affect normal, judgement normal Results Laboratory Laboratory Laboratory Tests Test 02/09/20 21:25 02/09/20 20:00 Urine Color Straw (YELLOW) Urine Clarity Sl cloudy (CLEAR) Urine pH 5.5 (5 - 7) Urine Specific [place] 1.025 (1.010-1.025) Urine Protein Trace (NEGATIVE) Urine Glucose (UA) Negative (NEGATIVE) Urine Ketones Negative (NEGATIVE) Urine Blood Negative (NEGATIVE) Urine Nitrite Negative (NEGATIVE) Urine Bilirubin Negative (NEGATIVE) Urine Urobilinogen 1 mg/dL (0.2 - 1) Urine Leukocyte Esterase Negative (NEGATIVE) White Blood Count 8.98 x10e3/uL (4.8-10.8) Red Blood Count 4.29 x10e6/uL (4.3-5.7) Hemoglobin 11.1 g/dL (14.0-18.0) Hematocrit 37.4 % (38.2-49.6) Mean Corpuscular Volume 87.2 fL (81-99) Mean Corpuscular Hemoglobin 25.9 pg (28-32) Mean Corpuscular Hemoglobin Concent 29.7 g/dL (31-35) Red Cell Distribution Width 18.2 % (11.7-14.4) Platelet Count 331 x10e3/uL (140-360) Neutrophils (%) (Auto) 68.8 % (38.7-80.0) Lymphocytes (%) (Auto) 18.2 % (18.0-39.1) Monocytes (%) (Auto) 11.2 % (4.4-11.3) Eosinophils (%) (Auto) 1.1 % (0.0-6.0) Basophils (%) (Auto) 0.3 % (0.0-1.0) Neutrophils # (Auto) 6.2 (2.1-6.9) Lymphocytes # (Auto) 1.6 (1.0-3.2) Monocytes # (Auto) 1.0 (0.2-0.8) Eosinophils # (Auto) 0.1 (0.0-0.4) Basophils # (Auto) 0.0 (0.0-0.1) Absolute Immature Granulocyte (auto 0.04 x10e3/uL (0-0.1) Sodium Level 135 mmol/L (136-145) Potassium Level 3.8 mmol/L (3.5-5.1) Chloride Level 100 mmol/L (98-107) Carbon Dioxide Level 21 mmol/L (22-29) Anion Gap 17.8 mmol/L (8-16) Blood Urea Nitrogen 31 mg/dL (7-26) Creatinine 1.93 mg/dL (0.72-1.25) Estimat Glomerular Filtration Rate 36 ML/MIN (60-) BUN/Creatinine Ratio 16 (6-25) Glucose Level 122 mg/dL (74-118) Calcium Level 8.0 mg/dL (8.4-10.2) Total Bilirubin 1.0 mg/dL (0.2-1.2) Aspartate Amino Transf (AST/SGOT) 168 IU/L (5-34) Alanine Aminotransferase (ALT/SGPT) 562 IU/L (0-55) Alkaline Phosphatase 147 IU/L (40-150) B-Type Natriuretic Peptide 2264.5 pg/mL (0-100) Total Protein 6.0 g/dL (6.5-8.1) Albumin 2.9 g/dL (3.5-5.0) Globulin 3.1 g/dL (2.3-3.5) Albumin/Globulin Ratio 0.9 (0.8-2.0) Lab results reviewed: Yes Imaging Imaging results reviewed: Yes Impressions Procedure: [id number] CT/CT BRAIN WO Exam Date: 02/09/20 Exam Time: 2054 REPORT STATUS: Signed EXAMINATION: Head CT without contrast. HISTORY:Slurred speech. COMPARISON:MRI brain from 08/19/2018. TECHNIQUE: Multidetector axial images were obtained from the foramen magnum to the vertex without contrast. The images were reconstructed using brain and bone algorithms. Thin section brain images were reformatted into coronal and sagittal planes. Dose modulation, iterative reconstruction, and/or weight based adjustment of the mA/kV was utilized to reduce the radiation dose to as low as reasonably achievable. Intravenous contrast: None IMAGE QUALITY: Acceptable. FINDINGS: Skull/scalp: No lytic or blastic. lesions. No surgical changes. Parenchyma: Nonspecific few, scattered supratentorial white matter hypodensity are likely related to small vessel ischemic changes. No acute hemorrhage, mass or acute major vascular territorial infarct. Arteries: No density suggestive of thrombosis. Atherosclerotic calcification in bilateral carotid siphon. Dural sinuses: No abnormal density suggestive of thrombosis. Ventricles: No hydrocephalus or displacement. Extra-axial spaces: No abnormal density. Brain volume: Normal for age. Craniocervical junction: No mass, Chiari malformation, or basilar invagination. Sella: No mass. Paranasal/mastoid sinuses: Imaged portions unremarkable. IMPRESSION: No acute intracranial abnormality. Mild supratentorial white matter microvascular ischemic changes. Signed by: Dr. Rosalie Spring M.D. on 02/09/2020 9:20 PM Dictated By: ROSALIE SPRING MD 19 Transcribed By: OLGA LIDIA on 02/09/202119 COPY TO: CARRI SCHERER MD~ Procedure: [id number] DX/CHEST SINGLE (PORTABLE) Exam Date: 02/09/20 Exam Time: 1954 REPORT STATUS: Signed EXAMINATION: CHEST SINGLE (PORTABLE) INDICATION: 09/25/2017. COMPARISON: None FINDINGS: TUBES and LINES: None. LUNGS: Lungs are well inflated. Bilateral pulmonary venous congestion. Patchy density in bat wing distribution right greater than left consistent with with alveolar pulmonary edema. PLEURA: No pleural effusion or pneumothorax. HEART AND MEDIASTINUM: Cardiac size is mildly enlarged. BONES AND SOFT TISSUES: No acute osseous lesion. Soft tissues are unremarkable. UPPER ABDOMEN: No free air under the diaphragm. IMPRESSION: Bilateral pulmonary edema. Signed by: Dr. John Haque M.D. on 02/09/2020 9:02 PM Procedures 12 Lead ECG Interpretation Drier Operator Helper: Interpreted by ED physician Date: Feb 09, 2020 Time: 19:51 Rhythm: atrial fibrillation Rate: normal BPM: 64 QRS axis: right ST segments normal: No (NON SPECIFIC CHANGES) T waves normal: No (INVERTED T WAVES V4 THRU V6) Q waves: V1, V2 Clinical Impression: dysrhythmia - atrial Critical Care Time Subsequent provider I assumed direction of critical care for this patient from another provider of my specialty. Assessment & Plan Assessment & Plan Final Impression: (1) Chronic a-fib (2) Elevated LFTs (3) Urinary retention (4) Renal insufficiency (5) CHF (congestive heart failure) Assessment & Plan Patient presents to clinic complaining of swelling to his penis for 2 days as well as increased swelling to his legs for the past 2 days as well. Patient has a history of A. fib COPD CAD. Patient also noted to have a mild left facial droop, left upper and lower extremity weakness which he did not complain of earlier he had. Patient does have chronic pain and takes multiple pain medications for chronic pain. Patient is a poor historian. Unknown how long the left-sided weakness has been going on. CBC, CMP, cardiac enzymes, BNP, chest x-ray, CT brain ordered to eval for myocardial infarction, pulmonary edema, renal failure, electrolyte abnormality, anemia Intracranial abnormality or stroke Bladder scan performed on patient and found 591 mL's of urine and bladder. Patient has urinary retention and White catheter ordered. Patient found to be in CHF of urinary retention and elevated creatinine and liver functions. Elevated creatinine as would be due to the acute urinary retention. Elevated liver functions appears to be due to congestion of the liver due to his diastolic heart failure. I spoke with Dr. Green and Dr. Dayron Flannery and this 0.1 patient admitted started on Lasix 20 mg IV twice a day they also requested that I order an ultrasound of the abdomen to evaluate the liver and kidneys and Dr. Flannery also request an echo in the morning. She is to be admitted to inpatient status. Of note patient's head CT was normal no acute findings to explain the weakness that he has on exam. Does feel he may be overmedicated on his pain medications. Depart Disposition: ADMITTED Last Vital Signs Date Time Temp Pulse Resp B/P (MAP) Pulse Ox O2 Delivery O2 Flow Rate FiO2 02/09/20 19:41 76 22 105/68 93 02/09/20 18:29 99.5 Home Meds Reported Medications Promethazine Hcl (PROMETHAZINE HCL) 25 Mg Tablet, 25 MG PO Q4H PRN for ALLERGY, TAB 02/09/20 Furosemide (FUROSEMIDE) 40 Mg Tablet, 20 MG PO Daily, #30 TAB 02/09/20 Varenicline Tartrate (CHANTIX) 0.5 Mg Tablet, 0.5 MG PO Q12H 02/09/20 Metoprolol Tartrate (METOPROLOL TARTRATE) 50 Mg Tablet, 50 MG PO BID, TAB 02/09/20 Hydrocodone Bit/Acetaminophen (NORCO 5-325 TABLET) 1 Each Tablet, 1 TAB PO Q8H PRN for MODERATE PAIN (4-6), TAB 02/09/20 Pregabalin (LYRICA) 75 Mg Cap, 75 MG PO BID, CAP 02/09/20 [Eliquis] No Conflict Check, 5 MG PO BID, #14 08/26/18 Albuterol Sulf* (PROAIR HFA INHALER*) 8.5 Gm Inh, 2 DOSE INH Q4HR PRN for SHORTNESS OF BREATH 08/16/18 Discontinued Reported Medications Promethazine Hcl (PROMETHAZINE HCL) 25 Mg Tablet, 25 MG PO Q4H PRN for ALLERGY, TAB 02/09/20 Pantoprazole Sodium* (PROTONIX) 40 Mg Tablet.dr, 40 MG PO DAILY, #30 TAB 08/26/18 Diltiazem Hcl (DILTIAZEM ER) 60 Mg Cap.er.12h, 60 MG PO BID, #14 08/26/18 Metoprolol Tartrate (METOPROLOL TARTRATE) 25 Mg Tablet, 25 MG PO BID, #14 TAB 08/26/18 Hydrocodone Bit/Acetaminophen (NORCO 10-325 TABLET) 1 Each Tablet, 1 TAB PO Q4HR PRN for PAIN 05/27/15 CARRI SCHERER MD Feb 09, 2020 19:51
[2020-02-09 20:05] LABS: BASOPHILS % 0.3 % (0.0-1.0); EOSINOPHILS # (AUTO) 0.1 (0.0-0.4); EOSINOPHILS % 1.1 % (0.0-6.0); HEMATOCRIT 37.4 % (38.2-49.6); HEMOGLOBIN 11.1 g/dL (14.0-18.0); LYMPHOCYTES # (AUTO) 1.6 (1.0-3.2); LYMPHOCYTES % 18.2 % (18.0-39.1); MEAN CORPUSCULAR HEMOGLOBIN 25.9 pg (28-32); MEAN CORPUSCULAR HGB CONC 29.7 g/dL (31-35); MEAN CORPUSCULAR VOLUME 87.2 fL (81-99); MONOCYTES % 11.2 % (4.4-11.3); NEUTROPHILS # (AUTO) 6.2 (2.1-6.9); NEUTROPHILS % 68.8 % (38.7-80.0); PLATELET COUNT 331 x10e3/uL (140-360); RED BLOOD COUNT 4.29 x10e6/uL (4.3-5.7); RED CELL DISTRIBUTION WIDTH 18.2 % (11.7-14.4)
[2020-02-09 20:23] LABS: ALBUMIN 2.9 g/dL (3.5-5.0); ALBUMIN/GLOBULIN RATIO 0.9 (0.8-2.0); ANION GAP 17.8 mmol/L (8-16); CREATININE, SERUM 1.93 mg/dL (0.72-1.25); POTASSIUM 3.8 mmol/L (3.5-5.1)
--- NOTE | 2020-02-09 20:45 | NUR ---
591 mL of urine noted on bladder scan.
[2020-02-09] MEDS ORDERED: LIDOCAINE JELLY 2% 10ML URO-JET ONE (20:59)
[2020-02-09] MEDS ORDERED: LIDOCAINE JELLY 2% 10ML URO-JET TOP ONE (21:00)
--- NOTE | 2020-02-09 21:05 | Diagnostic Imaging Report ---
EXAMINATION: CHEST SINGLE (PORTABLE) INDICATION: 09/25/2017. COMPARISON: None FINDINGS: TUBES and LINES: None. LUNGS: Lungs are well inflated. Bilateral pulmonary venous congestion. Patchy density in bat wing distribution right greater than left consistent with with alveolar pulmonary edema. PLEURA: No pleural effusion or pneumothorax. HEART AND MEDIASTINUM: Cardiac size is mildly enlarged. BONES AND SOFT TISSUES: No acute osseous lesion. Soft tissues are unremarkable. UPPER ABDOMEN: No free air under the diaphragm. IMPRESSION: Bilateral pulmonary edema. Signed by: Dr. John Haque M.D. on 02/09/2020 9:02 PM
--- NOTE | 2020-02-09 21:23 | Diagnostic Imaging Report ---
EXAMINATION: Head CT without contrast. HISTORY:Slurred speech. COMPARISON:MRI brain from 08/19/2018. TECHNIQUE: Multidetector axial images were obtained from the foramen magnum to the vertex without contrast. The images were reconstructed using brain and bone algorithms. Thin section brain images were reformatted into coronal and sagittal planes. Dose modulation, iterative reconstruction, and/or weight based adjustment of the mA/kV was utilized to reduce the radiation dose to as low as reasonably achievable. Intravenous contrast: None IMAGE QUALITY: Acceptable. FINDINGS: Skull/scalp: No lytic or blastic. lesions. No surgical changes. Parenchyma: Nonspecific few, scattered supratentorial white matter hypodensity are likely related to small vessel ischemic changes. No acute hemorrhage, mass or acute major vascular territorial infarct. Arteries: No density suggestive of thrombosis. Atherosclerotic calcification in bilateral carotid siphon. Dural sinuses: No abnormal density suggestive of thrombosis. Ventricles: No hydrocephalus or displacement. Extra-axial spaces: No abnormal density. Brain volume: Normal for age. Craniocervical junction: No mass, Chiari malformation, or basilar invagination. Sella: No mass. Paranasal/mastoid sinuses: Imaged portions unremarkable. IMPRESSION: No acute intracranial abnormality. Mild supratentorial white matter microvascular ischemic changes. Signed by: Dr. Rosalie Spring M.D. on 02/09/2020 9:20 PM
--- NOTE | 2020-02-09 21:27 | NUR ---
375 mL of urine noted after angel placed. notified.
[2020-02-09 21:45] LABS: BILIRUBIN,URINE NEGATIVE (NEGATIVE); CLARITY,URINE SL CLOUDY (CLEAR); COLOR,URINE STRAW (YELLOW); KETONES,URINE NEGATIVE (NEGATIVE); LEUKOCYTE ESTERASE ,URINE NEGATIVE (NEGATIVE); NITRITE,URINE NEGATIVE (NEGATIVE); PROTEIN,URINE DIPSTICK TRACE (NEGATIVE); URINE UROBILINOGEN 1 mg/dL (0.2 - 1)
[2020-02-09] MEDS ORDERED: PROMETHAZINE HC25 M1 PO ×2 (21:47→21:51)
[2020-02-09] MEDS ORDERED: FUROSEMIDE40 MG PO (21:50)
[2020-02-09] MEDS ORDERED: LYRICA75 MG PO (21:50)
[2020-02-09] MEDS ORDERED: METOPROLOL TART50 MG PO (21:50)
[2020-02-09] MEDS ORDERED: NORCO 5-325 TA1 EACH PO (21:50)
[2020-02-09] MEDS ORDERED: CHANTIX0.5 MG PO (21:50)
[2020-02-09] MEDS ORDERED: FUROSEMIDE INJ 10 MG/ML 4 ML VIAL IV SCH (22:00)
[2020-02-09 22:02] LABS: BACTERIA,URINE MODERATE /HPF; EPITHELIAL CELLS,URINE FEW /LPF
[2020-02-09 22:03] LABS: AMORPHOUS SEDIMENT,URINE MODERATE (FEW)
--- OUTSIDE RECORDS SUMMARY | 2020-02-09 22:18 | XMS REPORT | Continuity of Care Document ---
Author Author [facility] Organization [facility] Address [address] [place] [address] Phone Unavailable Care Team Providers Care Veneer Repairer Machine Name Role Phone NEEL MARIO MD PCP Mango SCHERER Attphys Unavailable NEEL MARIO Attphys Unavailable NEEL MARIO Admphymelba Unavailable Payers Payer Name Policy Type Policy Number Effective Date Expiration Date [facility] [id number] 2011 00:00 :00 [facility] [id number] [facility] Problems Condition Name Condition Details Condition Category Status Onset Date Resolution Date Last Treatment Date Treating Clinician Comments Source Bradycardia Bradycardia Problem Active 2015-06-19 00:00:00 [facility] COPD (chronic obstructive pulmonary disease) COPD (chr onic obstructive pulmonary disease) Problem Active 2015-06-19 00:00:00 [facility] Occult blood in stools Occult blood in stools Problem Active 2015-05-26 00:00:00 [facility] Congestive heart failure CHF (congestive heart failure) Problem Active 2014-12-25 00:00:00 [facility] Sepsis Sepsis Problem Active 2014-12-25 00:00:00 [facility] Urinary tract infection UTI (urinary tract infection) Problem Active 2014-12-25 00:00:00 [facility] Obstructive chronic bronchitis with exacerbation COPD exacerbati on Problem Active 2014-12-25 00:00:00 [facility] Hypertensive crisis without congestive heart failure H ypertensive crisis without congestive heart failure Problem Active 2014-11-26 00:00:00 [facility] Chronic intractable pain Intractable pain Problem Active 00:00:00 [facility] Fracture of rib of left side Left rib fracture Problem Active 2014-06-28 00:00:00 [facility] Hypoxia Hypoxia Problem Active [facility] Retention of urine Urinary retention Problem Active [facility] Allergies, Adverse Reactions, Alerts Allergy Name Allergy Type Status Severity Reaction(s) Onset Date Inacti ve Date Treating Clinician Comments Source No Known Allergies DA Active U 2019-12-24 00:00:00 [facility] No Known Allergies DA Active U 2017-07-17 00:00:00 [facility] Medications Ordered Medication Name Filled Medication Name Start Date Stop Da te Current Medication? Ordering Clinician Indication Dosage Frequency Signature (SIG) Comments Components Source Albuterol Sulfate (Proair Hfa Inhaler*) 8.5 Gm Inh Alb uterol Sulfate (Proair Hfa Inhaler*) 8.5 Gm Inh Yes 2 Mohini ry 4 Hours as needed for Shortness Of Breath [facility] Diltiazem Hcl (Diltiazem Er) 60 Mg Cap.er.12h Diltiaze m Hcl (Diltiazem Er) 60 Mg Cap.er.12h Yes 60 Twice A Day [facility] Eliquis Eliquis Yes 5 Twice A Day [facility] Hydrocodone Bit/Acetaminophen ([place] 10-325 Tablet) 1 Each Tablet Hydrocodone Bit/Acetaminophen ([place] 10-325 Tablet) 1 Each Tablet Yes 1 Every 4 Hours as needed for Pain [facility] Metoprolol Tartrate 25 Mg Tablet Metoprolol Tartrate 25 Mg Tablet Yes 25 Twice A Day [facility] Pantoprazole Sodium (Protonix) 40 Mg Tablet.dr Pantopr azole Sodium (Protonix) 40 Mg Tablet. Yes 40 Daily [facility] Diazepam 10 Mg Tablet, 10 Mg Oral Diazepam 10 Mg Tablet, 10 Mg O ral 2018-08-26 00:00:00 No 10 Daily [facility] Diltiazem Hcl (Matzim La) 240 Mg Tab.er.24h, 240 Mg Or al Diltiazem Hcl (Matzim La) 240 Mg Tab.er.24h, 240 Mg Oral 2018-08-26 00:00:00 No 240 Twice A Day [facility] Enalapril Maleate 20 Mg Tablet, 20 Mg Oral Enalapril M aleate 20 Mg Tablet, 20 Mg Oral 2018-08-26 00:00:00 No 20 Twice A Day [facility] Metoclopramide Hcl (Reglan) 10 Mg Tablet, 10 Mg Oral M etoclopramide Hcl (Reglan) 10 Mg Tablet, 10 Mg Oral 2018-08-26 00:00:00 No 10 Three Times A Day [facility] Pantoprazole Sodium (Protonix) 40 Mg Tablet., 40 Mg Oral Pantoprazole Sodium (Protonix) 40 Mg Tablet.dr, 40 Mg Oral 2018-08-26 00:00:[address] [facility] Pregabalin (Lyrica) 75 Mg Cap, 75 Mg Oral Pregabalin ( Lyrica) 75 Mg Cap, 75 Mg Oral 2018-08-26 00:00:00 No 75 Twice A Day [facility] Sumatriptan Succinate (Imitrex) 50 Mg Tablet, 50 Mg Or al Sumatriptan Succinate (Imitrex) 50 Mg Tablet, 50 Mg Oral 2018-08-26 00:00:00 No 50 Daily as needed for Headache [facility] Albuterol Sulfate (Albuterol Sulfate Hfa) 8.5 Gm Hfa.a er.ad, 2 Inh Inhalation Albuterol Sulfate (Albuterol Sulfate Hfa) 8.5 Gm Hfa.aer.ad, 2 Inh Inhalation 2017-12-19 00:00:00 No 2 Every 4 Ho urs as needed for Shortness Of Breath [facility] Diazepam 5 Mg Tablet, 10 Mg Oral Diazepam 5 Mg Tablet, 10 Mg Ora l 2017-12-19 00:00:00 No 10 Bedtime [facility] Diltiazem Hcl 60 Mg Tablet, 60 Mg Oral Diltiazem Hcl 60 Mg Table t, 60 Mg Oral 2017-12-19 00:00:00 No 60 Every Morning [facility] Pantoprazole Sodium (Protonix) 40 Mg Tablet.dr, 40 Mg Oral Pantoprazole Sodium (Protonix) 40 Mg Tablet.dr, 40 Mg Oral 2017-12-19 00:00:[address] [facility] Prednisone 5 Mg Tablet, 10 Mg Oral Prednisone 5 Mg Tablet, 10 Mg Oral 2017-12-19 00:00:00 No 10 Daily [facility] Azithromycin (Z-Sy) 250 Mg Tablet, 250 Mg Oral Azithr omycin (Z-Sy) 250 Mg Tablet, 250 Mg Oral 2016-06-27 00:00:00 No 250 Whitney y [facility] Clonidine Hcl (Catapres-Tts 3) 1 Ea Patch, 0.3 Mg Lemus sderm Clonidine Hcl (Catapres-Tts 3) 1 Ea Patch, 0.3 Mg Transderm 2015-06-21 00:00:00 No .3 Daily [facility] Diltiazem Hcl (Diltiazem 24HR Er) 180 Mg Capcr, Diltia zem Hcl (Diltiazem 24HR Er) 180 Mg Capcr, 2015-06-21 00:00:00 No [facility] Metoprolol Succinate (Toprol Xl) 25 Mg Tab.er.24h, 25 Mg Oral Metoprolol Succinate (Toprol Xl) 25 Mg Tab.er.24h, 25 Mg Oral 2015-06-21 00:00:0 0 No 25 Daily [facility] Fluconazole (Diflucan) 150 Mg Tablet, 150 Mg Oral Fluc onazole (Diflucan) 150 Mg Tablet, 150 Mg Oral 2015-05-29 00:00:00 No 150 Whitney y At 1700 [facility] Levofloxacin (Levaquin) 500 Mg Tablet, 500 Mg Oral Lev ofloxacin (Levaquin) 500 Mg Tablet, 500 Mg Oral 2015-05-29 00:00:00 No 500 D aily [facility] Sulfamethoxazole/Trimethoprim (Bactrim Ds Tablet) 1 Ea ch Tablet, 1 Tab Oral Sulfamethoxazole/Trimethoprim (Bactrim Ds Tablet) 1 Each Tablet, 1 Tab Oral 2015-05-29 00:00:00 No 1 Daily [facility] Metoprolol Succinate (Toprol Xl) 50 Mg Tab.er.24h, 100 Mg Oral Metoprolol Succinate (Toprol Xl) 50 Mg Tab.er.24h, 100 Mg Oral 2014-12-25 00:0 0:00 No 100 Daily [facility] Unknown Bp Meds , Unknown Bp Meds , 2014-06-28 00:00:00 No [facility] Procedures Procedure Date / Time Performed Performing Clinician [facility] e MRI (magnetic resonance imaging) 2018-08-25 00:00:00 ASHLEY TAMEZ [facility] X-ray of chest, two views 2018-08-21 00:00:00 NEEL MARIO CH [facility] Magnetic resonance imaging of brain without contrast 2018-08 00:00:00 LETY MCDONALD [facility] Computed tomography of abdomen and pelvis with contrast 2017 00:00:00 CARRI SCHERER [facility] EXCISION OF STOMACH, PYLORUS, ENDO, DIAGN 2017-12-21 00:00:00 ИВАН PERRY [facility] EXCISION OF STOMACH, ENDO, DIAGN 2017-12-21 00:00:00 TIRSO MIRANDA [facility] Computed tomography of abdomen and pelvis with contrast 2017 00:00:00 STELLA HUTSON [facility] Encounters Start Date/Time End Date/Time En[facility] ID Source 2018-08-15 23:33:00 2018-08-26 22:16:00 Discharged Inpatient 1 NEEL MARIO [facility] [id number] [facility] 2018-01-12 21:48:00 2018-01-13 00:26:00 Departed Emergency Room 1 CARRI SCHERER [facility] [id number] [facility] 2017-12-22 12:18:00 2017-12-22 20:04:00 Discharged Inpatient ER NEEL MARIO [facility] [id number] [facility] 2017-04-12 20:24:00 2017-04-16 09:17:00 Discharged Inpatient [facility] [id number] [facility] Results Test Description Test Time Test Comments Results Result Comments Source CT BRAIN WO 2020-02-09 21:09:00 [facility] [address] [place] [address] Patient Name: YESENIA SCHERER MR #: [id number] : 1960 Age/Sex: 59/M Req #: [id number] Adm Physician: Ordered by: CARRI SCHERER MD Report #: [id number] Location: ER Room/Bed: Procedure: [id number] CT/CT BRAIN WO Exam Date: 02/09/20 Exam Time: 2054 REPORT STATUS: Signed EXAMINATION: Head CT without contrast. HISTORY:Slurred speech. COMPARISON:MRI brain from 08/19/2018. TECHNIQUE: Multidetector axial images were obtained from the foramen magnum to the vertex without contrast. The images were reconstructed using brain and bone algorithms. Thin section brain images were reformatted into coronal and sagittal planes. Dose modulation, iterative reconstruction, and/or weight based adjustment of the mA/kV was utilized to reduce the radiation dose to as low as reasonably achievable. Intravenous contrast: None IMAGE QUALITY: Acceptable. FINDINGS: Skull/scalp: No lytic or blastic. lesions. No surgical changes. Parenchyma: Nonspecific few, scattered supratentorial white matter hypodensity are likely related to small vessel ischemic changes. No acute hemorrhage, mass or acute major vascular territorial infarct. Arteries: No density suggestive of thrombosis. Atherosclerotic calcification in bilateral carotid siphon. Dural sinuses: No abnormal density suggestive of thrombosis. Ventricles: No hydrocephalus or displacement. Extra-axial spaces: No abnormal density. Brain volume: Normal for age. Craniocervical junction: No mass, Chiari malformation, or basilar invagination. Sella: No mass. Paranasal/mastoid sinuses: Imaged portions unremarkable. IMPRESSION: No acute intracranial abnormality. Mild supratentorial white matter microvascular ischemic changes. Signed by: Dr. Herbie Spring M.D. on 02/09/2020 9:20 PM Dictated By: HERBIE SPRING MD 19 Transcribed By: OLGA LIDIA on 02/09/202119 COPY TO: CARRI SCHERER MD CHEST SINGLE (PORTABLE) 2020-02-09 21:00:00 [place] [address] Patient Name: YESENIA SCHERER MR #: [id number] : 1960 Age/Sex: 59/M Req #: [id number] Adm Physician: Ordered by: CARRI SCHERER MD Report #: [id number] Location: ER Room/Bed: Procedure: [id number] DX/CHEST SINGLE (PORTABLE) Exam Date: 02/09/20 Exam Time: 1954 REPORT STATUS: Signed EXAMINATION: CHEST SINGLE (PORTABLE) INDICATION: 09/25/2017. COMPARISON: None FINDINGS: TUBES and LINES: None. LUNGS: Lungs are well inflated. Bilateral pulmonary venous congestion. Patchy density in bat wing distribution right greater than left consistent with with alveolar pulmonary edema. PLEURA: No pleural effusion or pneumothorax. HEART AND MEDIASTINUM: Cardiac size is mildly enlarged. BONES AND SOFT TISSUES: No acute osseous lesion. Soft tissues are unremarkable. UPPER ABDOMEN: No free air under the diaphragm. IMPRESSION: Bilateral pulmonary edema. Signed by: Dr. John Sprague M.D. on 02/09/2020 9:02 PM Dictated By: SIRI SPRAGUE MD, MD 01 Transcribed By: OLGA LIDIA on 02/09/202101 COPY TO: CARRI SCHERER MD BASIC METABOLIC PANEL 2020-01-21 05:34:00 Test Item [...] CA) 8.6 mg/dL 8.5-10.1 N HEPATIC FUNCTION [id number] 05:34:00* Test Item Value Reference Range Interpretation [...] reference range due to change in reagent. [id number] 05:34:00* Test Item Value Reference Range Interpretation Comments PHOSPHORUS (test code = PHOS) 3.7 mg/dL 2.5-4.9 N [id number] 05:34:00* Test Item Value Reference Range Interpretation Comments MAGNESIUM (test code = MAG) 2.4 mg/dL 1.8-2.4 N CBC W/AUTO [id number] 05:11:00* Test Item Value Reference Range Interpretation [...] (test code = MDIFF) NO BASIC METABOLIC [id number] 05:06:00* Test Item Value Reference Range Interpretation [...] CA) 8.9 mg/dL 8.5-10.1 N CBC W/AUTO [id number] 04:42:00* Test Item Value Reference Range Interpretation [...] (test code = MDIFF) NO CBC W/AUTO [id number] 04:38:00* Test Item Value Reference Range Interpretation [...] # (test code = BA#) K/mm3 0.0-0.2 [id number] 16:41:00* Test Item Value Reference Range Interpretation Comments GLUBED (test code = GLUBED) 141 mg/dL 74-106 H Performed by certified scroll shear operator at [facility] - XR CHEST 1 [id number] 09:19:00 FAX: Johana Zarate [place]: B St: ADM FAX: Tee Henry MD Name: YESENIA SCHERER [facility] : 1960 Age/S: 59/M [address] [facility] Unit #: [id number] Loc: V.20[address] [place] [address] Phys: Johana Yap Acct: [id number] Dis Date: Status: ADM IN PHONE #: [phone] Exam Date: 01/19/202025 FAX #: [phone] Reason: sob EXAMS: CPT CODE: [id number] XR CHEST 1 V 45973 REASON FOR EXAM: sob Exam Order Date: [...] process or change from yesterday's exam. Location: [facility] at 0919 Reported and signed by: Ivan Pa MD CC: Johana Yap; Tee Jernigan chnologist: RT TAMAR(Mia) Trnscrd Date/ Time/By: 01/19/2020 (918) : By: [email or web address] Orig Print D/T: S: 01/19/20 (1774) PAGE 1 Signed Report [id number] 04:07:00* Test Item Value Reference Range Interpretation Comments PHOSPHORUS (test code = PHOS) 3.6 mg/dL 2.5-4.9 N [id number] 04:07:00* Test Item Value Reference Range Interpretation Comments MAGNESIUM (test code = MAG) 2.5 mg/dL 1.8-2.4 H CALCIUM [id number] 04:07:00* Test Item Value Reference Range Interpretation Comments CALCIUM IONIZED (test code = SIVAKUMAR) 1.25 mmol/L 1.12-1.32 N [id number] 04:03:00* Test Item Value Reference Range Interpretation Comments PHOSPHORUS (test code = PHOS) mg/dL 2.5-4.9 [id number] 04:03:00* Test Item Value Reference Range Interpretation Comments MAGNESIUM (test code = MAG) 2.5 mg/dL 1.8-2.4 H CALCIUM [id number] 04:03:00* Test Item Value Reference Range Interpretation Comments CALCIUM IONIZED (test code = SIVAKUMAR) 1.25 mmol/L 1.12-1.32 N [id number] 04:01:00* Test Item Value Reference Range Interpretation Comments PHOSPHORUS (test code = PHOS) mg/dL 2.5-4.9 [id number] 04:01:00* Test Item Value Reference Range Interpretation Comments MAGNESIUM (test code = MAG) mg/dL 1.8-2.4 CALCIUM [id number] 04:01:00* Test Item Value Reference Range Interpretation Comments CALCIUM IONIZED (test code = SIVAKUMAR) 1.25 mmol/L 1.12-1.32 N CBC W/AUTO [id number] 03:23:00* Test Item Value Reference Range Interpretation [...] (test code = MDIFF) NO CBC W/AUTO [id number] 03:20:00* Test Item Value Reference Range Interpretation [...] (test code = BA#) K/mm3 0.0-0.2 AB [id number] 14:08:00* Test Item Value Reference Range Interpretation Comments AB MITOCHONDRIAL (test code = MITOCHAB) EIA <1.0 AB ANTI-SMOOTH [id number] 14:08:00* Test Item Value Reference Range Interpretation Comments AB ANTI-SMOOTH MUSCLE (test code = SMOOTHAB) 3 Units 0-19 Negative 0 - 19 Weak positive 20 - 30 Moderate to strong positive >30 Actin Antibodies are found in 52-85% of patients with autoimmune hepatitis or chronic active hepatitis and in 22% of patients with primary biliary cirrhosis. AB [id number] 14:08:00* Test Item Value Reference Range Interpretation Comments AB MITOCHONDRIAL (test code = MITOCHAB) 24.8 Units 0.0-20.0 A Negative 0.0 - 20.0 Equivocal 20.1 - 24.9 Positive >24.9Mitochondrial (M2) Antibodies are found in 90-96% ofpatients with primary biliary cirrhosis.Performed At: [facility] [id number] Sanjai MD Ph:[phone] AB ANTI-SMOOTH [id number] 14:08:00* Test Item Value Reference Range Interpretation Comments AB ANTI-SMOOTH MUSCLE (test code = SMOOTHAB) 3 Units 0-19 Negative 0 - 19 Weak positive 20 - 30 Moderate to strong positive >30 Actin Antibodies are found in 52-85% of patients with autoimmune hepatitis or chronic active hepatitis and in 22% of patients with primary biliary cirrhosis. - XR CHEST 1 [id number] 08:51:00 FAX: Johana Zarate [place]: B St: ADM FAX: Tee Henry MD Name: YESENIA SCHERER [facility] : 1960 Age/S: 59/M [address] Unit #: [id number] Loc: V.[address] [place] [address] Phys: Johana Yap Acct: [id number] Dis Date: Status: ADM IN PHONE #: [phone] Exam Date: 01/18/2020 0833 FAX #: [phone] Reason: sob EXAMS: CPT CODE: [id number] XR CHEST 1 V 71765 REASON FOR EXAM: sob Exam Order Date: 01/18/2020 5:00 AM Ordering Sagrario: ROSARIO Sr PROCEDURE: [...] the right he mithorax has resolved. Location: [facility] y Signed by Ivan Pa MD on 01/18/2020 at 0851 Reporte d and signed by: Ivan Pa MD CC: Johana Yap; Fred Jernigan Technologist: CHRIS GODDARD JR Trnscrd Date/Time/By: 01/18/2020 (0851) : By: [email or web address] [facility] Print D/T: S: 01/18/2020 (0856) PAGE 1 Signed Report CBC W/AUTO [id number] 03:16:00* Test Item Value Reference Range Interpretation [...] DIFF REQUIRED (test code = MDIFF) NO [id number] 02:25:00* Test Item Value Reference Range Interpretation Comments PHOSPHORUS (test code = PHOS) 3.6 mg/dL 2.5-4.9 N [id number] 02:25:00* Test Item Value Reference Range Interpretation Comments MAGNESIUM (test code = MAG) 2.4 mg/dL 1.8-2.4 N CALCIUM [id number] 02:25:00* Test Item Value Reference Range Interpretation Comments CALCIUM IONIZED (test code = SIVAKUMAR) 1.26 mmol/L 1.12-1.32 N [id number] 02:20:00* Test Item Value Reference Range Interpretation Comments PHOSPHORUS (test code = PHOS) mg/dL 2.5-4.9 [id number] 02:20:00* Test Item Value Reference Range Interpretation Comments MAGNESIUM (test code = MAG) 2.4 mg/dL 1.8-2.4 N CALCIUM [id number] 02:20:00* Test Item Value Reference Range Interpretation Comments CALCIUM IONIZED (test code = SIVAKUMAR) mmol/L 1.12-1.32 [id number] 02:20:00* Test Item Value Reference Range Interpretation Comments PHOSPHORUS (test code = PHOS) mg/dL 2.5-4.9 [id number] 02:20:00* Test Item Value Reference Range Interpretation Comments MAGNESIUM (test code = MAG) 2.4 mg/dL 1.8-2.4 N CALCIUM [id number] 02:20:00* Test Item Value Reference Range Interpretation Comments CALCIUM IONIZED (test code = SIVAKUMAR) 1.26 mmol/L 1.12-1.32 N ACUTE HEPATITIS [id number] 10:09:00* Test Item Value Reference Range Interpretation [...] with a HCV Nucleic Acid Amplification test ([id number]).Performed At: [facility] [id number] Suman Cobian MD Ph:[phone] - XR CHEST 1 [id number] 08:13:00 FAX: Johana Zarate [place]: B St: ADM FAX: Tee Henry MD Name: YESENIA SCHERER [facility] : 1960 Age/S: 59/M [address] [facility] Unit #: [id number] Loc: V.[address] [place] [address] Phys: Johana Yap Acct: [id number] Dis Date: Status: ADM IN PHONE #: [phone] Exam Date: 01/17/2020 0800 FAX #: [phone] Reason: sob EXAMS: CPT CODE: [id number] XR CHEST 1 V 44682 REASON FOR EXAM: sob Exam Order Date: 01/17/2020 5:00 AM Ordering M.Telma.: ROSARIO Sr PROCEDURE: - XR CHEST 1 [...] pleural effusion. Lungs are otherwise clear. Location: [facility] at 0813 Reported and signed by: Ivan Pa MD CC: Johana Yap; Tee Jernigan Technol ogist: RIGOBERTO HANSEN, RT(R) Trnscrd Date/Time/ By: 01/17/2020 (08) : By: [email or web address] Orig Print D/T: S: 01/17/2020 (0 818) PAGE 1 Signed Report BASIC METABOLIC [id number] 06:08:00* Test Item Value Reference Range Interpretation [...] CA) 9.2 mg/dL 8.5-10.1 N BASIC METABOLIC [id number] 05:48:00* Test Item Value Reference Range Interpretation [...] code = CA) mg/dL 8.5-10.1 B-TYPE NATRIURETIC [id number] 03:52:00* Test Item Value Reference Range Interpretation Comments B-TYPE NATRIURETIC PEPTIDE (test code = BNP) 1278.79 pgram/mL 0-100 H BASIC METABOLIC [id number] 02:39:00* Test Item Value Reference Range Interpretation [...] code = CA) 9.0 mg/dL 8.5-10.1 N [id number] 02:39:00* Test Item Value Reference Range Interpretation Comments PHOSPHORUS (test code = PHOS) 3.5 mg/dL 2.5-4.9 N [id number] 02:39:00* Test Item Value Reference Range Interpretation Comments MAGNESIUM (test code = MAG) 2.5 mg/dL 1.8-2.4 H CALCIUM [id number] 02:39:00* Test Item Value Reference Range Interpretation Comments CALCIUM IONIZED (test code = SIVAKUMAR) 1.26 mmol/L 1.12-1.32 N BASIC METABOLIC [id number] 02:12:00* Test Item Value Reference Range Interpretation [...] code = CA) 9.0 mg/dL 8.5-10.1 N [id number] 02:12:00* Test Item Value Reference Range Interpretation Comments PHOSPHORUS (test code = PHOS) 3.5 mg/dL 2.5-4.9 N [id number] 02:12:00* Test Item Value Reference Range Interpretation Comments MAGNESIUM (test code = MAG) 2.5 mg/dL 1.8-2.4 H CALCIUM [id number] 02:12:00* Test Item Value Reference Range Interpretation Comments CALCIUM IONIZED (test code = SIVAKUMAR) mmol/L 1.12-1.32 CBC W/AUTO [id number] 02:05:00* Test Item Value Reference Range Interpretation [...] NRBC#) 0.00 K/mm3 0.0-0.1 N CBC W/AUTO [id number] 02:05:00* Test Item Value Reference Range Interpretation [...] (test code = MDIFF) NO CBC W/AUTO [id number] 02:04:00* Test Item Value Reference Range Interpretation [...] BA#) K/mm3 0.0-0.2 - XR CHEST 1 [id number] 08:14:00 [facility] [place] [address] St: ADM FAX: Tee Henry MD Name: YESENIA SCHERER [facility] : 1960 Age/S: 59/M [address] [facility] Unit #: [id number] Loc: V.[address] [place] [address] Phys: Johana Yap Acct: [id number] Dis Date: Status: ADM IN PHONE #: [phone] Exam Date: 01/16/2020819 FAX #: [phone] Reason: sob EXAMS: CPT CODE: [id number] XR CHEST 1 V 36802 REASON FOR EXAM: sob Exam Order Date: 01/16/2020 5:00 AM Ordering Sagrario: ROSARIO Sr PROCEDURE: [...] may represent an a ir-trapping process. Location: [facility] Electro nically Signed by Ivan Pa MD on 01/16/2020 at 0814 R eported and signed by: Ivan Pa MD CC: Johana Yap; Fred Jernigan Technologist: VANE JOSÉ, RT(R); RIGOBERTO HANSEN RT (R) Trnnmrd Date/Time/By: 01/16/2020 (08) : By: [email or web address] [facility] Print D/T: S: 01/16/2020 (0604) PAGE 1 Signed Report BASIC METABOLIC PANEL [...] code = CA) 8.7 mg/dL 8.5-10.1 N [id number] 05:54:00* Test Item Value Reference Range Interpretation Comments ALBUMIN (test code = ALB) 2.8 g/dL 3.4-5.0 L COMPREHENSIVE METABOLIC [id number] 03:11:00* Test Item Value Reference Range Interpretation [...] due to change in reagent. HEPATIC FUNCTION [id number] 03:11:00* Test Item Value Reference Range Interpretation Comments BILIRUBIN DIRECT (test code = BILD) 0.17 mg/dL 0.0-0.20 N [id number] 03:11:00* Test Item Value Reference Range Interpretation Comments PHOSPHORUS (test code = PHOS) 3.8 mg/dL 2.5-4.9 N [id number] 03:11:00* Test Item Value Reference Range Interpretation Comments MAGNESIUM (test code = MAG) 2.2 mg/dL 1.8-2.4 N CALCIUM [id number] 03:11:00* Test Item Value Reference Range Interpretation Comments CALCIUM IONIZED (test code = SIVAKUMAR) 1.19 mmol/L 1.12-1.32 N B-TYPE NATRIURETIC [id number] 02:44:00* Test Item Value Reference Range Interpretation Comments B-TYPE NATRIURETIC PEPTIDE (test code = BNP) 1850.71 pgram/mL 0-100 H COMPREHENSIVE METABOLIC [id number] 02:30:00* Test Item Value Reference Range Interpretation [...] due to change in reagent. HEPATIC FUNCTION [id number] 02:30:00* Test Item Value Reference Range Interpretation Comments BILIRUBIN DIRECT (test code = BILD) 0.17 mg/dL 0.0-0.20 N [id number] 02:30:00* Test Item Value Reference Range Interpretation Comments PHOSPHORUS (test code = PHOS) 3.8 mg/dL 2.5-4.9 N [id number] 02:30:00* Test Item Value Reference Range Interpretation Comments MAGNESIUM (test code = MAG) 2.2 mg/dL 1.8-2.4 N CALCIUM [id number] 02:30:00* Test Item Value Reference Range Interpretation Comments CALCIUM IONIZED (test code = SIVAKUMAR) mmol/L 1.12-1.32 CBC W/AUTO [id number] 02:01:00* Test Item Value Reference Range Interpretation [...] DIFF REQUIRED (test code = MDIFF) NO [id number] 16:49:00* Test Item Value Reference Range Interpretation Comments GLUBED (test code = GLUBED) 137 mg/dL 74-106 H Performed by certified scroll shear operator at [facility] LIPID PROFILE (CORONARY RISK)2020-01-15 12:43:00* Test Item [...] measurement.========= SPECIMEN COMMENTS: [facility]/O [id number] 12:14:00* Test Item Value Reference Range Interpretation [...] fL 6.7-11.0 N - XR CHEST 1 [id number] 07:04:00 FAX: Johana Zarate [place]: B St: ADM FAX: Tee Henry MD Name: YESENIA SCHERER [facility] : 1960 Age/S: 59/M [address] [facility] Unit #: [id number] Loc: [facility] [place] [address] Phys: Johana Yap Acct: [id number] Dis Date: Status: ADM IN PHONE #: [phone] Exam Date: 01/15/2020 0450 FAX #: [phone] Reason: sob EXAMS: CPT CODE: [id number] XR CHEST 1 V 92011 CLINICAL HISTORY: Shortness of breath TECHNIQUE: AP [...] code = BNP) 792.39 pgram/mL 0-100 H [id number] 02:32:00* Test Item Value Reference Range Interpretation Comments TROPONIN-I (test code = TROPI) 0.149 ng/mL 0-0.045 HH =RESULT VERIFIED BY REPEAT ANALYSIS COMMENTS TO STUDENT LIFE ADVISOR: COLLECT 3 HOURS AFTER PREVIOUS SAMPLELACTIC [id number] 02:05:00* Test Item Value Reference Range Interpretation Comments LACTIC ACID (test code = LACT) 2.0 mmol/L 0.4-1.9 H Results called to [id number] by ALVARADO 01/15/20 0204Critical results verified and read back by Nurse? Y BASIC METABOLIC [id number] 02:05:00* Test Item Value Reference Range Interpretation [...] CA) 8.5 mg/dL 8.5-10.1 N BASIC METABOLIC [id number] 02:05:00* Test Item Value Reference Range Interpretation [...] CA) 8.5 mg/dL 8.5-10.1 N BASIC METABOLIC [id number] 02:03:00* Test Item Value Reference Range Interpretation [...] CALCIUM (test code = CA) mg/dL 8.5-10.1 [id number] 02:01:00* Test Item Value Reference Range Interpretation Comments PHOSPHORUS (test code = PHOS) 3.7 mg/dL 2.5-4.9 N CALCIUM [id number] 02:01:00* Test Item Value Reference Range Interpretation Comments CALCIUM IONIZED (test code = SIVAKUMAR) 1.11 mmol/L 1.12-1.32 L [id number] 01:52:00* Test Item Value Reference Range Interpretation Comments PHOSPHORUS (test code = PHOS) 3.7 mg/dL 2.5-4.9 N CALCIUM [id number] 01:52:00* Test Item Value Reference Range Interpretation Comments CALCIUM IONIZED (test code = SIVAKUMAR) mmol/L 1.12-1.32 [id number] 01:52:00* Test Item Value Reference Range Interpretation Comments MAGNESIUM (test code = MAG) 1.9 mg/dL 1.8-2.4 N CBC W/AUTO [id number] 01:46:00* Test Item Value Reference Range Interpretation [...] = NRBC#) 0.00 K/mm3 0.0-0.1 N PROTHROMBIN [id number] 01:43:00* Test Item Value Reference Range Interpretation [...] Mechanical prosthetic heart valves (2.5-3.5) THROMBOPLASTIN TIME [id number] 01:43:00* Test Item Value Reference Range Interpretation Comments THROMBOPLASTIN TIME PARTIAL (test code = PTT) 28.1 seconds 23.0-37. 0 N LACTIC [id number] 22:25:00* Test Item Value Reference Range Interpretation Comments LACTIC ACID (test code = LACT) 4.1 mmol/L 0.4-1.9 HH Results called to [id number] by V.LAB.QD 01/14/20 2225Critical results verified and read back by Nurse? YES [id number] 22:25:00* Test Item Value Reference Range Interpretation Comments TROPONIN-I (test code = TROPI) 0.136 ng/mL 0-0.045 HH Results called to [id number] by V.LAB.QD 01/14/20 2225Critical results verified and read back by Nurse? YES COMMENTS TO STUDENT LIFE ADVISOR: COLLECT 3 HOURS AFTER PREVIOUS SAMPLEURINALYSIS [id number] 22:15:00* Test Item Value Reference Range Interpretation [...] Urine Source? Clean CatchDRUGS OF ABUSE SCREEN [id number] 22:15:00* Test Item Value Reference Range Interpretation [...] ng/mL Urine Source? Clean Catch- US ABDOMEN [id number] 22:15:00 [facility] 1960 [facility]S: 59 / M [address] [facility] Unit [facility]: [id number] Loc: [place] [address] Phys: Morris Bautista Acct: [id number] Di s Date: Status: ADM IN PHONE #: Exam Date: 01/14/20202211 FAX #: [phone] Reason: CT showed severe GB thickening, GB and liver ev EXAMS: CPT CODE: [id number] US ABDOMEN CO MPLETE [address]796 REASON FOR EXAM: CT showed severe GB thickening, GB and liver eval. EXAM ORDER PENNIE E: 01/14/2020 8:48 PM Ordering: ROSARIO Giraldo Attending:Fred Jernigan MD Location:[facility] PROCEDURE: - US ABDOM EN COMPLETE FINDINGS: [...] Technologist: LEE WOODSON Trnscb Date/Time: 01/14/2020 (2214) PepeL Orig Print D/T: S: 01/14/2020 (2218) Probe: PAGE 1 Signed Report URINALYSIS [id number] 22:05:00* Test Item Value Reference Range Interpretation [...] Urine Source? Clean CatchDRUGS OF ABUSE SCREEN [id number] 22:05:00* Test Item Value Reference Range Interpretation [...] [place]) <300 ng/mL Urine Source? Clean CatchURINALYSIS [id number] 21:58:00* Test Item Value Reference Range Interpretation [...] Urine Source? Clean CatchDRUGS OF ABUSE SCREEN [id number] 21:58:00* Test Item Value Reference Range Interpretation [...] Source? Clean Catch- CT ABD PELVIS W/O [id number] 19:38:00 Name: YESENIA SCHERER [facility] : 1960 Age/S: 59 / M [address] [facility] Unit #: [id number] Loc: [place] [address] Phys: Scott Bojorquez MD Acct: [id number] Di s Date: Status: ADM IN PHONE #: Exam Date: 01/14/20201929 FAX #: [phone] Reason: hyperkalemia, elev lactic EXAMS: CPT CODE: [id number] CT ABD PELVIS W/O CONT 11767 REASON FOR EXAM: hyperkalemia, elev lactic EXAM ORDER DATE: 01/14/2020 7:20 PM Ordering: Larissa Bojorquez MD Attending:Tee Jernigan MD Location:[facility] PROCEDURE: - CT ABD PELVIS W/O CONT [...] 1 Signed Report (CONTINUED) Name: YESENIA SCHERER [facility] : 1960 Age/S: 59 / M [address] [facility] Unit #: [id number] Loc: [place] [address] Phys: Larissa Bojorquez MD Acct: [id number] Dis Date: Status: ADM IN PHONE #: [phone] Exam Date: 01/14/20201929 FAX #: [phone] Reason: hyperkalemia, elev lactic EXAMS: CPT CODE: [id number] ABD PELVIS W/O CONT 35403 <Continued > CC: Tee Jernigan; Larissa Bojorquez MD Technologist:Yao Dumont RT(R) CTDI: DLP: Trnscb Date/Time: 01/14/2020 (1937) tRADHAR.VTL Orig Print D/T: S: 01/14/2020 (1940) PAGE 2 Signed Report LACTIC [id number] 19:08:00* Test Item Value Reference Range Interpretation Comments LACTIC ACID (test code = LACT) 7.8 mmol/L 0.4-1.9 HH Results called to by V.LAB.QD 01/14/20 1908Critical results verified and read back by Nurse? YES BASIC METABOLIC [id number] 18:53:00* Test Item Value Reference Range Interpretation [...] CA) 8.5 mg/dL 8.5-10.1 N HEPATIC FUNCTION [id number] 18:53:00* Test Item Value Reference Range Interpretation [...] reference range due to change in reagent. [id number] 18:53:00* Test Item Value Reference Range Interpretation Comments LIPASE (test code = LIP) 44 U/L 73.0-393.0 L [id number] 18:53:00* Test Item Value Reference Range Interpretation Comments MAGNESIUM (test code = MAG) 2.4 mg/dL 1.8-2.4 N [id number] 18:53:00* Test Item Value Reference Range Interpretation Comments TROPONIN-I (test code = TROPI) 0.164 ng/mL 0-0.045 HH Results called to by VJERRIQD 01/14/20 1853Critical results verified and read back by Nurse? YES [id number] 18:53:00* Test Item Value Reference Range Interpretation Comments DIGOXIN (test code = DIG) 0.9 ng/mL 0.90-2.0 N NO TE: Spironolactone interference may cause a decrease inreported Digoxin results of 11-30 %. - XR CHEST 1 [id number] 18:16:00 FAX: Larissa Bojorqeuz MD [phone] [place]: B St: ADM Name: Telma YESENIA LITTLEJOHN [facility] : [birth year] Age/S: 59/M [address] [facility] Unit #: [id number] Loc: [place] [address] Phys: Larissa Bojorquez MD Acct: [id number] Dis Date: Status: ADM IN PHONE #: [phone] Exam Date: 01/14/20201805 FAX #: [phone] Reason: CHEST PAIN EXAMS: CPT CODE: [id number] XR CHEST 1 V 30234 REASON FOR EXAM: CHEST PAIN EXAM ORDER DATE: 01/14/2020 5:32 PM Ordering: Larissa Bojorquez MD Attending:Tee Jernigan MD Location:[facility] PROCEDURE: - XR CHEST 1 V COMPARISON: [...] (1818) PAGE 1 Signed Report B-TYPE NATRIURETIC [id number] 18:09:00* Test Item Value Reference Range Interpretation Comments B-TYPE NATRIURETIC PEPTIDE (test code = BNP) 2142.90 pgram/mL 0-100 H CBC W/O [id number] 17:45:00* Test Item Value Reference Range Interpretation [...] MPV) 10.1 fL 6.7-11.0 N CBC W/O [id number] 17:42:00* Test Item Value Reference Range Interpretation [...] VOLUME (test code = MPV) fL 6.7-11.0 [id number] 18:23:00* Test Item Value Reference Range Interpretation Comments POTASSIUM (test code = K) 4.4 mmol/L 3.5-5.1 N BASIC METABOLIC [id number] 11:26:00* Test Item Value Reference Range Interpretation [...] CA) 8.7 mg/dL 8.5-10.1 N BASIC METABOLIC [id number] 11:14:00* Test Item Value Reference Range Interpretation [...] CALCIUM (test code = CA) mg/dL 8.5-10.1 [id number] 17:33:00* Test Item Value Reference Range Interpretation Comments ALBUMIN (test code = ALB) 3.2 g/dL 3.4-5.0 L SPECIMEN COMMENTS: add to todays labBASIC METABOLIC [id number] 16:52:00* Test Item Value Reference Range Interpretation [...] CA) 8.6 mg/dL 8.5-10.1 N BASIC METABOLIC [id number] 16:46:00* Test Item Value Reference Range Interpretation [...] CA) mg/dL 8.5-10.1 - XR CHEST 1 [id number] 08:37:00 FAX: To Bautista [phone] [place]: B St: [facility] FAX: Tee Henry MD Name: YESENIA SCHERER [facility] : 1960 Age/S: 59/M [address] [facility] Unit #: [id number] Loc[place] [place] [address] Phys: To Bautista Acct: [id number] Dis Date: Status: ADM IN PHONE #: [phone] Exam Date: 12/29/2019 0811 FAX #: [phone] Reason: updated pulm view EXAMS: CPT CODE: [id number] XR CHEST 1 V 35542 CLINICAL HISTORY: Pneumonia TECHNIQUE: AP chest x-ray COMPARISON: Previous day. IMPRESSION: Improved right lung base airspace opacity. Improved bilateral interstitial opacities. Pulmonary hyperinflation. No pleural effusion. Normal heart size. LOCATION: LP at 0837 Reported and signed by: Chetna Thomas D.O. CC: To Bautista; Tee Jernigan Technologist: RT MIKE(R); Emi Gandara(R) Trnscrd Date/Time/By: 12/29/2019 (0837) : By: [email or web address] Orig Print D/T: S: 12/29/2019 (0841) PAGE 1 Signed Report BASIC METABOLIC [id number] 06:06:00* Test Item Value Reference Range Interpretation [...] CA) 9.0 mg/dL 8.5-10.1 N BASIC METABOLIC [id number] 06:04:00* Test Item Value Reference Range Interpretation [...] code = CA) mg/dL 8.5-10.1 CBC W/AUTO [id number] 05:11:00* Test Item Value Reference Range Interpretation [...] NRBC#) 0.02 K/mm3 0.0-0.1 N CBC W/AUTO [id number] 04:59:00* Test Item Value Reference Range Interpretation [...] BA#) K/mm3 0.0-0.2 - XR CHEST 1 [id number] 08:12:00 FAX: To Bautista [phone] [place]: St: ADM FAX: Tee Henry MD Name: YESENIA SCHERER [facility] : 1960 Age/S: 59/M [address] [facility] Unit #: [id number] Loc: [address] [place] [address] Phys: To Bautista Acct: [id number] Dis Date: Status: ADM IN PHONE #: [phone] Exam Date: 12/28/2019 0741 FAX #: [phone] Reason: updated pulm view EXAMS: CPT CODE: [id number] XR CHEST 1 V 60898 CLINICAL HISTORY: Pneumonia TECHNIQUE: AP chest x-ray [...] By: [email or web address] Orig Print D/T: S: 12/28/2019 (15) PAGE 1 Signed Report BASIC METABOLIC PANEL [...] CA) 8.6 mg/dL 8.5-10.1 N BASIC METABOLIC [id number] 06:33:00* Test Item Value Reference Range Interpretation [...] code = CA) mg/dL 8.5-10.1 CBC W/AUTO [id number] 06:17:00* Test Item Value Reference Range Interpretation [...] (test code = MDIFF) NO CBC W/AUTO [id number] 06:11:00* Test Item Value Reference Range Interpretation [...] # (test code = BA#) K/mm3 0.0-0.2 [id number] 02:37:00* Test Item Value Reference Range Interpretation Comments MAGNESIUM (test code = MAG) 2.4 mg/dL 1.8-2.4 N BASIC METABOLIC [id number] 02:30:00* Test Item Value Reference Range Interpretation [...] CA) 8.4 mg/dL 8.5-10.1 L BASIC METABOLIC [id number] 02:25:00* Test Item Value Reference Range Interpretation [...] code = CA) mg/dL 8.5-10.1 CBC W/O [id number] 02:07:00* Test Item Value Reference Range Interpretation [...] MPV) 9.6 fL 6.7-11.0 N CBC W/O [id number] 02:04:00* Test Item Value Reference Range Interpretation [...] (test code = MPV) fL 6.7-11.0 - US RETROPERITONEAL [id number] 13:46:00 Name: YESENIA SCHERER [facility] : 1960 Age/S: 59 / M [address] Unit #: [id number] Loc: [place] [address] Phys: Susan Abbasi MD Acct: [id number] Dis Date: Status: ADM IN PHONE #: [phone] Exam Date: 12/27/2019 1323 FAX #: [phone] Reason: ckd EXAMS: CPT CODE: [id number] [place]ONEAL COM 90863 HISTORY: Pain COMPARISON: CT abdomen and pelvis from December 29, 2017. Location: [facility]. Bilateral renal ultrasound: Hyperechogenic kidneys bilaterally especially [...] Jernigan; Susan Abbasi MD Technologist: Jd Londono [facility] Trnscb Date/Time: 12/27/2019 (134) Ish.TH4 Orig Print D/T: S: 12/27/2019 (9935) Probe: PAGE 1 Signed Report DIGOXIN 2019-12-27 12:05:00* Test Item Value Reference Range Interpretation Comments DIGOXIN (test code = DIG) 2.8 ng/mL 0.90-2.0 Re sults called to [id number] by VTHERESA 12/27/19 1204Critical results verified and read back by Nurse? NICHOE: Spironolactone interference may cause a decrease inreported Digoxin results of 11-30 %. - XR CHEST 1 [id number] 08:04:00 FAX: To Bautista [phone] [place]: St: ADM FAX: Tee Henry MD Name: YESENIA SCHERER [facility] : 1960 Age/S: 59/M [address] [facility] Unit #: [id number] Loc: V[address] [place] [address] Phys: To Bautista Acct: [id number] Dis Date: Status: ADM IN PHONE #: [phone] Exam Date: 12/27/201945 FAX #: [phone] Reason: updated pulm view EXAMS: CPT CODE: [id number] XR CHEST 1 V 31905 CLINICAL HISTORY: Pneumonia TECHNIQUE: AP chest x-ray COMPARISON: Previous day. IMPRESSION: Improved lateral right lung base airspace opacity and small right pleural effusion. Improved bilateral interstitial opacities. Pulmonary hyperinflation. Improved cardiomegaly. LOCATION: LP at 0804 Reported and signed by: Chetna Thomas D.O. CC: To Bautista; Tee Jernigan Technologist: RT TAMAR(R) Trnscrd Date/Time/By: 12/27/2019 (08) : By: [email or web address] Orig Print D/T: S: 12/27/2019 (0807) PAGE 1 Signed Report BASIC METABOLIC [id number] 01:12:00* Test Item Value Reference Range Interpretation [...] code = CA) 9.0 mg/dL 8.5-10.1 N [id number] 01:07:00* Test Item Value Reference Range Interpretation Comments MAGNESIUM (test code = MAG) 2.3 mg/dL 1.8-2.4 N BASIC METABOLIC [id number] 01:04:00* Test Item Value Reference Range Interpretation [...] code = CA) mg/dL 8.5-10.1 CBC W/O [id number] 01:00:00* Test Item Value Reference Range Interpretation [...] fL 6.7-11.0 N - XR CHEST 1 [id number] 08:16:00 FAX: To Bautista [phone] [place]: B St: ADM FAX: Tee Henry MD Name: NIESHAYESENIA MEYER [facility] : 1960 Age/S: 59/M [address] [facility] Unit #: [id number] [place] [place] [address] Phys: To Bautista Acct: [id number] Dis Date: Status: ADM IN PHONE #: [phone] Exam Date: 12/26/2019811 FAX #: [phone] Reason: updated pulm view EXAMS: CPT CODE: [id number] XR CHEST 1 V 21327 CLINICAL HISTORY: Pneumonia TECHNIQUE: AP chest x-ray COMPARISON: Previous day. IMPRESSION: Slightly improved lateral right lung base airspace opacity and small right pleural effusion. Improved bilateral interstitial opacities. Pulmonary hyperinflation. Cardiomegaly. LOCATION: LP at 0816 Reported and signed by: Chetna Thomas D.O. CC: To Bautista; Tee Jernigan Technologist: Dora Bishop, RT(R); RIGOBERTO HANSEN, RT(R) Trnscrd Date/Time/By: 12/26/2019 (08) : By: [email or web address] Orig Print D/T: S: 12/26/2019 (2819) PAGE 1 Signed Report BASIC METABOLIC [id number] 03:35:00* Test Item Value Reference Range Interpretation [...] code = CA) 8.8 mg/dL 8.5-10.1 N [id number] 03:35:00* Test Item Value Reference Range Interpretation Comments MAGNESIUM (test code = MAG) 2.3 mg/dL 1.8-2.4 N BASIC METABOLIC [id number] 03:21:00* Test Item Value Reference Range Interpretation [...] CALCIUM (test code = CA) mg/dL 8.5-10.1 [id number] 03:21:00* Test Item Value Reference Range Interpretation Comments MAGNESIUM (test code = MAG) mg/dL 1.8-2.4 CBC W/O [id number] 02:53:00* Test Item Value Reference Range Interpretation [...] MPV) 9.6 fL 6.7-11.0 N Novel Coronavirus 16:08:00* Test Item Value Reference Range Interpretation Comments Novel Coronavirus 2019 Inhouse (test code = [id number]) Negative Negative Positive results are indicative of the presence mjRHUO-SuG-1 RNA, clinical correlation with patient historyand other [...] for the identification of SARS-CoV-2 RNA usingthe [employer] M2000 System under the FDA Emergency UseAuthorization. The testing is performed by personneltrained in the procedures for the [employer] M2000 moleculardiagnostic SARS-CoV-2 assay in vitro. Testing Criteria: Congestion & Fever Sore Throat & Fever Cough Shortness of BreathNovel Coronavirus 16:08:00* Test Item Value Reference Range Interpretation Comments Novel Coronavirus 2019 Inhouse (test code = [id number]) Negative Negative Positive results are indicative of the presence rtIZXK-QnB-4 RNA, clinical correlation with patient historyand other [...] Cough Shortness of Breath- XR CHEST 1 [id number] 07:20:00 FAX: To Bautista [phone] [place]: B St: ADM FAX: Y Tee Jernigan MD Name: YESENIA SCHERER [facility] : 1960 Age/S: 59/M [address] [facility] Unit #: [id number] Loc: V.[address] [place] [address] Phys: To Bautista Acct: [id number] Dis Date: Status: ADM IN PHONE #: [phone] Exam Date: 12/25/2019542 FAX #: [phone] Reason: updated pulm view EXAMS: CPT CODE: [id number] XR CHEST 1 V 37696 CLINICAL HISTORY: Pneumonia, COPD exacerbation JONH HNIQUE: AP chest x-ray COMPARISON: Previous day. I MPRESSION: No significant interval change. Pulmonary hyperinfl ation with interstitial prominence. Lateral right lung base airspace opa city and small right pleural effusion. Cardiomegaly. LOCATION: at 0720 Reported and signed by: Chetna Thomas D.O. CC: To Bautista; Tee Jernigan Technologist: Vanesa Escobar Trnnmrd Date/Time/By: 12/25/2019 (719) : By: [email or web address] Orig Print D/T: S: 12/25/2019 (3874) PAGE 1 Signed Report CBC W/O [id number] 01:49:00 * Test Item Value Reference Range [...] MPV) 9.7 fL 6.7-11.0 N BASIC METABOLIC [id number] 01:18:00* Test Item Value Reference Range Interpretation [...] code = CA) 9.0 mg/dL 8.5-10.1 N [id number] 01:18:00* Test Item Value Reference Range Interpretation Comments MAGNESIUM (test code = MAG) 1.8 mg/dL 1.8-2.4 N BASIC METABOLIC [id number] 01:16:00* Test Item Value Reference Range Interpretation [...] CALCIUM (test code = CA) mg/dL 8.5-10.1 [id number] 01:16:00* Test Item Value Reference Range Interpretation Comments MAGNESIUM (test code = MAG) mg/dL 1.8-2.4 BASIC METABOLIC [id number] 18:29:00* Test Item Value Reference Range Interpretation [...] CA) 9.1 mg/dL 8.5-10.1 N BASIC METABOLIC [id number] 18:28:00* Test Item Value Reference Range Interpretation [...] = CA) 9.1 mg/dL 8.5-10.1 N LACTIC [id number] 13:24:00* Test Item Value Reference Range Interpretation Comments LACTIC ACID (test code = LACT) 2.7 mmol/L 0.4-1.9 Results called to SSY1953 by V.LAB.[facility] 12/24/19 1324Critical results verified and read back by Nurse? Y [id number] 13:13:00* Test Item Value Reference Range Interpretation Comments TROPONIN-I (test code = TROPI) 0.086 ng/mL 0-0.045 - CT CHEST W/O [id number] 11:33:00 Name: YESENIA SCHERER [facility] : 1960 Age/S: 59 / M [address] [facility] Unit #: [id number] Loc: [place] [address] Phys: Johana Yap Acct: [id number] Dis Date: Status: ADM IN PHONE #: [phone] Exam Date: 12/24/2019 1120 FAX #: [phone] Reason: SOB EXAMS: CPT CODE: [id number] CT CHEST W/O CONTRAST 60137 HISTORY: Shortness of breath. COMPARISON: CT scan [...] (1133) t.SDR.TH4 Orig Print D/T: S: 12/05 (8142) PAGE 1 Signed Report [id number] 11:02:00* Test Item Value Reference Range Interpretation Comments TROPONIN-I (test code = TROPI) 0.087 ng/mL 0-0.045 HH LACTIC [id number] 07:32:00* Test Item Value Reference Range Interpretation Comments LACTIC ACID (test code = LACT) 2.4 mmol/L 0.4-1.9 HH Results called to PWV3674 by MAXI 12/24/19 0732Critical results verified and read back by Nurse? y B-TYPE NATRIURETIC [id number] 07:26:00* Test Item Value Reference Range Interpretation Comments B-TYPE NATRIURETIC PEPTIDE (test code = BNP) 787.50 pgram/mL 0-100 H [id number] 07:25:00* Test Item Value Reference Range Interpretation Comments TROPONIN-I (test code = TROPI) 0.093 ng/mL 0-0.045 HH - XR CHEST 1 [id number] 06:22:00 FAX: To Bautista [phone] [place]: B St: ADM FAX: Y Tee Jernigan MD Name: YESENIA SCHERER [facility] : 1960 Age/S: 59/M [address] [facility] Unit #: [id number] Loc: V.S19 [place] [address] Phys: To Bautista Acct: [id number] Dis Date: Status: ADM IN PHONE #: [phone] Exam Date: 12/24/2019535 FAX #: [phone] Reason: updated pulm status. 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 EXAMS: CPT CODE: [id number] XR CHEST 1 V 76948 AFTER HOURS SERVICE ON: 12/24/2019 6:21 AM [...] Technologist: Juan Nunez RT(R); NANETTE COLON RT(R) Trnnmrd Date/Time/By: 12/24/2019 (06) : By: [email or web address] Orig Print D/T: S: 12/24/2019 (5327) PAGE 1 Signed Report BASIC METABOLIC [id number] 02:09:00* Test Item Value Reference Range Interpretation [...] code = CA) 8.5 mg/dL 8.5-10.1 N [id number] 02:09:00* Test Item Value Reference Range Interpretation Comments TROPONIN-I (test code = TROPI) 0.137 ng/mL 0-0.045 HH Results called to [id number] by BRANDENGP 12/24/19 0209Critical results verified and read back by Nurse? Y PROTHROMBIN [id number] 01:33:00* Test Item Value Reference Range Interpretation [...] (2.5-3.5) IS PATIENT ON ANTICOAGULANTS? NTHROMBOPLASTIN TIME [id number] 01:33:00* Test Item Value Reference Range Interpretation Comments THROMBOPLASTIN TIME PARTIAL (test code = PTT) 36.8 seconds 25.0-36. 5 H IS PATIENT ON ANTICOAGULANTS? NCBC W/O [id number] 01:26:00* Test Item Value Reference Range Interpretation [...] code = MPV) 9.5 fL 6.7-11.0 N [id number] 16:31:00* Test Item Value Reference Range Interpretation Comments GLUBED (test code = GLUBED) 113 mg/dL 74-106 H Performed by certified scroll shear operator at [facility] [id number] 12:38:00* Test Item Value Reference Range Interpretation Comments GLUBED (test code = GLUBED) 115 mg/dL 74-106 H Performed by certified scroll shear operator at [facility] [id number] 11:56:00* Test Item Value Reference Range Interpretation Comments TROPONIN-I (test code = TROPI) <0.015 ng/mL 0-0.045 N COMMENTS TO STUDENT LIFE ADVISOR: COLLECT 3 HOURS AFTER PREVIOUS [id number] 09:29:00* Test Item Value Reference Range Interpretation Comments TROPONIN-I (test code = TROPI) <0.015 ng/mL 0-0.045 N COMMENTS TO STUDENT LIFE ADVISOR: COLLECT 3 HOURS AFTER PREVIOUS [id number] 08:40:00* Test Item Value Reference Range Interpretation Comments GLUBED (test code = GLUBED) 134 mg/dL 74-106 H Performed by certified scroll shear operator at [facility] LACTIC [id number] 06:44:00* Test Item Value Reference Range Interpretation Comments LACTIC ACID (test code = LACT) 1.8 mmol/L 0.4-1.9 N LACTIC [id number] 05:35:00* Test Item Value Reference Range Interpretation Comments LACTIC ACID (test code = LACT) 2.1 mmol/L 0.4-1.9 HH Results called to [id number] by ALVARADO 09/10/19 0535Critical results verified and [...] taking into account the patients history. LACTIC [id number] 02:39:00* Test Item Value Reference Range Interpretation Comments LACTIC ACID (test code = LACT) 2.0 mmol/L 0.4-1.9 H Results called to [id number] by ALVARADO 09/10/19 0238Critical results verified and read back by Nurse?Y BASIC METABOLIC KDSMT4485-87-91 02:34:00* Test Item Value Reference Range Interpretation [...] code = CA) 10.2 mg/dL 8.5-10.1 H KPHFHRZUK6557-21-80 02:34:00* Test Item Value Reference Range Interpretation Comments MAGNESIUM (test code = MAG) 2.1 mg/dL 1.8-2.4 N VKLMYPCG-D6401-51-05 02:34:00* Test Item Value Reference Range Interpretation Comments TROPONIN-I (test code = TROPI) <0.015 ng/mL 0-0.045 N BASIC METABOLIC QCCEP3699-75-77 02:25:00* Test Item Value Reference Range Interpretation [...] CALCIUM (test code = CA) mg/dL 8.5-10.1 LLWUQOUBJ5558-55-63 02:25:00* Test Item Value Reference Range Interpretation Comments MAGNESIUM (test code = MAG) mg/dL 1.8-2.4 HGJBFYDC-X3159-26-05 02:25:00* Test Item Value Reference Range Interpretation Comments TROPONIN-I (test code = TROPI) ng/mL 0-0.045 URINALYSIS GNCZPFLP9308-31-91 02:20:00* Test Item Value Reference Range Interpretation [...] Urine Source? 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 ON: 09/10/2019 2:08 AM [...] CC: Chidi Romero MD Technol ogist: NANETTE COLON, RT(R) Trnscrd Date/Time/ By: 09/10/2019 (0208) : By: [email or web address] Orig Print D/T: S: 09/10/2019 (0 211) PAGE 1 Signed Report CBC W/O [id number] 02:07:00* Test Item Value Reference Range Interpretation [...] MPV) 8.6 fL 6.7-11.0 N CBC W/O DQSC4531-03-76 02:04:00* Test Item Value Reference Range Interpretation [...] code = MPV) fL 6.7-11.0 White Blood Edijz9669-26-66 06:23:00* Test Item Value Reference Range Interpretation Comments White Blood Count (test code = 6690-2) 8.63 4.8-10.8 [facility] Nkvxc0849-35-28 06:23:00* Test Item Value Reference Range Interpretation Comments Red Blood Count (test code = 789-8) 4.20 4.3-5.7 L [facility] HospitalHemoglobin2018-12-21 06:23:00* Test Item Value Reference Range Interpretation Comments Hemoglobin (test code = 20498-3) 12.9 14.0-18.0 L [facility] HospitalHematocrit2018-12-21 06:23:00* Test Item Value Reference Range Interpretation Comments Hematocrit (test code = 4544-3) 40.0 38.2-49.6 [facility] HospitalMean Corpuscular Vycfmy7494-25-38 06:23:00* Test Item Value Reference Range Interpretation Comments Mean Corpuscular Volume (test code = 787-2) 95.2 81-99 [facility] HospitalMean Corpuscular Cjeepsmruq3435-89-38 06:23:00* Test Item Value Reference Range Interpretation Comments Mean Corpuscular Hemoglobin (test code = 785-6) 30.7 28-32 [facility] HospitalMean Corpuscular Hemoglobin Concent 2018-08-26 06:23:00* Test Item Value Reference Range Interpretation Comments Mean Corpuscular Hemoglobin Concent (test code = 786-4) 32.3 31-35 [facility] HospitalRed Cell Distribution Vzcee9329-50-61 06:23:00* Test Item Value Reference Range Interpretation Comments Red Cell Distribution Width (test code = 71360-2) 13.2 11.7 -14.4 [facility] HospitalPlatelet Gykyx1213-64-46 06:23:00* Test Item Value Reference Range Interpretation Comments Platelet Count (test code = 777-3) 476 140-360 H [facility] HospitalNeutrophils (%) (Auto)2018-08-26 06:23:00 * Test Item Value Reference Range Interpretation Comments Neutrophils (%) (Auto) (test code = 86659-8) 56.6 38.7-80.0 [facility] HospitalLymphocytes (%) (Auto)2018-08-26 06:23:00 * Test Item Value Reference Range Interpretation Comments Lymphocytes (%) (Auto) (test code = 736-9) 29.8 18.0-39.1 [facility] HospitalMonocytes (%) (Auto)2018-08-26 06:23:00* Test Item Value Reference Range Interpretation Comments Monocytes (%) (Auto) (test code = 5905-5) 9.6 4.4-11.3 [facility] HospitalEosinophils (%) (Auto)2018-08-26 06:23:00 * Test Item Value Reference Range Interpretation Comments Eosinophils (%) (Auto) (test code = 713-8) 2.4 0.0-6.0 [facility] HospitalBasophils (%) (Auto)2018-08-26 06:23:00* Test Item Value Reference Range Interpretation Comments Basophils (%) (Auto) (test code = 706-2) 0.6 0.0-1.0 [facility] HospitalIM GRANULOCYTES %2018-08-26 06:23:00* Test Item Value Reference Range Interpretation Comments IM GRANULOCYTES % (test code = IM GRANULOCYTES %) 1.0 0.0- 1.0 [facility] HospitalNeutrophils # (Auto)2018-08-26 06:23:00* Test Item Value Reference Range Interpretation Comments Neutrophils # (Auto) (test code = 751-8) 4.9 2.1-6.9 [facility] HospitalLymphocytes # (Auto)2018-08-26 06:23:00* Test Item Value Reference Range Interpretation Comments Lymphocytes # (Auto) (test code = 84480-2) 2.6 1.0-3.2 [facility] HospitalMonocytes # (Auto)2018-08-26 06:23:00* Test Item Value Reference Range Interpretation Comments Monocytes # (Auto) (test code = 742-7) 0.8 0.2-0.8 [facility] HospitalEosinophils # (Auto)2018-08-26 06:23:00* Test Item Value Reference Range Interpretation Comments Eosinophils # (Auto) (test code = 711-2) 0.2 0.0-0.4 [facility] HospitalBasophils # (Auto)2018-08-26 06:23:00* Test Item Value Reference Range Interpretation Comments Basophils # (Auto) (test code = 704-7) 0.1 0.0-0.1 [facility] HospitalAbsolute Immature Granulocyte (auto 2018-08-26 06:23:00* Test Item Value Reference Range Interpretation Comments Absolute Immature Granulocyte (auto (efe t code = Absolute Immature Granulocyte (auto) 0.09 0-0.1 [facility] Pqpyf2344-41-95 05:38:00* Test Item Value Reference Range Interpretation Comments Sodium Level (test code = 2951-2) 135 136-145 L [facility] HospitalPotassium Okuki1000-64-60 05:38:00* Test Item Value Reference Range Interpretation Comments Potassium Level (test code = 2823-3) 5.1 3.5-5.1 [facility] HospitalChloride Cdnlo9250-27-82 05:38:00* Test Item Value Reference Range Interpretation Comments Chloride Level (test code = 2075-0) 97 98-107 L [facility] HospitalCarbon Dioxide Kjwtf1687-26-90 05:38:00* Test Item Value Reference Range Interpretation Comments Carbon Dioxide Level (test code = 2028-9) 29 22-29 [facility] HospitalAnion Viw7369-21-14 05:38:00* Test Item Value Reference Range Interpretation Comments Anion Gap (test code = 68775-5) 14.1 8-16 [facility] HospitalBlood Urea Hiiofvls1456-32-81 05:38:00* Test Item Value Reference Range Interpretation Comments Blood Urea Nitrogen (test code = 3094-0) 23 7-26 [facility] HospitalCreatinine2018-12-21 05:38:00* Test Item Value Reference Range Interpretation Comments Creatinine (test code = 2160-0) 1.22 0.72-1.25 [facility] HospitalBUN/Creatinine Pfcss5640-07-77 05:38:00* Test Item Value Reference Range Interpretation Comments BUN/Creatinine Ratio (test code = 3097-3) 19 6-25 [facility] HospitalEstimat Glomerular Filtration Rate 2018-08-26 05:38:00* Test Item Value Reference Range Interpretation Comments Estimat Glomerular Filtration Rate (test code = 363195131) > 60 >60 Ranges were taken from the National Kidney Disease Education Program and the [employer] literature.Reference ranges:60 or greater: Uqdsft51-69 ( for 3 consecutive months): Chronic kidney disease 15 or less: Kidney failureWilbarger General HospitalGlucose Rmftz7672-96-08 05:38:00* Test Item Value Reference Range Interpretation Comments Glucose Level (test code = YBX4049) 95 74-118 [facility] HospitalCalcium Dbbdn7315-29-74 05:38:00* Test Item Value Reference Range Interpretation Comments Calcium Level (test code = 44060-3) 9.0 8.4-10.2 [facility] HospitalBedside Damfhrw5180-02-94 11:44:00* Test Item Value Reference Range Interpretation Comments Bedside Glucose (test code = 47479-0) 100 70-120 Meter ID: [id number] [facility] HospitalDigoxin Level 2018-08-23 14:40:00* Test Item Value Reference Range Interpretation Comments Digoxin Level (test code = 09451-0) 0.69 0.8-2.0 L [facility] HospitalUrine WBJ9014-93-66 15:54:00* Test Item Value Reference Range Interpretation Comments Urine WBC (test code = 5821-4) 0-5 0-5 [facility] HospitalUrine DCS9764-74-96 15:54:00* Test Item Value Reference Range Interpretation Comments Urine RBC (test code = 33689-8) 0-5 0-5 [facility] HospitalUrine Uvxsuovp8129-35-40 15:54:00* Test Item Value Reference Range Interpretation Comments Urine Bacteria (test code = 80488-6) RARE NONE [facility] HospitalUrine Epithelial Ygmmk9504-92-29 15:54:00 * Test Item Value Reference Range Interpretation Comments Urine Epithelial Cells (test code = 29137-7) RARE NONE [facility] HospitalUrine Transitional Epithelial Cells 2018-08-21 15:54:00* Test Item Value Reference Range Interpretation Comments Urine Transitional Epithelial Cells (test code = 8249-5) FEW NONE [facility] HospitalUrine Rktmn1842-88-14 15:54:00* Test Item Value Reference Range Interpretation Comments Urine Mucus (test code = 8247-9) MODERATE RARE H [facility] HospitalUrine Hzfmy1693-63-91 15:29:00* Test Item Value Reference Range Interpretation Comments Urine Color (test code = 5778-6) YELLOW YELLOW [facility] HospitalUrine Vnldnvm5707-27-73 15:29:00* Test Item Value Reference Range Interpretation Comments Urine Clarity (test code = 45192-8) CLEAR CLEAR [facility] Specific Wehfwge3555-64-46 15:29:00 * Test Item Value Reference Range Interpretation Comments Urine Specific [place] (test code = 5811-5) 1.015 1.010-1.02 5 [facility] HospitalUrine cY0867-52-39 15:29:00* Test Item Value Reference Range Interpretation Comments Urine pH (test code = 24152-2) 6.5 5-7 [facility] Leukocyte Aoaurfbo6918-18-11 15:29:00* Test Item Value Reference Range Interpretation Comments Urine Leukocyte Esterase (test code = 5799-2) NEGATIVE NEGATIVE [facility] Vxmuyii9066-24-50 15:29:00* Test Item Value Reference Range Interpretation Comments Urine Nitrite (test code = 58402-2) NEGATIVE NEGATIVE [facility] Sxknftt1225-70-28 15:29:00* Test Item Value Reference Range Interpretation Comments Urine Protein (test code = 5804-0) NEGATIVE NEGATIVE [facility] Glucose (UA)2018-08-21 15:29:00* Test Item Value Reference Range Interpretation Comments Urine Glucose (UA) (test code = 2349-9) NEGATIVE NEGATIVE [facility] HospitalUrine Diwkclj0635-31-88 15:29:00* Test Item Value Reference Range Interpretation Comments Urine Ketones (test code = 53434-5) NEGATIVE NEGATIVE [facility] Kuitqqlrcgdt6401-29-62 15:29:00* Test Item Value Reference Range Interpretation Comments Urine Urobilinogen (test code = 72574-0) 0.2 0.2-1 [facility] HospitalUrine Qcdzjyrfk5179-38-52 15:29:00* Test Item Value Reference Range Interpretation Comments Urine Bilirubin (test code = 1978-6) NEGATIVE NEGATIVE [facility] Pndqd5676-07-34 15:29:00* Test Item Value Reference Range Interpretation Comments Urine Blood (test code = 25968-0) NEGATIVE NEGATIVE [facility] 2 HWNPQ6023-36-88 11:17:00 [facility] [address] [address] Patient Name: YESENIA SCHERER MR #: [id number] : 1960 Age/Sex: 57/M Req #: [id number] Adm Physician: NEEL MARIO MD Ordered by: NEEL MARIO MD Report #: [id number] Location: MED/SURG Room/Bed: [facility] Procedure: [id number] D X/CHEST 2 VIEWS Exam Date: 08/21/18 Exam Time: 1054 REPORT STATUS: Signed EXAMINATIO N: CHEST 2 VIEWS INDICATION: A FIB. COPD [id number] Y COMPARISON: Chest radiograph 08/15/2018 FINDINGS: [...] COPY TO: NEEL MARIO MD Hemoglobin A1c Emidlzx4674-35-15 10:06:00* Test Item Value Reference Range Interpretation Comments Hemoglobin A1c Percent (test code = Hemoglobin A1c Percent) 4.8 4.0-7.0 [facility] HospitalMRI BRAIN MH9916-78-56 18:29:00 [address] [place] [address] Patient Name: YESENIA SCHERER MR #: [id number] : 1960 Age/Sex: 57/M Req #: [id number] Adm Physician: NEEL MARIO MD Ordered by: LETY MCDONALD M.D. Report #: [id number] Location: MED/SURG Room/Bed: [facility] Procedure: [id number] MRI/MRI BRAIN WO Exam Date: 08/19/18 Exam Time: 1730 REPORT STATUS: Signed * ADDENDUM #1 Comparison: Report of CT brain from 11/25/2015, images not available for comparison at the time of interpretation. I have r eviewed the images and otherwise agree with findings in preliminary report. Signed by: Dr. Herbie Spring M.D. on 08/19/2018 10:21 PM ORIGIN [...] 6:40 PM Dictated By: VANE DEXTER MD 2221 Transcribed By: OLGA LIDIA on 08/19/18 1840 COPY TO: LETY MCDONALD MD Free Zhmbxresl0564-74-61 17:28:00* Test Item Value Reference Range Interpretation Comments Free Thyroxine (test code = 3024-7) 1.18 0.9-1.8 [facility] HospitalThyroid Stimulating Hormone (TSH) 2018-08-17 19:55:00* Test Item Value Reference Range Interpretation Comments Thyroid Stimulating Hormone (TSH) (test code = 77126-3) 0.473 0.350-4.940 [facility] HospitalCreatine Kinase VI2970-10-59 10:24:00* Test Item Value Reference Range Interpretation Comments Creatine Kinase MB (test code = 82923-0) 2.50 0-5.0 [facility] HospitalTroponin M4116-90-62 10:24:00* Test Item Value Reference Range Interpretation Comments Troponin I (test code = JKL1985) 0.001 0-0.300 [facility] HospitalCreatine Zyedtj9103-50-27 10:16:00* Test Item Value Reference Range Interpretation Comments Creatine Kinase (test code = 2157-6) 110 30-200 [facility] HospitalCHEST SINGLE (PORTABLE)2018-08-15 19:46:00 [facility] [address] [address] Patient Name: YESENIA SCHERER MR #: [id number] : 1960 Age/Sex: 57/M Req #: [id number] Adm Physician: Ordered by: PARRISH KERR [employer]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 Report #: [id number] Location: ER Room/Bed: Procedure: [id number] DX/CHEST SINGLE (PORTABLE) Exam Date: 08/15/18 Exam Time: 1836 REPORT STATUS: Signed EXAMINATION: CHEST SINGLE (PORTABLE) INDICATION: ERMD ORDER [id number] Y COMPARISON: Chest radiograph 12/19/2017 and [...] 08/15/181947 COPY TO: PARRISH KERR NP Total Hnwqbisij7087-81-57 19:04:00* Test Item Value Reference Range Interpretation Comments Total Bilirubin (test code = 1975-2) 0.5 0.2-1.2 [facility] HospitalAspartate Amino Transf (AST/SGOT) 2018-08-15 19:04:00* Test Item Value Reference Range Interpretation Comments Aspartate Amino Transf (AST/SGOT) (test code = Aspartate Amino Transf (AST/SGOT)) 12 5-34 [facility] HospitalAlanine Aminotransferase (ALT/SGPT) 2018-08-15 19:04:00* Test Item Value Reference Range Interpretation Comments Alanine Aminotransferase (ALT/SGPT) (test code = 1742-6) 13 0-55 [facility] HospitalTotal Zcapgiv5128-69-05 19:04:00* Test Item Value Reference Range Interpretation Comments Total Protein (test code = 2885-2) 7.0 6.5-8.1 [facility] HospitalAlbumin2018-12-10 19:04:00* Test Item Value Reference Range Interpretation Comments Albumin (test code = 1751-7) 3.4 3.5-5.0 L [facility] HospitalGlobulin2018-12-10 19:04:00* Test Item Value Reference Range Interpretation Comments Globulin (test code = 46057-2) 3.6 2.3-3.5 H [facility] HospitalAlbumin/Globulin Lxmya0277-33-13 19:04:00 * Test Item Value Reference Range Interpretation Comments Albumin/Globulin Ratio (test code = 1759-0) 0.9 0.8-2.0 [facility] HospitalAlkaline Idtybnopmdn9292-07-99 19:04:00* Test Item Value Reference Range Interpretation Comments Alkaline Phosphatase (test code = 6768-6) 59 40-150 [facility] HospitalProthrombin Cweh3197-88-50 18:50:00* Test Item Value Reference Range Interpretation Comments Prothrombin Time (test code = 5902-2) 13.8 11.9-14.5 [facility] HospitalProthromb Time International Ratio 2018-08-15 18:50:00* Test Item Value Reference Range Interpretation Comments Prothromb Time International Ratio (test code = 6301-6) 0.97 Oral Anticoagulant Therapy INR Values:1. Low Intensity Therapy 1.5 - 2.02 . Moderate Intensity Therapy 2.0 - 3.03. High Intensity Therapy(1) 2.5 - 3. 54. High Intensity Therapy(2) 3.0 - 4.05. Panic Value INR > 5.0 [facility] HospitalActivated Partial Thromboplast Time 2018-08-15 18:50:00* Test Item Value Reference Range Interpretation Comments Activated Partial Thromboplast Time (test code = 11165-7) 30.0 23.8-35.5 [facility]odium Mvebr4125-70-28 22:42:00* Test Item Value Reference Range Interpretation Comments Sodium Level (test code = 2951-2) 140 136-145 [facility] HospitalPotassium Xaxjb0643-67-26 22:42:00* Test Item Value Reference Range Interpretation Comments Potassium Level (test code = 2823-3) 3.1 3.5-5.1 L [facility] HospitalChloride Uyayk6626-51-61 22:42:00* Test Item Value Reference Range Interpretation Comments Chloride Level (test code = 2075-0) 100 98-107 [facility] HospitalCarbon Dioxide Udoao6058-69-39 22:42:00* Test Item Value Reference Range Interpretation Comments Carbon Dioxide Level (test code = 2028-9) 29 22-29 [facility] HospitalAnion Vkv2398-20-50 22:42:00* Test Item Value Reference Range Interpretation Comments Anion Gap (test code = 66054-6) 14.1 8-16 [facility] HospitalBlood Urea Csflixsq9255-04-80 22:42:00* Test Item Value Reference Range Interpretation Comments Blood Urea Nitrogen (test code = 3094-0) 13 7-26 [facility] HospitalCreatinine2018-05-09 22:42:00* Test Item Value Reference Range Interpretation Comments Creatinine (test code = 2160-0) 0.75 0.72-1.25 [facility] HospitalBUN/Creatinine Zgxcb8833-12-49 22:42:00* Test Item Value Reference Range Interpretation Comments BUN/Creatinine Ratio (test code = 3097-3) 17 6-25 [facility] HospitalEstimat Glomerular Filtration Rate 2018-01-12 22:42:00* Test Item Value Reference Range Interpretation Comments Estimat Glomerular Filtration Rate (test code = 50130-5) 60- >60 Ranges were taken from the National Kidney Disease Education Program and the [facility] Kidney Foundation literature.Reference ranges:60 or greater: Xzuxrj31-82 ( for 3 consecutive months): Chronic kidney disease 15 or less: Kidney failureWilbarger General HospitalGlucose Vnnfj4742-86-17 22:42:00* Test Item Value Reference Range Interpretation Comments Glucose Level (test code = DNF2774) 130 74-118 H [facility] HospitalCalcium Aybln6816-70-40 22:42:00* Test Item Value Reference Range Interpretation Comments Calcium Level (test code = 11978-1) 9.4 8.4-10.2 [facility] HospitalTotal Vrqfewnzx4389-00-97 22:42:00* Test Item Value Reference Range Interpretation Comments Total Bilirubin (test code = 1975-2) 0.5 0.2-1.2 [facility] HospitalAspartate Amino Transf (AST/SGOT) 2018-01-12 22:42:00* Test Item Value Reference Range Interpretation Comments Aspartate Amino Transf (AST/SGOT) (test code = Aspartate Amino Transf (AST/SGOT)) 18 5-34 [facility] HospitalAlanine Aminotransferase (ALT/SGPT) 2018-01-12 22:42:00* Test Item Value Reference Range Interpretation Comments Alanine Aminotransferase (ALT/SGPT) (test code = 1742-6) 28 0-55 [facility] HospitalTotal Dxfulwj4878-77-89 22:42:00* Test Item Value Reference Range Interpretation Comments Total Protein (test code = 2885-2) 6.7 6.5-8.1 [facility] HospitalAlbumin2018-05-09 22:42:00* Test Item Value Reference Range Interpretation Comments Albumin (test code = 1751-7) 3.1 3.5-5.0 L [facility] HospitalGlobulin2018-05-09 22:42:00* Test Item Value Reference Range Interpretation Comments Globulin (test code = 87782-0) 3.6 2.3-3.5 H [facility] HospitalAlbumin/Globulin Yqtyn4439-59-02 22:42:00 * Test Item Value Reference Range Interpretation Comments Albumin/Globulin Ratio (test code = 1759-0) 0.9 0.8-2.0 [facility] HospitalAlkaline Amkueujzgfu8584-27-92 22:42:00* Test Item Value Reference Range Interpretation Comments Alkaline Phosphatase (test code = 6768-6) 50 40-150 [facility] HospitalAmylase Hpbjr8272-16-83 22:42:00* Test Item Value Reference Range Interpretation Comments Amylase Level (test code = 1798-8) 44 25-125 [facility] HospitalLipase2018-05-09 22:42:00* Test Item Value Reference Range Interpretation Comments Lipase (test code = 3040-3) [facility] HospitalAmylase Unnlm8680-92-24 22:42:00* Test Item Value Reference Range Interpretation Comments Amylase Level (test code = 1798-8) 44 25-125 [facility] HospitalLipase2018-05-09 22:42:00* Test Item Value Reference Range Interpretation Comments Lipase (test code = 3040-3) 78 [facility] HospitalUrine DAN0167-23-64 22:41:00* Test Item Value Reference Range Interpretation Comments Urine WBC (test code = 5821-4) 0-5 0-5 [facility] HospitalUrine FFV7079-17-77 22:41:00* Test Item Value Reference Range Interpretation Comments Urine RBC (test code = 21850-9) NONE 0-5 [facility] HospitalUrine Hwlnaoat8118-88-20 22:41:00* Test Item Value Reference Range Interpretation Comments Urine Bacteria (test code = 33159-6) MODERATE NONE H [facility] HospitalUrine Epithelial Pkdtf7921-86-92 22:41:00 * Test Item Value Reference Range Interpretation Comments Urine Epithelial Cells (test code = 73015-7) FEW NONE [facility] HospitalUrine Amorphous Gnbwapnv5104-49-27 22:41:00* Test Item Value Reference Range Interpretation Comments Urine Amorphous Sediment (test code = 8246-1) FEW FEW [facility] Amorphous Txzxtvsc1509-80-34 22:41:00* Test Item Value Reference Range Interpretation Comments Urine Amorphous Sediment (test code = 8246-1) FEW FEW [facility] HospitalUrine Yercm0768-58-18 22:26:00* Test Item Value Reference Range Interpretation Comments Urine Color (test code = 5778-6) YELLOW YELLOW [facility] HospitalUrine Ipweypm1377-30-48 22:26:00* Test Item Value Reference Range Interpretation Comments Urine Clarity (test code = 50738-4) HAZY CLEAR [facility] HospitalUrine Specific Pqedphb0868-32-50 22:26:00 * Test Item Value Reference Range Interpretation Comments Urine Specific [place] (test code = 5811-5) 1.020 1.010-1.02 5 [facility] HospitalUrine lN9272-14-39 22:26:00* Test Item Value Reference Range Interpretation Comments Urine pH (test code = 99149-5) 9 5-7 H [facility] HospitalUrine Leukocyte Mrftljvs7676-48-74 22:26:00* Test Item Value Reference Range Interpretation Comments Urine Leukocyte Esterase (test code = 5799-2) NEGATIVE NEGATIVE [facility] HospitalUrine Lfzmwfl2752-43-80 22:26:00* Test Item Value Reference Range Interpretation Comments Urine Nitrite (test code = 80367-7) NEGATIVE NEGATIVE [facility] HospitalUrine Mfwfhyt1889-37-20 22:26:00* Test Item Value Reference Range Interpretation Comments Urine Protein (test code = 5804-0) 2+ NEGATIVE H [facility] HospitalUrine Glucose (UA)2018-01-12 22:26:00* Test Item Value Reference Range Interpretation Comments Urine Glucose (UA) (test code = 2349-9) 2+ NEGATIVE H [facility] HospitalUrine Jxnvvpk4716-57-59 22:26:00* Test Item Value Reference Range Interpretation Comments Urine Ketones (test code = 81723-4) NEGATIVE NEGATIVE [facility] HospitalUrine Glsxqcmnpfuo2265-28-67 22:26:00* Test Item Value Reference Range Interpretation Comments Urine Urobilinogen (test code = 88488-8) 1 0.2-1 [facility] HospitalUrine Jjcpwlqau8891-66-63 22:26:00* Test Item Value Reference Range Interpretation Comments Urine Bilirubin (test code = 1978-6) NEGATIVE NEGATIVE [facility] HospitalUrine Lxraf4269-47-59 22:26:00* Test Item Value Reference Range Interpretation Comments Urine Blood (test code = 88222-4) NEGATIVE NEGATIVE [facility] HospitalWhite Blood Vyyuu1464-11-77 22:20:00* Test Item Value Reference Range Interpretation Comments White Blood Count (test code = 6690-2) 9.43 4.8-10.8 [facility] HospitalRed Blood Aeiht2849-23-21 22:20:00* Test Item Value Reference Range Interpretation Comments Red Blood Count (test code = 789-8) 4.61 4.3-5.7 [facility] HospitalHemoglobin2018-05-09 22:20:00* Test Item Value Reference Range Interpretation Comments Hemoglobin (test code = 17393-0) 14.0 14.0-18.0 [facility] HospitalHematocrit2018-05-09 22:20:00* Test Item Value Reference Range Interpretation Comments Hematocrit (test code = 4544-3) 41.0 38.2-49.6 [facility] HospitalMean Corpuscular Sscpuo6604-70-32 22:20:00* Test Item Value Reference Range Interpretation Comments Mean Corpuscular Volume (test code = 787-2) 88.9 81-99 [facility] HospitalMean Corpuscular Drubqebodq2500-96-01 22:20:00* Test Item Value Reference Range Interpretation Comments Mean Corpuscular Hemoglobin (test code = 785-6) 30.4 28-32 [facility] HospitalMean Corpuscular Hemoglobin Concent 2018-01-12 22:20:00* Test Item Value Reference Range Interpretation Comments Mean Corpuscular Hemoglobin Concent (test code = 786-4) 34.1 31-35 [facility] HospitalRed Cell Distribution Gzxrl3716-85-39 22:20:00* Test Item Value Reference Range Interpretation Comments Red Cell Distribution Width (test code = 13084-2) 14.2 11.7 -14.4 [facility] HospitalPlatelet Vngvs4763-26-98 22:20:00* Test Item Value Reference Range Interpretation Comments Platelet Count (test code = 777-3) 313 140-360 [facility] HospitalNeutrophils (%) (Auto)2018-01-12 22:20:00 * Test Item Value Reference Range Interpretation Comments Neutrophils (%) (Auto) (test code = 41989-9) 73.8 38.7-80.0 [facility] HospitalLymphocytes (%) (Auto)2018-01-12 22:20:00 * Test Item Value Reference Range Interpretation Comments Lymphocytes (%) (Auto) (test code = 736-9) 17.1 18.0-39.1 L [facility] HospitalMonocytes (%) (Auto)2018-01-12 22:20:00* Test Item Value Reference Range Interpretation Comments Monocytes (%) (Auto) (test code = 5905-5) 8.2 4.4-11.3 [facility] HospitalEosinophils (%) (Auto)2018-01-12 22:20:00 * Test Item Value Reference Range Interpretation Comments Eosinophils (%) (Auto) (test code = 713-8) 0.1 0.0-6.0 [facility] HospitalBasophils (%) (Auto)2018-01-12 22:20:00* Test Item Value Reference Range Interpretation Comments Basophils (%) (Auto) (test code = 706-2) 0.2 0.0-1.0 [facility] HospitalIM GRANULOCYTES %2018-01-12 22:20:00* Test Item Value Reference Range Interpretation Comments IM GRANULOCYTES % (test code = IM GRANULOCYTES %) 0.6 0.0- 1.0 [facility] HospitalNeutrophils # (Auto)2018-01-12 22:20:00* Test Item Value Reference Range Interpretation Comments Neutrophils # (Auto) (test code = 751-8) 7.0 2.1-6.9 H [facility] HospitalLymphocytes # (Auto)2018-01-12 22:20:00* Test Item Value Reference Range Interpretation Comments Lymphocytes # (Auto) (test code = 08005-2) 1.6 1.0-3.2 [facility] HospitalMonocytes # (Auto)2018-01-12 22:20:00* Test Item Value Reference Range Interpretation Comments Monocytes # (Auto) (test code = 742-7) 0.8 0.2-0.8 [facility] HospitalEosinophils # (Auto)2018-01-12 22:20:00* Test Item Value Reference Range Interpretation Comments Eosinophils # (Auto) (test code = 711-2) 0.0 0.0-0.4 [facility] HospitalBasophils # (Auto)2018-01-12 22:20:00* Test Item Value Reference Range Interpretation Comments Basophils # (Auto) (test code = 704-7) 0.0 0.0-0.1 [facility] HospitalAbsolute Immature Granulocyte (auto 2018-01-12 22:20:00* Test Item Value Reference Range Interpretation Comments Absolute Immature Granulocyte (auto (efe t code = Absolute Immature Granulocyte (auto) 0.06 0-0.1 [facility] HospitalWhite Blood Hkcsu9663-37-21 06:50:00* Test Item Value Reference Range Interpretation Comments White Blood Count (test code = 6690-2) 6.27 4.8-10.8 [facility] HospitalRed Blood Bfvex0088-23-97 06:50:00* Test Item Value Reference Range Interpretation Comments Red Blood Count (test code = 789-8) 4.42 4.3-5.7 [facility] HospitalHemoglobin2018-04-18 06:50:00* Test Item Value Reference Range Interpretation Comments Hemoglobin (test code = 50786-2) 13.5 14.0-18.0 L [facility] HospitalHematocrit2018-04-18 06:50:00* Test Item Value Reference Range Interpretation Comments Hematocrit (test code = 4544-3) 40.3 38.2-49.6 [facility] HospitalMean Corpuscular Jrpaxs7926-57-17 06:50:00* Test Item Value Reference Range Interpretation Comments Mean Corpuscular Volume (test code = 787-2) 91.2 81-99 [facility] HospitalMean Corpuscular Wzyfcfrrca8116-51-07 06:50:00* Test Item Value Reference Range Interpretation Comments Mean Corpuscular Hemoglobin (test code = 785-6) 30.5 28-32 [facility] HospitalMean Corpuscular Hemoglobin Concent 2017-12-22 06:50:00* Test Item Value Reference Range Interpretation Comments Mean Corpuscular Hemoglobin Concent (test code = 786-4) 33.5 31-35 [facility] HospitalRed Cell Distribution Jagvr3415-94-61 06:50:00* Test Item Value Reference Range Interpretation Comments Red Cell Distribution Width (test code = 46110-5) 12.8 11.7 -14.4 [facility] HospitalPlatelet Oigef3499-50-80 06:50:00* Test Item Value Reference Range Interpretation Comments Platelet Count (test code = 777-3) 259 140-360 [facility] HospitalNeutrophils (%) (Auto)2017-12-22 06:50:00 * Test Item Value Reference Range Interpretation Comments Neutrophils (%) (Auto) (test code = 63280-2) 51.5 38.7-80.0 [facility] HospitalLymphocytes (%) (Auto)2017-12-22 06:50:00 * Test Item Value Reference Range Interpretation Comments Lymphocytes (%) (Auto) (test code = 736-9) 31.9 18.0-39.1 [facility] HospitalMonocytes (%) (Auto)2017-12-22 06:50:00* Test Item Value Reference Range Interpretation Comments Monocytes (%) (Auto) (test code = 5905-5) 10.2 4.4-11.3 [facility] HospitalEosinophils (%) (Auto)2017-12-22 06:50:00 * Test Item Value Reference Range Interpretation Comments Eosinophils (%) (Auto) (test code = 713-8) 5.9 0.0-6.0 [facility] HospitalBasophils (%) (Auto)2017-12-22 06:50:00* Test Item Value Reference Range Interpretation Comments Basophils (%) (Auto) (test code = 706-2) 0.3 0.0-1.0 [facility] HospitalIM GRANULOCYTES %2017-12-22 06:50:00* Test Item Value Reference Range Interpretation Comments IM GRANULOCYTES % (test code = IM GRANULOCYTES %) 0.2 0.0- 1.0 [facility] HospitalNeutrophils # (Auto)2017-12-22 06:50:00* Test Item Value Reference Range Interpretation Comments Neutrophils # (Auto) (test code = 751-8) 3.2 2.1-6.9 [facility] HospitalLymphocytes # (Auto)2017-12-22 06:50:00* Test Item Value Reference Range Interpretation Comments Lymphocytes # (Auto) (test code = 56145-1) 2.0 1.0-3.2 [facility] HospitalMonocytes # (Auto)2017-12-22 06:50:00* Test Item Value Reference Range Interpretation Comments Monocytes # (Auto) (test code = 742-7) 0.6 0.2-0.8 [facility] HospitalEosinophils # (Auto)2017-12-22 06:50:00* Test Item Value Reference Range Interpretation Comments Eosinophils # (Auto) (test code = 711-2) 0.4 0.0-0.4 [facility] HospitalBasophils # (Auto)2017-12-22 06:50:00* Test Item Value Reference Range Interpretation Comments Basophils # (Auto) (test code = 704-7) 0.0 0.0-0.1 [facility] HospitalAbsolute Immature Granulocyte (auto 2017-12-22 06:50:00* Test Item Value Reference Range Interpretation Comments Absolute Immature Granulocyte (auto (efe t code = Absolute Immature Granulocyte (auto) 0.01 0-0.1 [facility] HospitalFr Thyroxine Yrqeq2749-91-95 19:25:00* Test Item Value Reference Range Interpretation Comments Free Thyroxine Index (test code = 87547-1) 2.2333 1.4-3.8 [facility] HospitalThyroxine (T4)2017-12-21 19:25:00* Test Item Value Reference Range Interpretation Comments Thyroxine (T4) (test code = 3026-2) 6.01 4.5-10.9 [facility] HospitalTriiodothyronine (T3) Zchjkw5776-24-42 19:25:00* Test Item Value Reference Range Interpretation Comments Triiodothyronine (T3) Uptake (test code = 3050-2) 37.16 22.5 -37.0 H [facility] HospitalFr Thyroxine Vdpqr1967-62-62 19:25:00* Test Item Value Reference Range Interpretation Comments Free Thyroxine Index (test code = 74870-8) 2.2333 1.4-3.8 [facility] HospitalThyroxine (T4)2017-12-21 19:25:00* Test Item Value Reference Range Interpretation Comments Thyroxine (T4) (test code = 3026-2) 6.01 4.5-10.9 [facility] HospitalTriiodothyronine (T3) Musbpj2728-36-02 19:25:00* Test Item Value Reference Range Interpretation Comments Triiodothyronine (T3) Uptake (test code = 3050-2) 37.16 22.5 -37.0 H [facility] HospitalFree Thyroxine Iafrp5348-17-00 19:25:00* Test Item Value Reference Range Interpretation Comments Free Thyroxine Index (test code = 30539-5) 2.2333 1.4-3.8 [facility] HospitalThyroxine (T4)2017-12-21 19:25:00* Test Item Value Reference Range Interpretation Comments Thyroxine (T4) (test code = 3026-2) 6.01 4.5-10.9 [facility] HospitalTriiodothyronine (T3) Qzdrew0460-80-60 19:25:00* Test Item Value Reference Range Interpretation Comments Triiodothyronine (T3) Uptake (test code = 3050-2) 37.16 22.5 -37.0 [facility] Sifgd0662-38-44 07:37:00* Test Item Value Reference Range Interpretation Comments Sodium Level (test code = 2951-2) 134 136-145 L [facility] HospitalPotassium Eepgp4082-62-29 07:37:00* Test Item Value Reference Range Interpretation Comments Potassium Level (test code = 2823-3) 3.7 3.5-5.1 [facility] HospitalChloride Sjklq5796-20-49 07:37:00* Test Item Value Reference Range Interpretation Comments Chloride Level (test code = 2075-0) 102 98-107 [facility] HospitalCarbon Dioxide Ymbsw5365-59-72 07:37:00* Test Item Value Reference Range Interpretation Comments Carbon Dioxide Level (test code = 2028-9) 26 22-29 [facility] HospitalAnion Iij9348-11-55 07:37:00* Test Item Value Reference Range Interpretation Comments Anion Gap (test code = 75494-5) 9.7 8-16 [facility] HospitalBlood Urea Kbprreux1823-79-67 07:37:00* Test Item Value Reference Range Interpretation Comments Blood Urea Nitrogen (test code = 3094-0) 15 7-26 [facility] HospitalCreatinine2018-04-16 07:37:00* Test Item Value Reference Range Interpretation Comments Creatinine (test code = 2160-0) 0.81 0.72-1.25 [facility] HospitalBUN/Creatinine Uuvph1381-96-33 07:37:00* Test Item Value Reference Range Interpretation Comments BUN/Creatinine Ratio (test code = 3097-3) 19 6-25 [facility] HospitalEstimat Glomerular Filtration Rate 2017-12-20 07:37:00* Test Item Value Reference Range Interpretation Comments Estimat Glomerular Filtration Rate (test code = 64684-0) 60- >60 Ranges were taken from the National Kidney Disease Education Program and the [facility] Foundation literature.Reference ranges:60 or greater: Mpcxsl50-19 ( for 3 consecutive months): Chronic kidney disease 15 or less: Kidney failureWilbarger General HospitalGlucose Tbedx4385-28-95 07:37:00* Test Item Value Reference Range Interpretation Comments Glucose Level (test code = YIX3936) 101 74-118 [facility] HospitalCalcium Urbna7336-26-31 07:37:00* Test Item Value Reference Range Interpretation Comments Calcium Level (test code = 26978-5) 9.0 8.4-10.2 [facility] HospitalTotal Pyjumpedx8096-30-22 07:37:00* Test Item Value Reference Range Interpretation Comments Total Bilirubin (test code = 1975-2) 0.8 0.2-1.2 [facility] HospitalAspartate Amino Transf (AST/SGOT) 2017-12-20 07:37:00* Test Item Value Reference Range Interpretation Comments Aspartate Amino Transf (AST/SGOT) (test code = Aspartate Amino Transf (AST/SGOT)) 14 5-34 [facility] HospitalAlanine Aminotransferase (ALT/SGPT) 2017-12-20 07:37:00* Test Item Value Reference Range Interpretation Comments Alanine Aminotransferase (ALT/SGPT) (test code = 1742-6) 16 0-55 [facility] HospitalTotal Nlrvjlr8402-51-28 07:37:00* Test Item Value Reference Range Interpretation Comments Total Protein (test code = 2885-2) 6.1 6.5-8.1 L [facility] HospitalAlbumin2018-04-16 07:37:00* Test Item Value Reference Range Interpretation Comments Albumin (test code = 1751-7) 3.1 3.5-5.0 L [facility] HospitalGlobulin2018-04-16 07:37:00* Test Item Value Reference Range Interpretation Comments Globulin (test code = 25948-1) 3.0 2.3-3.5 [facility] HospitalAlbumin/Globulin Rcgja6222-17-88 07:37:00 * Test Item Value Reference Range Interpretation Comments Albumin/Globulin Ratio (test code = 1759-0) 1.0 0.8-2.0 [facility] HospitalAlkaline Ktvnkfgcmgt8078-33-74 07:37:00* Test Item Value Reference Range Interpretation Comments Alkaline Phosphatase (test code = 6768-6) 47 40-150 [facility] HospitalLactic Acid Skobx5036-15-73 17:59:00* Test Item Value Reference Range Interpretation Comments Lactic Acid Level (test code = Lactic Acid Level) 6.9 4.5- 19.8 [facility] HospitalLactic Acid Keakk0987-20-93 17:59:00* Test Item Value Reference Range Interpretation Comments Lactic Acid Level (test code = Lactic Acid Level) 6.9 4.5- 19.8 [facility] HospitalLactic Acid Jvoep2212-53-05 17:59:00* Test Item Value Reference Range Interpretation Comments Lactic Acid Level (test code = Lactic Acid Level) 6.9 4.5- 19.8 [facility] HospitalAmylase Ypwhl5513-50-17 15:13:00* Test Item Value Reference Range Interpretation Comments Amylase Level (test code = 1798-8) 49 25-125 [facility] HospitalLipase2018-04-15 15:13:00* Test Item Value Reference Range Interpretation Comments Lipase (test code = 3040-3) 17 8-78 [facility] HospitalUrine JBD0755-01-60 14:45:00* Test Item Value Reference Range Interpretation Comments Urine WBC (test code = 5821-4) 0-5 0-5 [facility] HospitalUrine WXJ9540-16-71 14:45:00* Test Item Value Reference Range Interpretation Comments Urine RBC (test code = 75046-7) 0-5 0-5 [facility] HospitalUrine Tocaqrwv8878-36-77 14:45:00* Test Item Value Reference Range Interpretation Comments Urine Bacteria (test code = 83696-9) NONE NONE [facility] HospitalUrine Epithelial Rznad8752-42-39 14:45:00 * Test Item Value Reference Range Interpretation Comments Urine Epithelial Cells (test code = 18035-2) NONE NONE [facility] HospitalUrine Hyaline Kvhlb2715-73-60 14:45:00* Test Item Value Reference Range Interpretation Comments Urine Hyaline Casts (test code = 44732-5) 0-1 0-1 [facility] HospitalUrine Lvnux0484-98-49 14:45:00* Test Item Value Reference Range Interpretation Comments Urine Mucus (test code = 8247-9) FEW RARE H [facility] HospitalUrine Hyaline Loqsw5991-85-31 14:45:00* Test Item Value Reference Range Interpretation Comments Urine Hyaline Casts (test code = 96598-6) 0-1 0-1 [facility] HospitalUrine Tcizm7345-91-47 14:45:00* Test Item Value Reference Range Interpretation Comments Urine Mucus (test code = 8247-9) FEW RARE H [facility] HospitalUrine Hyaline Pqlaa9583-44-61 14:45:00* Test Item Value Reference Range Interpretation Comments Urine Hyaline Casts (test code = 43947-3) 0-1 0-1 [facility] HospitalUrine Nzrvr6020-55-56 14:36:00* Test Item Value Reference Range Interpretation Comments Urine Color (test code = 5778-6) YELLOW YELLOW [facility] HospitalUrine Spgmizz7034-36-52 14:36:00* Test Item Value Reference Range Interpretation Comments Urine Clarity (test code = 75397-6) CLEAR CLEAR [facility] HospitalUrine Specific Doltoul3833-30-68 14:36:00 * Test Item Value Reference Range Interpretation Comments Urine Specific [place] (test code = 5811-5) 1.030 1.010-1.02 5 H [facility] HospitalUrine qL3449-93-68 14:36:00* Test Item Value Reference Range Interpretation Comments Urine pH (test code = 93690-8) 6 5-7 [facility] HospitalUrine Leukocyte Pjzzohjs4513-45-12 14:36:00* Test Item Value Reference Range Interpretation Comments Urine Leukocyte Esterase (test code = 5799-2) NEGATIVE NEGATIVE [facility] HospitalUrine Rrkdkfd2342-29-21 14:36:00* Test Item Value Reference Range Interpretation Comments Urine Nitrite (test code = 29867-5) NEGATIVE NEGATIVE [facility] HospitalUrine Omljzqx9106-14-21 14:36:00* Test Item Value Reference Range Interpretation Comments Urine Protein (test code = 5804-0) NEGATIVE NEGATIVE [facility] HospitalUrine Glucose (UA)2017-12-19 14:36:00* Test Item Value Reference Range Interpretation Comments Urine Glucose (UA) (test code = 2349-9) NEGATIVE NEGATIVE [facility] HospitalUrine Fsattww3177-66-22 14:36:00* Test Item Value Reference Range Interpretation Comments Urine Ketones (test code = 88977-9) NEGATIVE NEGATIVE [facility] Qbbcifjwrflg3212-25-08 14:36:00* Test Item Value Reference Range Interpretation Comments Urine Urobilinogen (test code = 35195-6) 0.2 0.2-1 [facility] HospitalUrine Gfsajptzp5865-93-99 14:36:00* Test Item Value Reference Range Interpretation Comments Urine Bilirubin (test code = 1978-6) NEGATIVE NEGATIVE [facility] HospitalUrine Mrqxj7240-48-57 14:36:00* Test Item Value Reference Range Interpretation Comments Urine Blood (test code = 99594-6) NEGATIVE NEGATIVE [facility] HospitalCreatine Kinase AT1206-18-37 13:39:00* Test Item Value Reference Range Interpretation Comments Creatine Kinase MB (test code = 98467-0) 2.00 0-5.0 [facility] HospitalTroponin O6729-87-87 13:39:00* Test Item Value Reference Range Interpretation Comments Troponin I (test code = ZEF4678) 0.014 0-0.300 [facility] HospitalThyroid Stimulating Hormone (TSH) 2017-12-19 13:39:00* Test Item Value Reference Range Interpretation Comments Thyroid Stimulating Hormone (TSH) (test code = 60257-3) 0.276 0.350-4.940 L [facility] HospitalCreatine Kinase ZJ7399-49-23 13:39:00* Test Item Value Reference Range Interpretation Comments Creatine Kinase MB (test code = 67518-7) 2.00 0-5.0 [facility] HospitalTroponin Z0318-83-06 13:39:00* Test Item Value Reference Range Interpretation Comments Troponin I (test code = VKY0168) 0.014 0-0.300 [facility] HospitalThyroid Stimulating Hormone (TSH) 2017-12-19 13:39:00* Test Item Value Reference Range Interpretation Comments Thyroid Stimulating Hormone (TSH) (test code = 06447-0) 0.276 0.350-4.940 L [facility] HospitalCreatine Bcgmxa6084-25-26 13:23:00* Test Item Value Reference Range Interpretation Comments Creatine Kinase (test code = 2157-6) 79 30-200 [facility] HospitalCreatine Nkupfb0428-71-43 13:23:00* Test Item Value Reference Range Interpretation Comments Creatine Kinase (test code = 2157-6) 79 30-200 [facility] HospitalProthrombin Cstg2634-51-75 13:12:00* Test Item Value Reference Range Interpretation Comments Prothrombin Time (test code = 5902-2) 13.2 11.9-14.5 [facility] HospitalProthromb Time International Ratio 2017-12-19 13:12:00* Test Item Value Reference Range Interpretation Comments Prothromb Time International Ratio (test code = 6301-6) 1.08 Oral Anticoagulant Therapy INR Values:1. Low Intensity Therapy 1.5 - 2.02 . Moderate Intensity Therapy 2.0 - 3.03. High Intensity Therapy(1) 2.5 - 3. 54. High Intensity Therapy(2) 3.0 - 4.05. Panic Value INR > 5.0 [facility] HospitalActivated Partial Thromboplast Time 2017-12-19 13:12:00* Test Item Value Reference Range Interpretation Comments Activated Partial Thromboplast Time (test code = 01176-2) 28.0 23.8-35.5 [facility] HospitalProthrombin Mhoj5898-55-40 13:12:00* Test Item Value Reference Range Interpretation Comments Prothrombin Time (test code = 5902-2) 13.2 11.9-14.5 [facility] HospitalProthromb Time International Ratio 2017-12-19 13:12:00* Test Item Value Reference Range Interpretation Comments Prothromb Time International Ratio (test code = 6301-6) 1.08 Oral Anticoagulant Therapy INR Values:1. Low Intensity Therapy 1.5 - 2.02 . Moderate Intensity Therapy 2.0 - 3.03. High Intensity Therapy(1) 2.5 - 3. 54. High Intensity Therapy(2) 3.0 - 4.05. Panic Value INR > 5.0 [facility] HospitalActivated Partial Thromboplast Time 2017-12-19 13:12:00* Test Item Value Reference Range Interpretation Comments Activated Partial Thromboplast Time (test code = 76325-4) 28.0 23.8-35.5 [facility] HospitalBacteria identification in sputum by respiratory kgvphkx9696-52-45 08:27:00* Test Item Value Reference Range Interpretation Comments Sputum Culture (test code = 624-7) Organism: STAPHYLOCOCCUS AUREUS- MRSA [facility] HospitalBacteria identification in sputum by respiratory apqdpyf3853-69-96 08:27:00* Test Item Value Reference Range Interpretation Comments Sputum Culture (test code = 624-7) Organism: STAPHYLOCOCCUS AUREUS- MRSA [facility] HospitalBlood Mtydaee0324-46-02 18:52:00* Test Item Value Reference Range Interpretation Comments Blood Culture (test code = 70175811) NO GROWTH AFTER 5 DAYS, FINAL REPORT [facility] HospitalBlood Hynmyhm7394-67-02 18:52:00* Test Item Value Reference Range Interpretation Comments Blood Culture (test code = 69910556) NO GROWTH AFTER 5 DAYS, [facility] Wlkoalf7942-93-50 08:57:00* Test Item Value Reference Range Interpretation Comments Bedside Glucose (test code = 71796-3) 125 70-120 H Meter ID: [id number] [facility] Glucose 2017-04-16 08:57:00* Test Item Value Reference Range Interpretation Comments Bedside Glucose (test code = 98658-6) 125 70-120 H Meter ID: [id number] [facility] 2017-04-14 22:14:00* Test Item Value Reference Range Interpretation Comments Acetaminophen Level (test code = 32452-6) 07-05 [facility] HospitalAcetaminophen Dvcys8030-31-47 22:14:00* Test Item Value Reference Range Interpretation Comments Acetaminophen Level (test code = 47223-0) 14 07-05 [facility] HospitalArterial Blood tM5471-73-54 13:38:00* Test Item Value Reference Range Interpretation Comments Arterial Blood pH (test code = 2744-1) 7.36 7.31-7.41 [facility] HospitalArterial Blood Partial Pressure CO2 2017-04-14 13:38:00* Test Item Value Reference Range Interpretation Comments Arterial Blood Partial Pressure CO2 (test code = 2019-8) 57 41-51 H [facility] HospitalArterial Blood Partial Pressure O2 2017-04-14 13:38:00* Test Item Value Reference Range Interpretation Comments Arterial Blood Partial Pressure O2 (test code = 2019-8) 148 80-105 H [facility] HospitalArterial Blood IBY32199-73-30 13:38:00* Test Item Value Reference Range Interpretation Comments Arterial Blood HCO3 (test code = 1960-4) 33 23-28 H [facility] HospitalArterial Blood Base Ypszqr8629-37-74 13:38:00* Test Item Value Reference Range Interpretation Comments Arterial Blood Base Excess (test code = 1925-7) 7.0 -2-3 H [facility] HospitalArterial Blood Oxygen Saturation 2017-04-14 13:38:00* Test Item Value Reference Range Interpretation Comments Arterial Blood Oxygen Saturation (test code = 2708-6) 99.0 95-98 H [facility] HospitalArterial Blood qO7438-76-70 13:38:00* Test Item Value Reference Range Interpretation Comments Arterial Blood pH (test code = 2744-1) 7.36 7.31-7.41 [facility] HospitalArterial Blood Partial Pressure CO2 2017-04-14 13:38:00* Test Item Value Reference Range Interpretation Comments Arterial Blood Partial Pressure CO2 (test code = 2018-8) 57 41-51 H [facility] HospitalArterial Blood Partial Pressure O2 2017-04-14 13:38:00* Test Item Value Reference Range Interpretation Comments Arterial Blood Partial Pressure O2 (test code = 2018-8) 148 80-105 H [facility] HospitalArterial Blood STC62201-63-19 13:38:00* Test Item Value Reference Range Interpretation Comments Arterial Blood HCO3 (test code = 1960-4) 33 23-28 H [facility] HospitalArterial Blood Base Mmdjej9900-97-30 13:38:00* Test Item Value Reference Range Interpretation Comments Arterial Blood Base Excess (test code = 1925-7) 7.0 -2-3 [facility] Saturation 2017-04-14 13:38:00* Test Item Value Reference Range Interpretation Comments Arterial Blood Oxygen Saturation (test code = 2708-6) 99.0 95-98 [facility] [id number] 13:07:00* Test Item Value Reference Range Interpretation Comments Urine Opiates Screen (test code = 42657-2) POSITIVE NEGATIVE H This test provides only a screen. Positive results should be repeated by a confi rmatory test.[facility] Bar[facility]ur[facility] Screen 2017-04-13 13:07:00* Test Item Value Reference Range Interpretation Comments Urine Barbiturates Screen (test code = 489377694) NEGATIVE NEGA TIVE [facility] Phencyclidine [id number] 13:07:00* Test Item Value Reference Range Interpretation Comments Urine Phencyclidine Screen (test code = 27013-9) NEGATIVE NEGAT COREY [facility] Amphetamines [id number] 13:07:00* Test Item Value Reference Range Interpretation Comments Urine Amphetamines Screen (test code = 64480-7) NEGATIVE NEGATI VE [facility] Benzodiazepines [id number] 13:07:00* Test Item Value Reference Range Interpretation Comments Urine Benzodiazepines Screen (test code = 18134-8) POSITIVE NEG ATIVE H This test provides only a screen. Positive results should be repeated by a confi rmatory test.[facility] Cocaine Screen 2017-04-13 13:07:00* Test Item Value Reference Range Interpretation Comments Urine Cocaine Screen (test code = Urine Cocaine Screen) NEGATIVE NEGATIVE [facility] Cannabinoids [id number] 13:07:00* Test Item Value Reference Range Interpretation Comments Urine Cannabinoids Screen (test code = 50445-8) NEGATIVE NEGATI VE THESE RESULTS ARE FOR MEDICAL TREATMENT ONLYTHIS REPORT CONTAINS UNCONFIR MED SCREENING RESULTS*POSITIVE RESULTS WILL BE CONFIRMED BY REFERENCE LAB UPON R EQUEST CUT-OFFDRUG CLASS CONCENTRATION ng/mLAmphetamines 1000Methamphetamines 1000Cocaine 300Opiate 300Phencyc lidine 25Cannabinoid 50Barbiturates 300Benzodiazepine 300Methadone 300[facility] [id number] 13:07:00* Test Item Value Reference Range Interpretation Comments Urine Opiates Screen (test code = 98351-8) POSITIVE NEGATIVE H This test provides only a screen. Positive results should be repeated by a confi rmatory test.[facility] Bar[facility] Screen 2017-04-13 13:07:00* Test Item Value Reference Range Interpretation Comments Urine Barbiturates Screen (test code = 768165756) NEGATIVE NEGA TIVE [facility] Phencyclidine [id number] 13:07:00* Test Item Value Reference Range Interpretation Comments Urine Phencyclidine Screen (test code = 22612-6) NEGATIVE NEGAT COREY [facility] Amphetamines [id number] 13:07:00* Test Item Value Reference Range Interpretation Comments Urine Amphetamines Screen (test code = 99483-6) NEGATIVE NEGATI VE [facility] Benzodiazepines [id number] 13:07:00* Test Item Value Reference Range Interpretation Comments Urine Benzodiazepines Screen (test code = 66764-3) POSITIVE NEG ATIVE H This test provides only a screen. Positive results should be repeated by a confi rmatory test.[facility] Cocaine Screen 2017-04-13 13:07:00* Test Item Value Reference Range Interpretation Comments Urine Cocaine Screen (test code = Urine Cocaine Screen) NEGATIVE NEGATIVE [facility] Cannabinoids [id number] 13:07:00* Test Item Value Reference Range Interpretation Comments Urine Cannabinoids Screen (test code = 75088-6) NEGATIVE NEGATI VE THESE RESULTS ARE FOR MEDICAL TREATMENT ONLYTHIS REPORT CONTAINS UNCONFIR MED SCREENING RESULTS*POSITIVE RESULTS WILL BE CONFIRMED BY REFERENCE LAB UPON R EQUEST CUT-OFFDRUG CLASS CONCENTRATION ng/mLAmphetamines 1000Methamphetamines 1000Cocaine 300Opiate 300Phencyc lidine 25Cannabinoid 50Barbiturates 300Benzodiazepine 300Methadone 300[facility] Nat[facility] [id number] 19:32:00* Test Item Value Reference Range Interpretation Comments B-Type Natriuretic Peptide (test code = 70600-1) 603.2 0-100 [facility] Natriuretic [id number] 19:32:00* Test Item Value Reference Range Interpretation Comments B-Type Natriuretic Peptide (test code = 95340-9) 603.2 0-100 [facility]PELVIS W [facility] [address] [address] Patient Name: YESENIA SCHERER MR #: [id number] : 1960 Age/Sex: 57/M Req #: [id number] Adm Physician: Ordered by: CARRI SCHERER MD Report #: [id number] Location: ER Room/Bed: Procedure: [id number] CT/CT ABDOMEN/PELVIS W Exam Date: 01/12/18 Exam [...] 11:56 PM Dictated By: NICOL SHULTZ MD 1700 Transcribed By: OLGA LIDIA on 01/12/18 9265 COPY TO: CARRI TURCIOS MD ABDOMEN-1[facility] [place] [address] Patient Name: YESENIA SCHERER MR #: [id number] : 1960 Age/Sex: 57/M Req #: [id number] Adm Physician: NEEL MARIO MD Ordered by: ИВАН MIRANDA MD Report #: [id number] Location: [facility] Room/Bed: [place] [address] Procedure: [id number] D X/ABDOMEN-1VIEW (KUB) Exam Date: Exam Time: [...] MD 1159 Transcribed By: JEANNIE on 12/20/17 1154 COPY TO: ИВАН LUEVANO MD CT ABDOMEN/PELVIS W [place] [address] Patient Name: YESENIA SCHERER MR #: [id number] : 1960 Age/Sex: 57/M Req #: [id number] Adm Physician: Ordered by: STELLA HUTSON AN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 Report #: [id number] Location: ER Room/Bed: Procedure: [id number] CT/CT ABDOMEN/PELVIS W Exam Date: 12/19/17 Exam [...] TO: STELLA HUTSON NP CHEST SINGLE (PORTABLE) [place] [address] Patient Name: YESENIA SCHERER MR #: [id number] : 1960 Age/Sex: 57/M Req #: [id number] Adm Physician: Ordered by: STELLA HUTSON AN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 Report #: [id number] Location: ER Room/Bed: Procedure: [id number] DX/CHEST SINGLE (PORTABLE) E xam Date: 12/19/17 [...]
--- NOTE | 2020-02-09 22:23 | NUR ---
Patient swabbed for COVID at this time
[2020-02-09 22:30] LABS: CREATINE KINASE MB 8.8 ng/mL (0-5.0)
[2020-02-10] VITALS (9 sets, daily range): BP systolic 108–164; BP diastolic 83–133
--- NOTE | 2020-02-10 00:28 | NUR ---
Patient received via stretcher from ER. AAO x 3. Patient had no complaints of pain. Respirations even and non-labored. Patient oriented to room, call light , visiting hours and plan of care. Safety measures in place. Patient instructed to call for assistance when needed. Call light within reach.
--- NOTE | 2020-02-10 06:00 | NUR ---
Patient paged Dr. Tate Langston regarding "Routine Consult". Spoke to Jovana. Awaiting call back.
[2020-02-10 06:25] LABS: BASOPHILS % 0.3 % (0.0-1.0); EOSINOPHILS # (AUTO) 0.2 (0.0-0.4); EOSINOPHILS % 3.4 % (0.0-6.0); HEMATOCRIT 33.5 % (38.2-49.6); HEMOGLOBIN 10.1 g/dL (14.0-18.0); LYMPHOCYTES # (AUTO) 1.8 (1.0-3.2); LYMPHOCYTES % 30.5 % (18.0-39.1); MEAN CORPUSCULAR HEMOGLOBIN 26.6 pg (28-32); MEAN CORPUSCULAR HGB CONC 30.1 g/dL (31-35); MEAN CORPUSCULAR VOLUME 88.4 fL (81-99); MONOCYTES # (AUTO) 0.5 (0.2-0.8); MONOCYTES % 8.4 % (4.4-11.3); NEUTROPHILS # (AUTO) 3.3 (2.1-6.9); NEUTROPHILS % 57.1 % (38.7-80.0); PLATELET COUNT 303 x10e3/uL (140-360); RED BLOOD COUNT 3.79 x10e6/uL (4.3-5.7); RED CELL DISTRIBUTION WIDTH 18.3 % (11.7-14.4)
[2020-02-10 06:41] LABS: ALBUMIN 2.4 g/dL (3.5-5.0); ALBUMIN/GLOBULIN RATIO 0.8 (0.8-2.0); ANION GAP 12.5 mmol/L (8-16); CALCIUM 7.5 mg/dL (8.4-10.2); CREATININE, SERUM 1.32 mg/dL (0.72-1.25); POTASSIUM 3.5 mmol/L (3.5-5.1)
[2020-02-10 06:58] LABS: CREATINE KINASE MB 4.4 ng/mL (0-5.0)
--- NOTE | 2020-02-10 07:09 | NUR ---
Walking rounds done. Patient resting comfortably. Shift report given to oncoming nurse.
--- NOTE | 2020-02-10 08:04 | NUR ---
Spoke to Wally in radiology he said they are aware of STAT order for ultrasound of abdomen
[2020-02-10 09:08] LABS: THYROID STIMULATING HORMONE 1.606 uIU/mL (0.350-4.940)
[2020-02-10] MEDS: APIXABAN 5 MG TABLET PO SCH ×2 (09:56→17:00)
[2020-02-10] MEDS: FUROSEMIDE 40 MG TAB PO SCH (09:56)
[2020-02-10] MEDS: PREGABALIN 75 MG CAP PO SCH ×2 (09:56→17:00)
[2020-02-10] MEDS: HYDROCODONE/APAP 5MG-325MG TAB PO PRN ×2 (10:15→17:04)
--- NOTE | 2020-02-10 10:40 | History and Physical ---
HISTORY OF PRESENT ILLNESS: The patient presented to the emergency room with multiple difficulties, primarily shortness of breath. He denied headache or visual difficulty. He has chronic shortness of breath with a past history of severe COPD. He continues to smoke. History also includes chronic atrial fibrillation and prior history of flutter. He was cardioverted here two years previously. The patient has had difficulties with rapid ventricular rate and occasionally has had difficulty with bradycardia. He has been on diltiazem and beta-blockers prior to admission. History also includes malignant hypertension, which has recently been controlled. The patient notes occasional symptoms of epigastric discomfort and nausea. He has a history of peptic ulcer disease and years prior, did experience upper GI bleeding from his ulcers. The patient is chronically anticoagulated with Eliquis. The patient states that he had difficulty voiding last night and noticed significant edema of the lower extremities and the genitalia. He had over imzv-z-tlqhv of retained urine on presentation to the ER and he improved with placement of White, which remains placed. The patient has had five prior lower back surgeries and has a failed back syndrome. 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 The patient also has had severe degenerative disease of his left knee, which is chronically painful. He has deferred surgery. See also old records here. History has included migraine headaches. Positive PPD in 1992. A1c in 2017, with a level of 6.2, compatible with prediabetes. Pneumovax was given in 2013. PAST SURGICAL HISTORY: Have included arthroscopy, left knee in 2005. Heart cath with 40% or less coronary disease in 2016. 85% RCA lesion. EGD in 2018. MEDICATIONS: See also prior to admission med lists. Reviewed. FAMILY HISTORY: The patient states family history not contributory. SOCIAL HISTORY: The patient is not actively employed. He has been using a wheelchair intermittently prior to admission. He has had multiple recent hospitalizations at [facility] and states recent studies have included abdominal CT with cirrhosis and edematous gallbladder. ER lab reviewed. Case discussed with ER physician late last night on the patient's arrival. ALLERGIES: THE PATIENT DENIES DRUG ALLERGIES. PHYSICAL EXAMINATION: GENERAL: Current examination; the patient is not in distress at this time. He is alert and mental status is baseline. VITAL SIGNS: At this time, temperature is 97.5 orally, pulse varies from 92 to 123, respiratory rate 16 to 24, BP 108/85, O2 saturation 94% on 2 L, although the patient is not using his O2 at this time. HEENT: The pupils are round, reactive. EOMs full. Throat clear. NECK: Supple. Carotids palpable. No palpable goiter. PULMONARY: Auscultation, generalized wheezing. Cardiac sounds are soft. The pulse is irregularly irregular. ABDOMEN: Soft. Bowel sounds are normal. I do not palpate tenderness mass or megaly. : White in place. Edema of the genitalia persists. EXTREMITIES: 1+ edema lower extremities with dampened pulses. DJD left knee with pain on any motion. Pulses dampened peripherally. Strength fair. Old scar in the lumbosacral area. DTRs depressed. IMAGING STUDIES: EKG with atrial fibrillation. Nonspecific lateral T inversion. CURRENT IMPRESSION: Dyspnea. Congestive heart failure per chest x-ray and elevated natriuretic peptide, although the patient does also have renal insufficiency. Rule out myocardial infarction. Chronic atrial fibrillation. Past history of flutter. Tachy-peter recently. The patient will not be smoking in here. We will use pulmonary therapy and supplemental O2. Diuresis tolerated. Control blood pressure. History includes malignant hypertension. 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 Degenerative joint disease with chronic pain of the left knee. The patient is poorly ambulatory. History includes peptic ulcer disease with prior bleeding. (Chronic anticoagulation for atrial fibrillation, now with Eliquis). Anemia now. Renal insufficiency now. Rule out obstruction. Urinary retention on arrival. Cirrhosis. Have normal liver enzymes. Recheck viral studies. History of edematous gallbladder without stones on recent studies elsewhere. Prediabetes. See also ER notes and prior visits here. Last year, two years prior. See also initial and followup orders. Dr. Lemus will attend the patient in my absence after this morning. His history includes hyperlipoproteinemia. Gastroesophageal reflux disease. Migraine headaches. Further orders pending course. I have asked the patient's biology tutor to see with us. We will also ask to see. Follow up hematocrits and chemistries. See also followup orders. MD ARIAN Overton/CARMINA /[id number]
--- NOTE | 2020-02-10 10:51 | Diagnostic Imaging Report ---
Exam: KUB - 2 views Clinical History: Kidney stone. Comparison: CT abdomen/pelvis 01/12/2018. Findings: Examination is mildly limited by detector artifact. No specific findings of nephrolithiasis. A 3 mm right mid pole renal stone noted on prior CT is not well seen by radiograph. Nonobstructive bowel gas pattern. No evidence of free intraperitoneal air. Spinal stimulator overlies the L2-L3 vertebral bodies. L3-L4 spinal fixation hardware and lower lumbar extensive bony fusion changes are noted. Impression: No evidence of nephrolithiasis. A 3 mm right mid pole renal stone noted on prior CT is not well seen by radiograph. Signed by: Dr. Apoorva Finn MD on 02/10/2020 10:48 AM
--- NOTE | 2020-02-10 11:51 | Diagnostic Imaging Report ---
EXAM: US ABDOMEN COMPLETE DATE: 02/10/2020 10:15 AM INDICATION: Abdominal pain. COMPARISON: KUB 02/10/2020, CT abdomen/pelvis 01/12/2018. TECHNIQUE: Transverse and longitudinal harris scale and color doppler sonographic images of the abdomen were obtained. FINDINGS: LIVER 16.8 cm in the right midclavicular line. Mildly increased echogenicity of the liver with normal contour, no masses. SPLEEN 11.3 cm in maximum diameter. Normal echogenicity, no masses. GALLBLADDER No gallbladder wall thickening, distension, stone, or pericholecystic fluid. Minimal sludge. Negative reported sonographic Simpson's sign. BILE DUCTS No intra nor extra-hepatic biliary dilation. Common bile duct measures 0.3 cm PANCREAS: Not well visualized due to overlying bowel gas. RIGHT KIDNEY: 11.2 cm Echogenicity: Normal Collecting System: No hydronephrosis Stones: None Cyst/Mass: None LEFT KIDNEY: 10.7 cm Echogenicity: Normal Collecting System: No hydronephrosis Stones: None Cyst/Mass: None VESSELS: Aorta: Visualized portions are within normal size limits Inferior Vena Cava: Visualized portions are normal Main Portal Vein: 1.3 cm, normal size with hepatopetal flow. FREE FLUID: Trace right upper quadrant ascites. IMPRESSION: Mild hepatomegaly and hepatic steatosis. Trace ascites in the right upper quadrant. Minimal gallbladder sludge. No evidence of cholelithiasis or cholecystitis. Signed by: Dr. Apoorva Finn MD on 02/10/2020 11:48 AM
[2020-02-10] MEDS ORDERED: DIGOXIN INJ 0.25 MG/ML 2 ML AMP IV ONE ×2 (14:15→21:30)
[2020-02-10 14:28] LABS: CREATINE KINASE MB 4.7 ng/mL (0-5.0)
[2020-02-10] MEDS: SPIRONOLACTONE 25 MG TAB PO SCH (14:40)
--- NOTE | 2020-02-10 15:41 | NUR ---
Nutrition Screen Note RD Recommendation for Physician: -Continue cardiac diet Plan of Care: RD following, monitoring for tolerance and adequacy Nutrition reason for involvement: Diagnosis - CHF Primary Diagnose(s): CHF, afib, elevated LFTs, renal insufficiency, urinary retention PMH: HTN, afib, COPD, peptic ulcer disease Ht: 71 in Wt:162 lb BMI: 22.6 kg/m2 IBW: [address] Assessment: (02/10/20) Chart reviewed. Labs and meds reviewed. Pt is a 59 year old male admitted with CHF, afib, elevated LFTs, renal insufficiency, and urinary retention. Pt reported he had a poor appetite for a week prior to admission, but reports his appetite has improved and is eating well at this time. No weight loss reported. Pt stated he usually weighs 150-155 lbs without excess fluid. Pt requested low sodium diet education which was provided. Will continue to monitor. Current Diet: cardiac Malnutrition Evaluation (02/10/20) The patient does not meet criteria for a specified degree of malnutrition at this time. Will re-evaluate at follow-up as appropriate. Diet Education Needs Assessment: Diet education indicated, Learner(s): pt Barriers: no barriers identified Cultural/Language Modifications: no cultural/language modifications Readiness: eager/acceptance Method: explanation/discussion/handout Topics: low sodium diet Understanding/Compliance: pt verbalized understanding Nutrition Care Level: low Signed: Fernanda Ruiz, RD, LD
--- NOTE | 2020-02-10 16:55 | NUR ---
Tele called and reported patient is AFIB in the 150's since receiving earlier dose of IV digoxin. Paged Dr. Langston . Waiting examination grader back.
--- NOTE | 2020-02-10 18:30 | NUR ---
2nd page to Dr. Langston regarding AFIB in 120's
[2020-02-10 19:37] LABS: BILIRUBIN,URINE NEGATIVE (NEGATIVE); CLARITY,URINE HAZY (CLEAR); COLOR,URINE YELLOW (YELLOW); KETONES,URINE NEGATIVE (NEGATIVE); LEUKOCYTE ESTERASE ,URINE SMALL (NEGATIVE); NITRITE,URINE NEGATIVE (NEGATIVE); PROTEIN,URINE DIPSTICK NEGATIVE (NEGATIVE); URINE UROBILINOGEN 2 mg/dL (0.2 - 1)
[2020-02-10 19:40] LABS: AMPHETAMINES SCREEN,URINE NEGATIVE (NEGATIVE); BENZODIAZEPINES SCREEN,URINE NEGATIVE (NEGATIVE); PHENCYCLIDINE SCREEN,URINE NEGATIVE (NEGATIVE)
[2020-02-10 19:42] LABS: BACTERIA,URINE FEW /HPF; EPITHELIAL CELLS,URINE FEW /LPF
--- NOTE | 2020-02-10 20:33 | NUR ---
HR RUNNING 160'S.CALLED TO ANSWERING SERVICE AND SPOKE TO .WAITING FOR CALL BACK.
--- NOTE | 2020-02-10 21:00 | NUR ---
provided sandwich and puddings.asking for more sandwiches.not available in refrigerator.notified to charge nurse.arranged and given to the patient.
[2020-02-10] MEDS ORDERED: METOPROLOL TARTRATE 25 MG TAB PO PRN ×2 (21:30→21:45)
--- NOTE | 2020-02-10 22:00 | NUR ---
RECEIVED CALL FROM . RECEIVED NEW ORDERS.IMPLEMENTED.KEEP MONITOR THE PT.
[2020-02-11] VITALS (7 sets, daily range): BP systolic 121–159; BP diastolic 71–123
[2020-02-11] MEDS: HYDROCODONE/APAP 5MG-325MG TAB PO PRN ×4 (00:45→22:06)
[2020-02-11] MEDS ORDERED: CLONIDINE HCL 0.1 MG TAB PO PRN (01:15)
[2020-02-11] MEDS: DILTIAZEM HCL 180 MG CAP ER PO SCH ×3 (01:23→21:06)
--- NOTE | 2020-02-11 01:23 | NUR ---
BP NOTED 159/123.NOTIFIED TO .RECEIVED NEW ORDERS.
--- NOTE | 2020-02-11 02:56 | Consultation ---
DATE OF CONSULTATION: 02/10/2020 The patient admitted for Dr. Green. HISTORY OF PRESENT ILLNESS: This 59-year-old patient was kindly referred by Dr. Green for cardiac evaluation. The patient presented to the emergency room complaining of severe swelling of his lower extremity and even up in the pelvic area involving his penis and scrotum and he apparently also had difficulty urinating. After the patient was catheterized, a 500 mL of urine was removed and the White catheter was left in place. The patient stated that the swelling has been mainly coming on the last 4-5 days. He also states that he was recently at [facility] for about a week because of shortness of breath and apparently was diagnosed with cirrhosis of the liver and edematous gallbladder without evidence of gallstones; however, no active records available. Also, he states that there was some dispute if he has been exposed to the coronavirus or ever has been tested positive and also this history is not clear. Then the patient actually came to the emergency room. He was very lethargic and had slurred speech, also some left-sided weakness was noted and a CT scan of the brain was obtained, which, however, did not show any evidence of CVA. The patient was started on Lasix at 20 mg IV twice daily and admitted to the hospital with congestive heart failure and atrial fibrillation. The patient has sick sinus syndrome with some peter-tachyarrhythmia and indicates that when he was at [facility], he was told that his heart rate was very slow. However, as mentioned earlier, no records are available from his hospitalization at [facility]. PAST MEDICAL HISTORY: The patient does have history of cardiac arrhythmia with as mentioned, sick sinus syndrome. He was found according to my records, being in atrial fibrillation in September. He underwent cardioversion in 2018. However, he has been in and out of atrial fibrillation, atrial flutter, I added Rythmol 225 mg twice daily in September to see if the patient may convert to sinus rhythm. However, he did not comply with followup office visit and I am not sure the patient continued his antiarrhythmic medication. He has been on calcium blockers and beta blockers for his arrhythmia. EKG in the emergency room showed anterior ischemia and atrial fibrillation with a rate of 65 per minute. However, since the patient has been admitted, he is now showing rapid atrial fibrillation with rates between 120 and 130 per minute. The patient also is agitated and very concerned particularly about the edema involving his genitalia. 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 His ejection fraction has been normal until in September when he was admitted, he had an echocardiogram, which showed ejection fraction in the range of 50%. The patient also has chronic low back pain. He had multiple laminectomies and nerve stimulator implantation and is followed in the Pain Clinic. He is mostly using a wheelchair or walker for ambulation. He also has history of peptic ulcer disease with GI bleeding and severe COPD with pulmonary hypertension, GERD, hypertensive cardiovascular disease, migraine headache, and chronic kidney disease. The patient also had degenerative joint disease of left the knee, previous arthroscopy and getting injections by Dr. Lee, but so far he had refused a knee replacement. ALLERGIES: NONE KNOWN. SOCIAL HISTORY: Reveals that he is a chronic smoker until presently. FAMILY HISTORY: Noncontributory REVIEW OF SYSTEMS: The remainder of systems review reveals the patient denies any headache or sore throat. The patient has a mild cough with very little expectorations. He does complain of tightness in his chest, occurring at rest and with physical exertion. The patient is also complaining of abdominal pain in the mid abdomen. He denies any diarrhea, constipation, and he also denies any leg weakness and is ambulating freely in his room as also seen under my observation. PHYSICAL EXAMINATION: VITAL SIGNS: With a blood pressure 110/60. Carotid pulses are present. CHEST: Reveals decreased breath sounds. There are no wheezes and no rales or rhonchi. CARDIOVASCULAR SYSTEM: Reveals normal apical impulse. The rhythm is irregularly irregular with a rate of 120 per minute. 1st and 2nd normal. There is no S3. ABDOMEN: Soft. There is a tenderness in the epigastric area without any rebound or guarding. Liver span is 14 cm with a mild tenderness in the right upper quadrant area as well. Bowel sounds are present. EXTREMITIES: Show 3+ pedal and lower extremity edema, also severe edema of his penis and scrotal area. Pedal pulses could not be palpated mostly because of his severe edema. NEUROLOGIC: The patient does not reveal any motor defect. IMPRESSION: 1. Biventricular congestive heart failure with markedly elevated BNP and hepatic congestion. 2. Chronic kidney disease. 3. Chronic atrial fibrillation with peter-tachyarrhythmia. 4. Cirrhosis of the liver with elevated liver enzymes. 5. Hyperlipidemia. 6. Coronary artery disease with angina pectoris. 7. Degenerative joint disease with chronic low back pain. 8. History of migraine headaches. 9. History of bleeding and peptic ulcer disease and gastroesophageal reflux disease. PLAN: I agree with the Lasix. I would like to add Aldactone 25 mg daily. The patient also needs to be evaluated by right and left heart cardiac catheterization after becoming more stabilized with regard to his congestive heart failure, renal insufficiency, and rapid atrial fibrillation. Also because of the patient's biventricular heart failure, he may be a candidate for biventricular pacemaker implantation. Certainly the patient's atrial fibrillation is adding to the patient's congestive condition and heart failure and he may need another cardioversion or ablation for his atrial flutter and fibrillation by EP. Thank you very much for letting me see this very nice patient. MD MADALYN BahH/MODL /[id number]
[2020-02-11] MEDS: PROMETHAZINE HCL 25 MG TAB PO PRN (06:14)
[2020-02-11] MEDS: LEVALBUTEROL HCL SOLN NEBU 0.63 MG/3 ML NEB INH SCH ×3 (06:20→19:45)
[2020-02-11 06:27] LABS: BASOPHILS % 0.1 % (0.0-1.0); EOSINOPHILS # (AUTO) 0.1 (0.0-0.4); EOSINOPHILS % 1.8 % (0.0-6.0); HEMATOCRIT 35.1 % (38.2-49.6); HEMOGLOBIN 10.6 g/dL (14.0-18.0); LYMPHOCYTES % 12.4 % (18.0-39.1); MEAN CORPUSCULAR HEMOGLOBIN 26.8 pg (28-32); MEAN CORPUSCULAR HGB CONC 30.2 g/dL (31-35); MEAN CORPUSCULAR VOLUME 88.9 fL (81-99); MONOCYTES # (AUTO) 0.7 (0.2-0.8); MONOCYTES % 8.7 % (4.4-11.3); NEUTROPHILS # (AUTO) 5.9 (2.1-6.9); NEUTROPHILS % 76.5 % (38.7-80.0); PLATELET COUNT 272 x10e3/uL (140-360); RED BLOOD COUNT 3.95 x10e6/uL (4.3-5.7); RED CELL DISTRIBUTION WIDTH 18.5 % (11.7-14.4)
[2020-02-11 07:13] LABS: ALANINE AMINOTRANSFERASE 399 IU/L (0-55); ALBUMIN 2.8 g/dL (3.5-5.0); ALBUMIN/GLOBULIN RATIO 0.8 (0.8-2.0); ALKALINE PHOSPHATASE 134 IU/L (40-150); ANION GAP 14.5 mmol/L (8-16); BLOOD UREA NITROGEN 14 mg/dL (7-26); BUN/CREATININE RATIO 18 (6-25); CALCIUM 8.6 mg/dL (8.4-10.2); CARBON DIOXIDE 25 mmol/L (22-29); CHLORIDE 101 mmol/L (98-107); EST GLOMERULAR FILTRATION RATE > 60 ML/MIN (60-); GLUCOSE 122 mg/dL (74-118); POTASSIUM 4.5 mmol/L (3.5-5.1); SODIUM 136 mmol/L (136-145)
--- NOTE | 2020-02-11 07:13 | NUR ---
BED SIDE SHIFT REPORT GIVEN TO ONCOMING RN.STABLE CONDITION.
--- NOTE | 2020-02-11 07:31 | Diagnostic Imaging Report ---
EXAMINATION: CHEST 2 VIEWS INDICATION: Dyspnea. COMPARISON: Chest radiograph 02-09-2020. FINDINGS: TUBES and LINES: Partially seen spinal stimulator overlying the left lower thoracic spine coursing into the lumbar spine. LUNGS: Emphysematous lungs with mild hyperinflation. There are increasing bilateral interstitial opacities. There are airspace opacities in the bilateral lower lobes. There is focal ovoid opacity in the right lower lung. PLEURA: Small right and trace left pleural effusions. Likely skin fold on the right at the base rather than pneumothorax given presence of lung markings peripherally. HEART AND MEDIASTINUM: Cardiac size is mildly enlarged. BONES AND SOFT TISSUES: No acute osseous lesion. Soft tissues are unremarkable. UPPER ABDOMEN: No free air under the diaphragm. IMPRESSION: Emphysematous lungs with findings of pulmonary edema and/or pneumonia. Given the focal ovoid opacity in the right lower lung, recommend follow-up chest CT for further evaluation to exclude underlying mass. Signed by: Dr. Apoorva Finn MD on 02/11/2020 7:27 AM
[2020-02-11] MEDS: FUROSEMIDE 40 MG TAB PO SCH (08:42)
[2020-02-11] MEDS: APIXABAN 5 MG TABLET PO SCH ×2 (08:42→17:12)
[2020-02-11] MEDS: PREGABALIN 75 MG CAP PO SCH ×2 (08:42→17:12)
[2020-02-11] MEDS: SPIRONOLACTONE 25 MG TAB PO SCH (08:42)
[2020-02-11] MEDS: GUAIFENESIN 600 MG TAB PO SCH ×2 (09:32→17:12)
[2020-02-11] MEDS: BENZONATATE 100 MG CAP PO SCH ×3 (09:32→21:06)
[2020-02-11] MEDS: PIPER-TAZ 3.375 GM 50 ML IV SCH ×2 (09:32→17:12)
[2020-02-11] MEDS: DOXYCYCLINE HYCLATE TABLET 100 MG TAB PO SCH ×2 (09:32→17:12)
[2020-02-11] MEDS: IPRATROPIUM BROMIDE 0.02% 2.5 ML NEB NEB PRN (13:00)
[2020-02-11] MEDS: ONDANSETRON HCL INJ 2MG/ML 2ML 2 MG/ML VIAL IV PRN ×2 (13:54→21:47)
[2020-02-11] MEDS ORDERED: DIGOXIN INJ 0.25 MG/ML 2 ML AMP IV ONE (16:00)
[2020-02-11] MEDS: VALSARTAN/SACUBITRIL 24MG/26MG 1 EA TAB PO SCH (17:12)
[2020-02-11] MEDS: IRON SUCROSE 100 MG in SODIUM CHLORIDE 0.9% 100 ML 100 ML IV SCH (17:49)
--- NOTE | 2020-02-11 18:42 | Diagnostic Imaging Report ---
EXAM: CT Chest without contrast INDICATION: Increasing cough. COMPARISON: Chest radiograph 02/11/2020. CT abdomen/pelvis 01/12/2018. TECHNIQUE: Chest was scanned utilizing a multidetector helical scanner from the lung apex through the level of the adrenal glands without administration of IV contrast. Lack of intravenous contrast limits evaluation of vascular and visceral structures. Coronal and sagittal reformations were obtained. Routine protocol was performed. IV CONTRAST: None. RADIATION DOSE: Total DLP: 582.6 mGy*cm Estimated effective dose: (DLP x 0.014 x size factor) mSv COMPLICATIONS: None FINDINGS: LINES/ TUBES: None. LUNGS AND AIRWAYS/PLEURA: Severe centrilobular emphysematous changes of the lungs. There is upper lobe predominant smooth intralobular septal thickening. There are scattered mild upper lobe predominant groundglass opacities. There is a moderate right pleural effusion with loculation along the right major fissure, which corresponds to the ovoid opacity noted on prior chest radiograph, and loculation in the right lung base medially. Moderate layering left pleural effusion. Patchy opacities in the lower lobes adjacent to the pleural effusions. No masses identified. Diffuse mild bronchial wall thickening. HEART AND MEDIASTINUM: The thyroid gland is normal. There are mildly enlarged mediastinal lymph nodes, for example a right paratracheal lymph node, measuring up to 1.6 cm on series 2, image 53 Mild cardiomegaly. No pericardial effusion. Multivessel coronary atherosclerosis. Moderate atherosclerotic calcifications of the thoracic aorta and branch vessels. Dilated main pulmonary artery, measuring up to 3.7 cm. Small hiatal hernia. Circumferential wall thickening in the distal esophagus. UPPER ABDOMEN: Limited non-contrast views of the upper abdomen. Mildly nodular contour to the liver. Small amount of ascites in the right upper quadrant. Partially seen ectatic suprarenal abdominal aorta, measuring up to 2.9 cm. BONES: No acute osseous abnormality. No suspicious lytic or blastic lesions. SOFT TISSUES: Diffuse mild anasarca. Partially seen spinal stimulator within the left lower thoracic paraspinal soft tissues with lead coursing inferiorly out of the field of view. IMPRESSION: Severe emphysematous changes of the lungs with findings of bronchitis. Cardiomegaly with pulmonary edema, and moderate bilateral pleural effusions, with areas of loculation along the right major fissure and right lung base, which corresponds to the ovoid opacity noted on prior chest radiograph. No mass is identified. Associated dependent patchy opacities, likely atelectasis. Superimposed infectious process is possible in the appropriate clinical setting. Recommend follow-up chest radiograph in 6-8 weeks. Multi vessel coronary atherosclerosis. Dilated main pulmonary artery, suggestive of pulmonary arterial hypertension. Findings suggestive of early cirrhosis. Small amount of ascites in the right upper quadrant. Small hiatal hernia with circumferential wall thickening of the distal esophagus, which may be seen in the setting of esophagitis. Suggest clinical correlation for any history of GERD. If of clinical concern, EGD may be considered for further evaluation. Signed by: Dr. Apoorva Finn MD on 02/11/2020 6:39 PM
--- NOTE | 2020-02-11 18:59 | Consultation ---
DATE OF CONSULTATION: 02/10/2020 Urologic Consultation Consultation is called by Dr. Green. CHIEF COMPLAINT AND REASON FOR CONSULTATION: Urinary retention. HISTORY OF PRESENT ILLNESS: Mr. Sheppard is a 59-year-old male, who admitted to the hospital with multiple medical problems, found to have urinary retention, not recorded. The patient has had penile swelling, scrotal swelling, anasarca, and admitted on February 08, despite urinary retention, called Urology for emergency room. PAST MEDICAL HISTORY: Hypertension, atrial fibrillation, COPD, gastroesophageal reflux disease, hyperlipidemia, chronic back pain, neck pain, gastric ulcers, peptic ulcers, status post PCI, status post back surgery x5, status post left knee surgery, status post cardiac cath in 2016. MEDICATIONS: Please see MAR, most notable for Eliquis. ALLERGIES: NKDA. SOCIAL HISTORY: Remote tobacco. FAMILY HISTORY: Denied urologic stones or malignancies. REVIEW OF SYSTEMS: Noncontributory other than problems mentioned above for 12-organ systems. PHYSICAL EXAMINATION: GENERAL: Older than appearing stated age male, in no acute distress. VITAL SIGNS: Currently, he is afebrile. Stable vital signs. HEENT: Sclerae anicteric. NECK: Supple. BACK: Without costovertebral bilaterally. ABDOMEN: Soft, it is nontender, nondistended. No palpable mass. No palpable hernias. No palpable adenopathy. : Penoscrotal edema. EXTREMITIES: Positive edema. NEURO: Moves all extremities. PSYCH: Alert, mood appropriate. SKIN: Intact. Normal color. PERTINENT LABORATORY DATA: CT scan from January of 2018, revealing a 3 mm right kidney stone, 3 cm abdominal aortic aneurysm, large amount of spinal hardware. Urinalysis positive for protein. Hemoglobin 10, hematocrit 33, platelet count 333,000, and white blood cell count 5086. Sodium 136, potassium 3.5, chloride 103, bicarb 25, BUN 25, creatinine 1.3, glucose 144, calcium 7.5. AST 124 and ALT of 449. Urinalysis; positive protein. IMPRESSION: 1. Urinary retention. 2. Kidney stone. 3. Coagulopathy. 4. Penoscrotal edema. 5. Anemia. 6. Proteinuria. 7. Aaqia-cj-ywdagvi renal failure. PLAN: The patient has a White catheter. Continues to elevate the scrotum. Urologically, the patient may be discharged to home as 3 mm stone has excellent trial passage. We will obtain a KUB to ensure there is no obstruction. No growth. He would benefit from urodynamic workup as an outpatient and the patient electively will need a cystoscopy. Thank you for allowing me to participate in the care of your patient. We will be happy to follow along with you. MD KATIE Alegria/MODL /[id number] cc: Anthony Green MD
--- NOTE | 2020-02-11 19:10 | NUR ---
Received the patient in report.lyeing in the bed .no pain voiced.stable condition.
--- NOTE | 2020-02-11 22:10 | NUR ---
Has c/o gen.pain and nausea.medication given.scortal swelling noted.elevated with towel.phone and call light within reach.instructed to call for assistance as needed.
[2020-02-12] VITALS (8 sets, daily range): BP systolic 94–138; BP diastolic 67–91
[2020-02-12] MEDS: LEVALBUTEROL HCL SOLN NEBU 0.63 MG/3 ML NEB INH SCH ×4 (00:47→19:55)
[2020-02-12] MEDS: PIPER-TAZ 3.375 GM 50 ML IV SCH ×3 (04:54→18:48)
--- NOTE | 2020-02-12 07:05 | NUR ---
Received bedside shift report. Patient asleep at this time with no visible signs of distress noted. Call light within reach.
--- NOTE | 2020-02-12 07:18 | NUR ---
BED SIDE SHIFT REPORT GIVEN TO ONCOMING RN.STABLE CONDITION.
[2020-02-12] MEDS: DILTIAZEM HCL 180 MG CAP ER PO SCH (09:33)
[2020-02-12] MEDS: APIXABAN 5 MG TABLET PO SCH (09:33)
[2020-02-12] MEDS: GUAIFENESIN 600 MG TAB PO SCH ×2 (09:33→16:28)
[2020-02-12] MEDS: FUROSEMIDE 40 MG TAB PO SCH (09:33)
[2020-02-12] MEDS: SPIRONOLACTONE 25 MG TAB PO SCH (09:33)
[2020-02-12] MEDS: DOXYCYCLINE HYCLATE TABLET 100 MG TAB PO SCH ×2 (09:33→16:28)
[2020-02-12] MEDS: PREGABALIN 75 MG CAP PO SCH ×2 (09:33→16:28)
[2020-02-12] MEDS: VALSARTAN/SACUBITRIL 24MG/26MG 1 EA TAB PO SCH (09:33)
[2020-02-12] MEDS: BENZONATATE 100 MG CAP PO SCH ×3 (09:33→21:27)
[2020-02-12] MEDS: HYDROCODONE/APAP 5MG-325MG TAB PO PRN ×3 (10:33→23:30)
[2020-02-12] MEDS ORDERED: FAMOTIDINE 20 MG TAB PO PRN (15:45)
[2020-02-12] MEDS: IRON SUCROSE 100 MG in SODIUM CHLORIDE 0.9% 100 ML 100 ML IV SCH (16:28)
[2020-02-12] MEDS ORDERED: FAMOTIDINE 20 MG TAB PO SCH (16:30)
[2020-02-12] MEDS: FAMOTIDINE 20 MG/2 ML VIAL IV SCH (16:31)
[2020-02-12] MEDS: DIGOXIN 0.125 MG TAB PO SCH (16:31)
[2020-02-12] MEDS: DILTIAZEM HCL 30 MG TAB PO SCH ×2 (18:48→23:30)
--- NOTE | 2020-02-12 19:10 | NUR ---
Patient visited in room during nursing rounds. Patient alert and oriented x3. Ambulatory in room. with standby assist prn. White in place for urinary retention. Pt has intermittent dry cough. Pt aware he is scheduled for Angiogram (HC) tomorrow (02/13/20) and will be NPO at midnight. Call esparza within reach. Will monitor pt closely.
--- NOTE | 2020-02-12 20:00 | NUR ---
Per pt request, pt ate about 2 cups of chocolate and vanilla pudding.
[2020-02-12] MEDS: ONDANSETRON HCL INJ 2MG/ML 2ML 2 MG/ML VIAL IV PRN (20:11)
--- NOTE | 2020-02-12 22:00 | NUR ---
Per pt request, pt ate about 3 cups of chocolate pudding.
[2020-02-13] VITALS: BP 133/92
[2020-02-13] MEDS: LEVALBUTEROL HCL SOLN NEBU 0.63 MG/3 ML NEB INH SCH ×4 (00:50→19:46)
[2020-02-13] MEDS: PIPER-TAZ 3.375 GM 50 ML IV SCH ×3 (02:10→16:47)
[2020-02-13] MEDS ORDERED: SODIUM CHLORIDE 0.9% 250ML 250 ML ONE (02:14)
[2020-02-13 04:00] VITALS: BP 140/84
[2020-02-13 05:28] LABS: BASOPHILS # (AUTO) 0.1 (0.0-0.1); BASOPHILS % 0.8 % (0.0-1.0); EOSINOPHILS # (AUTO) 0.4 (0.0-0.4); EOSINOPHILS % 6.1 % (0.0-6.0); HEMATOCRIT 37.4 % (38.2-49.6); HEMOGLOBIN 11.2 g/dL (14.0-18.0); LYMPHOCYTES # (AUTO) 1.5 (1.0-3.2); LYMPHOCYTES % 22.1 % (18.0-39.1); MEAN CORPUSCULAR HEMOGLOBIN 25.8 pg (28-32); MEAN CORPUSCULAR HGB CONC 29.9 g/dL (31-35); MEAN CORPUSCULAR VOLUME 86.2 fL (81-99); NEUTROPHILS # (AUTO) 3.6 (2.1-6.9); NEUTROPHILS % 54.8 % (38.7-80.0); PLATELET COUNT 328 x10e3/uL (140-360); RED BLOOD COUNT 4.34 x10e6/uL (4.3-5.7)
[2020-02-13 05:38] LABS: INR 1.04; PROTHROMBIN TIME 14.2 seconds (11.9-14.5)
[2020-02-13 05:39] LABS: PARTIAL THROMBOPLASTIN TIME 37.1 seconds (23.8-35.5)
[2020-02-13 05:48] LABS: ANION GAP 12.1 mmol/L (8-16); BLOOD UREA NITROGEN 10 mg/dL (7-26); BUN/CREATININE RATIO 12 (6-25); CALCIUM 9.2 mg/dL (8.4-10.2); CARBON DIOXIDE 25 mmol/L (22-29); CHLORIDE 102 mmol/L (98-107); CREATININE, SERUM 0.85 mg/dL (0.72-1.25); EST GLOMERULAR FILTRATION RATE > 60 ML/MIN (60-); GLUCOSE 98 mg/dL (74-118); POTASSIUM 5.1 mmol/L (3.5-5.1); SODIUM 134 mmol/L (136-145)
[2020-02-13] MEDS: DILTIAZEM HCL 30 MG TAB PO SCH ×4 (05:49→23:38)
[2020-02-13 07:52] VITALS: BP 147/102
[2020-02-13] MEDS ORDERED: ALPRAZOLAM 0.5 MG TAB PO PRN (09:00)
[2020-02-13] MEDS ORDERED: FAMOTIDINE 20 MG/2 ML VIAL IV PRN (09:00)
[2020-02-13] MEDS ORDERED: MIDAZOLAM HCL 2 MG/2 ML VIAL ONE ×2 (10:58→12:25)
[2020-02-13] MEDS ORDERED: LIDOCAINE HCL 2% LOCAL 20 ML VIAL ONE (11:00)
[2020-02-13] MEDS: FUROSEMIDE 40 MG TAB PO SCH (11:00)
[2020-02-13] MEDS ORDERED: IOPAMIDOL 370 MG/ML 200 ML INFUS..BTL INJ ONE ×2 (11:00→11:39)
[2020-02-13] MEDS ORDERED: FENTANYL CITRATE/PF 100MCG/2 ML INJ ONE (11:00)
[2020-02-13] MEDS ORDERED: SODIUM CHLORIDE 0.9% 1000ML 0 ML ONE (11:00)
[2020-02-13] MEDS ORDERED: HEPARIN SOD/SOD CHLORIDE 2,000 ML ONE (11:00)
[2020-02-13] MEDS: GUAIFENESIN 600 MG TAB PO SCH ×2 (11:00→16:47)
[2020-02-13] MEDS: PREGABALIN 75 MG CAP PO SCH ×2 (11:00→16:47)
[2020-02-13] MEDS: DOXYCYCLINE HYCLATE TABLET 100 MG TAB PO SCH ×2 (11:00→16:47)
[2020-02-13] MEDS: BENZONATATE 100 MG CAP PO SCH ×3 (11:00→21:08)
--- NOTE | 2020-02-13 11:07 | NUR ---
off unit for procedure.
[2020-02-13] MEDS ORDERED: MORPHINE SULFATE INJ 4 MG/ML INJ 1ML ONE (12:53)
[2020-02-13] MEDS: VALSARTAN/SACUBITRIL 24MG/26MG 1 EA TAB PO SCH (14:11)
[2020-02-13] MEDS: FAMOTIDINE 20 MG/2 ML VIAL IV SCH ×2 (14:11→16:47)
[2020-02-13] MEDS: ONDANSETRON HCL 4 MG ORAL DISINTEGRATING TAB SL PRN (14:16)
[2020-02-13] MEDS: HYDROCODONE/APAP 5MG-325MG TAB PO PRN ×2 (14:16→21:08)
--- NOTE | 2020-02-13 15:46 | NUR ---
call to Dr. Langston orders given.
--- NOTE | 2020-02-13 16:11 | NUR ---
AAOX3 to time, person, place. Respirations even and unlabored. HR 124. One time dose of IV digoxin given as ordered
[2020-02-13] MEDS ORDERED: DIGOXIN INJ 0.25 MG/ML 2 ML AMP IV ONE (16:25)
[2020-02-13 16:34] VITALS: BP 129/71
[2020-02-13] MEDS: DIGOXIN 0.125 MG TAB PO SCH (16:45)
[2020-02-13] MEDS ORDERED: DIGOXIN INJ 0.25 MG/ML 2 ML AMP IV PRN (17:00)
[2020-02-13] MEDS: IRON SUCROSE 100 MG in SODIUM CHLORIDE 0.9% 100 ML 100 ML IV SCH (17:39)
--- NOTE | 2020-02-13 19:20 | NUR ---
walking rounds complete, pt stable at this time.
--- NOTE | 2020-02-13 19:20 | NUR ---
Patient visited in room during nursing rounds. Patient alert and oriented x3. Ambulatory in room. with standby assist prn. White in place for urinary retention. Pt has intermittent dry cough. S/P Left heart catheterization. Pressure dressing on right groin clean and dry. Call esparza within reach. Will monitor pt closely.
[2020-02-13 20:00] VITALS: BP 161/76
[2020-02-13 21:00] VITALS: BP 161/76
[2020-02-14] VITALS (7 sets, daily range): BP systolic 107–133; BP diastolic 68–92
--- NOTE | 2020-02-14 00:10 | Operative Report ---
DATE OF PROCEDURE: 02/13/2020 SURGEON: Dayron Langston MD DIAGNOSES: 1. Coronary disease with unstable angina pectoralis. 2. Biventricular severe congestive heart failure. 3. Hypertensive cardiovascular disease. 4. Chronic atrial fibrillation. 5. Severe COPD. 6. Severe low back pain. ANESTHESIA: 1. Local anesthetic to the left groin area. 2. Moderate sedation with Versed 1 mg and fentanyl 25 mcg requiring serial applications because of severe low back pain and continuous twisting and wiggliness and restlessness during the entire procedure. BLOOD LOSS: None. COMPLICATIONS: None. PROCEDURES: 1. Right and left heart cardiac catheterization with selective coronary angiography and left ventricular angiogram. 2. Abdominal aortography. 3. Left groin angiogram prior to closure of the left femoral artery with Angio-Seal, model VIP. MAIL CLERKS SUPERVISOR: None. DESCRIPTION OF PROCEDURE: After the usual prepping and draping, the left inguinal area was infiltrated with local lidocaine. Micropuncture kit was utilized for accessing the left femoral vein and left femoral artery. A 5-Congolese venous sheath was placed in the left femoral vein and a 6-Congolese arterial sheath was placed in the left femoral artery. Cardiac catheterization was then performed by advancing the right coronary catheter, which required a Wholey guidewire because of severe tortuosity of the left common iliac artery. Right coronary angiogram was then performed using the 4-Congolese 3DRC diagnostic catheter. After removal of the right heart catheter the left coronary Goyo type catheter was then advanced over the Wholey extended guidewire and after removal of the guidewire, angiogram of the left coronary artery was performed. The guidewire was then reinserted and after removal of the 6-Congolese Goyo type catheter for the left coronary artery, a 6-Congolese angled pigtail catheter was advanced into the apex of the left ventricle. The guidewire was then removed and pressure recordings were performed from the left ventricular cavity followed by a left ventricular angiogram in the 30 degree PICKARD projection. Pullback was then performed across the aortic valve and the pigtail catheter was then moved to the renal artery for abdominal arthrography. Following the abdominal aortogram and removal of the pigtail catheter, angiogram of the left inguinal area was performed in the JAMESON oblique position prior to closure of the left femoral artery with Angio-Seal. The left femoral vein catheter was then removed and hemostasis was achieved with manual compression. Dressing was then applied and the patient transferred to the observation area in stable condition. There were no complications, the procedure was well tolerated, however, as stated the procedure was continuously interfered in interrupted by the patient's complain of severe low back pain recognizing the patient had multiple lumbar surgery and also had extensive hardware with screws and plates in the lumbar area and suffering from continuous low back pain, which was aggravated by lying on the x-ray table and was barely controlled with analgesics as applied throughout the procedure. Prior to the removal of the venous sheath, a 5-Congolese [place]-Raimundo catheter was advanced for right heart catheterization. Recordings were obtained from the right atrium and the right ventricle, however, the right heart catheterization had to be terminated because the patient was non-cooperating and moving continuously and no further recordings were accomplished because of the patient's complaint and condition of his low back pain. The left main coronary artery was short, but normal. There was trifurcation of the left common artery into the LAD, which showed the proximal plate-like calcification and some mild narrowing of 30% diagonal branch of small to medium size and did not show any disease although the distal LAD was normal. There was an intermediate branch, which was of medium size and showed no disease. The left circumflex artery and obtuse marginal branches were large and dominant and there was 50% narrowing in the left circumflex trunk prior to a takeoff of the 1st obtuse marginal branch, which had some irregularity and 30% narrowing in the proximal portion. The distal left circumflex artery appeared to be normal. The right coronary artery was congenitally small and showed a 90% focal stenosis in the midportion. The left ventricular angiogram showed severe hypokinesis and a dilated left ventricle with an ejection fraction of 20%. There also was 2+ mitral regurgitation. The abdominal aortogram showed arteriosclerotic plaques in the infrarenal abdominal aorta without any evidence of aneurysm. Also there were some mild stenotic areas in the common iliac arteries. The right internal iliac artery showed 90% ostial stenosis. There also was some mild stenotic areas in the proximal left superficial femoral artery and left profunda branch as visualized on the study, also the both iliac arteries showing extreme tortuosity of the common iliacs. The patient's renal arteries did not show any proximal stenotic areas, however, part of the renal arteries were obscured because of the patient's lumbar hardware. The right heart catheterization showed right ventricular pressure of 45 mmHg. The left ventricular end-diastolic pressure was elevated at 18 mmHg. The right atrial pressures were elevated, however, it may not be reliable because of the patient's movement and respiratory variation during the recording. IMPRESSION: 1. Mild to moderately severe coronary artery disease. 2. Severe left ventricular and right ventricular dysfunction with elevated end-diastolic pressures and severe global hypokinesis of the left ventricle with an ejection fraction of 20% and 2+ mitral regurgitation. 3. Arteriosclerotic changes of the infrarenal abdominal aorta without an aneurysm or dissection. 4. Severe ostial stenosis of the right internal iliac artery and mild stenotic areas in both common iliac arteries with extreme tortuosity. RECOMMENDATIONS: 1. Medical therapy. 2. Considering the patient's severe left ventricular dysfunction with biventricular congestive heart failure and markedly diminished ejection fraction from about 50% in September to now 20%, I would recommend consultation with the EP Services for consideration of his electrical cardioversion and then followup with MANAGER SEMICONDUCTOR or even ablation of the patient's atrial fibrillation and placement of Watchman closure device for the left atrial appendage, also followed by MANAGER SEMICONDUCTOR, which in addition to medical therapy would be the only present recommendation to hopefully improve the patient's ventricular function. Dayron Langston MD [facility]/MODL /[id number] cc: Anthony Green MD
[2020-02-14] MEDS: LEVALBUTEROL HCL SOLN NEBU 0.63 MG/3 ML NEB INH SCH ×4 (00:40→20:30)
[2020-02-14] MEDS: PIPER-TAZ 3.375 GM 50 ML IV SCH ×3 (02:24→16:46)
[2020-02-14 05:53] LABS: ANION GAP 14.3 mmol/L (8-16); CALCIUM 9.3 mg/dL (8.4-10.2); CREATININE, SERUM 1.23 mg/dL (0.72-1.25); POTASSIUM 5.3 mmol/L (3.5-5.1)
[2020-02-14] MEDS: DILTIAZEM HCL 30 MG TAB PO SCH ×3 (06:33→16:46)
[2020-02-14] MEDS: HYDROCODONE/APAP 5MG-325MG TAB PO PRN ×2 (09:45→17:05)
[2020-02-14] MEDS: VALSARTAN/SACUBITRIL 24MG/26MG 1 EA TAB PO SCH (09:47)
[2020-02-14] MEDS: FAMOTIDINE 20 MG/2 ML VIAL IV SCH ×2 (09:47→16:45)
[2020-02-14] MEDS: DIGOXIN 0.125 MG TAB PO SCH (09:48)
[2020-02-14] MEDS: GUAIFENESIN 600 MG TAB PO SCH ×2 (09:48→16:46)
[2020-02-14] MEDS: APIXABAN 5 MG TABLET PO SCH ×2 (09:48→21:23)
[2020-02-14] MEDS: BENZONATATE 100 MG CAP PO SCH ×3 (09:48→21:23)
[2020-02-14] MEDS: PREGABALIN 75 MG CAP PO SCH ×2 (09:48→16:45)
[2020-02-14] MEDS: DOXYCYCLINE HYCLATE TABLET 100 MG TAB PO SCH ×2 (09:48→16:46)
[2020-02-14] MEDS: FUROSEMIDE 40 MG TAB PO SCH (09:48)
--- NOTE | 2020-02-14 15:46 | Diagnostic Imaging Report ---
EXAMINATION: CHEST 2 VIEWS INDICATION: CHF COMPARISON: Chest CT 02/11/2020 FINDINGS: LINES/TUBES:EKG leads overlie the chest. LUNGS:Hyperinflated lungs with emphysematous changes. No focal consolidation or pulmonary edema. Ovoid opacity at the right lower lung zone corresponds with fissural fluid seen on chest CT. PLEURA:Small bilateral pleural effusions. No pneumothorax. MEDIASTINUM:The cardiomediastinal silhouette appears unchanged in size and shape. BONES/SOFT TISSUES:No acute osseous injury. ABDOMEN:No free air under the diaphragm. IMPRESSION: Hyperinflated emphysematous lungs. No focal pneumonia or pulmonary edema. Small bilateral pleural effusions. Signed by: Carrie Arana MD on 02/14/2020 3:43 PM
--- NOTE | 2020-02-14 19:00 | NUR ---
RECEIVED PATIENT IN BEDSIDE SHIFT REPORT. PATIENT RESTING IN BED AT THIS TIME. NO PAIN REPORTED. NO S&S OF DISTRESS NOTED. ZURITA DRAINING CLEAR YELLOW URINE, HANGING ON BEDSIDE, OFF OF FLOOR. TELE MONITOR ON. BED LOCKED IN LOWEST POSITION, SIDE RAILS UPX2, CALL LIGHT IN REACH.
--- NOTE | 2020-02-14 19:57 | NUR ---
PER MD HUSTON, OKAY TO GIVE ELIQUIS BEFORE CARDIOVERSION/JOSE. ONLY NEEDS TO BE NPO AT MIDNIGHT ON 02/15.
[2020-02-14] MEDS: IPRATROPIUM BROMIDE 0.02% 2.5 ML NEB NEB PRN (20:30)
[2020-02-15] VITALS (8 sets, daily range): BP systolic 94–157; BP diastolic 67–116
[2020-02-15] MEDS: DILTIAZEM HCL 30 MG TAB PO SCH ×5 (00:19→23:56)
[2020-02-15] MEDS: ONDANSETRON HCL 4 MG ORAL DISINTEGRATING TAB SL PRN (01:19)
[2020-02-15] MEDS: IPRATROPIUM BROMIDE 0.02% 2.5 ML NEB NEB PRN ×2 (01:30→20:30)
[2020-02-15] MEDS: LEVALBUTEROL HCL SOLN NEBU 0.63 MG/3 ML NEB INH SCH ×4 (01:30→20:30)
[2020-02-15] MEDS: PIPER-TAZ 3.375 GM 50 ML IV SCH ×3 (02:00→17:37)
[2020-02-15] MEDS: HYDROCODONE/APAP 5MG-325MG TAB PO PRN ×3 (02:10→19:47)
[2020-02-15 06:50] LABS: ALANINE AMINOTRANSFERASE 153 IU/L (0-55); ALBUMIN 2.7 g/dL (3.5-5.0); ALBUMIN/GLOBULIN RATIO 0.6 (0.8-2.0); ALKALINE PHOSPHATASE 112 IU/L (40-150); BLOOD UREA NITROGEN 21 mg/dL (7-26); BUN/CREATININE RATIO 19 (6-25); CALCIUM 9.3 mg/dL (8.4-10.2); CARBON DIOXIDE 23 mmol/L (22-29); CHLORIDE 99 mmol/L (98-107); CREATININE, SERUM 1.11 mg/dL (0.72-1.25); EST GLOMERULAR FILTRATION RATE > 60 ML/MIN (60-); GLUCOSE 101 mg/dL (74-118); SODIUM 134 mmol/L (136-145)
[2020-02-15] MEDS: FUROSEMIDE 40 MG TAB PO SCH (08:38)
[2020-02-15] MEDS: DIGOXIN 0.125 MG TAB PO SCH (08:38)
[2020-02-15] MEDS: FAMOTIDINE 20 MG/2 ML VIAL IV SCH ×2 (08:38→17:37)
[2020-02-15] MEDS: PREGABALIN 75 MG CAP PO SCH ×2 (08:38→17:37)
[2020-02-15] MEDS: GUAIFENESIN 600 MG TAB PO SCH ×2 (08:39→17:37)
[2020-02-15] MEDS: DOXYCYCLINE HYCLATE TABLET 100 MG TAB PO SCH ×2 (08:39→17:37)
[2020-02-15] MEDS: BENZONATATE 100 MG CAP PO SCH ×3 (08:39→19:47)
--- NOTE | 2020-02-15 09:00 | NUR ---
White removed for voiding trial. Patient was educated on using the urinal.
[2020-02-15] MEDS: APIXABAN 5 MG TABLET PO SCH ×2 (10:00→19:47)
--- NOTE | 2020-02-15 12:00 | NUR ---
Patient has successfully voided. 200 ml 1st void and 400ml 2nd void, clear, yellow urine.
[2020-02-15] MEDS: IRON SUCROSE 100 MG in SODIUM CHLORIDE 0.9% 100 ML 100 ML IV SCH (14:04)
--- NOTE | 2020-02-15 17:30 | NUR ---
Patient has continued to void with no problems
--- NOTE | 2020-02-15 19:00 | NUR ---
RECEIVED PATIENT IN BEDSIDE SHIFT REPORT. PATIENT RESTING IN BED AT THIS TIME. PAIN 5/10, WILL MEDICATE. NO S&S OF DISTRESS NOTED. PATIENT CONTINUES TO BE ABLE TO VOID, URINE CLEAR, YELLOW. BED LOCKED IN LOWEST POSITION, SIDE RAILS UPX2, CALL LIGHT IN REACH.
[2020-02-15] MEDS: ONDANSETRON HCL INJ 2MG/ML 2ML 2 MG/ML VIAL IV PRN (21:37)
[2020-02-16] VITALS (17 sets, daily range): BP systolic 95–146; BP diastolic 61–98
[2020-02-16] MEDS: HYDROCODONE/APAP 5MG-325MG TAB PO PRN ×3 (01:57→22:36)
[2020-02-16] MEDS: PIPER-TAZ 3.375 GM 50 ML IV SCH ×3 (01:57→18:23)
[2020-02-16] MEDS: IPRATROPIUM BROMIDE 0.02% 2.5 ML NEB NEB PRN (02:00)
[2020-02-16] MEDS: LEVALBUTEROL HCL SOLN NEBU 0.63 MG/3 ML NEB INH SCH ×4 (02:00→20:40)
[2020-02-16] MEDS: DILTIAZEM HCL 30 MG TAB PO SCH ×3 (04:17→18:24)
[2020-02-16] MEDS ORDERED: BENZOCAINE 20% SPR 60 ML CAN ONE (07:48)
[2020-02-16] MEDS ORDERED: SODIUM CHLORIDE 0.9% 1000ML 1,000 ML ONE (07:48)
[2020-02-16] MEDS: APIXABAN 5 MG TABLET PO SCH ×2 (08:00→20:45)
[2020-02-16] MEDS: FAMOTIDINE 20 MG/2 ML VIAL IV SCH ×2 (08:55→18:22)
[2020-02-16] MEDS: PREGABALIN 75 MG CAP PO SCH ×2 (09:00→18:22)
[2020-02-16] MEDS: BENZONATATE 100 MG CAP PO SCH ×3 (09:00→20:45)
[2020-02-16] MEDS: GUAIFENESIN 600 MG TAB PO SCH ×2 (09:00→18:23)
[2020-02-16] MEDS: FUROSEMIDE 40 MG TAB PO SCH (09:00)
[2020-02-16] MEDS: DOXYCYCLINE HYCLATE TABLET 100 MG TAB PO SCH ×2 (09:00→18:23)
--- NOTE | 2020-02-16 10:00 | NUR ---
PT OFF UNIT FOR PROCEDURE. JOSE.
--- NOTE | 2020-02-16 10:49 | NUR ---
Patient taken to Endo 2 for JOSE/Cardioversion into the room at 0950. 1000 Anesthesia in the room. 1005 Dr Langston into the room. 1011 Timeout for procedure. 1012 Started procedure. Pt desat and hypotensive patient bagged by anesthesia chest compressions for approximately 90 before and after sync cardioversion @ 200 joules 1022 . ROSC with procedure end and aborted JOSE @1026.Pt out of room at 1030. Pt to Phase 1 PACU at 1031
[2020-02-16] MEDS ORDERED: ATROPINE SULFATE 0.1 MG/ML 10ML SYR ONE (10:53)
--- NOTE | 2020-02-16 12:00 | NUR ---
PT TRANSFERRED TO ICU [id number].
[2020-02-16] MEDS ORDERED: QUINIDINE GLUCONATE 324 MG PO SCH (13:15)
[2020-02-16] MEDS ORDERED: DIGOXIN INJ 0.25 MG/ML 2 ML AMP IV SCH (13:30)
[2020-02-16] MEDS: IRON SUCROSE 100 MG in SODIUM CHLORIDE 0.9% 100 ML 100 ML IV SCH (14:00)
[2020-02-16 14:18] LABS: BASOPHILS # (AUTO) 0.1 (0.0-0.1); BASOPHILS % 0.8 % (0.0-1.0); EOSINOPHILS # (AUTO) 0.2 (0.0-0.4); EOSINOPHILS % 3.3 % (0.0-6.0); HEMATOCRIT 44.1 % (38.2-49.6); HEMOGLOBIN 13.1 g/dL (14.0-18.0); LYMPHOCYTES # (AUTO) 1.6 (1.0-3.2); LYMPHOCYTES % 21.9 % (18.0-39.1); MEAN CORPUSCULAR HGB CONC 29.7 g/dL (31-35); MEAN CORPUSCULAR VOLUME 87.5 fL (81-99); MONOCYTES # (AUTO) 0.8 (0.2-0.8); MONOCYTES % 11.7 % (4.4-11.3); NEUTROPHILS # (AUTO) 4.3 (2.1-6.9); NEUTROPHILS % 61.3 % (38.7-80.0); PLATELET COUNT 368 x10e3/uL (140-360); RED BLOOD COUNT 5.04 x10e6/uL (4.3-5.7)
[2020-02-16] MEDS ORDERED: KETAMINE HCL INJ 50 MG/ML 10 ML VIAL ONE (14:30)
[2020-02-16] MEDS ORDERED: FENTANYL CITRATE/PF 100MCG/2 ML INJ ONE (14:30)
[2020-02-16] MEDS ORDERED: PROPOFOL IV EMULSION 10 MG/ML 20 ML VIAL ONE (14:45)
[2020-02-16] MEDS ORDERED: LIDOCAINE HCL 2% LOCAL INJ 5 ML SDV VIAL INJ ONE (14:45)
--- NOTE | 2020-02-16 16:41 | NUR ---
Nutrition Screen Note RD Recommendation for Physician: -Continue cardiac diet Plan of Care: RD following, monitoring for tolerance and adequacy Nutrition reason for involvement: follow up Primary Diagnose(s): CHF, afib, elevated LFTs, renal insufficiency, urinary retention PMH: HTN, afib, COPD, peptic ulcer disease Ht: 71 in Wt: 158 lbs (02/12) 162 lb (02/09) BMI: 22.0 kg/m2 IBW: [address] Assessment: (02/16/20) Follow up. Pt was scheduled to have a JOSE today. However, per chart, pt became hypotensive and desaturated during the procedure; therefore, pt was transferred to the ICU. Per chart, it is recorded that pt had been consuming 75-100% of meals. Will continue to monitor. (02/10/20) Chart reviewed. Labs and meds reviewed. Pt is a 59 year old male admitted with CHF, afib, elevated LFTs, renal insufficiency, and urinary retention. Pt reported he had a poor appetite for a week prior to admission, but reports his appetite has improved and is eating well at this time. No weight loss reported. Pt stated he usually weighs 150-155 lbs without excess fluid. Pt requested low sodium diet education which was provided. Will continue to monitor. Current Diet: cardiac Malnutrition Evaluation (02/10/20) The patient does not meet criteria for a specified degree of malnutrition at this time. Will re-evaluate at follow-up as appropriate. Diet Education Needs Assessment: Diet education indicated, RD provided diet education on 02/09 Learner(s): pt Barriers: no barriers identified Cultural/Language Modifications: no cultural/language modifications Readiness: eager/acceptance Method: explanation/discussion/handout Topics: low sodium diet Understanding/Compliance: pt verbalized understanding Nutrition Care Level: low Signed: Fernanda Ruiz, RD, LD
[2020-02-16] MEDS: DRONEDARONE 400 MG TAB PO SCH (18:22)
[2020-02-16] MEDS ORDERED: SODIUM CHLORIDE 0.9% 250ML 250 ML ONE (18:33)
[2020-02-16] MEDS: ONDANSETRON HCL INJ 2MG/ML 2ML 2 MG/ML VIAL IV PRN (22:05)
[2020-02-17] VITALS (16 sets, daily range): BP systolic 93–166; BP diastolic 54–98
[2020-02-17] MEDS: LEVALBUTEROL HCL SOLN NEBU 0.63 MG/3 ML NEB INH SCH ×4 (01:00→19:40)
[2020-02-17] MEDS: PIPER-TAZ 3.375 GM 50 ML IV SCH ×3 (02:15→18:16)
--- NOTE | 2020-02-17 04:51 | Operative Report ---
DATE OF PROCEDURE: 02/16/2020 SURGEON: Dayron Langston MD DIAGNOSES: 1. Arrhythmogenic cardiomyopathy with severe right and left ventricular dysfunction and low left ventricular ejection fraction of 20%. 2. Xuqy-ah-dtdvkwjqmh severe calcific coronary artery disease. 3. History of hypertension. 4. Severe chronic obstructive pulmonary disease. 5. Liver dysfunction and cirrhosis of the liver. 6. Severe low back pain, status post multiple laminectomies and installation of lumbar hardware. PROCEDURE: Electrical synchronized cardioversion with 200 WS, successful. ANESTHESIA: Anesthesia IV sedation administered by anesthesiologist. COMPLICATIONS: None. DESCRIPTION OF PROCEDURE: This 59-year-old patient, was taken to the endoscopy room for JOSE and electrical cardioversion. The patient was attended by anesthesiologist and IV sedation was administered. A JOSE was attempted. However, the patient became suddenly very restless by attempting to introduce of the JOSE scope. He was raising up, the tube was removed and additional IV sedation was given by the anesthesiologist. Prior to the procedure, the patient also received a 5 mg of metoprolol intravenously because of atrial fibrillation with rapid ventricular rates up to 140 per minute. When the procedure was initiated, the patient's ventricular rate was still between 101 and 110. However, after the patient required additional IV sedation, he became hypotensive and therefore, no further attempt of JOSE was considered, but immediate electrical cardioversion was performed by using a 200 watt seconds. The patient converted to sinus rhythm. Intermittently, the patient had sinus bradycardia in the 40s with PACs and some sinus pauses were noted. However, the patient had good peripheral strong pulses and with further observation of the patient's cardiac rhythm settled down into sinus rhythm between 60 and 70 per minute with premature atrial contractions. It is significant to note that one month ago, the patient was admitted at [facility] at [facility] with altered mental status and severe bradyarrhythmia with very slow atrial fibrillation in the 30s, requiring application of an external pacemaker and the patient was attended by Dr. Lc Werner and echocardiogram was obtained at the time on the January 13, which showed ejection fraction of 50% to 54%. Now, on this admission, the patient presented with atrial fibrillation and RVR and now showed evidence of severe anasarca and right and left ventricular dysfunction with an ejection fraction of 20%, indicative of an arrhythmogenic cardiomyopathy since the patient did not show any evidence of myocardial infarction. He also had altered mental status with slurred speech and right-sided weakness. However, the patient did not appear to have any evidence of CVA and mostly had the TIA. A JOSE was considered because the patient had initial cerebrovascular event and also missed a few doses of his Eliquis while I was performing a cardiac catheterization 2 days prior to his cardioversion. For now, we have successful cardioversion, restoring normal sinus rhythm. However, the patient is a very poor candidate for antiarrhythmic medication, which this hospital only consists of amiodarone and Multaq along with beta-blockers and calcium blockers for rate control. However, both of the medications have significant side effects including respiratory failure and interstitial pulmonary fibrosis with the patient already having severe COPD and also additional liver dysfunction with the patient having cirrhosis and persistent elevation of the liver enzymes. It also need to be mentioned that the patient had acute renal injury when he entered the [facility] in January and again on this admission, he had elevated BUN and creatinine, which eventually normalized. Therefore, we need to consider continuing the patient on beta-blockers and calcium blockers and may be adding Multaq for the time being with the hope that his left ventricular dysfunction will improve and return to the range of 50% to 54%, as it was on the January 13. Also, the patient might still need ablation of his atrial fibrillation and insertion of a Watchman and possible PHOTOVOLTAIC SOLAR CELL DESIGNER, which, however, need to be done at [facility], since this procedure cannot be done at this institution. I would definitely also recommend the insertion of a Watchman closure device for the atrial appendage, since the patient has a history of bleeding ulcers and he is still anemic and stool is positive for occult blood and he may still have some evidence of GI bleeding. Also, his H and H has been stable throughout his hospital stay and EP consultation has been requested by myself about so far. The patient has not been seen by the requested EP creative consultant. However, while awaiting more definitive procedures, which may take the time to be scheduled at a different institution and the patient's arrhythmogenic cardiomyopathy with anasarca and severe right and left ventricular dysfunction, I definitely felt restoring normal sinus rhythm would be in the best interest of the patient and this was accomplished by performing the electrical cardioversion. The patient still need to be anticoagulated and medicated accordingly and observed for the next 48-72 hours when he may be discharged. Awaiting further management of his atrial fibrillation. MD SÁNCHEZ Bah/CARMINA /[id number] cc: Anthony Green MD
[2020-02-17 05:41] LABS: HEMATOCRIT 45.5 % (38.2-49.6); HEMOGLOBIN 13.3 g/dL (14.0-18.0); MEAN CORPUSCULAR HGB CONC 29.2 g/dL (31-35); NEUTROPHILS % 48.1 % (38.7-80.0); PLATELET COUNT 364 x10e3/uL (140-360); RED BLOOD COUNT 5.11 x10e6/uL (4.3-5.7); RED CELL DISTRIBUTION WIDTH 19.7 % (11.7-14.4)
[2020-02-17 05:42] LABS: BASOPHILS % 0.6 % (0.0-1.0); EOSINOPHILS # (AUTO) 0.2 (0.0-0.4); EOSINOPHILS % 3.3 % (0.0-6.0); LYMPHOCYTES # (AUTO) 2.3 (1.0-3.2); MONOCYTES % 13.7 % (4.4-11.3); NEUTROPHILS # (AUTO) 3.3 (2.1-6.9)
[2020-02-17] MEDS: DILTIAZEM HCL 30 MG TAB PO SCH ×4 (05:45→18:16)
[2020-02-17 06:26] LABS: ALANINE AMINOTRANSFERASE 107 IU/L (0-55); ALBUMIN 2.8 g/dL (3.5-5.0); ALBUMIN/GLOBULIN RATIO 0.7 (0.8-2.0); ALKALINE PHOSPHATASE 100 IU/L (40-150); BLOOD UREA NITROGEN 26 mg/dL (7-26); BUN/CREATININE RATIO 25 (6-25); CALCIUM 9.4 mg/dL (8.4-10.2); CARBON DIOXIDE 22 mmol/L (22-29); CHLORIDE 103 mmol/L (98-107); CREATININE, SERUM 1.05 mg/dL (0.72-1.25); EST GLOMERULAR FILTRATION RATE > 60 ML/MIN (60-); GLUCOSE 99 mg/dL (74-118); SODIUM 135 mmol/L (136-145)
[2020-02-17] MEDS: IPRATROPIUM BROMIDE 0.02% 2.5 ML NEB NEB PRN (07:05)
[2020-02-17] MEDS: FAMOTIDINE 20 MG/2 ML VIAL IV SCH ×2 (07:59→17:34)
[2020-02-17] MEDS: DOXYCYCLINE HYCLATE TABLET 100 MG TAB PO SCH ×2 (07:59→17:34)
[2020-02-17] MEDS: BENZONATATE 100 MG CAP PO SCH ×3 (07:59→20:39)
[2020-02-17] MEDS: APIXABAN 5 MG TABLET PO SCH ×2 (07:59→20:39)
[2020-02-17] MEDS: DRONEDARONE 400 MG TAB PO SCH ×2 (07:59→17:34)
[2020-02-17] MEDS: GUAIFENESIN 600 MG TAB PO SCH ×2 (07:59→17:34)
[2020-02-17] MEDS: PREGABALIN 75 MG CAP PO SCH (08:00)
[2020-02-17] MEDS: HYDROCODONE/APAP 5MG-325MG TAB PO PRN ×3 (08:00→20:40)
[2020-02-17] MEDS: FUROSEMIDE 40 MG TAB PO SCH (10:22)
--- NOTE | 2020-02-17 11:28 | NUR ---
dr vincent rounded and said could downgrade/dc. per dr minaya ok to trans to med surg if ok by cardio. dr nolan ok to trans to ms floor. pt vs stable, AAOx3
--- NOTE | 2020-02-17 12:45 | NUR ---
PATIENT RECEIVED FROM ICU BY WHEEL CHAIR. ALERT AND VERBALLY RESPONSIVE. ABLE TO TRANSFER SELF TO BED. TELEMETRY BOX 1 APPLIED. PATIENT PROVIDED WITH URINAL. BED IN LOWER POSITION, CALL LIGHT AT REACH.
[2020-02-17] MEDS ORDERED: SODIUM CHLORIDE 0.9% 250ML 250 ML ONE (14:56)
[2020-02-17] MEDS: IRON SUCROSE 100 MG in SODIUM CHLORIDE 0.9% 100 ML 100 ML IV SCH (15:17)
--- NOTE | 2020-02-17 15:28 | NUR ---
PATIENT REQUESTED AND RECEIVED A SNACK. URINAL EMPTIED WITH CLEAR YELLOW URINE. IN BED WITH CALL LIGHT AT REACH.
[2020-02-17] MEDS: ONDANSETRON HCL INJ 2MG/ML 2ML 2 MG/ML VIAL IV PRN (18:20)
--- NOTE | 2020-02-17 19:50 | NUR ---
RECEIVED PT IN BED AOX3 .RESPIRATIONS ARE EVEN AND UNLABORED .TELE#1 SHOWS SR RT FA S/L PT REQUESTED SNACK AND GIVEN .CALL LIGHT WIUTH IN REACH .CONTINUE TO MONITOR
[2020-02-18] VITALS (8 sets, daily range): BP systolic 117–173; BP diastolic 59–93
[2020-02-18] MEDS: LEVALBUTEROL HCL SOLN NEBU 0.63 MG/3 ML NEB INH SCH ×4 (00:40→19:40)
[2020-02-18] MEDS: PIPER-TAZ 3.375 GM 50 ML IV SCH ×3 (02:18→17:23)
[2020-02-18] MEDS: HYDROCODONE/APAP 5MG-325MG TAB PO PRN ×5 (02:30→20:49)
[2020-02-18] MEDS: ONDANSETRON HCL INJ 2MG/ML 2ML 2 MG/ML VIAL IV PRN ×3 (02:42→18:24)
[2020-02-18] MEDS: IPRATROPIUM BROMIDE 0.02% 2.5 ML NEB NEB PRN ×2 (03:15→19:40)
--- NOTE | 2020-02-18 05:09 | NUR ---
PT C/O PAIN GIVEN ORDERED PAIN MEDICATION.GIVEN ZOFRAN FOR NAUSEA ,PT HAD SOB AND RT GIVEN BREATHING TREATMENT .CALL LIGHT WITH IN REACH .CONTINUE TO MONITOR
[2020-02-18] MEDS: DILTIAZEM HCL 30 MG TAB PO SCH ×4 (05:50→17:24)
--- NOTE | 2020-02-18 06:58 | NUR ---
Received patient lying in bed with eyes open. Respiration even and unlabored without SOB. Call light in reach.
--- NOTE | 2020-02-18 07:23 | NUR ---
BEDSIDE REPORT GIVEN TO THE ON COMING NURSE
[2020-02-18] MEDS: GUAIFENESIN 600 MG TAB PO SCH ×2 (08:06→14:22)
[2020-02-18] MEDS: DRONEDARONE 400 MG TAB PO SCH ×2 (08:06→14:23)
[2020-02-18] MEDS: FAMOTIDINE 20 MG/2 ML VIAL IV SCH ×2 (08:06→14:22)
[2020-02-18] MEDS: APIXABAN 5 MG TABLET PO SCH ×2 (08:06→20:07)
[2020-02-18] MEDS: BENZONATATE 100 MG CAP PO SCH ×3 (08:07→20:49)
[2020-02-18] MEDS: FUROSEMIDE 40 MG TAB PO SCH (08:09)
[2020-02-18] MEDS: DOXYCYCLINE HYCLATE TABLET 100 MG TAB PO SCH (08:09)
--- NOTE | 2020-02-18 11:35 | NUR ---
From urological standpoint, patient is okay to go home per Dr. German Miles.
--- NOTE | 2020-02-18 17:14 | Progress Note ---
DATE: Cardiology Progress Note SUBJECTIVE: The patient is seen and discussed with the patient. The patient was in ICU yesterday I saw him. Now, he is transferred to telemetry. After I saw him, moved him here. The patient at this time awake, alert. The patient is in sinus rhythm. The patient was in atrial fibrillation at the time of admission and the patient's further treatment is as per Dr. Dayron Langston and the patient is a patient of Dr. Green, who is following the patient also. Dr. Dayron Langston has seen the patient for atrial fibrillation. However, he has converted to sinus rhythm at this time. Please see detail note by Dr. Dayron Langston on Wednesday. It is a procedure note, no other findings. I confined myself to only the followup. At this time, the patient not in congestive heart failure and the patient is seen by urologist also and his other diagnoses are: 1. Congestive heart failure. 2. Chronic obstructive pulmonary disease. 3. Hypertension. 4. Paroxysmal atrial fibrillation. The patient is not in acute congestive heart failure. The patient has no complaints and the patient my point of view, in stable condition, in sinus rhythm. We will continue present medicine. MD VEENA Peterson/CARMINA /[id number]
--- NOTE | 2020-02-18 19:34 | NUR ---
RECEIVED PT IN BED AOX3 .RESPIRATIONS ARE EVEN AND UNLABORED .TELE#1 SHOWS SR RT FA S/L .CALL LIGHT WIUTH IN REACH .CONTINUE TO MONITOR
[2020-02-18] MEDS: HYDROXYZINE HCL 25 MG TAB PO PRN (20:08)
[2020-02-19] VITALS (9 sets, daily range): BP systolic 111–150; BP diastolic 63–97
[2020-02-19] MEDS: LEVALBUTEROL HCL SOLN NEBU 0.63 MG/3 ML NEB INH SCH ×5 (01:00→20:15)
[2020-02-19] MEDS: PIPER-TAZ 3.375 GM 50 ML IV SCH ×2 (02:27→10:00)
[2020-02-19] MEDS: HYDROXYZINE HCL 25 MG TAB PO PRN ×2 (02:41→11:21)
[2020-02-19] MEDS: ONDANSETRON HCL INJ 2MG/ML 2ML 2 MG/ML VIAL IV PRN ×3 (02:41→20:39)
[2020-02-19] MEDS: IPRATROPIUM BROMIDE 0.02% 2.5 ML NEB NEB PRN ×2 (02:50→07:26)
--- NOTE | 2020-02-19 05:15 | NUR ---
C/O PAIN AND GIVEN ORDERED PAIN MEDICATION ,CALL LIGHT WITH IN REACH .CONTINUE TO MONITOR
[2020-02-19] MEDS: DILTIAZEM HCL 30 MG TAB PO SCH ×3 (06:41→13:34)
[2020-02-19 07:19] LABS: ALANINE AMINOTRANSFERASE 67 IU/L (0-55); ALBUMIN 2.8 g/dL (3.5-5.0); ALBUMIN/GLOBULIN RATIO 0.7 (0.8-2.0); ALKALINE PHOSPHATASE 92 IU/L (40-150); ANION GAP 13.1 mmol/L (8-16); BLOOD UREA NITROGEN 23 mg/dL (7-26); BUN/CREATININE RATIO 20 (6-25); CALCIUM 9.2 mg/dL (8.4-10.2); CARBON DIOXIDE 28 mmol/L (22-29); CHLORIDE 98 mmol/L (98-107); CREATININE, SERUM 1.16 mg/dL (0.72-1.25); EST GLOMERULAR FILTRATION RATE > 60 ML/MIN (60-); GLUCOSE 140 mg/dL (74-118); POTASSIUM 4.1 mmol/L (3.5-5.1); SODIUM 135 mmol/L (136-145)
--- NOTE | 2020-02-19 07:38 | NUR ---
BEDSIDE REPORT GIVEN TO THE ONCOMING NURSE
[2020-02-19] MEDS: APIXABAN 5 MG TABLET PO SCH ×2 (08:44→19:57)
[2020-02-19] MEDS: GUAIFENESIN 600 MG TAB PO SCH ×2 (08:45→17:30)
[2020-02-19] MEDS: FUROSEMIDE 40 MG TAB PO SCH (08:45)
[2020-02-19] MEDS: HYDROCODONE/APAP 5MG-325MG TAB PO PRN ×3 (08:45→20:39)
[2020-02-19] MEDS: BENZONATATE 100 MG CAP PO SCH (08:45)
[2020-02-19] MEDS: FAMOTIDINE 20 MG/2 ML VIAL IV SCH ×2 (08:45→17:30)
[2020-02-19] MEDS: DRONEDARONE 400 MG TAB PO SCH ×2 (08:45→17:30)
[2020-02-19] MEDS: PROMETHAZINE HCL 25 MG TAB PO PRN (10:51)
[2020-02-19] MEDS: METOPROLOL TARTRATE 25 MG TAB PO SCH ×2 (17:30→23:38)
--- NOTE | 2020-02-19 19:00 | NUR ---
RECEIVED PATIENT IN BEDSIDE SHIFT REPORT. PATIENT RESTING IN BED AT THIS TIME. PAIN GENERALIZED 03/15, WILL MEDICATE WHEN TIME. NO S&S OF DISTRESS NOTED. BED LOCKED IN LOWEST POSITION, SIDE RAILS UPX2, CALL LIGHT IN REACH.
--- NOTE | 2020-02-19 23:02 | Diagnostic Imaging Report ---
EXAMINATION: CHEST 2 VIEWS INDICATION: Congestive heart failure, COPD COMPARISON: Chest x-ray 02/14/2020, Chest CT 02/11/2020 FINDINGS: TUBES /LINES/DEVICES: Spine stimulator device seen in the lower thoracic spine.. LUNGS/PLEURA: Hyperinflated lungs. Slightly prominent upper lung interstitial markings. Subtle left lower lung haziness. Prominent central pulmonary vasculature. Blunted posterior costophrenic sulci. HEART AND MEDIASTINUM: Cardiac size is mildly enlarged. BONES AND SOFT TISSUES: No acute osseous lesion. Soft tissues are unremarkable. Partially visualized lower spine fixation hardware. UPPER ABDOMEN: No free air under the diaphragm. IMPRESSION: Findings of pulmonary emphysema. Reiterate recommendation from recent chest CT for a follow-up chest radiograph in 6-8 weeks given patchy lower lung opacity seen on recent chest CT. Mild cardiomegaly and pulmonary vascular congestion. Mild pulmonary interstitial edema and trace pleural effusions are possible. Signed by: Lake Ortiz DO on 02/19/2020 10:59 PM
[2020-02-20] VITALS (8 sets, daily range): BP systolic 114–149; BP diastolic 64–81
[2020-02-20] MEDS: LEVALBUTEROL HCL SOLN NEBU 0.63 MG/3 ML NEB INH SCH ×4 (01:47→20:08)
[2020-02-20] MEDS: HYDROCODONE/APAP 5MG-325MG TAB PO PRN ×4 (02:41→21:10)
[2020-02-20] MEDS: METOPROLOL TARTRATE 25 MG TAB PO SCH (06:00)
[2020-02-20] MEDS: DRONEDARONE 400 MG TAB PO SCH ×2 (08:00→16:31)
[2020-02-20] MEDS: FAMOTIDINE 20 MG/2 ML VIAL IV SCH ×2 (09:00→16:28)
--- NOTE | 2020-02-20 09:00 | NUR ---
Spoke with Dr. Langston at this time to report bradycardia. Received orders to hold lopressor if HR<60.
[2020-02-20] MEDS: APIXABAN 5 MG TABLET PO SCH ×2 (09:28→21:13)
[2020-02-20] MEDS: FUROSEMIDE 40 MG TAB PO SCH (09:29)
[2020-02-20] MEDS: GUAIFENESIN 600 MG TAB PO SCH ×2 (09:29→16:29)
[2020-02-20] MEDS ORDERED: SUMATRIPTAN SUCCINATE 6 MG/0.5 ML VIAL SC ONE (12:35)
[2020-02-20] MEDS: VALSARTAN/SACUBITRIL 24MG/26MG 1 EA TAB PO SCH (16:28)
--- NOTE | 2020-02-20 19:00 | NUR ---
RECEIVED PATIENT IN BEDSIDE SHIFT REPORT. PATIENT RESTING IN BED AT THIS TIME. MODERATE PAIN REPORTED. NO S&S OF DISTRESS NOTED. BED LOCKED IN LOWEST POSITION, SIDE RAILS UPX2, CALL LIGHT IN REACH.
[2020-02-20] MEDS: ONDANSETRON HCL INJ 2MG/ML 2ML 2 MG/ML VIAL IV PRN (23:04)
[2020-02-21] VITALS (8 sets, daily range): BP systolic 100–124; BP diastolic 66–85
[2020-02-21] MEDS: LEVALBUTEROL HCL SOLN NEBU 0.63 MG/3 ML NEB INH SCH ×4 (00:50→19:05)
--- NOTE | 2020-02-21 02:12 | Progress Note ---
DATE: 02/20/2020 IMPRESSION: 1. 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 2. Congestive heart failure, resolved. 3. Sick sinus syndrome with peter tachyarrhythmia. 4. History of atrial fibrillation with rapid ventricular response. 5. Migraine headaches. 6. Severe chronic obstructive pulmonary disease. 7. Lzta-jq-icxhogxm severe calcific coronary artery disease. 8. Chronic low back pain. 9. Cirrhosis of the liver. SUBJECTIVE: The patient is complaining of severe migraine headaches. He used to take Imitrex. He states that his headaches are unbearable and he is asking for rapid relief. He denies any chest pain, and is breathing comfortable at rest. He also denies anymore edema or swelling. OBJECTIVE: VITAL SIGNS: The patient's temperature is 97.5, blood pressure 129/81, oxygen saturation 97% on room air. The patient's pulse is recorded at 54 per minute. CHEST: Reveals decreased breath sound and hyper-resonance, but there are no rales, no wheezes, no rhonchi. CARDIOVASCULAR: Reveals regular sinus rhythm at 58 beats per minute. ABDOMEN: Soft. There is no tenderness or organomegaly. EXTREMITIES: Show no edema. Pedal pulses are present, although there is no further edema involving his scrotal and genital areas. NEUROLOGIC: The patient does not reveal any motor defect. LABORATORY DATA: The patient's laboratory data from the February 18 showed a potassium of 4.1, the BUN 23, creatinine 1.16, and his liver enzymes revealed AST of 25 and ALT of 67. The patient's telemetry shows persistent normal sinus rhythm. However, at times, there has been severe sinus bradycardia in the 30s and 40s. He still has some occasional premature atrial contractions. The patient's chest x-ray reviewed by myself, shows much improvement. There is no more evidence of congestive heart failure. There is still evidence of emphysema and COPD. The patient's cardiac rhythm has been stable. However, he is showing evidence of sick sinus syndrome with severe bradyarrhythmia and therefore, I have to discontinue the patient's metoprolol and he probably is unable to take a beta-joseph as part of his treatment for congestive heart failure. However, the potassium is now back in the range of 4.1 from previously 5.0, which became elevated using aldosterone antagonist and KENAN inhibitor. Since the patient does not have any further need for diuretic, I think we can leave the spironolactone off, but I will try again some KENAN-ARBs and watching the patient's potassium level carefully. By doing so, I would recommend to continue observation in the telemetry. Dayron Langston MD [facility]L /[id number] cc: Anthony Green MD
[2020-02-21] MEDS: HYDROCODONE/APAP 5MG-325MG TAB PO PRN ×4 (03:18→21:30)
[2020-02-21 06:39] LABS: ANION GAP 16.6 mmol/L (8-16); BLOOD UREA NITROGEN 29 mg/dL (7-26); BUN/CREATININE RATIO 26 (6-25); CALCIUM 9.2 mg/dL (8.4-10.2); CARBON DIOXIDE 20 mmol/L (22-29); CHLORIDE 102 mmol/L (98-107); CREATININE, SERUM 1.11 mg/dL (0.72-1.25); EST GLOMERULAR FILTRATION RATE > 60 ML/MIN (60-); GLUCOSE 94 mg/dL (74-118); POTASSIUM 4.6 mmol/L (3.5-5.1); SODIUM 134 mmol/L (136-145)
--- NOTE | 2020-02-21 07:40 | NUR ---
PATIENT IS AWAKE, ALERT, AND IN STABLE CONDITION WITH NO S/S OF RESPIRATORY DISTRESS. PATIENT C/O LOWER BACK PAIN 03/15- PATIENT IS AWARE PAIN MEDICATION IS NOT AVAILABLE AT THIS TIME AND IS EVERY 6 HOURS NEEDED. URINAL PROVIDED TO PATIENT AT BEDSIDE. PATIENT HAS PERSONAL CANE WITHIN REACH, REFUSES THE BED ALARM BUT STATES HE WILL CALL PRIOR TO GETTING OUT OF BED. CALL LIGHT IS WITHIN REACH, PATIENT INSTRUCTED TO CALL FOR ASSISTANCE NEEDED.
[2020-02-21] MEDS: GUAIFENESIN 600 MG TAB PO SCH ×2 (08:25→16:21)
[2020-02-21] MEDS: VALSARTAN/SACUBITRIL 24MG/26MG 1 EA TAB PO SCH (08:25)
[2020-02-21] MEDS: APIXABAN 5 MG TABLET PO SCH ×2 (08:25→20:08)
[2020-02-21] MEDS: DRONEDARONE 400 MG TAB PO SCH ×2 (08:25→16:22)
[2020-02-21] MEDS: FAMOTIDINE 20 MG/2 ML VIAL IV SCH ×2 (08:25→16:22)
[2020-02-21] MEDS: FUROSEMIDE 40 MG TAB PO SCH (08:25)
[2020-02-21] MEDS: ONDANSETRON HCL INJ 2MG/ML 2ML 2 MG/ML VIAL IV PRN ×3 (08:30→18:35)
--- NOTE | 2020-02-21 09:47 | NUR ---
CALLED DR. HUSTON'S OFFICE-SPOKE WITH DANK WHO WILL PAGE DR. HUSTON REGARDING PATIENT'S FLUCTUATION OF HEART RATE FROM 72 TO 155. CURRENT HEART RHYTHM IS IN AFIB. PIECE DYEING MACHINE TENDER INFORMED CALL PLACED OUT TO DOCTOR.
[2020-02-21] MEDS ORDERED: DIGOXIN INJ 0.25 MG/ML 2 ML AMP IV ONE (10:45)
[2020-02-21] MEDS ORDERED: SUMATRIPTAN SUCCINATE 25 MG TAB PO PRN (10:45)
[2020-02-21] MEDS: SUMATRIPTAN SUCCINATE 25 MG TAB PO PRN (11:36)
[2020-02-21] MEDS ORDERED: METOPROLOL TARTRATE INJ 1 MG/ML VIAL IV ONE (13:15)
[2020-02-21] MEDS ORDERED: METOPROLOL TARTRATE 25 MG TAB PO SCH (13:30)
[2020-02-21] MEDS ORDERED: DILTIAZEM HCL 30 MG TAB PO SCH (14:00)
[2020-02-21] MEDS: DILTIAZEM HCL 30 MG TAB PO SCH (15:25)
[2020-02-21] MEDS: METOPROLOL TARTRATE 25 MG TAB PO SCH (18:00)
--- NOTE | 2020-02-21 19:15 | NUR ---
PATIENT IS IN STABLE CONDITION WITH NO S/S OF RESPIRATORY DISTRESS- NO PAIN VOICED. IV ZOFRAN ADMINISTERED TO PATIENT RECENTLY. CALL LIGHT IS WITHIN REACH, PATIENT INSTRUCTED TO CALL FOR ASSISTANCE NEEDED. BEDSIDE SHIFT REPORT GIVEN TO ONCOMING NURSE.
--- NOTE | 2020-02-21 19:30 | NUR ---
patient received awake, alert, lying quietly in bed. vss. no c/o pain noted. pm assessment complete. call esparza placed within reach. patient instructed to call for assistance when needed.
--- NOTE | 2020-02-21 21:30 | NUR ---
patient medicated with norco 5/325mg po for c/o lower back pain 02/13 at this time per patients request.
[2020-02-22] VITALS (8 sets, daily range): BP systolic 102–133; BP diastolic 64–88
[2020-02-22] MEDS: LEVALBUTEROL HCL SOLN NEBU 0.63 MG/3 ML NEB INH SCH ×4 (02:30→19:05)
[2020-02-22] MEDS: HYDROCODONE/APAP 5MG-325MG TAB PO PRN ×4 (03:35→22:25)
--- NOTE | 2020-02-22 03:35 | NUR ---
patient medicated with norco 5/325mg po for c/o lower back pain 5/10 at this time per patients request.
[2020-02-22] MEDS: METOPROLOL TARTRATE 25 MG TAB PO SCH ×4 (05:13→18:43)
[2020-02-22] MEDS: ONDANSETRON HCL INJ 2MG/ML 2ML 2 MG/ML VIAL IV PRN ×2 (06:45→19:14)
--- NOTE | 2020-02-22 07:00 | NUR ---
PATIENT IS AWAKE AND IN STABLE CONDITION WITH NO S/S OF RESPIRATORY DISTRESS. NO PAIN VOICED. CALL LIGHT IS WITHIN REACH- PATIENT INSTRUCTED TO CALL FOR ASSISTANCE NEEDED.
--- NOTE | 2020-02-22 07:30 | NUR ---
TELEMETRY REPORTED AFIB FLUTTER AND HR ON 90'S. PAGED DR. HUSTON OFFICE AND REPORTED THE SAME. REPORTED THE MESSAGE TO PRIMARY NURSE.
[2020-02-22] MEDS: DRONEDARONE 400 MG TAB PO SCH ×2 (07:55→15:56)
[2020-02-22] MEDS: DILTIAZEM HCL 30 MG TAB PO SCH ×3 (07:55→15:56)
[2020-02-22] MEDS: APIXABAN 5 MG TABLET PO SCH ×2 (07:55→20:00)
[2020-02-22] MEDS: FAMOTIDINE 20 MG/2 ML VIAL IV SCH ×2 (08:00→15:56)
[2020-02-22] MEDS: GUAIFENESIN 600 MG TAB PO SCH ×2 (08:00→15:56)
[2020-02-22] MEDS: FUROSEMIDE 40 MG TAB PO SCH (08:00)
[2020-02-22] MEDS: SUMATRIPTAN SUCCINATE 25 MG TAB PO PRN (08:18)
--- NOTE | 2020-02-22 15:56 | NUR ---
Nutrition Screen Note RD Recommendation for Physician: -Continue cardiac diet Plan of Care: RD following, monitoring for tolerance and adequacy Nutrition reason for involvement: follow up Primary Diagnose(s): CHF, afib, elevated LFTs, renal insufficiency, urinary retention PMH: HTN, afib, COPD, peptic ulcer disease Ht: 71 in Wt: 158 lbs (02/12) 162 lb (02/09) BMI: 22.0 kg/m2 IBW: [address] Assessment: 02/21: Follow up. Pt reports good appetite and po intake, noted 75-100% meal intake per chart, and pt consuming Ensure Compact sent as snacks. Pt denies any GI distress. Pt pending pacemaker placement in am. All questions and concerns addressed at time of visit. Chart reviewed. Labs and meds reviewed. Will continue to monitor. (02/16/20) Follow up. Pt was scheduled to have a JOSE today. However, per chart, pt became hypotensive and desaturated during the procedure; therefore, pt was transferred to the ICU. Per chart, it is recorded that pt had been consuming 75-100% of meals. Will continue to monitor. (02/10/20) Chart reviewed. Labs and meds reviewed. Pt is a 59 year old male admitted with CHF, afib, elevated LFTs, renal insufficiency, and urinary retention. Pt reported he had a poor appetite for a week prior to admission, but reports his appetite has improved and is eating well at this time. No weight loss reported. Pt stated he usually weighs 150-155 lbs without excess fluid. Pt requested low sodium diet education which was provided. Will continue to monitor. Current Diet: cardiac Malnutrition Evaluation (02/10/20) The patient does not meet criteria for a specified degree of malnutrition at this time. Will re-evaluate at follow-up as appropriate. Diet Education Needs Assessment: Diet education indicated, RD provided diet education on 02/09 Learner(s): pt Barriers: no barriers identified Cultural/Language Modifications: no cultural/language modifications Readiness: eager/acceptance Method: explanation/discussion/handout Topics: low sodium diet Understanding/Compliance: pt verbalized understanding Nutrition Care Level: low Signed: Nicole Gar RD, LD, [facility]
--- NOTE | 2020-02-22 18:57 | NUR ---
PATIENT IS IN STABLE CONDITION WITH NO S/S OF RESPIRATORY DISTRESS. NO PAIN VOICED. PATIENT REQUESTED NAUSEA MEDICATION. PATIENT IS AWARE HE WILL BE NPO AFTER MIDNIGHT. CALL LIGHT IS WITHIN REACH, PATIENT INSTRUCTED TO CALL FOR ASSISTANCE NEEDED. BEDSIDE SHIFT REPORT GIVEN TO ONCOMING NURSE.
--- NOTE | 2020-02-22 19:10 | NUR ---
patient received awake, alert, lying quietly in bed. no c/o pain noted. patient will be npo after mn for ppm placement tomorrow. patient verbalizes understanding of this. pm assessment complete. patient instructed to call for assistance when needed.
--- NOTE | 2020-02-22 22:25 | NUR ---
patient assisted with shower at this time. patient medicated with norco 5/325mg po for c/o lower back pain 01/13 per patients request.
[2020-02-23] VITALS (8 sets, daily range): BP systolic 110–138; BP diastolic 66–94
[2020-02-23] MEDS ORDERED: CEFAZOLIN SOD 1 GM/NS 50ML 50 ML IV PRN
[2020-02-23] MEDS ORDERED: CEFAZOLIN SOD IV PRN (00:15)
[2020-02-23] MEDS ORDERED: NS IV PRN (00:15)
[2020-02-23] MEDS: LEVALBUTEROL HCL SOLN NEBU 0.63 MG/3 ML NEB INH SCH ×4 (00:25→20:50)
[2020-02-23] MEDS: HYDROCODONE/APAP 5MG-325MG TAB PO PRN ×2 (05:00→14:27)
--- NOTE | 2020-02-23 05:00 | NUR ---
patient medicated with norco 5/325mg po for c/o lower back pain 5/10 at this time per patients request.
[2020-02-23] MEDS: METOPROLOL TARTRATE 25 MG TAB PO SCH ×5 (05:22→23:12)
[2020-02-23 06:47] LABS: BASOPHILS # (AUTO) 0.1 (0.0-0.1); BASOPHILS % 1.5 % (0.0-1.0); EOSINOPHILS # (AUTO) 0.2 (0.0-0.4); EOSINOPHILS % 2.5 % (0.0-6.0); HEMATOCRIT 46.4 % (38.2-49.6); HEMOGLOBIN 14.4 g/dL (14.0-18.0); LYMPHOCYTES # (AUTO) 2.5 (1.0-3.2); LYMPHOCYTES % 42.1 % (18.0-39.1); MEAN CORPUSCULAR HEMOGLOBIN 27.7 pg (28-32); MEAN CORPUSCULAR VOLUME 89.4 fL (81-99); MONOCYTES # (AUTO) 0.7 (0.2-0.8); MONOCYTES % 11.4 % (4.4-11.3); NEUTROPHILS # (AUTO) 2.5 (2.1-6.9); NEUTROPHILS % 41.8 % (38.7-80.0); PLATELET COUNT 308 x10e3/uL (140-360); RED BLOOD COUNT 5.19 x10e6/uL (4.3-5.7); RED CELL DISTRIBUTION WIDTH 20.9 % (11.7-14.4)
[2020-02-23 07:00] LABS: INR 1.02
[2020-02-23 07:01] LABS: PARTIAL THROMBOPLASTIN TIME 31.5 seconds (23.8-35.5)
[2020-02-23 07:15] LABS: ALBUMIN/GLOBULIN RATIO 0.7 (0.8-2.0); ANION GAP 12.5 mmol/L (8-16); CREATININE, SERUM 1.23 mg/dL (0.72-1.25); POTASSIUM 4.5 mmol/L (3.5-5.1)
--- NOTE | 2020-02-23 07:15 | NUR ---
BEDSIDE ROUNDS DONE. PT REMAINS NPO FOR PROCEDURE.
[2020-02-23] MEDS: DRONEDARONE 400 MG TAB PO SCH ×2 (08:00→17:00)
[2020-02-23] MEDS: DILTIAZEM HCL 30 MG TAB PO SCH ×4 (08:00→23:11)
[2020-02-23] MEDS: APIXABAN 5 MG TABLET PO SCH ×2 (08:00→17:00)
[2020-02-23] MEDS ORDERED: LIDOCAINE 1% W/EPINEPHRINE 20 ML VIAL ONE ×2 (08:39→10:44)
[2020-02-23] MEDS ORDERED: BACITRACIN 50,000 UNIT VIAL ONE (08:40)
[2020-02-23] MEDS ORDERED: SODIUM CHLORIDE 0.9% 500ML 1,000 ML ONE (08:41)
[2020-02-23] MEDS ORDERED: SODIUM CHLORIDE 0.9% 1000ML 1,000 ML ONE ×2 (08:42→09:50)
--- NOTE | 2020-02-23 08:45 | NUR ---
PATIENT NEEDS IV IN LT ARM FOR PACEMAKER PLACEMENT. NEW 20 GUAGE STARTED NEEDED IN LT ARM
[2020-02-23] MEDS: FUROSEMIDE 40 MG TAB PO SCH (09:00)
[2020-02-23] MEDS: GUAIFENESIN 600 MG TAB PO SCH ×2 (09:00→17:00)
[2020-02-23] MEDS ORDERED: CEFAZOLIN SOD 1 GM VIAL ONE (09:30)
--- NOTE | 2020-02-23 09:30 | NUR ---
PT T INFANTRY OFFICER VIA BED.
[2020-02-23] MEDS ORDERED: LIDOCAINE HCL 2% LOCAL 20 ML VIAL ONE (10:55)
[2020-02-23] MEDS ORDERED: DIGOXIN INJ 0.25 MG/ML 2 ML AMP IV ONE (13:15)
[2020-02-23] MEDS: FAMOTIDINE 20 MG/2 ML VIAL IV SCH ×2 (13:24→17:00)
--- NOTE | 2020-02-23 13:30 | NUR ---
PT BACK IN ROOM AFTER PROCEDURE.
--- NOTE | 2020-02-23 14:07 | Diagnostic Imaging Report ---
EXAMINATION: CHEST SINGLE (PORTABLE) INDICATION: Postprocedural COMPARISON: Chest radiograph 02/14/2020 FINDINGS: LINES/TUBES:Interval left chest pacemaker placement. LUNGS:The lungs are hyperinflated. No focal consolidation or pulmonary edema. PLEURA:No pleural effusion or pneumothorax. MEDIASTINUM:The cardiomediastinal silhouette appears normal in size and shape. Atherosclerotic calcifications of the thoracic aorta. BONES/SOFT TISSUES:No acute osseous injury. ABDOMEN:No free air under the diaphragm. IMPRESSION: No pneumothorax status post interval left chest pacemaker placement. Signed by: Carrie Arana MD on 02/23/2020 2:04 PM
[2020-02-23] MEDS ORDERED: PROPOFOL IV EMULSION 10 MG/ML 20 ML VIAL ONE (14:18)
[2020-02-23] MEDS ORDERED: LIDOCAINE HCL 2% LOCAL INJ 5 ML SDV VIAL INJ ONE (14:18)
[2020-02-23] MEDS: CEFAZOLIN SOD 1 GM/NS 50ML 50 ML IV SCH ×2 (16:04→20:06)
[2020-02-23] MEDS ORDERED: HYDROCODONE/APAP 5MG-325MG TAB PO ONE (17:35)
--- NOTE | 2020-02-23 18:15 | NUR ---
DR MARIO AND DR KILPATRICK TO SEE PT.
--- NOTE | 2020-02-23 18:25 | NUR ---
PT REMINDED TO KEEP HIS ARM ELEVATED. SLING IN PLACE. PT MORE COMFORTABLE AT THIS TIME
--- NOTE | 2020-02-23 19:50 | NUR ---
Resumed care of patient. Patient awake and resting in bed, no s/s of distress at this time. Bed locked and in lowest position, side rails up x3, alarm on, call light placed within reach. Patient instructed to call for assistance if needed, verbalized understanding. Will continue to monitor.
[2020-02-23] MEDS: HYDROCODONE/APAP 10MG-325MG TAB PO PRN (20:06)
--- NOTE | 2020-02-23 20:55 | NUR ---
Spoke to Dr. Green regarding patient's request to change [place] 10 frequency from Q6H PRN to Q4H PRN. Per Dr. Green, keep frequency Q6H PRN and DC [place] 5.
--- NOTE | 2020-02-23 20:59 | NUR ---
Patient made aware that [place] 10 will be Q6H PRN. Patient verbalized understanding.
[2020-02-23] MEDS: SUMATRIPTAN SUCCINATE 25 MG TAB PO PRN (22:35)
--- NOTE | 2020-02-23 23:12 | NUR ---
Metoprolol and Cardizem held due to HR<60.
[2020-02-24] VITALS (8 sets, daily range): BP systolic 121–159; BP diastolic 74–87
[2020-02-24] MEDS: HYDROCODONE/APAP 10MG-325MG TAB PO PRN ×4 (02:06→20:18)
[2020-02-24] MEDS: CEFAZOLIN SOD 1 GM/NS 50ML 50 ML IV SCH ×2 (02:06→08:10)
[2020-02-24] MEDS: LEVALBUTEROL HCL SOLN NEBU 0.63 MG/3 ML NEB INH SCH ×4 (02:20→20:20)
[2020-02-24] MEDS: METOPROLOL TARTRATE 25 MG TAB PO SCH ×2 (05:11→08:11)
--- NOTE | 2020-02-24 06:56 | NUR ---
Bedside report given to oncoming nurse. Patient resting in bed, respirations even and unlabored, no s/s of distress at this time.
--- NOTE | 2020-02-24 07:38 | Diagnostic Imaging Report ---
EXAMINATION: CHEST SINGLE (PORTABLE) INDICATION: ^PPM ^[id number] ^[id number] COMPARISON: 02/23/2020 FINDINGS: AP view TUBES and LINES: Unchanged left chest pacemaker. LUNGS: Lungs are well inflated. Stable right lung base nodular opacity, likely scarring. There is no evidence of pneumonia or pulmonary edema. PLEURA: No pleural effusion or pneumothorax. HEART AND MEDIASTINUM: The cardiomediastinal silhouette is unchanged. BONES AND SOFT TISSUES: No acute osseous lesion. Soft tissues are unremarkable. UPPER ABDOMEN: No free air under the diaphragm. IMPRESSION: Stable exam. No pneumothorax. Signed by: Refugio De Souza MD on 02/24/2020 7:35 AM
[2020-02-24] MEDS: FAMOTIDINE 20 MG/2 ML VIAL IV SCH ×2 (08:10→16:42)
[2020-02-24] MEDS: DILTIAZEM HCL 30 MG TAB PO SCH ×3 (08:10→23:24)
[2020-02-24] MEDS: DRONEDARONE 400 MG TAB PO SCH ×2 (08:10→16:51)
[2020-02-24] MEDS: APIXABAN 5 MG TABLET PO SCH ×2 (08:11→16:43)
[2020-02-24] MEDS: GUAIFENESIN 600 MG TAB PO SCH ×2 (08:11→16:43)
[2020-02-24] MEDS: FUROSEMIDE 40 MG TAB PO SCH (09:00)
[2020-02-24] MEDS: METOPROLOL TARTRATE 50 MG TAB PO SCH ×2 (09:30→16:51)
[2020-02-24 10:44] LABS: BLOOD UREA NITROGEN 22 mg/dL (7-26); BUN/CREATININE RATIO 20 (6-25); CALCIUM 8.8 mg/dL (8.4-10.2); CARBON DIOXIDE 27 mmol/L (22-29); CHLORIDE 101 mmol/L (98-107); CREATININE, SERUM 1.11 mg/dL (0.72-1.25); EST GLOMERULAR FILTRATION RATE > 60 ML/MIN (60-); GLUCOSE 143 mg/dL (74-118); SODIUM 135 mmol/L (136-145)
[2020-02-24] MEDS: ONDANSETRON HCL INJ 2MG/ML 2ML 2 MG/ML VIAL IV PRN (20:53)
[2020-02-25] VITALS: BP 132/91
--- NOTE | 2020-02-25 00:50 | Discharge Summary ---
HOSPITAL COURSE: See also electronic medical record. The patient was hospitalized through the emergency room with shortness of breath. Database was obtained and monitored. The patient was treated medically for congestive heart failure and COPD with exacerbation. The patient has a history of chronic paroxysmal atrial fibrillation. Episodic atrial flutter. Cardioversion here two years prior. Course was complicated by the patient's multiple preexisting diseases including peptic ulcer disease with old bleed, chronic pain with failed back syndrome, status post 5 back surgeries in [place] several years prior, migraine headaches, degenerative joint disease of the left knee, prediabetes, chronic anticoagulation, anemia on admission, renal insufficiency on arrival, and urinary retention, acute on arrival; cirrhosis with abnormal liver enzymes. History of the edematous gallbladder without stones on recent studies at [facility]. GERD. These are included in his discharge diagnoses. I saw the patient. The 1st two days of his hospitalization and thereafter, he was seen by Dr. Lemus during the following week. Thereafter, resumed his care. The patient was kindly seen by Urology consultants. He required White and urinary obstruction was not obvious at White placement. The patient's renal parameters progressively improved and he was able to void without White during hospitalization. His urologist, he follow up there post discharge. The patient's congestive heart failure responded to medical therapy and rate control. The course was complicated by intermittent bradycardia. The patient ultimately required cardioversion and pacemaker placement. Postoperative course was improved. See also operative reports per the patient's duct maker. Hypertension was treated medically. The patient had a very lengthy course complicated as above. BP and respiratory status intermittently labile as was his recurrent tachy and bradyarrhythmias. Course included treatment with Multaq, losartan. The patient was re-educated regarding tobacco avoidance and appropriate diet. Hemoccult was reactive x1 without obvious bleed and the patient has had recent GI workup and will require GI followup later. See also serial orders. LABORATORY AND IMAGING STUDIES: On admission; hemoglobin 11.1 on February 08 with normal white count and platelet count. Hemoglobin on February 09 was 10.6. Hemoglobin on February 22 was 14.4. INR 1.04 on February 12; 1.02 on February 19. PTT 31.5 on February 22. UA on admission clear; 11 to 20 white cells and red cells per HPF on February 09. The patient did receive antibiotics transiently while here. Viral hepatitis diagnostic profile was negative. Coronavirus not detected on February 08; not detected on February 20. Drug screen positive for the patient's opiates, which he was on chronically through [facility] prior to admission. Chemistries monitored. Natriuretic peptide elevated 2264 on arrival. BUN 31, creatinine on admission. AST 168, ALT 562 on admission. Alkaline phosphatase was normal at 147 on admission. Cardiac enzymes did not suggest acute MA. HDL 20, LDL 61. TSH is 1.6. B12 level normal at 530. Folic acid normal at 5.2. A1c 6.0 on February 09. AST 24, ALT 44 on February 22. BUN 22, creatinine 1.11 on March 05. See also serial imaging reports. Admission ER chest x-ray with pulmonary edema. Head CT done for questionable altered sensorium in the ER, revealing no acute intracranial abnormality on head CT. Abdominal ultrasound showed minimal GB sludge. Hepatomegaly and hepatic steatosis, mild. Trace ascites, right upper quadrant. Abdominal x-ray, 3 mm right mid pole renal stone. Chest CT, see report. Severe emphysema. Bronchitis. Cardiomegaly. Pulmonary edema. Bilateral effusions. Patchy opacities, likely atelectasis. Multi-vessel coronary artery disease. Dilated main pulmonary artery, suggesting pulmonary arterial hypertension. Early cirrhosis. Small hiatal hernia with circumferential wall thickening of the distal esophagus. "May be seen in esophagitis." The patient was advised to follow up with his cement cutter later when more stable. Carotid Doppler less than 50% stenosis per diet technician registered. Echo per tech, ejection fraction 40%. Followup chest x-rays February 22 and February 23 postop without pneumothorax and without pulmonary edema. See also operative reports on February 22 for pacemaker and cardioversion. Serial telemetry monitored constantly while here. See operative record on February 16, heart catheterization. Right and left ventricular dysfunction. Low LV ejection fraction of 20%. Coronary artery disease. Cardioversion, none. Date of procedure listed is February 15. JOSE attempted, but unsuccessful. His impression included an arrhythmogenic cardiomyopathy. No evidence of MA. The operative record dated on February 13. Heart cath, date of procedure listed on February 12. 2+ mitral regurgitation. Mild narrowing of 30% diagonal branch. 50% narrowing left circumflex. 30% proximal portion. 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 LV ejection fraction of 20%. Right internal iliac 90% ostial stenosis. Tortuous iliacs. RECOMMENDATIONS: 1. Medical therapy. 2. The patient had a course of progressive improvement on medical therapy. 3. His malignant hypertension was medically controlled. 4. He was counseled regarding all the findings and requirements for close followup with his consultants. FINAL DIAGNOSES: As above. Respiratory failure on admission, secondary to congestive heart failure. Chronic left ventricular heart failure aggravated by atrial fibrillation with intermittent rapid ventricular rate. Complicated by intermittent bradycardia. Pacemaker implant, this admission. Cardioversion, this admission. Coronary artery disease, as above, see cath report also. Paroxysmal atrial fibrillation and flutter. Malignant hypertension. 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 Degenerative joint disease, especially involving the left knee. Chronically, poorly ambulatory. Peptic ulcer disease. Reactive Hemoccult. Thickened lower esophagus on chest CT. Chronic anticoagulation for atrial fibrillation. Acute kidney disease, improved. Acute urinary retention, improved. Cirrhosis. Chronically edematous gallbladder. Prediabetes. Gastroesophageal reflux disease. Migraine headaches. Hyperlipoproteinemia. The patient was counseled regarding appropriate diet. He will be considered for further lipid management later. Hepatic disease limits options. Recommendations also as mentioned above. The patient has had multiple recent admissions to the [facility] for similar difficulties, which required being addressed here with more definitive treatment. Prognosis is poor. MD ARIAN Overton/CARMINA /[id number]
[2020-02-25] MEDS: LEVALBUTEROL HCL SOLN NEBU 0.63 MG/3 ML NEB INH SCH ×3 (02:10→12:20)
[2020-02-25] MEDS: HYDROCODONE/APAP 10MG-325MG TAB PO PRN ×3 (02:17→14:28)
[2020-02-25] MEDS: SUMATRIPTAN SUCCINATE 25 MG TAB PO PRN (02:49)
[2020-02-25 04:00] VITALS: BP 150/95
--- NOTE | 2020-02-25 06:51 | NUR ---
Report given to oncoming nurse. Patient resting in bed, respirations even and unlabored, no s/s of distress at this time. All safety measures in place.
[2020-02-25 07:41] VITALS: BP 146/79
[2020-02-25 07:51] VITALS: BP 146/79
[2020-02-25] MEDS: FAMOTIDINE 20 MG/2 ML VIAL IV SCH (08:12)
[2020-02-25] MEDS: DILTIAZEM HCL 30 MG TAB PO SCH (08:12)
[2020-02-25] MEDS: DRONEDARONE 400 MG TAB PO SCH (08:12)
[2020-02-25] MEDS: GUAIFENESIN 600 MG TAB PO SCH (08:13)
[2020-02-25] MEDS: APIXABAN 5 MG TABLET PO SCH (08:13)
[2020-02-25] MEDS: FUROSEMIDE 40 MG TAB PO SCH (08:13)
[2020-02-25] MEDS: METOPROLOL TARTRATE 50 MG TAB PO SCH (08:13)
[2020-02-25 11:30] VITALS: BP 124/79
--- NOTE | 2020-02-25 12:39 | NUR ---
IMM letter delivered and explained to pt. He verbalized understanding, states he's ready to go home. Signed copy placed in chart. Copy to pt.
[2020-02-25] MEDS ORDERED: MUCINEX600 MG PO (14:49)
[2020-02-25] MEDS ORDERED: DILTIAZEM HCL30 MG PO ×2 (14:49)
[2020-02-25] MEDS ORDERED: PEPCID20 MG PO (14:50)
[2020-02-25] MEDS ORDERED: METOPROLOL TART50 MG PO (14:51)
[2020-02-25] MEDS ORDERED: XOPENEX0.63 MG/3 (14:52)
--- NOTE | 2020-02-25 15:25 | NUR ---
Pt discharged home at this time. Pt verbalized understanding of discharge instructions and follow up appointments. Pacemaker site is dry and intact. 0 s/s of acute distress noted at time of discharge. Pt was discharged with prescriptions. Pt verbalized understanding of new prescriptions.
--- NOTE | 2020-02-26 02:04 | Operative Report ---
DATE OF PROCEDURE: 02/23/2020 SURGEON: Dayron Langston MD DIAGNOSES: 1. Arrhythmogenic cardiomyopathy with atrial fibrillation and right and left ventricular cardiac dysfunction. 2. Coronary artery disease. 3. Chronic obstructive pulmonary disease. 4. Renal and hepatic dysfunction. 5. History of hypertension. PROCEDURES: 1. Implantation of a permanent AV sequential pacemaker, model [employer]urity MRI DR. The model #[id number], supplied by [employer] attached to [employer]emaker [employer]. 2. Echocardiogram. 3. Electrical cardioversion. ANESTHESIA: 1. Administered by the anesthesiologist. 2. Local anesthetic. BLOOD LOSS: Minimal. COMPLICATIONS: None. DESCRIPTION OF PROCEDURE: This 59-year-old patient was brought to the cardiac catheterization laboratory for pacemaker implantation and electrical cardioversion. The patient was sedated by the anesthesiologist and after the usual prepping and draping, local anesthetic was applied to the left infraclavicular area. The left subclavian vein was then punctured at two different sites after the left subclavian venogram was performed. Guidewires were inserted and positioned at the level of the right atrium. On the first, the local infiltration, an incision was made and the pocket prepared for the pacemaker generator. Dilators and sheaths were then inserted over the guidewires for insertion of the atrial and ventricular electrode to be positioned at the level of the right atrium. The atrial and ventricular sheaths were peeled off and removed in the usual fashion. It shows that the ventricular electrode was advanced to the apex of the right ventricle and after adequate thresholds were obtained. The lead was then secured at the apex of the right ventricle with a typical screw-in type mechanism and 2-0 silk sutures over the sleeve at the site of the pocket. The atrial electrode was then positioned in the region of the right atrial appendage. Since the patient was still in atrial fibrillation, pacing threshold could not be obtained, as the P-wave sensitivity was over 3 mV, and at this point, the lead was again secured with a typical screw-in type mechanism at the site of the right atrial appendage and with 2-0 silk sutures at the site of the pocket. The pocket was then inspected for any bleeding and after adequate hemostasis was achieved. The pocket was lavaged with antibiotic solution. The pacemaker generator was then connected to the ventricular and atrial electrode and positioned in the pre-prepared pocket and secured with 2-0 silk sutures. Subcutaneous tissue was closed with a continuous suture and skin was closed with interrupted sutures and a dressing was applied over the pacemaker site. At this point, a transthoracic echocardiogram was performed to the site. The patient is a candidate for electrical cardioversion or need to be diverted to ablation for his atrial fibrillation, since the previous left ventricular ejection fraction was only 20%. However, there was definitely improvement of the left ventricular wall motion and contractility and ejection fraction now was estimated to be between 30% and 35%, showing adequate motion of the inferior wall and lateral wall. There was hypokinesis of the interventricular septum. However, there is evidence of some improvement of the patient's cardiac function. Electrode cardioversion was then initiated. The patient was put in deep sedation and electrical cardioversion was performed using the synchronized method and applying 200 watt seconds. After some slow recovery, while the patient was paced from his ventricular electrode, eventually a sinus mechanism was established and AV sequential pacing was achieved in atrial ventricular electrode were again analyzed and found to have excellent thresholds and the procedure was then terminated by transferring the patient to the observation area in stable condition and there were no complications. The unit is a bipolar unit with bipolar electrodes. The initial thresholds of the patient's cardiac function revealed the following; the ventricular electrode showed stimulation threshold of 0.5 V and an R-wave amplitude of 12.7 mV. The resistance was 660 ohms. The P-wave for the atrial electrode was 3.3 mV on the assistant product manager on the atrial electrode was 630 ohms. After cardioversion, the stimulation threshold for the ventricular electrode was still 0.5 V and the R-wave amplitude was 4.6 mV with a resistance of 630 ohms. The atrial stimulation threshold was 1 V. The P-wave amplitude was 3.9 mV and resistance was 590 ohms. The pacemaker was programmed at a basic rate of 60 with upper tracking rate of 100. CONCLUSION: Successful implantation of a permanent AV sequential pacemaker and electrical cardioversion to a normal sinus rhythm. Plan is to continue the patient's antiarrhythmic medication and hopefully to keep the patient in sinus mechanism and obtain a followup echocardiogram approximately within one month after the procedure. If the patient has a tendency to return into atrial fibrillation, then the next step would be pursuing ablation for his atrial fibrillation and this was discussed in detail with the patient. MD MADALYN BahH/MODL /[id number] cc: Anthony Green MD
== END 2020-02-25 15:25 | disposition home or self-care (01) | DRG 242 ==
LOC: ER 18:24 → ERHOLD 22:02 → MED/SURG2 02-10 00:10 → ICU 02-16 11:49 → MED/SURG3 02-17 12:16
PROVIDERS: ADMIT Internal Medicine; ATTEND Internal Medicine
PROC: 4A023N8 Measurement of Cardiac Sampling and Pressure, Bilateral, Percutaneous Approach (ICD-10-PCS; principal; 2020-02-13)
PROC: B2111ZZ Fluoroscopy of Multiple Coronary Arteries using Low Osmolar Contrast (ICD-10-PCS; 2020-02-13)
PROC: B2151ZZ Fluoroscopy of Left Heart using Low Osmolar Contrast (ICD-10-PCS; 2020-02-13)
PROC: B4101ZZ Fluoroscopy of Abdominal Aorta using Low Osmolar Contrast (ICD-10-PCS; 2020-02-13)
PROC: B41C1ZZ Fluoroscopy of Pelvic Arteries using Low Osmolar Contrast (ICD-10-PCS; 2020-02-13)
PROC: 5A2204Z Restoration of Cardiac Rhythm, Single (ICD-10-PCS; 2020-02-16)
PROC: 0JH607Z Insertion of Cardiac Resynchronization Pacemaker Pulse Generator into Chest Subcutaneous Tissue and Fascia, Open Approach (ICD-10-PCS; 2020-02-25)
PROC: 02H63JZ Insertion of Pacemaker Lead into Right Atrium, Percutaneous Approach (ICD-10-PCS; 2020-02-25)
PROC: 02HK3JZ Insertion of Pacemaker Lead into Right Ventricle, Percutaneous Approach (ICD-10-PCS; 2020-02-25)
PROC: 5A2204Z Restoration of Cardiac Rhythm, Single (ICD-10-PCS; 2020-02-25)
DX: I13.0 Hypertensive heart and chronic kidney disease with heart failure and stage 1 through stage 4 chronic kidney disease, or unspecified chronic kidney disease (principal); I50.23 Acute on chronic systolic (congestive) heart failure; J18.9 Pneumonia, unspecified organism; J96.90 Respiratory failure, unspecified, unspecified whether with hypoxia or hypercapnia; I48.20 Chronic atrial fibrillation, unspecified; N17.9 Acute kidney failure, unspecified; J44.1 Chronic obstructive pulmonary disease with (acute) exacerbation; N39.0 Urinary tract infection, site not specified; N18.9 Chronic kidney disease, unspecified; R79.89 Other specified abnormal findings of blood chemistry; R33.9 Retention of urine, unspecified; F17.210 Nicotine dependence, cigarettes, uncomplicated; M17.12 Unilateral primary osteoarthritis, left knee; K27.9 Peptic ulcer, site unspecified, unspecified as acute or chronic, without hemorrhage or perforation; K74.60 Unspecified cirrhosis of liver; D64.9 Anemia, unspecified; R73.03 Prediabetes; E78.5 Hyperlipidemia, unspecified; N20.0 Calculus of kidney; R80.9 Proteinuria, unspecified; I25.110 Atherosclerotic heart disease of native coronary artery with unstable angina pectoris; I49.5 Sick sinus syndrome; G43.909 Migraine, unspecified, not intractable, without status migrainosus
CPT/HCPCS: 33208; 36415; 51700; 70450; 71045; 71046; 71250; 74018; 76700; 80048; 80053; 80061; 80162; 80307; 81001; 82270; 82550; 82553; 82607; 82746; 82948; 83036; 83540; 83880; 84443; 84466; 84484; 85025; 85610; 85730; 87635; 92960; 93005; 93306; 93308; 93458; 93880; 94640; 99152; 99153; 99284; C1751; C1760; C1769; J0690; J1160; J1756; J1940; J2001; J2250; J2270; J2405; J2543; J3010; J3030; J3410; J7030; J7040; J7050; Q0162; Q9967